=== PATIENT | male | born 1960 ===

== ENCOUNTER 2020-10-21 12:42 | Emergency (ER) | payer OTHER ==
--- OUTSIDE RECORDS SUMMARY | 2020-10-21 12:44 | XMS REPORT | Clinical Summary ---
:1960 Author Organization [facility] Address [address] [place] [address] Care Team Providers Name Role Phone Ba Jean DO Primary Care Provider Allergies Active Allergy Reactions Severity Noted Date Comments Penicillins Unknown Reaction 09/05/2019 Medications Medication Sig Dispensed Refills Start End Date Status Date B-complex with vitamin 0 Active C tablet 9 pfxxi-xx-7-dha-epa-adriano 0 Active spho-ast (MEGARED 9 OMEGA-3 KRILL OIL) 784-75-60-50 mg capsule riFAXimin (XIFAXAN) 0 Active 550 mg tablet 9 tamsulosin (FLOMAX) 2 Active 0.4 mg capsule 9 lidocaine-prilocaine Apply over 30 g 5 Active (EMLA) 2.5-2.5 % fistula 0 creamIndications: 30-45 min Encounter regarding before vascular access for dialysis dialysis for end-stage renal disease (HCC) acetaminophen-codeine Take 1 12 tablet 0 Active (TYLENOL WITH CODEINE tablet by 0 #3) 300-30 mg per mouth every tabletIndications: 6 (six) acute pain hours as needed for moderate pain for up to 3 days .acute pain. hydroxychloroquine Take by 0 A ctive (PLAQUENIL) 200 mg mouth daily. tablet gabapentin (NEURONTIN) Take 100 mg 0 Active 100 mg capsule by mouth 3 (three) times a day. atorvastatin (LIPITOR) 2 0 Discontinued 40 MG tablet 9 20 (Discon tinued by another clinician) FA-vit 0 01/23/20 Discontinu ed Gncsu-V-jljc-vitamin 9 20 (Discontinued by D3 (DIALYVITE anothe r 800-ULTRA D) 0.8-2,000 clinician) mg-unit tablet traMADol (ULTRAM) 50 0 01/23/20 Discontinued mg tablet 9 20 (Stop Taki ng at Discharge) levothyroxine 0 01/23/20 Discon tinued (SYNTHROID) 112 mcg 9 20 (Discontinued by tablet another clinician) traMADoL (Ultram) 50 Take 1 12 tablet 0 01/26/20 mg tabletIndications: tablet (50 0 20 acute pain mg total) by mouth every 6 (six) hours as needed for moderate pain for up to 3 days .acute pain. Active Problems Problem Noted Date Dialysis AV fistula malfunction 01/22/2020 Overview: Added automatically from request for vincenzo gudino [id number] End stage renal disease 09/11/2019 Overview: Added automatically from request for vincenzo gudino [id number] Encounter regarding vascular access for dialysis for e nd-stage renal 09/11/2019 disease Overview: Added automatically from request for vincenzo gudino [id number] Encounters Date Type Specialty Care Team Description 04/12/2020 Documentation Cardiovascular Delilah, [place] off ice call ROSENDO Carnes 02/22/2020 Office Visit Cardiovascular Milvia Coto Encounter re MARCY Peterson vascular acce ss for dialysis for en d-stage renal disease ( HCC) (Primary Dx) 02/22/2020 Travel 02/19/2020 Telephone Cardiovascular More Hernandez RN 02/19/2020 Travel 02/08/2020 Telemedicine Cardiovascular Jesse James Encounter r val Kim MD vascular acces s for dialysis for en d-stage renal disease ( HCC) (Primary Dx) 01/31/2020 Telephone Cardiovascular More Hernandez, ASHLI 01/26/2020 Telephone Cardiovascular More Hernandez RN 01/26/2020 Travel 01/23/2020 Surgery General Surgery Jesse James TUNNELED D IABRIGHT Kim MD CATHETER INSER TION (CHEST RIGHT ) 01/23/2020 Anesthesia Event General Surgery Gaby Forman MD Cheema, Ivelisse, FNP 01/23/2020 Hospital Encounter General Surgery Jesse James End stage renal disease (HCC); MD Judy Malfunction of arteriovenous dialysis fistula, initial encounter ([facility]) 01/23/2020 Telephone Cardiovascular Iain Anna 01/23/2020 Travel 01/22/2020 Prep for Surgery Cardiovascular David, End stage renal disease (HCC) (Primary Dx); ASHLI Aguero Malfunction of arteriovenous dialysis fistula, initial encounter ([facility]) 01/22/2020 Telephone Cardiovascular Trice Mazariegos MA 11/02/2019 Office Visit Cardiovascular Jesse James Encounter r egarding MD Judy vascular access for Milvia Coto dialysis for e nd-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[place], 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) (Primary Dx) after 10/21/2019 Surgical History Surgery Date Site/Laterality Comments APPENDECTOMY TONSILLECTOMY TOTAL HIP ARTHROPLASTY Left CARDIAC CATHETERIZATION CATARACT EXTRACTION Bilateral CREATION, AV FISTULA 10/02/2019 Left Procedure: LEFT ARM ARTERIOVENOUS FI STULA CREATION; Surge on: Jesse James i, MD; Location: [facility] OR; Service: Vascula r; Laterality: Left ; INSERTION, CATHETER, CENTRAL 01/23/2020 Chest/N/A Pro cedure: TUNNELED DIALYSIS VENOUS, TUNNELED, FOR CATHETER I NSERTION (CHEST HEMODIALYSIS RIGHT ); Surgeo n: Jesse James i, MD; Location: [facility] OR; Service: Vascula r; Laterality: N/A; Medical devices from this surgery are in t he Implants section. 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 Last Filed Vital Signs Vital Sign Reading Time Taken Comments Blood Pressure 112/58 02/22/2020 1:25 PM CDT Pulse 68 02/22/2020 1:25 PM CDT Temperature 36.5 C (97.7 F) 02/22/2020 1:25 PM CDT Respiratory Rate 17 01/23/2020 11:46 AM CDT Oxygen Saturation 100% 02/22/2020 1:25 PM CDT Inhaled Oxygen Concentration - - Weight 88.1 kg (194 lb 3.2 oz) 02/22/2020 1:25 PM CDT Height 175.3 cm (5' 9") 02/22/2020 1:25 PM CDT Body Mass Index 28.68 02/22/2020 1:25 PM CDT Plan of Treatment Health Maintenance Due Date Last Done Comments COVID-19 VACCINE (#1) 1974 COLONOSCOPY SCREENING 02/28/2008 SHINGLES VACCINES (#1) 02/28/2008 INFLUENZA VACCINE 05/25/2020 Implants Implanted Type Area Progressive Care Unit Registered Nurse Device Shelf Model / Identifier Expiration Serial / Date Lot Catheter Dialysis Glidepath [id number] Symmetric Tip - [id number] - [id number] Central N/A: N/A CR BARD 01/22/2021 [id number] / Implanted: Qty: 1 on 01/23/2020 by Jesse James MD at [facility] Venous 1111 / Catheters Procedures Procedure Name Priority Date/Time Associated Comments Diagnosis SC REMOVAL TUNNELED CV Routine 02/22/2020 1:30 Encounter R esults for this CATH W/O SUBQ PORT OR PM CDT regarding vascular procedure are in PUMP access for the results dialysis for section. end-stage renal disease (HCC) OR FL < 1 HOUR Routine 01/23/2020 11:00 Results f or this AM CDT procedure are i n the results section. POC PANEL 4 Routine 01/23/2020 9:20 Results for this AM CDT procedure are i n the results section. XR CHEST 1 VW PORTABLE STAT 01/23/2020 9:13 R esults for this AM CDT procedure are i n the results section. ESTIMATED GFR STAT 01/23/2020 9:12 Results fo r this AM CDT procedure are i n the results section. TYPE AND SCREEN STAT 01/23/2020 9:12 Results for this AM CDT procedure are i n the results section. PARTIAL THROMBOPLASTIN STAT 01/23/2020 9:12 R esults for this TIME (PTT) AM CDT procedure are i n the results section. PROTHROMBIN TIME WITH STAT 01/23/2020 9:12 Re sults for this INR AM CDT procedure are i n the results section. BASIC METABOLIC PANEL STAT 01/23/2020 9:12 Re sults for this AM CDT procedure are i n the results section. HC COMPLETE BLD COUNT STAT 01/23/2020 9:12 Re sults for this W/AUTO DIFF AM CDT procedure are i n the results section. ECG 12-LEAD STAT 01/23/2020 9:07 Results for this AM CDT procedure are i n the results section. after 10/21/2019 Results TDC Removal (02/22/2020 1:30 PM CDT) Narrative Performed At iMlvia Coto FNP 2019 2:10 PM TDC Removal Date/Time: 02/22/2020 2:10 PM Performed by: Milvia Coto F FOOD SERVICE AGENT Authorized by: Milvia Coto FNP TDC site anesthetized with local anesthetic. The cuff was dissected free and the catheter removed in its entirety. Pressure was held at the site to ensure hemostasis. Pressure dressing jonatan lied. Verbal and written instructions and ER warnings given. Consent: Consent obtained: Verbal Consent given by: Patient Risks discussed: Bleeding, infectio n and pain [place] protocol: Procedure explained and questions ans wered to patient or proxy's satisfaction: yes Site/side marked: yes Immediately prior to procedure a time out was called: yes Patient identity confirmed: Verball y with patient Post-procedure details: Patient tolerance of procedure: Miguel erated well, no immediate complications OR FL < 1 Hour (01/23/2020 11:00 AM CDT) Specimen Narrative Performed At EXAMINATION: OR FL < 1 HOUR HM [facility] CLINICAL HISTORY: None provided. IMPRESSION: 1. Fluoroscopy was provided in the operating. I was no t present during the procedure. 2. Please refer to the operative report for findings. 3. Total Dose: 1 fluoroscopic images. 6.8 minutes of fluoroscopy time. Procedure Note Interface, Radiology Results Incoming - 01/23/2020 12:20 PM CDT EXAMINATION: OR FL < 1 HOUR CLINICAL HISTORY: None provided. IMPRESSION: 1. Fluoroscopy was provided in the opera ting. I was not present during the procedure. 2. Please refer to the operative report for findings. 3. Total Dose: 1 fluoroscopic images. 6 .8 minutes of fluoroscopy time. Performing Organization Address City/State/ZIP Code Phon e Number [facility] [address] [facility] [place] [address] POC panel 4 (01/23/2020 9:20 AM CDT) POC sodium 141 135 - 148 [facility] mmol/L [facility] POC potassium 4.3 3.5 - 5.0 [facility] mmol/L [facility] POC hematocrit 32 (L) 41 - 51 % [facility] POC glucose 77 65 - 99 mg/dL [facility] Comment: SOLON Buncher Hand Name: [facility] Device ID: [id number] POC hemoglobin 10.9 (L) 14.0 - 18.0 [facility] g/dL [facility] Specimen Blood Performing Organization Address City/State/ZIP Code Phon e Number [facility] DEPARTMENT OF PATHOLOGY [address] [facility] [address] AND GENOMIC MEDICINE [facility] [address] [facility] [place] [address] HOSPITAL XR Chest 1 Vw Portable (01/23/2020 9:13 AM CDT) Specimen Narrative Performed At EXAMINATION: XR CHEST 1 VW PORTABLE [facility] CLINICAL HISTORY: pre-op COMPARISON: Chest x-ray 10/02/2019 IMPRESSION: Lines and tubes: There has been interval removal of th e right-sided tunneled dialysis catheter. Heart and mediastinum: Cardiomediastinal silhouette is stable. Lungs and pleura: There is mild pulmonary venous conge stion. There is no focal consolidation, pleural effusion, o r pneumothorax. Bones: No acute osseous abnormality. [facility]-[id number] Dictated and approved by residential service technician/fellow: Ra niharika Tam M.D. I, Scar Jones MD, personally reviewed the images and resident's/fellow's findings and agree with the final report. Procedure Note Interface, Radiology Results Incoming - 01/23/2020 10:18 AM CDT EXAMINATION: XR CHEST 1 VW PORTABLE CLINICAL HISTORY: pre-op COMPARISON: Chest x-ray 10/02/2019 IMPRESSION: Lines and tubes: There has been interval removal of the right-sided tunneled dialysis catheter. Heart and mediastinum: Cardiomediastinal silhouette is stable. Lungs and pleura: There is mild pulmonar y venous congestion. There is no focal consolidation, pleural effusion, or pneumothorax. Bones: No acute osseous abnormality. [facility]-[id number] Dictated and approved by radiology resid ent/fellow: Demarcus Tam M.D. I, Scar Jones MD, personally reviewed the images and resident's/fellow's findings and agree with the final report. Performing Organization Address City/[facility]/ZIP Code Phon e Number [facility] [address] [place] [address] Estimated GFR (01/23/2020 9:12 AM CDT) Estimated GFR 27 (A) mL/min/1.73 [facility] Comment: m2 SOLON Catergory Units Interpretation HOS PITAL G1 >=90 Normal or high G2 60-89 Mildly decreased G3a 45-59 Mildly to moderately decreas ed G3b 30-44 Moderately to severely decre ased G4 15-29 Severely decreased G5 <15 Kidney failure The eGFR was calculated using the Chronic Kidney Disea se Epidemiology Collaboration (CKD-EPI) equation. Interpretation is based on recommendations of the National Kidney Foundation-Kidney Disease Outcomes Adria lity Initiative (NKF-KDOQI) published in 2014. Specimen Performing Organization Address [facility] Phon e Number [facility] DEPARTMENT OF PATHOLOGY [address] [place] [address] X [address] [address] HOSPITAL Partial thromboplastin time, activated (01/23/2020 9:12 AM CDT) Pathologist [facility] PTT 38.9 (H) 23.0 - 36.0 [facility] Comment: [facility] PTT therapeutic range for unfractionated heparin is HOSPITAL 61.0-112.0 seconds which corresponds to Anti-Xa 0.3-0.7 U/ml. Specimen Blood Performing Organization Address [facility] Phon e Number [facility] DEPARTMENT OF PATHOLOGY [address] [place] [address], [place] [address] [place] [address] HOSPITAL Prothrombin time with INR (01/23/2020 9:12 AM CDT) Prothrombin time 15.0 (H) 11.5 - 14.5 [facility] INR 1.2 [facility] Comment: TOYA AGUILAR [facility] International Normalized Ratio (INR) is a therapeu [facility] HOSPITAL monitoring tool for patients who are stable on oral anticoagulant therapy. An INR of 2.0-3.0 is suggested for deep vein thrombosis/pulmonary embolism. Specimen Blood Performing Organization Address [facility]/State/ZIP Code Phon e Number [facility] DEPARTMENT OF PATHOLOGY [address] [place] [address] CBC with platelet and differential (01/23/2020 9:12 AM CDT) WBC 6.7 4.5 - 11.0 k/uL [facility] RBC 3.07 (L) 4.40 - 6.00 [facility] m/uL [facility] HGB 10.2 (L) 14.0 - 18.0 [facility] g/dL [facility] HCT 30.3 (L) 41.0 - 51.0 % [facility] MCV 98.7 82.0 - 100.0 fL [facility] MCH 33.2 27.0 - 34.0 pg [facility] MCHC 33.7 31.0 - 37.0 [facility] g/dL [facility] RDW - SD 53.2 37.0 - 55.0 fL [facility] MPV 10.0 6.9 - 11.0 fL [facility] Platelet count 88 (L) 150 - 400 K/uL [facility] Nucleated RBC 0.00 /100 WBC [facility] Neutrophils 48.4 39.0 - 69.0 % [facility] Lymphocytes 22.5 (L) 25.0 - 45.0 % [facility] Monocytes 8.1 0.0 - 10.0 % [facility] Eosinophils 19.0 (H) 0.0 - 5.0 % [facility] Basophils 1.9 (H) 0.0 - 1.0 % [facility] Immature granulocytes 0.1 0.0 - 1.0 % [facility] Specimen Blood Performing Organization Address City/State/ZIP Code Phon e Number [facility] DEPARTMENT OF PATHOLOGY [address] [place] [address] [address] [place] [address] HOSPITAL Type and screen (01/23/2020 9:12 AM CDT) Pathologist Sig nature ABO grouping O [facility] Rh type POS [facility] Antibody screen (gel) NEG [facility] Specimen Blood Performing Organization Address [facility] Phon e Number [facility] DEPARTMENT OF PATHOLOGY [id number] [place] [address] X [address] AND GENOMIC MEDICINE [facility] [id number] [place] [address] X [address] [facility] Basic metabolic panel (01/23/2020 9:12 AM CDT) Pathologist Sig [facility] Sodium 140 135 - 148 mEq/L [facility] Potassium 4.4 3.5 - 5.0 mEq/L [facility] Chloride 109 98 - 112 mEq/L [facility] CO2 18 (L) 24 - 31 mEq/L [facility] Anion gap 13@ANIO 7 - 15 mEq/L [facility] BUN 29 (H) 8 - 23 mg/dL [facility] Creatinine 2.46 (H) 0.70 - 1.20 mg/dL [facility] Glucose 81 65 - 99 mg/dL [facility] Calcium 9.1 8.8 - 10.2 mg/dL [facility] Specimen Blood Performing Organization Address [facility] Phon e Number [facility] DEPARTMENT OF PATHOLOGY [id number] [place] [address] AND GENOMIC MEDICINE [facility] [id number] [place] [address] [facility] ECG 12 lead (01/23/2020 9:07 AM CDT) Pathologist Sig [facility] Ventricular rate 71 [facility] Atrial rate 71 [facility] SC interval 200 [facility] QRSD interval 88 [facility] QT interval 406 [facility] QTC interval 441 [facility] P axis 1 78 [facility] QRS axis 1 79 [facility] T wave axis 72 [facility] EKG impression Normal sinus [facility] MUSE rhythm-Normal ECG-In automated comparison with ECG of 02-OCT-2019 07:37,-No significant change was found- Specimen Narrative Performed At This result has an attachment that is no t available. Performing Organization Address City/[facility] Phon e Number [facility] MUSE [address] [place] [address] after 10/21/2019 Advance Directives For more information, please contact: [phone] Type Date Recorded Patient Blasting Entryman Explanati on Advance Directives, Living Will 10/02/2019 5:55 AM and Medical Power of Machinist Class B Advance Directives, Living Will 01/23/2020 8:38 AM and Medical Power of Machinist Class B
--- OUTSIDE RECORDS SUMMARY | 2020-10-21 12:53 | XMS REPORT | Continuity of Care Document ---
:1960 Author Organization [employer] Care Team Providers Name Role Phone [facility] [place] [employer] Unavailable Un available Problems Problem Status Onset Classification Date Comments Sourc e Date Reported ANASARCA Active [address] F/U Active [address] KALEIGH, ANASARCA Active [address] KALEIGH Active [address],[facility] N18.3 - CHRONIC KIDNEY Active OPID DISEASE, STAGE 019 [facility] nn ASCITES Active [address] DIARRHEA, UNSPECIFIED Active [address] Hepatorenal syndrome [place] [address] [facility] CLINIC APPT Active [address] ANEMIA Active [address] DC ESTABLISHED VISIT Active [address] HIDA W/EF Active [address] Right upper quadrant [facility] pain [address] [place] [address] BELLY SWELLING [place] [address] [place] [address] LABH Active [address] Localized edema O PID 018 8 [place] D50.[address] CONSULT Active [address] Abnormal results of liver function studies 018 8 [facility] R79.[address] GUIDED Active LIVER BIOPSY 018 [place] R79.89, K80.20 Active 018 [facility] Adenomatous polyp of Resolved Problem [facility] colon (disorder) [address] [facility] Center, [facility]o [facility] Spine, OPID [place] History of adenomatous Active 06/25/2 Problem [facility] polyp of colon 017 8 Medic al (situation) Center,[facility] OPID [place],[facility] GI BLEEDING SYMPTOMS Active [place] [address] [place] Paresthesia (finding) Active Problem Data [facility] 014 9 migrated Medical from [facility], [facility] Ortho and on 03/23/15. Spine, ANATOLIY Dickens,[facility], [place] Abrasion AND/OR Resolved Problem Data [facility] [place] friction burn of foot 013 9 migrated Medical without infection from [facility], (disorder) [facility] an d on 03/23/15. Spine, ANATOLIY Dickens,[facility], [place] Alcoholic cirrhosis Active Problem Data [facility] (disorder) 013 9 migrated Medical from [facility] Ortho and on 03/23/15. Spine, ANATOLIY Dickens,[facility] Elevated levels of Active Problem Data [facility] transaminase & lactic 013 9 migrated Medical acid dehydrogenase from [facility], (finding) [facility] Ortho and on 03/23/15. Spine, ANAD Chrissie,[facility], [place] Alcoholic fatty liver Active Problem Data [place] (disorder) 013 7 migrated Land from [facility] on 03/23/15. Anemia (disorder) Resolved Problem [facility] 7 [facility] Illness, unspecified [facility] 9 [facility] Center Alcohol abuse Resolved Problem Data [place] (disorder) 9 migrated Medical from [facility], [facility] and on 03/23/15. Spine, ANATOLIY Dickens,[facility] Anemia due to blood Resolved Problem [facility] loss (disorder) 9 [facility], Ortho and Spine, ANATOLIY Dickens,[facility] Chronic kidney disease Active Problem Data [facility] stage 3 (disorder) 9 migrated edical from [facility], [facility] and on 03/23/15. Spine, ANATOLIY Dickens,[facility] Edema, generalized Active Problem [facility] [place] (finding) 9 [facility], Ortho and Spine, OPID Chrissie Gastric ulcer with Resolved Problem [facility] hemorrhage (disorder) [address] [place] [address] Center, [facility]o [facility] Spine, OPID Chrissie,[facility], [place] Hypercholesterolemia Active Problem [facility] (disorder) [address] [place] [address], Ortho and Spine, OPID Chrissie,[facility], [place] Hypertensive disorder, Active Problem [facility] systemic arterial 9 Sc dical (disorder) Center, [facility] Spine, OPID [place],[facility], [place] Hypothyroidism Active [place] ([place]order[place] [address] [place] [address], Ortho and Spine, OPID [place],[facility], [place] Injury of kidney Resolved Problem [facility] (disorder) [address] [place] [address], Ortho and Spine, OPIMindy Dickens Obesity (disorder) Active Problem [address], Ortho and Spine, OPID Chrissie,[facility], [place] Rheumatoid arthritis Active Problem Data [facility] (disorder) migrated Medical from [facility], [facility] and on 03/23/15. Spine, ANATOLIY Dickens,[facility] Acute kidney failure, [facility] unspecified [address] [place] [address] Angiodysplasia of [facility] stomach and duodenum Medical with bleeding Center Acute posthemorrhagic [facility] anemia [address] [place] [address] Center Secondary esophageal [facility] varices without [address] [place] [address] bleeding Center Portal hypertension [address], ANATOLIY Dickens Coagulation defect, [facility] unspecified [address] [place] [address] Alcohol dependence [facility] with withdrawal, 9 Med ical unspecified Center Personal history of [facility] nicotine dependence [address] [place] [address] Hyperlipidemia, [place] unspecified [address] [place] [address] Hypothyroidism, [place] unspecified [address] [place] [address] Center [facility]pat[facility] ([facility] [address] [place] [address] Center Chronic kidney [place] disease, stage 3 9 Med ical (moderate) Center Other diseases of [facility] stomach and duodenum 9 Medical Center Rheumatoid arthritis, [facility] unspecified [address] [place] [address] Center Hypertensive chronic [facility] kidney disease with 9 Medical stage 1 through stage Center 4 chronic kidney disease, or unspecified chronic kidney disease Fluid overload, [place] unspecified [address] [place] [address] Center Morbid (severe) [facility] ex[place] obesity due to excess 9 [facility] calories Center Body mass index (BMI) [facility] 36.0-36.9, adult [facility] ical Center 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 Cent er, without angina OPID pectoris [place] Thrombocytopenia, [facility] unspecified [address] [place] [address] Center Alcoholic cirrhosis of [facility] liver without ascites [address] [place] [address], OPID Chrissie Tremor, unspecified [address] Center Alcoholic hepatic [facility] failure without coma [address] [place] [address] Constipation, [place] as unspecified Medical Center Personal history of [facility] peptic ulcer disease [address] [place] [address] Splenomegaly, not OPID elsewhere classified [address] [place] [address] Personal history of [facility] other diseases of the [address] [place] [address] Alcohol dependence, in [facility] remission Medical Center Pure [facility] hypercholesterolemia, [address] [place] [address] unspecified Center Obesity, unspecified [address] Center Personal history of [facility] colonic polyps 9 [facility] al Center Calculus of [facility] gallbladder without [address] [place] [address] cholecystitis without Center, obstruction ANAD Chrissie,[facility] Congestive heart Active Problem [facility] failure (disorder) 9 [facility] Moderate protein Active Problem [facility] energy malnutrition 9 Medical (disorder) Center Chronic kidney disease Active Problem Data [place] stage 2 (disorder) 7 migrated L and from [facility] on 03/23/15. Dyslipidemia Active Problem Data [place] (disorder) 7 migrated Land from [facility] on 03/23/15. Essential hypertension Active Problem Data [place] (disorder) 7 migrated Land from [facility] on 03/23/15. Other specified abnormal findings of 8 [facility] blood chemistry Fatty (change of) liver, not elsewhere 8 [facility] classified Essential (primary) hypertension [address] Nonspecific elevation OPID of levels of 8 [place] transaminase and lactic acid dehydrogenase [LDH] Anemia, unspecified [address], OPIMindy Dickens Unspecified cirrhosis [facility] of liver [address] [place] [address], ANATOLIY Dickens,[facility] ACUTE KIDNEY FAILURE, Active [facility] ILLNESS, UNSPECIFIED Active [facility] ENCNTR FOR GENERAL Active [facility] ADULT MEDICAL EXAM W/ [facility] ANEMIA, UNSPECIFIED Active [facility] PERSONS ENCOUNTERING Active [facility] SERVICES IN [facility] Medications Medication Details Route Status Patient Ordering Order Source Instructions Provider Date Acetaminophen 325 650 mg = 2 Active 07/10[facility] [place] MG Oral Tablet tab, PO, Q4H, 2019 Med ical [Tylenol] X 30 day, # Center 360 tab, 0 Refill(s) tramadol 50 mg = 1 tab, Inactive 07/10[facility] [place] hydrochloride 50 PO, Daily, # 2019 Me dical MG Oral Tablet 14 tab, 0 Center Refill(s) atorvastatin 40 mg 40 mg = 1 tab, Active 07/10[facility] oral tablet PO, Bedtime, 0 2019 Medic al Refill(s) [place] Mirtazapine 15 MG 15 mg = 1 tab, Active 07/10[facility] Oral Tablet PO, Bedtime, 0 2019 Medic al Refill(s) [place] riFAXimin 550 mg 550 mg = 1 Active 07/10[facility] [place] oral tablet tab, PO, Q12H, 2019 Medic al # 60 tab, 3 Center Refill(s) amLODIPine 10 mg 10 mg = 1 tab, Active 07/10[facility] [place] oral tablet PO, Daily, # 2019 Medical 30 tab, 3 Center Refill(s) Lactulose 667 20 gm = 30 mL, Active 07/10[facility] [place] MG/ML Oral PO, TID, X 30 2019 Medical Solution day, # 2700 Center mL, 3 Refill(s) tamsulosin 0.4 mg 0.4 mg = 1 Active 07/10[facility] oral capsule cap, PO, QPM, 2019 Medic al # 30 cap, 3 Center Refill(s) tramadol Notes: Not to Inactive [place] hydrochloride 50 exceed 2019 Medical MG Oral Tablet 400mg/day. Center (Same As: [facility]) Amlodipine Notes: (Same No Longer [place] as: Norvasc) Active 2019 [facility] Tramadol Notes: Not to [place] exceed Active 2019 Medical 400mg/day. Center (Same As: [facility]) Fentanyl 25 microgram, Inactive [place] Route: IV, 2019 Medical ONCE, Dosing Center Weight 78.9, kg, Start date: 07/07/19 10:28:00 CDT, Stop date: 07/07/19 10:28:00 CDT Epinephrine 0.01 8 mL, Route: Inactive H [place] MG/ML / Lidocaine INTRADERM, 2019 Med ical Hydrochloride 10 Dosing Weight C enter MG/ML Injectable 78.9, kg, Solution ONCE, Start date: 07/07/19 10:27:00 CDT, Stop date: 07/07/19 10:27:00 CDT Fentanyl 75 microgram, Inactive [place] Route: IV, 2019 Medical ONCE, Dosing Center Weight 78.9, kg, Start date: 07/07/19 10:27:00 CDT, Stop date: 07/07/19 10:27:00 CDT Tramadol Notes: Not to [place]er [place] exceed Active 2018 Medical 400mg/day. Center (Same As: [facility]) tramadol Notes: Not to Inactive [place] hydrochloride 50 exceed 2019 Medical MG Oral Tablet 400mg/day. Center (Same As: [facility]) Sodium Chloride 250 mL, Rate: No Longer [place] 0.9% (titrate) 250 To prime line Active 2018 Medical mL and flush Center remaining blood products., Dosing Weight 78.9, kg, Route: IV, Total Volume: 250, Priority: Routine, Start Date: 07/06/19 9:24:00 CDT, Duration: 1 day, Stop date: 07/07/19 9:23:00 CDT, Replace Every: 24 hr, 0 Etanercept 25 mg, Route: No Longer [place] SUB-Q, Q-M and Active 2019 Medical Th, Dosing Center Weight 78.9, kg, Start date: 07/06/19 9:00:00 CDT, Duration: 30 day, Stop date: 08/03/19 9:00:00 CDT Hydralazine 10 mg, Route: Inactive [place] IVP, Q20Min, 2018 Medical Dosing Weight Center 78.9, kg, PRN Elevated BP, Start date: 07/04/19 7:20:00 CDT, Duration: 2 doses or times, Stop date: Limited # of times esmolol 10 mg, Route: Inactive [place] IVP, Q5Min, 2018 Medical Dosing Weight Center 78.9, kg, PRN Other -See Comment, Start date: 07/04/19 7:20:00 CDT, Duration: 5 doses or times, Stop date: Limited # of times Labetalol 10 mg, Route: [place] IVP, Q5Min, 2018 Medical Dosing Weight Center 78.9, kg, PRN Elevated BP, Start date: 07/04/19 7:20:00 CDT, Duration: 5 doses or times, Stop date: Limited # of times Metoprolol 1 mg, Route: [place] IVP, Q5Min, 2018 Medical Dosing Weight Center 78.9, kg, PRN Other -See Comment, Start date: 07/04/19 7:20:00 CDT, Duration: 5 doses or times, Stop date: Limited # of times Morphine 2 mg, Route: Inactive [place] IVP, Q5Min, 2018 Medical Dosing Weight Center 78.9, kg, PRN Pain Score 4-6, Start date: 07/04/19 7:20:00 CDT, Duration: 5 doses or times, Stop date: Limited # of times Flumazenil 0.2 mg, Route: Inactive [place] IVP, PRN, 2019 Medical Dosing Weight Center 78.9, kg, PRN Benzodiazepine Reversal, Initial dose, Start date: 07/04/19 7:20:00 CDT, Duration: 30 day, Stop date: 08/03/19 7:19:00 CDT Naloxone 0.4 mg, Route: [place] IVP, Q2MIN, 2019 Medical Dosing Weight Center 78.9, kg, PRN Narcotic Reversal, Start date: 07/04/19 7:20:00 CDT, Duration: 8 doses or times, Stop date: Limited # of times Ondansetron 4 mg, Route: Inactive [place] IVP, ONCE, 2019 Medical Dosing Weight Center 78.9, kg, PRN Nausea & Vomiting, Start date: 07/04/19 7:20:00 CDT tramadol Notes: Not to [place] Longer [place] hydrochloride 50 exceed Active 2019 Medical MG Oral Tablet 400mg/day. Center (Same As: [facility]) albumin human 25% 25 gm, Route: Inactive [facility] intravenous IVPB, ONCE, 2019 Medical solution Dosing Weight Center 78.9, kg, Start date: 07/01/19 9:35:00 CDT, Stop date: 07/01/19 9:35:00 CDT, Indication: Intradialytic Hypotension - See comments tramadol Notes: Not to Inactive [facility] hydrochloride 50 exceed 2019 Medical MG Oral Tablet 400mg/day. Center (Same As: [facility]) Lasix Notes: (Same Inactive [facility] as: Lasix) 2019 Medical MEDICATION Center WASTE Product Size: 40 mg Product Wasted: ___ mg Lactulose 667 Notes: (Same No Longer [facility] MG/ML Oral as:Chronulac) Active 2019 Medical Solution Center Lactulose 667 20 gm, Route: Inactive [facility] MG/ML Oral DHT, Drug 2019 Medical Solution form: SYRP, Center Q8H, Dosing Weight 78.9, kg, Start date: 06/30/19 16:00:00 CDT, Duration: 30 day, Stop date: 07/30/19 8:00:00 CDT, 0 Lasix Notes: (Same Inactive [facility] as: Lasix) 2019 Medical MEDICATION Center WASTE Product Size: 40 mg Product Wasted: ___ mg Lasix 100 mg, Route: Inactive [facility] IVP, Drug 2019 Medical form: INJ, Center ONCE, Dosing Weight 78.9, kg, Start date: 06/30/19 13:20:00 CDT, Stop date: 06/30/19 13:20:00 CDT Levothroid Notes: Take 1 No Longer [place] hour before or Active 2019 Medical 2 hours after Center meal; Enteral feeds may interefere with the absorption of this medication.([facility] as:Levothroid) rifaximin Notes: Same No Longer [place] as: Xifaxan Active 2019 Medical Center tramadol Notes: Not to [place] Longer [place] hydrochloride 50 exceed Active 2019 Medical MG Oral Tablet 400mg/day. Center (Same As: Ultram) Flomax Notes: (Same No Longer [facility] As: Flomax) Active 2019 Medical "Do Not Crush" Center Zinc Sulfate Notes: (Zinc No Longer [place] sulfate Active 2019 Medical capsule) - 220 Center mg Zinc sulfate = 50 mg elemental zinc Same as Zinc Sulfate Thyroxine 120 microgram, Inactive [place] as Route: PO, 2019 Medical Daily, Dosing Center Weight 78.9, kg, Priority: NOW, Start date: 06/29/19 10:09:00 CDT, Duration: 30 day, Stop date: 07/29/19 9:00:00 CDT Flomax 0.4 mg, Route: Inactive [facility] PO, Daily, 2019 Medical Dosing Weight Center 78.9, kg, Priority: NOW, Start date: 06/29/19 10:08:00 CDT, Duration: 30 day, Stop date: 07/29/19 9:00:00 CDT Etanercept Notes: (Same No Longer [place] as: Enbrel) Active 2019 Medical Non-Formulary Center nxstage pureflow 5,000 mL, Inactive [place] rfp-400 5000ml Route: 2019 Medical SOLN 5000 mL DIALYSIS, Center Irrigation Site: Abdomen, lower quadrant, rt, 4,000 ml/hr, 1.3 hr, Total Volume: 5,000 mL, Priority: Routine, "For Irrigation Only", Start date: 06/28/19 20:00:00 CDT, Duration: 8 hr, Stop date: 06/29/19 3:59:00 CDT physiological Notes: NxStage No Longer 06/29/ H [place] irrigating RFP-400 = Active 2019 Medical solution K2/Ca3 Total Center ingredients in bag Na 140meq/L; K 2meq/L; HCO 35meq/L; Ca 3meq/L; Magnesium 1meq/L; CL 111meq/L; Glucose 100mg/dL; "Break seal Between compartments and mix before hanging" rifaximin Notes: (Same No Longer [place] as: Xifaxan) Active 2019 [facility] physiological Notes: NxStage Inactive [facility] irrigating RFP-400 = 2019 Medical solution K2/Ca3 Total Center ingredients in bag Na 140meq/L; K 2meq/L; HCO 35meq/L; Ca 3meq/L; Magnesium 1meq/L; CL 111meq/L; Glucose 100mg/dL; "Break seal Between compartments and mix before hanging" Potassium Chloride Notes: (Same Inactive [facility] as: KCL) 2019 Medical Infuse no Center faster than 10 mEq/hr if given peripherally. Magnesium Sulfate Notes: WASTE: Inactive [facility] F/P - Sink; E 2019 [facility] Trash Bin Magnesium Oxide Notes: (Same Inactive [facility] as: Mag-Ox 2019 Medical 400) Magnesium Center oxide [id number] elemental magnesium Dose=____mg magnesium oxide (___mg elemental magnesium) potassium Notes: (Same Inactive [facility] phosphate as: K 2019 Medical Phosphate.) Center Do not infuse phosphorous concurrently in the same line as TPN or IVF that contains calcium. For double lumen central lines, phosphorous may be infused in a separate lumen from TPN. 1 mMol phoshate has 1.47 mEq potassium Infuse over 4 hours potassium Notes: (Same Inactive [facility] phosphate-sodium as: Phos-NaK) 2019 M edical phosphate 250 Each 1.5 gm Center mg-280 mg-160 mg pkt has 250mg oral powder for phosphorous. reconstitution Mix w/2.5oz water and stir. sodium phosphate Notes: Infuse Inactive [facility] over 4 hour. 2019 Medical Do not infuse Center phosphorous concurrently in the same line as TPN or IVF that contains calcium. For double lumen central lines, phosphorous may be infused in a separate lumen from TPN. Calcium Chloride Notes: WASTE: Inactive [facility] [place] F/P - Sink; E 2019 Medical [facility] Center Trash Bin Vancomycin 2001 mg: Inactive [place] infuse over 2019 Medical 2.5 hours For Center adult patients only: Round to nearest 250 mg per Medical Staff approval MEDICATION WASTE Product Size: 1000 mg Product Wasted: ___ mg Lactulose Notes: (Same Inactive [place] as:Chronulac) 2019 Medical Center Octreotide Notes: (Same No Longer [place] As: Active 2019 Medical SandoSTATIN). Center Refrigerate. MEDICATION WASTE Product Size: 50 microgram Product Wasted: _0__ microgram Vancomycin 2001 mg: No Longer [place] infuse over Active 2019 Medical 2.5 hours For Center adult patients only: Round to nearest 250 mg per Medical Staff approval MEDICATION WASTE Product Size: 1000 mg Product Wasted: ___ mg Doxazosin Notes: (Same No Longer [place] as: Cardura) Active 2019 Medical Center Folic Acid Notes: (Same No Longer [place] as: Folvite) Active 2019 Medical Center cefepime Notes: (Same No Longer [facility] As: Maxipime) Active 2019 Medical Center MEDICATION WASTE Product Size: 1000 mg Product Wasted: __0_ mg Hydralazine 10 mg, Route: Inactive [place] IV, Q6H, 2019 Medical Dosing Weight Center 78.9, kg, Start date: 06/27/19 6:00:00 CDT, Duration: 30 day, Stop date: 07/27/19 0:00:00 CDT Versed Notes: (Same Inactive [facility] as: Versed) 2019 Medical MEDICATION Center WASTE Product Size: 2 mg Product Wasted: ___ mg Hydralazine Notes: (Same No Longer [place] as: Active 2019 Medical Apresoline) Center Push over 5 minutes Lactulose 667 Notes: (Same No Longer [place] MG/ML Oral as:Chronulac) Active 2019 Medical [facility] Center cefepime Notes: (Same No Longer [place] As: Maxipime) Active 2019 Medical Center MEDICATION WASTE Product Size: 1000 mg Product Wasted: ___ mg Vancomycin 2001 mg: Inactive [facility] infuse over 2019 Medical 2.5 hours For Center adult patients only: Round to nearest 250 mg per Medical Staff approval MEDICATION WASTE Product Size: 1000 mg Product Wasted: ___ mg Lactulose 667 Notes: (Same Inactive [place] MG/ML Oral as:Chronulac) 2019 [facility] Solution [place] cefTRIAXone Notes: (Same Inactive [place] As: Rocephin). 2019 Medical Use with 100 Center mL NS and infuse over 30 min MEDICATION WASTE Product Size: 1000 mg Product Wasted: ___ mg Lactulose 667 Notes: (Same Inactive [place] MG/ML Oral as:Chronulac) 2019 [facility] albumin human 5% 500 mL, Route: Inactive [facility] intravenous IV, Dosing 2019 Medical solution Weight 78.9, Center kg, ONCE, Start date: 06/26/19 9:22:00 CDT, Stop date: 06/26/19 9:22:00 CDT, Indication: Hepatorenal syndrome rifaximin Notes: Same No Longer [facility] as: Xifaxan Active 2019 [facility] Lactulose 667 Notes: (Same Inactive [place] MG/ML Oral as:Chronulac) 2019 [facility] Enbrel Prefilled 25 mg, Route: No Longer [facility] Syringe SUB-Q, Drug Active 2019 Medical form: PDR/INJ, Center Q-M and Th, Dosing Weight 85.8, kg, Start date: 06/26/19 9:00:00 CDT, Stop date: 07/17/19 9:00:00 CDT, 0 Thyroxine Notes: (Same No Longer [place] as: Synthroid) Active 2019 [facility] Reconstitute Center with 5ml of NS. Final concentration = 20 micrograms/ml. Use immediately after reconstitution and discard remaining solution. lactulose\\water - Notes: (Same No Longer [place] enema as:Chronulac) Active 2019 [facility] Lactulose 667 Notes: (Same Inactive [place] MG/ML Oral as:Chronulac) 2019 Medical Solution Center lactulose\\water - Notes: (Same Inactive [facility] enema as:Chronulac) 2019 Medical Center Benzocaine 140 Notes: Inactive [place] MG/ML / butamben Cetacaine 2019 Medic al 20 MG/ML / (benzocaine-te Center Tetracaine 20 tracaine-butam MG/ML Mucosal riley 14-2-2%) [place] [Cetacaine] WASTE: Aerosol - Return to Pharmacy (Same As: Cetacaine) Haldol 2.5 mg, Route: Inactive [facility] IV, ONCE, 2018 Medical Dosing Weight Center 78.9, kg, Start date: 06/25/19 15:37:00 CDT, Stop date: 06/25/19 15:37:00 CDT Haldol 2 mg, Route: Inactive [facility] IV, ONCE, 2018 Medical Dosing Weight Center 78.9, kg, Start date: 06/25/19 15:05:00 CDT, Stop date: 06/25/19 15:05:00 CDT Lactulose 1,000 ml, Inactive [facility] Route: [place], 2019 Medical Drug Form: [place] ENRIQUE, Dosing Weight 78.9, kg, Q6H, NOW, Start date: 06/25/19 14:49:00 CDT, Duration: 30 day, Stop date: 07/25/19 12:00:00 CDT, 300 mL lactulose + 700 mL water Versed Notes: (Same Inactive [facility] as: Versed) 2019 Medical MEDICATION Center WASTE Product Size: 2 mg Product Wasted: ___ mg Versed Notes: (Same Inactive [facility] as: Versed) 2019 Medical MEDICATION Center WASTE Product Size: 2 mg Product Wasted: ___ mg physiological Notes: NxStage No Longer H [place] irrigating [id number] = Active 2019 Medical solution K4/Ca3 Total Center ingredients in bag Na 140meq/L; K 4meq/L; HCO 35meq/L; Ca 3meq/L; Magnesium 1meq/L; CL 113meq/L; Glucose 100mg/dL; "Break seal Between compartments and mix before hanging" nxstage pureflow 5,000 mL, Inactive [place] [id number] 5000ml Route: 2019 Medical SOLN 5,000 mL DIALYSIS, Center Irrigation Site: Other: See Comments, 2,500 ml/hr, 2 hr, Total Volume: 5,000 mL, "For Irrigation Only", Start date: 06/25/19 13:12:00 CDT, Duration: 30 day, Stop date: 07/25/19 13:11:00 CDT Potassium Chloride Notes: (Same No Longer [place] as: KCL) Active 2018 Medical Infuse no Center faster than 10 mEq/hr if given peripherally. Magnesium Sulfate Notes: WASTE: No Longer [facility] F/P - Sink; E Active 2019 [facility] Trash Bin Magnesium Oxide Notes: (Same No Longer [facility] as: Mag-Ox Active 2019 [facility] 400) Magnesium Center oxide [id number] elemental magnesium Dose=____mg magnesium oxide (___mg elemental magnesium) potassium Notes: (Same No Longer [facility] phosphate as: K Active 2019 [facility] Phosphate.) Center Do not infuse phosphorous concurrently in the same line as TPN or IVF that contains calcium. For double lumen central lines, phosphorous may be infused in a separate lumen from TPN. 1 mMol phoshate has 1.47 mEq potassium Infuse over 4 hours potassium Notes: (Same No Longer [facility] phosphate-sodium as: Phos-NaK) Active 2018 edical phosphate 250 Each 1.5 gm Center mg-280 mg-160 mg pkt has 250mg oral powder for phosphorous. reconstitution Mix w/2.5oz water and stir. sodium phosphate Notes: Infuse No Longer [facility] over 4 hour. Active 2019 Medical Do not infuse Center phosphorous concurrently in the same line as TPN or IVF that contains calcium. For double lumen central lines, phosphorous may be infused in a separate lumen from TPN. Calcium Chloride Notes: WASTE: No Longer [facility] F/P - Sink; E Active 2019 [facility] Trash Bin Lactulose 667 Notes: (Same No Longer [facility] MG/ML Oral as:Chronulac) Active 2019 [facility] Solution Center cefTRIAXone Notes: (Same [place] Longer [place] As: Rocephin). Active 2019 Medical Use with 100 Center mL NS and infuse over 30 min MEDICATION WASTE Product Size: 2000 mg Product Wasted: ___ mg Ceftriaxone 1 gm, Route: Inactive [place] as IVPB, Drug 2019 Medical form: PDR/INJ, Center [id number], Dosing Weight 78.9, kg, Start date: 06/24/19 13:05:00 CDT, Duration: 5 day, Stop date: 06/28/19 13:05:00 CDT, ABX Indication: Other (specify in Comments) Lactulose 667 Notes: (Same Inactive [place] MG/ML Oral as:Chronulac) 2019 Medical Solution [place] Midodrine Notes: Same [place] Long[place] Proamatine Active 2019 [facility] Lactulose 667 Notes: (Same No Longer [place] MG/ML Oral as:Chronulac) Active 2019 [facility] Solution [place] albumin human Notes: Lot #: No Longer [place] Active 2018 [facility] Mfg: Center (Same as: Plasbumin-25) "blood product derivative" WASTE: F/P - Red; E -Red MEDICATION WASTE Product Size: 25 gm Product Wasted: ___ gm Enbrel Prefilled 25 mg, Route: Inactive [place] Syringe SUB-Q, Drug 2018 Medical form: PDR/INJ, Center ONCE, Dosing Weight 85.8, kg, Priority: NOW, Start date: 06/23/19 11:46:00 CDT, Stop date: 06/23/19 11:46:00 CDT, 0 Enbrel Prefilled Notes: (Same No Longer [place] Syringe as: Enbrel) Active 2019 Medical Non-Formulary Center Midodrine Notes: (Same [place] as:Proamatine) Active 2019 [facility] octreotide 1,250 247.5 mL, No Longer [place] microgram + Sodium Rate: 10 Active 2018 Medi rick Chloride 0.9% IV ml/hr, Infuse C enter 247.5 mL over: 25 hr, Route: IV, Dosing Weight 85.8 kg, Total Volume: 250, Start date: 06/23/19 8:45:00 CDT, Duration: 30 day, Stop date: 07/23/19 8:44:00 CDT, 2.07, m2, 0 heparin Notes: porcine No Longer [place] heparin Active 2019 [facility] Folic Acid Notes: (Same No Longer [place] as as: Folvite) Active 2019 [facility] Hydroxychloroquine Notes: (Same No Longer [facility] Sulfate 200 MG as: Plaquenil) Active 2019 Sc dical Oral Tablet Hydroxychloroq Cente r uine sulfate 200 mg = 155 mg hydroxychloroq uine base. If treating malaria, verify dose as salt vs. base per CDC guideline L-Carnitine Notes: (Same [place] Longer [place] As: Active 2019 [facility] L-carnitine) [place] potassium chloride Notes: (Same Inactive [facility] 20 mEq oral as: K-Dur 20) 2019 Medica l tablet, extended "Do Not Crush" Center release Give with food and full glass of water For patients unable to swallow tablet, dissolve in one half glass of water. Allow about 2 minutes for the tablets to disintegrate. Stir before giving to prepare slurry and administer. Please exclude Patient’ s with feeding tube less than 14 [place] (Dobhoff, J-tube etc) and pediatric and patients. Thyroxine Notes: Take 1 No Longer [facility] as hour before or Active [address] [place] [address] 2 hours after Center meal; Enteral feeds may interefere with the absorption of this medication.([facility] as:Levothroid) atorvastatin Notes: (Same No Longer [place] as: Lipitor) Active 2019 [facility] Mirtazapine Notes: (Same [place] Longer [place] as:Remeron) Active 2019 [facility] Enbrel Prefilled Notes: (Same No Longer [facility] Syringe as: Enbrel) Active 2019 [facility] Non-Formulary [place] albumin human 25% Notes: Lot #: No Longer [facility] intravenous Active 2019 Medica l solution Mfg: Center (Same as: Plasbumin-25) "blood product derivative" WASTE: F/P - Red; E -Red MEDICATION WASTE Product Size: 25 gm Product Wasted: ___ gm Furosemide 20 MG 20 mg = 1 tab, No Longer [place] Oral Tablet PO, BID Active 2019 [facility] spironolactone 50 50 mg = 1 tab, No Longer 06/19 [place] mg oral tablet PO, Daily Active 2019 [facility] tramadol 50 mg = 1 tab, No Longer [place] as hydrochloride 50 PO, Q6H, PRN Active 2018 Sc dical MG Oral Tablet Pain Center bumetanide 10 mg + Notes: (Same No Longer [place] Sodium Chloride As: Bumex) Active 2018 Medic al 0.9% (titrate) 60 Center mL rifaximin Notes: Same No Longer [facility] as: Xifaxan Active 2018 [facility] Furosemide 40 MG 40 mg = 1 tab, No Longer [place] Oral Tablet PO, Daily, # Active 2019 Medical 30 tab, 0 Center Refill(s) Dextrose 50% 12.5 gm, 25 [place]er [place] Syringe mL, Route: Active 2018 Medical IVP, Drug Center Form: INJ, Dosing Weight 85.8, kg, PRN, PRN Blood Glucose Results, Start date: 06/19/19 16:22:00 CDT, Duration: 30 day, Stop date: 07/19/19 16:21:00 CDT, 0 Glucagon 1 mg, Route: No Longer [place] IM, Drug form: Active 2018 [facility] PDR/INJ, PRN, Center Dosing Weight 85.8, kg, PRN Blood Glucose Results, Start date: 06/19/19 16:22:00 CDT, Duration: 30 day, Stop date: 07/19/19 16:21:00 CDT, 0 tramadol Notes: Not to [place] Longer [place] hydrochloride 50 exceed Active 2018 Medical MG Oral Tablet 400mg/day. Center (Same As: Ultra) Mirtazapine 15 MG 15 mg = 1 tab, On Hold [place] Oral Tablet PO, Bedtime, # 2019 Medic al 30 tab, 0 Center Refill(s) L-Carnitine 250 mg, Route: No Longer [facility] PO, Daily, Active 2019 Medical Dosing Weight Center 83.5, kg, Start date: 04/22/19 9:00:00 CDT, Duration: 30 day, Stop date: 05/21/19 9:00:00 CDT L-Carnitine 250 mg 250 mg, PO, Active H [place] oral capsule Daily, # 90 2019 Medical ea, 3 Center Refill(s), Pharmacy: [place] [address] Albumin 25% Notes: Lot #: Inactive [place] intravenous 2019 Medica l solution (HC) Mfg: [place] (Same as: Plasbumin-25) "blood product derivative" WASTE: F/P - Red; E -Red MEDICATION WASTE Product Size: 25 gm Product Wasted: ___ gm MAGNESIUM Notes: (Same Inactive [facility] GLUCONATE as: [place]) 2019 [facility] Magnesium [place] gluconate 500mg=27mg elemental magnesium Dose= mg magnesium gluconate(___m g elemental magnesium) Enbrel Notes: (Same No Longer [facility] as: Enbrel) Active 2019 [facility] Non-Formulary Center Potassium Chloride Notes: (Same No Longer [facility] as: K-Dur 20) Active 2019 Medical "Do Not Crush" Center Give with food and full glass of water For patients unable to swallow tablet, dissolve in one half glass of water. Allow about 2 minutes for the tablets to disintegrate. Stir before giving to prepare slurry and administer. Please exclude Patient’ s with feeding tube less than 14 [place] (Dobhoff, J-tube etc) and pediatric and patients. heparin Notes: porcine [place] Longer [place] heparin Active 2019 [facility] Pooja Sanchez Notes: (Same No Longer [facility] As: [place] Active 2019 [facility] Daniel) "Do Center Not Crush" Potassium Chloride Notes: (Same Inactive [facility] as: K-Dur 20) 2019 [facility] "Do Not Crush" Center Give with food and full glass of water For patients unable to swallow tablet, dissolve in one half glass of water. Allow about 2 minutes for the tablets to disintegrate. Stir before giving to prepare slurry and administer. Please exclude Patient’ s with feeding tube less than 14 [place] (Dobhoff, J-tube etc) and pediatric and patients. Albumin 25% Notes: Lot #: No Longer [place] intravenous Active 2019 Medica l solution (HC) Mfg: [place] (Same as: Plasbumin-25) "blood product derivative" WASTE: F/P - Red; E -Red MEDICATION WASTE Product Size: 25 gm Product Wasted: ___ gm Bumex Notes: (Same No Longer [facility] As: Bumex) Active 2019 [facility] Thyroxine Notes: Take 1 No Longer [place] as hour before or Active 2019 [place] [address] hours after Center meal; Enteral feeds may interefere with the absorption of this medication.([facility] as:Levothroid) Hydroxychloroquine Notes: (Same No Longer [facility] Sulfate 200 MG as: Plaquenil) Active 2019 Sc dical Oral Tablet Hydroxychloroq Cente r uine sulfate 200 mg = 155 mg hydroxychloroq uine base. If treating malaria, verify dose as salt vs. base per CDC guideline Folic Acid Notes: (Same No Longer [place] as as: Folvite) Active 2019 [facility] potassium chloride Notes: (Same Inactive [facility] 20 mEq oral as: K-Dur 20) 2019 Medica l tablet, extended "Do Not Crush" Center release Give with food and full glass of water For patients unable to swallow tablet, dissolve in one half glass of water. Allow about 2 minutes for the tablets to disintegrate. Stir before giving to prepare slurry and administer. Please exclude Patient’ s with feeding tube less than 14 [place] (Dobhoff, J-tube etc) and pediatric and patients. atorvastatin Notes: (Same No Longer [facility] [place] as: Lipitor) Active 2019 [facility] Albumin 25% Notes: Lot #: No Longer [place] intravenous Active 2019 Medica l solution (HC) Mfg: [place] (Same as: Plasbumin-) "blood product derivative" WASTE: F/P - Red; E -Red MEDICATION WASTE Product Size: 25 gm Product Wasted: ___ gm bumetanide 10 mg + Notes: (Same No Longer [place] Sodium Chloride As: Bumex) Active 2018 Medic al 0.9% (titrate) 60 Center mL tramadol Notes: Not to [place] hydrochloride 50 exceed Active 2018 Medical MG Oral Tablet 400mg/day. Center (Same As: Ultram) tramadol 50 mg = 1 tab, Active [place] hydrochloride 50 PO, Q6H, PRN 2019 Me dical MG Oral Tablet Pain Score Center 7-10, 0 Refill(s) rifaximin Notes: Same No Longer [place] as: Xifaxan Active 2019 [facility] Dextrose 50% 12.5 gm, 25 [place] Syringe mL, Route: Active 2018 Medical IVP, Drug Center Form: INJ, Dosing Weight 91.364, kg, PRN, PRN Blood Glucose Results, Start date: 04/18/19 15:48:00 CDT, Duration: 30 day, Stop date: 05/18/19 15:47:00 CDT, 0 Glucagon 1 mg, Route: No Longer [place] IM, Drug form: Active 2018 Medical PDR/INJ, PRN, Center Dosing Weight 91.364, kg, PRN Blood Glucose Results, Start date: 04/18/19 15:48:00 CDT, Duration: 30 day, Stop date: 05/18/19 15:47:00 CDT, 0 0.51 ML Etanercept 50 mg, SUB-Q, On Hold [place] 50 MG/ML Prefilled 2x/Wk, # 4 ea, 2019 Medical Syringe [Enbrel] 0 Refill(s) [place] enalapril 1.25 IV, Q6H, 0 On Hold [place] as mg/mL intravenous Refill(s) 2019 Medi rick solution Center Furosemide 40 MG 40 mg = 1 tab, Active [facility] Oral Tablet PO, Daily, # 2019 Medical 30 tab, 0 Center Refill(s), Pharmacy: [place] [address] cephalexin 500 mg 500 mg = 1 Active [facility] oral capsule cap, PO, Q6H, 2019 Medic al X 4 day, # 16 Center cap, 0 Refill(s), Pharmacy: [place] [address] spironolactone 100 100 mg = 1 Active [facility] mg oral tablet tab, PO, 2019 Medical Daily, # 30 Center tab, 0 Refill(s), Pharmacy: [place] [address] Lasix Notes: (Same Inactive [facility] as: Lasix) 2019 Medical MEDICATION Center WASTE Product Size: 40 mg Product Wasted: ___ mg Keflex Notes: Take on [place] Longer [place] empty stomach. Active 2019 Medical (Same As: [place] Keflex) Potassium Chloride 10 mEq, 50 mL, Inactive 01/15 [facility] Route: IVPB, 2019 Medical Drug form: Center INJ, Q1H, Dosing Weight 95.909, kg, Total Dose = 20 meq, Start date: 01/15/19 9:00:00 CDT, Duration: 2 doses or times, Stop date: 01/15/19 10:00:00 CDT, Peripheral Line Furosemide 20 MG Notes: (Same No Longer [facility] Oral Tablet as: Lasix) Active 2019 Medical [Lasix] May cause GI Center upset. Give with food or milk. Potassium Chloride 20 mEq, Route: Inactive 01/15 [facility] PO, ONCE, 2019 Medical Dosing Weight Center 95.909, kg, Start date: 01/15/19 8:41:00 CDT, Stop date: 01/15/19 8:41:00 CDT Lasix Notes: (Same Inactive [facility] as: Lasix) 2019 Medical MEDICATION Center WASTE Product Size: 40 mg Product Wasted: ___ mg Magnesium Oxide Notes: (Same Inactive [facility] as: Mag-Ox 2019 Medical 400) Magnesium Center oxide [id number] elemental magnesium Dose=____mg magnesium oxide (___mg elemental magnesium) Potassium Chloride Notes: (Same Inactive [facility] as: K-Dur 20) 2019 Medical "Do Not Crush" Center Give with food and full glass of water For patients unable to swallow tablet, dissolve in one half glass of water. Allow about 2 minutes for the tablets to disintegrate. Stir before giving to prepare slurry and administer. Please exclude Patient’ s with feeding tube less than 14 [place] (Dobhoff, J-tube etc) and pediatric and patients. Lasix Notes: (Same Inactive [place] as: Lasix) 2019 Medical MEDICATION Center WASTE Product Size: 40 mg Product Wasted: ___ mg Hydroxychloroquine Notes: (Same No Longer [place] Sulfate 200 MG as: Plaquenil) Active 2018 Sc dical Oral Tablet Hydroxychloroq Cente r uine sulfate 200 mg = 155 mg hydroxychloroq uine base. If treating malaria, verify dose as salt vs. base per CDC guideline ferrous sulfate Notes: Give No Longer [place] with food. Active 2019 Medical "Do Not Crush" Center Furosemide 20 MG Notes: (Same Inactive H [place] Oral Tablet as: Lasix) 2019 Medical [Lasix] May cause GI Center upset. Give with food or milk. Lasix 40 mg, Route: Inactive [place] IVP, Drug 2019 Medical form: INJ, Center ONCE, Dosing Weight 95.909, kg, Start date: 01/14/19 7:52:00 CDT, Stop date: 01/14/19 7:52:00 CDT Thyroxine Notes: Take 1 No Longer [place] as hour before or Active 2019 Medical 2 hours after Center meal; Enteral feeds may interefere with the absorption of this medication.([facility] as:Levothroid) tramadol Notes: Not to Inactive [facility] hydrochloride 50 exceed 2019 Medical MG Oral Tablet 400mg/day. Center (Same As: Ultram) potassium chloride Notes: (Same Inactive [facility] 20 mEq oral as: K-Dur 20) 2019 Medica l tablet, extended "Do Not Crush" Center release Give with food and full glass of water For patients unable to swallow tablet, dissolve in one half glass of water. Allow about 2 minutes for the tablets to disintegrate. Stir before giving to prepare slurry and administer. Please exclude Patient’ s with feeding tube less than 14 [place] (Dobhoff, J-tube etc) and pediatric and patients. atorvastatin Notes: (Same No Longer [place] as: Lipitor) Active 2019 [facility] Center Ceftriaxone Notes: (Same [place] Longer [place] As: Rocephin). Active 2019 Medical Use with 100 Center mL NS and infuse over 30 min MEDICATION WASTE Product Size: 1000 mg Product Wasted: ___ mg rifaximin Notes: Same No Longer [facility] as: Xifaxan Active 2019 [facility] Spironolactone Notes: (Same No Longer [facility] As: Aldactone) Active 2019 [facility] heparin sodium, Notes: porcine No Longer [facility] porcine 2500 heparin Active 2019 [facility] UNT/ML Injectable Center Solution Potassium Chloride Notes: (Same Inactive [facility] as: KCL) 2019 Medical Infuse over 2 Center hours. Lasix Notes: (Same Inactive [facility] as: Lasix) 2019 Medical MEDICATION Center WASTE Product Size: 40 mg Product Wasted: ___ mg Folic Acid 1 MG 1 mg = 1 tab, Active [facility] Oral Tablet PO, Daily 2019 [facility] 0.4 ML adalimumab 40 mg, SUB-Q, Active [facility] 100 MG/ML ONCE, (every 2 2018 [facility] Prefilled Syringe weeks) Center [[place]] tramadol Notes: Not [facility] exceed Active 2019 Medical MG Oral Tablet 400mg/day. Center (Same As: Ultram) Potassium Chloride Notes: (Same Inactive [facility] as: K-Dur 20) 2019 Medical "Do Not Crush" Center Give with food and full glass of water For patients unable to swallow tablet, dissolve in one half glass of water. Allow about 2 minutes for the tablets to disintegrate. Stir before giving to prepare slurry and administer. Please exclude Patient’ s with feeding tube less than 14 [place] (Dobhoff, J-tube etc) and pediatric and patients. Glucagon 1 mg, Route: No Longer [facility] IM, Drug form: Active 2019 Medical PDR/INJ, PRN, Center Dosing Weight 95.909, kg, PRN Blood Glucose Results, Start date: 01/13/19 14:07:00 CDT, Duration: 30 day, Stop date: 02/12/19 14:06:00 CDT Dextrose 50% 25 gm, 50 mL, No Longer [place] Syringe Route: IVP, Active 2019 Medical Drug Form: Center INJ, Dosing Weight 95.909, kg, PRN, PRN Blood Glucose Results, Start date: 01/13/19 14:07:00 CDT, Duration: 30 day, Stop date: 02/12/19 14:06:00 CDT Ondansetron Notes: (Same [place] Longer [place] as: Zofran) Active 2019 Medical MEDICATION Center WASTE Product Size: 4 mg Product Wasted: ___ mg Acetaminophen Notes: Do not No Longer [place] exceed 4 Active 2019 Medical gm/day. (Same Center as: Tylenol) influenza virus Notes: (Same No Longer [facility] vaccine, as: Fluzone Active 2019 Medical inactivated Quadrivalent, Center Fluarix Quadrivalent) For 3 years of age and older (0.5 mL IM) Shake well before use Potassium Chloride 40 mEq, Route: Inactive 01/13 Ortho PO, ONCE, 2019 and Spine Dosing Weight 95.909, kg, Start date: 01/13/19 13:17:00 CDT, Stop date: 01/13/19 13:17:00 CDT cholestyramine 4 = 1 Pack, PO, Active [facility] g/5 g oral powder Daily, # 30 2019 Sc dical ea, 5 Center Refill(s), Pharmacy: [facility] 149 Humira 40 mg, SUB-Q, Active [facility] ONCE, 0 2019 Medical Refill(s) Center Amylases 557654 2 cap, PO, No Longer [place] UNT / TID, with each Active 2019 Medical Endopeptidases meal, # 180 Cente r [id number] UNT / cap, 1 Lipase 42782 UNT Refill(s), Enteric Coated Pharmacy: Capsule [Creon] [facility] 149 spironolactone 50 150 mg = 3 Inactive [place] mg oral tablet tab, PO, Daily 2019 Sc dical [place] tramadol 50 mg, PO, No Longer [place] hydrochloride 50 Daily, PRN Active 2019 Medi rick MG Oral Tablet Pain Score Center 1-5, # 20 tab, 0 Refill(s) atorvastatin 40 mg 40 mg = 1 tab, Active [place] oral tablet PO, Bedtime, # 2019 Medic al 90 tab, 3 Center Refill(s), Pharmacy: [place] [address] riFAXimin 550 mg 550 mg = 1 Active [place] oral tablet tab, PO, BID, 2019 Medica l # 60 tab, 3 Center Refill(s), Pharmacy: [place] [address] pantoprazole 40 mg 40 mg = 1 tab, No Longer 10/25 [place] oral enteric PO, Q12H, # 28 Active 2019 Medi rick coated tablet tab, 0 Center Refill(s), Pharmacy: [place] [address] Furosemide 20 MG 60 mg = 3 tab, No Longer [place] Oral Tablet PO, Daily, # Active 2019 Medical [Lasix] 90 tab, 3 Center Refill(s), Pharmacy: [place] [address] Sucralfate 100 1 gm = 10 mL, No Longer H [place] MG/ML Oral PO, QID, # 280 Active 2019 Medica l Suspension mL, 0 Center [Carafate] Refill(s), Pharmacy: [place] [address] spironolactone 50 150 mg = 3 No Longer H [place] mg oral tablet tab, PO, Active 2019 Medical Daily, # 150 Center tab, 3 Refill(s), Pharmacy: [place] [address] ferrous sulfate 325 mg = 1 No Longer [place] 325 mg oral tab, PO, Every Active 2019 Medic al enteric coated Other Day, # Cent er tablet 45 tab, 3 Refill(s), Pharmacy: [place] [address] Miralax Notes: No Longer [place] Dissolve in 8 Active 2019 Medical oz of water or Center juice. (Same as: Miralax) atorvastatin Notes: (Same No Longer [place] as: Lipitor) Active 2019 Medical Center Furosemide 20 MG Notes: (Same No Longer [place] Oral Tablet as: Lasix) Active 2019 Medical [Lasix] May cause GI Center upset. Give with food or milk. Spironolactone Notes: (Same No Longer [place] As: Aldactone) Active 2019 Medical Center Adenosine 90.8729 mg, Inactive [place] Route: IVP, 2019 Medical ONCE, Dosing Center Weight 108.182, kg, Priority: Routine, Start date: 11/03/18 9:14:00 PVC MONITOR, Stop date: 11/03/18 9:14:00 PVC MONITOR Bacitracin 0.5 Notes: (Same No Longer [place] UNT/MG / Polymyxin As: Active 2019 Medic al B 10 UNT/MG Polysporin) Center Topical Ointment [Polysporin] Mupirocin 0.02 1 appl, Route: Inactive [facility] MG/MG Topical TOP, Q8H, Drug 2019 Med ical Ointment form: OINT, Center Start date: 11/01/18 16:00:00 PVC MONITOR, Duration: 30 day, Stop date: 12/01/18 8:00:00 PVC MONITOR Hydroxyzine Notes: (Same [place] Longer [place] as: Atarax) Active 2019 Medical Avoid alcohol. Center Midodrine Notes: (Same [place] Longer [place] as:Proamatine) Active 2019 [facility] octreotide 1,250 247.5 mL, No Longer [place] microgram + Sodium Rate: 10 Active 2019 [facility] rick Chloride 0.9% IV ml/hr, Infuse C enter 247.5 mL over: 25 hr, Route: IV, Dosing Weight 108.182 kg, Total Volume: 250, Start date: 11/01/18 7:44:00 PVC MONITOR, Duration: 30 day, Stop date: 12/01/18 7:43:00 PVC MONITOR, 2.31, m2 ferrous sulfate Notes: Give No Longer [place] with food. Active 2019 Medical "Do Not Crush" Center Albumin 25% Notes: Lot #: No Longer [place] intravenous Active 2019 Medica l solution (HC) Mfg: [place] (Same as: Plasbumin-25) "blood product derivative" WASTE: F/P - Red; E -Red MEDICATION WASTE Product Size: 25 gm Product Wasted: ___ gm ferrous sulfate Notes: Give Inactive [place] with food. 2019 Medical "Do Not Crush" Center Cipro Notes: May No Longer [place] interfere Active 2019 Medical w/enteral Center feedings - Take 1 hr before or 2 hrs after antacids, dairy pdt & minerals. On empty stomach. Spironolactone Notes: (Same No Longer [place] As: Aldactone) Active 2019 Medical Center Furosemide 40 MG Notes: (Same No Longer [place] Oral Tablet as: Lasix) Active 2019 Medical [Lasix] May cause GI Center upset. Give with food or milk. Magnesium Sulfate Notes: WASTE: Inactive [place] F/P - Sink; E 2019 [facility] Trash Bin Magnesium Sulfate 2 gm, Route: Inactive [place] IVPB, Drug 2019 Medical form: INJ, Center PRN, Dosing Weight 108.182, kg, PRN Abnormal Lab Result, Start date: 10/30/18 7:29:00 PVC MONITOR, Duration: 30 day, Stop date: 11/29/18 7:28:00 PVC MONITOR, Total dose = 4 gm, Magnesium level 1.5 - 1.7 mEq/L pantoprazole Notes: Tablet No Longer [place] should not be Active 2019 Medical chewed or Center crushed. (Same as: Protonix) Sucralfate 100 1 gm, 1 tab, No Longer [place] MG/ML Oral Route: PO, Active 2019 Medical Suspension Drug form: [place] [Carafate] TAB, QID, Dosing Weight 108.182, kg, Start date: 10/29/18 17:00:00 PVC MONITOR, Duration: 30 day, Stop date: 11/28/18 13:00:00 PVC MONITOR Versed Notes: Inactive [place] MEDICATION 2019 Medical WASTE Center Product Size: 2 mg Product Wasted: ___ mg Ketamine 50 mg, 5 mL, Inactive [place] Route: IV, 2019 Medical Drug form: [place] INJ, ONCE, Dosing Weight 108.182, kg, Start date: 10/29/18 14:18:00 PVC MONITOR, Stop date: 10/29/18 14:18:00 PVC MONITOR Benadryl 50 mg, 1 mL, Inactive [facility] Route: IVP, 2019 Medical Drug form: Center INJ, ONCE, Dosing Weight 108.182, kg, Start date: 10/29/18 14:18:00 PVC MONITOR, Stop date: 10/29/18 14:18:00 PVC MONITOR Fentanyl 150 microgram, Inactive [place] 3 mL, Route: 2019 Medical IV, Drug form: Center INJ, ONCE, Dosing Weight 108.182, kg, Start date: 10/29/18 14:18:00 PVC MONITOR, Stop date: 10/29/18 14:18:00 PVC MONITOR Versed Notes: (Same Inactive [facility] as: Versed) 2019 Medical MEDICATION Center WASTE Product Size: 2 mg Product Wasted: ___ mg Cipro 200 mg, 100 No Longer [facility] mL, Route: Active 2019 Medical IVPB, Drug Center form: INJ, [id number], Dosing Weight 108.182, kg, Start date: 10/29/18 11:00:00 PVC MONITOR, Stop date: 11/02/18 23:59:00 PVC MONITOR, ABX Indication: Surgical Prophylaxis Cipro 200 mg, 100 Inactive [facility] mL, Route: 2019 Medical IVPB, Drug Center form: INJ, [id number], Dosing Weight 108.182, kg, Start date: 10/29/18 9:00:00 PVC MONITOR, Duration: 5 day, Stop date: 11/02/18 23:00:00 PVC MONITOR, ABX Indication: Surgical Prophylaxis octreotide 1,250 247.5 mL, Inactive [place] microgram + Sodium Rate: 10 2018 Medi rick Chloride 0.9% IV ml/hr, Infuse C enter 247.5 mL over: 25 hr, Route: IV, Dosing Weight 108.182 kg, Total Volume: 250, Start date: 10/29/18 7:42:00 PVC MONITOR, Duration: 30 day, Stop date: 11/28/18 7:41:00 PVC MONITOR, 2.31, m2 Octreotide Notes: (Same No Longer [place] as As: Active 2019 Medical SandoSTATIN). Center Refrigerate. MEDICATION WASTE Product Size: 50 microgram Product Wasted: ___ microgram pantoprazole 80 mg 100 mL, Rate: Inactive [place] + Sodium Chloride 10 ml/hr, 2019 Medi rick 0.9% IV 100 mL Infuse over: Cent er 10 hr, Route: IVPB, Dosing Weight 108.182 kg, Total Volume: 100, Infuse at 8 mg / hr for 72 hours for GI bleeding, Start date: 10/29/18 6:36:00 PVC MONITOR, Duration: 72 hr, Stop date: 11/01/18 6:35:00 PVC MONITOR, 2.31, m2 Enbrel Notes: (Same No Longer [place] as: Enbrel) Active 2019 Medical Non-Formulary Center Protonix Notes: Tablet Inactive [place] should not be 2019 Medical chewed or Center crushed. (Same as: Protonix) albumin human 25% Notes: Lot #: Inactive [place] intravenous 2019 Medica l solution Mfg: [place] (Same as: Plasbumin-25) "blood product derivative" WASTE: F/P - Red; E -Red MEDICATION WASTE Product Size: 25 gm Product Wasted: ___ gm albumin human 25% 75 gm, Route: Inactive [place] intravenous IV, ONCE, 2019 Medical solution Dosing Weight Center 109.545, kg, Priority: NOW, Start date: 10/28/18 10:52:00 PVC MONITOR, Stop date: 10/28/18 10:52:00 PVC MONITOR XIFAXAN Notes: Same No Longer [place] as: Xifaxan Active 2019 Medical [place] metoprolol Notes: (Same No Longer [place] as extended release as: Toprol XL) Active 2019 [facility] May split Center tab, but do not crush. lansoprazole 30 mg, Route: Inactive [place] PO, Daily, 2019 Medical Dosing Weight Center 109.545, kg, Start date: 10/28/18 9:00:00 PVC MONITOR, Duration: 30 day, Stop date: 11/26/18 9:00:00 PVC MONITOR Hydroxychloroquine Notes: (Same No Longer [place] Sulfate 200 MG as: Plaquenil) Active 2018 Sc dical Oral Tablet Hydroxychloroq Cente r uine sulfate 200 mg = 155 mg hydroxychloroq uine base. If treating malaria, verify dose as salt vs. base per CDC guideline Thyroxine Notes: Take 1 No Longer [place] as hour before or Active 2018 Medical 2 hours after Center meal; Enteral feeds may interefere with the absorption of this medication.([facility] as:Levothroid) tramadol Notes: Not to [place] Longer [place] hydrochloride 50 exceed Active 2018 Medical MG Oral Tablet 400mg/day. Center (Same As: Ultram) Tramadol 50 mg, Route: Inactive [place] PO, Drug form: 2019 Medical TAB, Daily, Center Dosing Weight 109.545, kg, PRN Pain Score 1-5, Start date: 10/28/18 1:17:00 PVC MONITOR, Duration: 30 day, Stop date: 11/27/18 1:16:00 PVC MONITOR Dextrose 50% 12.5 gm, 25 [place] Longer [place] Syringe mL, Route: Active 2018 Medical IVP, Drug Center Form: INJ, Dosing Weight 109.545, kg, PRN, PRN Blood Glucose Results, Start date: 10/27/18 23:59:00 PVC MONITOR, Duration: 30 day, Stop date: 11/26/18 23:58:00 PVC MONITOR Glucagon 1 mg, Route: No Longer [place] IM, Drug form: Active 2018 [facility] PDR/INJ, PRN, Center Dosing Weight 109.545, kg, PRN Blood Glucose Results, Start date: 10/27/18 23:59:00 PVC MONITOR, Duration: 30 day, Stop date: 11/26/18 23:58:00 PVC MONITOR Sodium Chloride 250 mL, Rate: No Longer [place] 0.9% (titrate) 250 To prime line Active 2018 Medical mL and flush Center remaining blood products., Dosing Weight 109.091, kg, Route: IV, Total Volume: 250, Start Date: 10/27/18 22:52:00 PVC MONITOR, Duration: 30 day, Stop date: 11/26/18 22:51:00 PVC MONITOR, Replace Every: 24 hr Protonix Notes: For IV Inactive [place] push 2019 Medical reconstitute Center with 10 ml 0.9% sodium chloride and push over 2 minutes. (Same as: Protonix) Rocephin + sterile Notes: (Same Inactive [facility] water 10 mL As: Rocephin). 2019 Medic al Use with 100 Center mL NS and infuse over 30 min MEDICATION WASTE Product Size: 1000 mg Product Wasted: ___ mg rifaximin 550 MG 550 mg = 1 No Longer [facility] Oral Tablet tab, PO, BID, Active 2018 Medica l [XIFAXAN] 0 Refill(s) Center Furosemide 40 MG 40 mg = 1 tab, No Longer [facility] Oral Tablet PO, Daily, 0 Active 2017 Medical Refill(s) Center Hydroxychloroquine 200 mg = 1 Active [facility] Sulfate 200 MG tab, PO, 2018 Medical Oral Tablet Daily, 0 Center Refill(s) Ondansetron Notes: (Same No Longer [facility] [place] as: Zofran) Active 2018 Medical MEDICATION Center WASTE Product Size: 4 mg Product Wasted: _0__ mg Morphine Notes: (Same No Longer [facility] as:MORPhine Active 2018 Medical Sulfate) Center LR IV 1,000 mL 1,000 mL, Inactive Rate: 40 2018 [place] ml/hr, Infuse over: 25 hr, Route: IV, Dosing Weight 90.909 kg, Total Volume: 1,000, Start date: 02/04/18 10:14:00 CDT, Duration: 30 day, Stop date: 03/06/18 10:13:00 CDT, 2.13, m2 Furosemide 40 mg, PO, No Longer [facility] Daily, 0 Active 2018 Medical Refill(s) Center Spironolactone 25 mg = 2 tab, No Longer [facility] PO, Daily, # Active 2018 Medical 60 tab, 0 Center Refill(s) Enbrel 25, SUB-Q, 0 Active [facility] Refill(s) 2018 Medical Center Hydroxychloroquine 200 mg, PO, No Longer [facility] Daily, 0 Active 2018 Medical Refill(s) Center lansoprazole 30 mg, PO, Active 04/03/ [facility] [place] Daily, # 15 2018 Medical cap, 0 Center Refill(s) levothyroxine 112 112 microgram Active [place] mcg (0.112 mg) = 1 cap, PO, 2018 Medi rick oral capsule Daily, # 30 Center cap, 3 Refill(s) Fentanyl 100 microgram, Inactive Route: IV, 2018 [facility] ONCE, Dosing Weight 104.545, kg, Start date: 12/03/17 9:07:00 PVC MONITOR, Stop date: 12/03/17 9:07:00 PVC MONITOR metoprolol 100 mg = 1 Active tartrate 100 mg tab, PO, [address] oral tablet Daily, # 60 tab, 0 Refill(s) pantoprazole Notes: Tablet Inactive [place] should not be 2017 [place] chewed or crushed. 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 product administration , Dosing Weight 104.773, kg, Route: IV, Total Volume: 250, Start Date: 04/17/17 21:17:00 CDT, Duration: 30 day, Stop date: 05/17/17 21:16:00 CDT, Replace Every: 24 hr [place] Notes: Inactive [place] (polyethylene 2016 [place] glycol electrolyte solution 4 Liter bottle) (Same as: Golytely, Colyte) Lactulose 667 Notes: (Same Inactive [place] MG/ML Oral as:Chronulac) 2017 [place] Solution Morphine Notes: (Same Inactive [place] as:MORPhine 2017 [place] Sulfate) Sodium Chloride Notes: do not No Longer [place] 0.154 MEQ/ML load in pyxis Active 2016 [place] Injectable Solution Protonix Notes: For IV Inactive [place] push 2016 [place] reconstitute with 10 ml 0.9% sodium chloride and push over 2 minutes. 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 (Same as: Tylenol) Sodium Chloride 1,000 mL, No Longer [place] 0.154 MEQ/ML Rate: 125 Active 2016 [place] Injectable ml/hr, Infuse Solution over: 8 hr, Route: IV, Dosing Weight 94.8 kg, Total Volume: 1,000, Start date: 12/14/16 17:51:00 PVC MONITOR, Duration: 30 day, Stop date: 01/13/17 17:50:00 CDT Ondansetron Notes: (Same No Longer [place] as: Zofran) Active 2016 [place] MEDICATION WASTE Product Size: 4 mg Product Wasted: ___ mg Morphine Notes: (Same No Longer [place] as:MORPhine Active 2016 [place] Sulfate) Omeprazole 20 MG 20 mg = 1 cap, Active [place] Enteric Coated PO, BID, # 30 2016 [place] Capsule [Prilosec] cap, 0 Refill(s) ferrous sulfate 325 mg = 1 Active [place] 325 mg oral tab, PO, BID, 2016 [place] enteric coated # 60 tab, 1 tablet Refill(s) bumetanide 1 mg 1 mg = 1 tab, Active [place] oral tablet PO, Daily, # 2017 [place] 30 tab, 0 Refill(s) Sodium Chloride Notes: do not No Longer [place] 0.154 MEQ/ML load in pyxis Active 2016 [place] Injectable Solution pantoprazole Notes: For IV Inactive [place] push 2016 [place] reconstitute with 10 ml 0.9% sodium chloride and push over 2 minutes. (Same as: Protonix) Sodium Chloride 1,000 mL, 1000 Inactive [place] 0.154 MEQ/ML ml/hr, Infuse 2016 [place] Injectable Over: 1 hr, Solution Route: IV, 1,000, Drug form: INJ, ONCE, Priority: STAT, Dosing Weight 94.8 kg, Start date: 12/14/16 14:24:00 PVC MONITOR, Duration: 1 doses or times, Stop date: 12/14/16 14:24:00 PVC MONITOR gabapentin 600 mg = 1 Inactive [place] enacarbil 600 MG tab, PO, BID, 2016 L and Extended Release 0 Refill(s) Tablet [Horizant] irbesartan PO, Daily, 0 Inactive [place] Refill(s) 2016 [facility] irbesartan 300 MG 300 mg = 1 Active [place] Oral Tablet tab, PO, 2017 [place] [Avapro] Daily, 0 Refill(s) levothyroxine 100 100 microgram, Active [place] mcg (0.1 mg) PO, Daily, 0 2016 [place] intravenous Refill(s) injection Tramadol 50 mg, PO, Active [place] Daily, PRN 2017 [facility] Pain Score 1-5, 0 Refill(s) spironolactone 100 100 mg = 1 Inactive 12/14/ H [place] mg oral tablet tab, PO, 2017 [place] Daily, 0 Refill(s) Saline Flush 0.9% Notes: (Same No Longer [place] as: BD Active 2016 [place] Posiflush) Allergies, Adverse Reactions, Alerts Substance Category Reaction Severity Reaction Status Date Comments S ource type Reported penicillins Assertion Drug Active [place] allergy [place] penicillins<s Assertion Drug Active Data [place] up>1</sup> allergy migrated Medi rick from [facility] on 05/23/15. Originally documented as PENICILLIN. Immunizations Immunization Date Given Site Status Last Comments Source Updated tetanus-diphtheri 03/18/2011 completed GE Result [facility] [place] a Comment: td. Medical toxoids<sup>1</yepez Migrated fro [facility], p> OBS ; Data Ortho a nd migrated from Spine, GE [facility] OPID on 11/26/2015. Alexandra and,[facility], [facility] [place] Results Order Name Results Value Reference Date Interpretation Comments Lazara rce Range CHEM PANEL Magnesium 1.8 1.8 - 2.4 07/10 [facility] CHEM PANEL Phosphorus 3.8 2.5 - 4.5 07/10 [facility] CHEM PANEL Glucose Lvl 106 70 - 99 07/10 [facility] CHEM PANEL BUN 32 7 - 22 07/10 [facility] CHEM PANEL Creatinine 4.12 0.50 - 07/10 [facility] 1.40 [facility] CHEM PANEL Sodium Lvl 135 135 - 145 07/10 [facility] CHEM PANEL Potassium 4.2 3.5 - 5.1 07/10 [facility] CHEM PANEL Chloride Lvl 104 95 - 109 07/10 [facility] CHEM PANEL CO2 22 24 - 32 07/10 [facility] CHEM PANEL Calcium Lvl 8.4 8.5 - 10.5 07/10 [place] [facility] CHEM PANEL eGFR 15 07/10 Result Comment: The Medical eGFR is Center calculated using the CKD-EPI formula. In most young, healthy individuals the eGFR will be >90 mL/min/1.73m2 . The eGFR declines with age. An eGFR of 60-89 may be normal in some populations, particularly the elderly, for whom the CKD-EPI formula has not been extensively validated. Use of the eGFR is not recommended in the following populations:< br/>
Briseida viduals with unstable creatinine concentration s, including patients and those with serious co-morbid conditions.<b r/>
Patie nts with extremes in muscle mass or diet.

The data above are obtained from the National Kidney Disease Education Program (NKDEP) which additionally recommends that when the eGFR is used in patients with extremes of body mass index for purposes of drug dosing, the eGFR should be multiplied by the estimated BMI. CHEM PANEL AGAP 13.2 10.0 - 07/10 [facility] 20.0 [facility] CHEM PANEL Globulin 2.3 2.7 - 4.2 07/[address] CHEM PANEL A/G Ratio 1.4 0.7 - 1.6 07/[address] CHEM PANEL Total 5.5 6.4 - 8.4 07/[address] CHEM PANEL Albumin Lvl 3.2 3.5 - 5.0 07/[address] CHEM PANEL ALT 37 0 - 65 07/[address] CHEM PANEL AST 55 0 - 37 07/[address] CHEM PANEL Alk Phos 115 39 - 136 07/[address] CHEM PANEL Bili Total 2.1 0.2 - 1.3 07/[address] CHEM PANEL Bili Direct 0.5 0.0 - 0.3 07/[address] CHEM PANEL Bili 1.6 0.0 - 1.0 07/[address] CHEM PANEL Globulin 2.3 2.7 - 4.2 07/[address] CHEM PANEL A/G Ratio 1.6 0.7 - 1.6 07/[address] CHEM PANEL Total 6.0 6.4 - 8.4 07/[address] CHEM PANEL Albumin Lvl 3.7 3.5 - 5.0 07/[address] CHEM PANEL ALT 41 0 - 65 07/[address] CHEM PANEL AST 62 0 - 37 07/[address] CHEM PANEL Alk Phos 130 39 - 136 07/[address] CHEM PANEL Bili Total 2.4 0.2 - 1.3 07/[address] CHEM PANEL Bili Direct 0.5 0.0 - 0.3 07/[address] CHEM PANEL Bili 1.9 0.0 - 1.0 07/[address] ELECTROLYT AGAP 13.9 10.0 - 07/10 [facility] 20.0 [facility] ELECTROLYT Glucose Lvl 107 70 - 99 07/10 [facility] ELECTROLYT BUN 30 7 - 22 07/10 [facility] ELECTROLYT Creatinine 3.84 0.50 - 07/10 [facility] ES Lvl 1.40 [facility] ELECTROLYT Sodium Lvl 137 135 - 145 07/10 [facility] ELECTROLYT Potassium 3.9 3.5 - 5.1 07/10 [facility] Lvl /2018 [facility] ELECTROLYT Chloride Lvl 108 95 - 109 07/10 [facility] ELECTROLYT CO2 19 24 - 32 07/10 [facility] ELECTROLYT Calcium Lvl 7.7 8.5 - 10.5 07/10 [place] as [facility] ELECTROLYT eGFR 16 07/10 Result [facility] Comment: The Medical eGFR is Center calculated using the CKD-EPI formula. In most young, healthy individuals the eGFR will be >90 mL/min/1.73m2 . The eGFR declines with age. An eGFR of 60-89 may be normal in some populations, particularly the elderly, for whom the CKD-EPI formula has not been extensively validated. Use of the eGFR is not recommended in the following populations:< br/>
Briseida viduals with unstable creatinine concentration s, including patients and those with serious co-morbid conditions.<b r/>
Patie nts with extremes in muscle mass or diet.

The data above are obtained from the National Kidney Disease Education Program (NKDEP) which additionally recommends that when the eGFR is used in patients with extremes of body mass index for purposes of drug dosing, the eGFR should be multiplied by the estimated BMI. HEMATOLOGY WBC 7.6 3.7 - 10.4 07/10 [facility] HEMATOLOGY RBC 2.44 4.70 - 07/10 [place] 6.10 [facility] HEMATOLOGY Hgb 8.0 14.0 - 07/10 [facility] 18.0 [facility] HEMATOLOGY Hct 23.2 42.0 - 07/10 [place] 54.0 [facility] HEMATOLOGY MCV 94.8 80.0 - 07/10 [facility] 94.0 [facility] HEMATOLOGY MCH 33.0 27.0 - 07/10 [facility] 31.0 /2018 [facility] HEMATOLOGY MCHC 34.8 32.0 - 07/10 [facility] 36.0 /2019 [facility] HEMATOLOGY RDW 16.2 11.5 - 07/10 [facility] 14.5 [facility] HEMATOLOGY Platelet 76 133 - 450 07/10 [facility]2018 [facility] HEMATOLOGY MPV 9.6 7.4 - 10.4 07/[address] HEMATOLOGY PT 20.3 12.0 - 07/10 [facility] 14.7 [facility] HEMATOLOGY INR 1.78 0.85 - 07/10 [facility] 1.17 [facility] HEMATOLOGY PTT 52.4 22.9 - 07/10 [facility] 35.8 /2019 [facility] HEMATOLOGY Segs 53.9 45.0 - 07/10 [facility] 75.0 [facility] HEMATOLOGY Lymphocytes 9.9 20.0 - 07/10 [facility] 40.0 [facility] HEMATOLOGY Monocytes 12.7 2.0 - 12.0 07/[address] HEMATOLOGY Eosinophils 21.4 0.0 - 4.0 07/10 [facility] HEMATOLOGY Basophils 2.1 0.0 - 1.0 07/[address] HEMATOLOGY Neutrophils 4.1 1.5 - 8.1 07/10 [facility] /2018 [facility] HEMATOLOGY Lymphocytes 0.7 1.0 - 5.5 07/10 [facility] /2018 [facility] HEMATOLOGY Monocytes # 1.0 0.0 - 0.8 07/10 [facility] HEMATOLOGY Eosinophils 1.6 0.0 - 0.5 07/10 [facility] /2018 [facility] HEMATOLOGY Basophils # 0.2 0.0 - 0.2 07/[address] CHEM PANEL Total 6.2 6.4 - 8.4 07/09 [facility] CHEM PANEL Albumin Lvl 3.8 3.5 - 5.0 07/[address] CHEM PANEL ALT 43 0 - 65 07/[address] CHEM PANEL AST 63 0 - 37 07/[address] CHEM PANEL Alk Phos 133 39 - 136 07/[address] CHEM PANEL Bili Total 2.6 0.2 - 1.3 07/[address] CHEM PANEL Bili Direct 0.5 0.0 - 0.3 07/09 [facility] CHEM PANEL Bili 2.1 0.0 - 1.0 07/09 [facility] Indirect [facility] CHEM PANEL Globulin 2.4 2.7 - 4.2 07/09 [facility] CHEM PANEL A/G Ratio 1.6 0.7 - 1.6 07/09 [facility] ELECTROLYT AGAP 13.4 10.0 - 07/09 [facility] ES 20.0 [facility] ELECTROLYT Glucose Lvl 122 70 - 99 07/09 [facility] ES [facility] ELECTROLYT BUN 29 7 - 22 07/09 [facility] ELECTROLYT Creatinine 3.69 0.50 - 07/09 [facility] Lvl 1.40 [facility] ELECTROLYT Sodium Lvl 131 135 - 145 07/09 [facility] ES [facility] ELECTROLYT Potassium 4.4 3.5 - 5.1 07/09 [facility] Lvl /2018 [facility] ELECTROLYT Chloride Lvl 101 95 - 109 07/09 [facility] ELECTROLYT CO2 21 24 - 32 07/09 [facility] ES [facility] ELECTROLYT Calcium Lvl 9.0 8.5 - 10.5 07/09 [facility] as [facility] ELECTROLYT eGFR 17 07/09 Result [facility] Comment: The Medical eGFR is Center calculated using the CKD-EPI formula. In most young, healthy individuals the eGFR will be >90 mL/min/1.73m2 . The eGFR declines with age. An eGFR of 60-89 may be normal in some populations, particularly the elderly, for whom the CKD-EPI formula has not been extensively validated. Use of the eGFR is not recommended in the following populations:< br/>
Briseida viduals with unstable creatinine concentration s, including patients and those with serious co-morbid conditions.<b r/>
Patie nts with extremes in muscle mass or diet.

The data above are obtained from the National Kidney Disease Education Program (NKDEP) which additionally recommends that when the eGFR is used in patients with extremes of body mass index for purposes of drug dosing, the eGFR should be multiplied by the estimated BMI. HEMATOLOGY Segs 54.7 45.0 - 07/09 [place] 75.0 /2019 [facility] HEMATOLOGY Lymphocytes 11.0 20.0 - 07/09 [place] 40.0 /2019 [facility] HEMATOLOGY Monocytes 12.2 2.0 - 12.0 07/09 [place] [facility] HEMATOLOGY Eosinophils 19.5 0.0 - 4.0 07[place] [facility] HEMATOLOGY Basophils 2.6 0.0 - 1.0 07/09 [facility] HEMATOLOGY Neutrophils 4.2 1.5 - 8.1 07/[place] # /2019 [facility] HEMATOLOGY Lymphocytes 0.8 1.0 - 5.5 07/09 [place] # /2019 [facility] HEMATOLOGY Monocytes # 0.9 0.0 - 0.8 07/[place]2018 [facility] HEMATOLOGY Eosinophils 1.5 0.0 - 0.5 07/09 [place] # /2018 [facility] HEMATOLOGY Basophils # 0.2 0.0 - 0.2 07/[place] /2018 [facility] HEMATOLOGY PT 19.5 12.0 - 07/09 [place] 14.7 [facility] HEMATOLOGY INR 1.69 0.85 - 07/09 [place] 1.17 [facility] HEMATOLOGY WBC 7.6 3.7 - 10.4 07/09 [facility] HEMATOLOGY RBC 2.56 4.70 - 07/09 [place] 6.10 2019 [facility] HEMATOLOGY Hgb 8.4 14.0 - 07/09 [place] 18.0 [facility] HEMATOLOGY Hct 24.4 42.0 - 07/09 [place] 54.0 2019 [facility] HEMATOLOGY MCV 95.0 80.0 - 07/09 [place] 94.0 /2019 [facility] HEMATOLOGY MCH 32.9 27.0 - 07/09 [place] 31.0 /2019 [facility] HEMATOLOGY MCHC 34.6 32.0 - 07/09 [place] 36.0 2019 [facility] HEMATOLOGY RDW 16.5 11.5 - 07/09 [place] 14.5 2019 [facility] HEMATOLOGY Platelet 83 133 - 450 07/09 [facility] HEMATOLOGY MPV 8.7 7.4 - 10.4 07/09 [facility] CARDIAC Total CK 696 12 - 191 07/08 [place] ENZYMES [facility] CARDIAC Troponin-T 0.067 0.000 - 07/08 [facility] ENZYMES 0.100 /2018 [facility] CARDIAC Troponin-I 0.05 0.00 - 07/08 [facility] ENZYMES 0.40 [facility] CARDIAC CK MB 9.7 0.5 - 3.6 07/08 [facility] ENZYMES /2019 [facility] CARDIAC CK MB Index 1.4 0.0 - 2.5 07/08 [facility] ENZYMES /2018 [facility] CHEM PANEL Magnesium 1.9 1.8 - 2.4 07/08 [facility] Lvl /2018 [facility] CHEM PANEL Phosphorus 3.5 2.5 - 4.5 07/08 [place] /2018 [facility] MYOGLOBIN Myoglobin 1203 25 - 72 07/08 [facility] /2019 [facility] HEMATOLOGY Segs 61.1 45.0 - 07/08 [place] 75.0 [facility] HEMATOLOGY Lymphocytes 11.9 20.0 - 07/08 [place] 40.0 /2019 [facility] HEMATOLOGY Monocytes 13.4 2.0 - 12.0 07/08 [facility] /2019 [facility] HEMATOLOGY Eosinophils 11.3 0.0 - 4.0 07/08 [facility] /2019 [facility] HEMATOLOGY Basophils 2.3 0.0 - 1.0 07/08 [place] /2019 [facility] HEMATOLOGY Neutrophils 3.9 1.5 - 8.1 07/08 [place] # /2019 [facility] HEMATOLOGY Lymphocytes 0.7 1.0 - 5.5 07/08 [place] # /2019 [facility] HEMATOLOGY Monocytes # 0.8 0.0 - 0.8 07/08 [facility] HEMATOLOGY Eosinophils 0.7 0.0 - 0.5 07/08 [place] # /2019 [facility] HEMATOLOGY Basophils # 0.1 0.0 - 0.2 07/08 [facility]2019 [facility] HEMATOLOGY WBC 6.3 3.7 - 10.4 07/08 [facility] /2019 [facility] HEMATOLOGY RBC 2.38 4.70 - 07/08 [place] 6.10 /2019 [facility] HEMATOLOGY Hgb 7.8 14.0 - 07/08 [place] 18.0 /2019 [facility] HEMATOLOGY Hct 22.8 42.0 - 07/08 [place] 54.0 /2019 [facility] HEMATOLOGY MCV 95.8 80.0 - 07/08 [place] 94.0 /2019 [facility] HEMATOLOGY MCH 32.7 27.0 - 07/08 [facility] 31.0 /2018 [facility] HEMATOLOGY MCHC 34.2 32.0 - 07/08 [facility] 36.0 [facility] HEMATOLOGY RDW 16.5 11.5 - 07/08 [facility] 14.5 [facility] HEMATOLOGY Platelet 69 133 - 450 07/08 [facility] HEMATOLOGY MPV 9.1 7.4 - 10.4 07/08 [facility] HEMATOLOGY PT 19.4 12.0 - 07/08 [facility] 14.7 [facility] HEMATOLOGY INR 1.68 0.85 - 07/08 [facility] 1.17 [facility] HEMATOLOGY PTT 53.1 22.9 - 07/08 [facility] 35.8 [facility] HEMATOLOGY Bands 0.0 0.0 - 11.0 07/07 [facility] HEMATOLOGY Atypical 0.0 <=0.0 % 07/07 [facility] Lymphs [facility] HEMATOLOGY RBC Morph See Note 6 Normal 07/07 Result [facility] (07/07/19 2:11 PM) Comment: [facility] Ovalocytosis HEMATOLOGY Plt Morph Normal Normal 07/07 [facility] (07/07/19 2:11 PM) [facility] CHEM PANEL Uric Acid 4.3 3.8 - 8.0 07/07 [facility] CHEM PANEL Magnesium 2.1 1.8 - 2.4 07/07 [facility] Lvl /2018 [facility] CHEM PANEL Phosphorus 3.9 2.5 - 4.5 07/07 [facility] HEMATOLOGY PTT 54.8 22.9 - 07/07 [facility] 35.8 [facility] IMMUNOLOGY LANE Negative Negative 07/07 [facility] (07/07/19 5:02 AM) [facility] BLOOD BANK ABO/Rh O POS 07/06 [facility] RESULTS /2018 [facility] BLOOD BANK Antibody Negative 07/06 [facility] RESULTS Scrn (07/06/19 9:20 AM) [facility] IMMUNOLOGY RF Qnt <10 0 - 20 07/06 [facility] IMMUNOLOGY Cyc Cit Pep 0.8 <=2.9 07/06 [facility] Ab unit/mL /2018 [facility] PARATHYROI Ca Ion WB 1.10 1.05 - 07/06 [facility] D PROFILE 1.25 [facility] PARATHYROI Ca Norm WB 1.10 1.05 - 07/06 [facility] D PROFILE 11.18 [facility] HEMATOLOGY RBC Morph Normal Normal 07/05 [facility] (07/05/19 3:53 AM) [facility] HEMATOLOGY Plt Morph Normal Normal 07/05 [facility] (07/05/19 3:53 AM) [facility] PARATHYROI Ca Ion WB 1.08 1.05 - 07/05 [facility] D PROFILE 11.18 [facility] PARATHYROI Ca Norm WB 1.08 1.05 - 07/05 [facility] D PROFILE 11.18 [facility] HEMATOLOGY PB Smear Peripheral 07/04 [facility] Path blood /2018 [facility] smear Center examinatio n; - Normocytic anemia with anisocytos is, polychroma yohannes; rare target cells. No significan t schistocyt e seen. - Leukocytes are adequate with mild eosinophil ia. - Platelets show unremarkab le morphology . No platelet clump seen. no morphologi c evidence of microangio pathic anemia. Clinical correlatio n is suggested. CPT 95400 PARATHYROI Ca Ion WB 1.07 1.05 - 07/04 [facility] D PROFILE 11.18 [facility] PARATHYROI Ca Norm WB 1.07 1.05 - 07/04 [facility] D PROFILE 11.18 [facility] HEMATOLOGY Plt Morph Normal Normal 07/03 [facility] (07/03/19 4:04 AM) /2018 [facility] HEMATOLOGY Anisocyte 1+ None Seen 07/03 [facility] *ABN* [facility] (07/03/19 4:04 AM) [place] HEMATOLOGY Bands 0.0 0.0 - 11.0 07/02 [facility] HEMATOLOGY Atypical 0.0 <=0.0 % 07/02 [facility] Lymphs /2018 [facility] HEMATOLOGY RBC Morph Normal Normal 07/02 [facility] (07/02/19 4:42 AM) /2018 [facility] HEMATOLOGY Tot Cell Ct 100 07/02 [facility] IMMUNOLOGY Hep C Ab Negative Negative 07/01 [facility] *NA* /2018 [facility] (07/01/19 6:09 AM) [place] IMMUNOLOGY Hep Be Ab Negative Negative 07/01 Result Comment: Medical Performed At: Center [facility] [place]
[address], [place] [id number]<br/ >Jean Ingram MD Ph:[phone] IMMUNOLOGY Hep Bs Ab <3.1 <=7.4 07/01 [facility] mIU/mL [facility] IMMUNOLOGY Hep B Core Negative Negative 07/01 [facility] IgM *NA* [facility] (07/01/19 6:09 AM) [place] IMMUNOLOGY Hep B Core Negative Negative 07/01 [facility] Ab *NA* [facility] (07/01/19 6:09 AM) [place] IMMUNOLOGY Hep Bs Ag Negative Negative 07/01 [place] *NA* [facility] (07/01/19 6:09 AM) [place] HEMATOLOGY Bands 0.0 0.0 - 11.0 07/01 [facility] HEMATOLOGY Atypical 0.0 <=0.0 % 07/01 [facility] Lymphs [facility] CHEM PANEL Lactic Acid 1.6 0.5 - 2.2 06/28 [facility] CHEM PANEL Procalcitoni 0.23 0.00 - 06/27 [facility] n Lvl 0. [facility] CHEM PANEL Lactic Acid 2.7 0.5 - 2.2 06/27 [facility] URINE AND UA Color Rin Yellow 06/27 [facility] STOOL *ABN* [facility] (06/26/19 10:34 PM) [place] URINE AND UA Turbidity Slight Clear 06/27 [facility] STOOL *[facility]* [facility] (06/26/19 10:34 PM) [place] URINE AND UA Spec Grav 1.014 <=1.030 06/27 [facility] [address] [place] [address] URINE AND UA pH 5.0 5.0 - 8.0 06/27 [facility] STOOL [facility] URINE AND UA Protein 100 mg/dL Negative 06/27 [facility] STOOL mg/dL [facility] URINE AND UA Glucose Negative Negative 06/27 [facility] STOOL mg/dL mg/dL [facility] URINE AND UA Ketones Trace Negative 06/27 [facility] STOOL mg/dL mg/dL [facility] URINE AND UA Bili Negative Negative 06/27 [facility] STOOL *NA* [facility] (06/26/19 10:34 PM) [place] URINE AND UA Blood Small Negative 06/27 [facility] STOOL *ABN* [facility] (06/26/19 10:34 PM) [place] URINE AND UA <1.0 0.1 - 1.0 06/27 [facility] Urobilinogen /2018 [facility] URINE AND UA Nitrite Negative Negative 06/27 [facility] (06/26/19 10:34 PM) [facility] URINE AND UA Leuk Est Small Negative 06/27 [facility] STOOL *ABN* /2018 [facility] (06/26/19 10:34 PM) [place] URINE AND UA Sq Epi Occasional Few /LPF 06/27 [facility] STOOL /LPF /[address] [place] [address] URINE AND UA WBC 4 0 - 5 06/27 [facility] /[address] [place] [address] URINE AND UA RBC 5 0 - 2 06/27 [facility] STOOL /[address] [place] [address] URINE AND UA Bacteria Occasional None Seen 06/27 [place] STOOL /HPF /HPF /2019 [facility] URINE AND UA Mucus Few /LPF None Seen 06/27 [facility] STOOL /LPF [address] [place] [address] URINE AND UA Hyal Cast 16 0 - 2 06/27 [facility] /[address] [place] [address] URINE AND UA Gran Cast 3-5 /LPF None Seen 06/27 [place] STOOL /LPF [address] [place] [address] URINE AND UA [place] Yeast Occasional None Seen 06/27 [place] STOOL /HPF /HPF /[address] [place] [address] URINE AND Micro? Performed 06/27 [facility] *NA* /2018 [facility] (06/26/19 10:34 PM) Center Culture: No Growth 06/27 [facility] Urine /[address] [place] [address] CHEM PANEL Lactic Acid 1.7 0.5 - 2.2 06/27 [place] [address] [place] [address] CHEM PANEL Ammonia 42.0 <=45.0 06/26 [facility] uMol/L /[address] [place] [address] CHEM PANEL Ammonia 108.0 <=45.0 06/25 [facility] uMol/L [address] [place] [address] URINE AND UA Color Light Yellow Yellow 06/24 [facility] STOOL *NA* /2018 [facility] (06/24/19 2:20 PM) [place] URINE AND UA Turbidity Clear Clear 06/24 [facility] (06/24/19 2:20 PM) /2018 [facility] URINE AND UA Spec Grav 1.006 <=1.030 06/24 [facility] /[address] [place] [address] URINE AND UA pH 5.0 5.0 - 8.0 06/[address] URINE AND UA Protein Negative Negative 06/24 [facility] mg/dL mg/dL [facility] URINE AND UA Glucose Negative Negative 06/24 [facility] [place] STOOL mg/dL mg/dL [facility] URINE AND UA Ketones Negative Negative 06/24 [facility] STOOL mg/dL mg/dL [facility] URINE AND UA Bili Negative Negative 06/24 [facility] *NA* /2018 [facility] (06/24/19 2:20 PM) [place] URINE AND UA Blood Negative Negative 06/24 [facility] (06/24/19 2:20 PM) /[facility] URINE AND UA <1.0 0.1 - 1.0 06/24 [facility] Urobilinogen /2018 [facility] URINE AND UA Nitrite Negative Negative 06/24 [facility] (06/24/19 2:20 PM) /2018 [facility] URINE AND UA Leuk Est Negative Negative 06/24 [facility] (06/24/19 2:20 PM) /2018 [facility] URINE AND UA Sq Epi Occasional Few /LPF 06/24 [facility] STOOL /LPF /2018 [facility] URINE AND UA WBC 1 0 - 5 06/24 [facility] STOOL [facility] URINE AND UA RBC 1 0 - 2 06/24 [facility] STOOL [facility] URINE AND UA Mucus Few /LPF None Seen 06/24 [facility] STOOL /LPF /2018 [facility] URINE AND UA Hyal Cast 1 0 - 2 06/24 [facility] Culture: <10,000 06/24 [facility] Urine CFU/mL [facility] Skin Renata [place] URINE AND UA Color Yellow Yellow 06/23 [facility] *NA* /2018 [facility] (06/23/19 4:26 PM) [place] URINE AND UA Turbidity Clear Clear 06/23 [facility] (06/23/19 4:26 PM) /2018 [facility] URINE AND UA Spec Grav 1.008 <=1.030 06/23 [facility] STOOL [facility] URINE AND UA pH 5.0 5.0 - 8.0 06/23 [facility] STOOL [facility] URINE AND UA Protein 30 mg/dL Negative 06/23 [facility] STOOL mg/dL [facility] URINE AND UA Glucose Negative Negative 06/23 [facility] mg/dL mg/dL [facility] URINE AND UA Ketones Negative Negative 06/23 [facility] mg/dL mg/dL [facility] URINE AND UA Bili Negative Negative 06/23 [facility] STOOL *NA* /2018 [facility] (06/23/19 4:26 PM) [place] URINE AND UA Blood Negative Negative 06/23 [facility] (06/23/19 4:26 PM) [facility] URINE AND UA <1.0 0.1 - 1.0 06/23 [facility] Urobilinogen /2018 [facility] URINE AND UA Nitrite Negative Negative 06/23 [facility] (06/23/19 4:26 PM) [facility] URINE AND UA Leuk Est Negative Negative 06/23 [facility] (06/23/19 4:26 PM) [facility] URINE AND UA Sq Epi Occasional Few /LPF 06/23 [facility] STOOL /LPF /2018 [facility] URINE AND UA WBC 2 0 - 5 06/23 [facility] [address] [place] [address] URINE AND UA RBC <1 0 - 2 06/[address] URINE AND UA Mucus Few /LPF None Seen 06/23 [facility] STOOL /LPF /2018 [facility] URINE CHEM U Urea 290 06/[address] URINE CHEM U Creatinine 51.30 06/[address] URINE CHEM U Sodium 14 06/[address] URINE CHEM U Potassium 14.2 06/[address] URINE CHEM U Chloride <10 06/[address] HEMATOLOGY Macrocyte 1+ None Seen 06/21 [facility] *ABN* /2018 [facility] (06/21/19 5:33 AM) [place] HEMATOLOGY Tot Cell Ct 100 06/[address] TUMOR AFP 6.0 0.0 - 11.0 06/20 [facility] MARKERS [facility] URINE CHEM U Ethyl Negative [id number] 06/20 Result [facility] Glucuronide Comment: This Medica l Screen test was Center developed and its performance characteristi cs
determ ined by [facility]. It has not been cleared or
approv ed by the Food and Drug Administratio n.
Perfor med At: [facility] [place]
[address] [place], [place] [id number]<br/ >Chris Feng MD Ph:[phone] URINE CHEM U Chloride 24 06/[address] URINE CHEM U Sodium 26 06/[address] URINE CHEM U Potassium 14.7 06/19 [facility] URINE CHEM U Creatinine 31.70 06/19 [facility]2018 [facility] CHEM PANEL Globulin 2.4 2.7 - 4.2 04/21 [facility]2018 [facility] CHEM PANEL A/G Ratio 1.7 0.7 - 1.6 04/21 [facility]2018 [facility] CHEM PANEL Total 6.4 6.4 - 8.4 04/21 [facility] Protein [facility] CHEM PANEL Albumin Lvl 4.0 3.5 - 5.0 04/21 [facility] CHEM PANEL AST 50 0 - 37 04/21 [facility]2018 [facility] CHEM PANEL ALT 44 0 - 65 04/21 [facility]2018 [facility] CHEM PANEL Bili Direct 0.6 0.0 - 0.3 04/21 [facility]2018 [facility] CHEM PANEL Bili Total 2.0 0.2 - 1.3 04/21 [facility]2018 [facility] CHEM PANEL Alk Phos 151 39 - 136 04/21 [facility]2018 [facility] CHEM PANEL Bili 1.4 0.0 - 1.0 04/21 [facility] CHEM PANEL eGFR 40 04/21 Result Comment: The Medical eGFR is Center calculated using the CKD-EPI formula. In most young, healthy individuals the eGFR will be >90 mL/min/1.73m2 . The eGFR declines with age. An eGFR of 60-89 may be normal in some populations, particularly the elderly, for whom the CKD-EPI formula has not been extensively validated. Use of the eGFR is not recommended in the following populations:< br/>
Briseida viduals with unstable creatinine concentration s, including patients and those with serious co-morbid conditions.<b r/>
Patie nts with extremes in muscle mass or diet.

The data above are obtained from the National Kidney Disease Education Program (NKDEP) which additionally recommends that when the eGFR is used in patients with extremes of body mass index for purposes of drug dosing, the eGFR should be multiplied by the estimated BMI. CHEM PANEL Glucose Lvl 75 70 - 99 04/21 [facility] CHEM PANEL Creatinine 1.78 0.50 - 04/21 [facility] Lvl 1.40 [facility] CHEM PANEL BUN 27 7 - 22 04/21 [facility] CHEM PANEL Sodium Lvl 140 135 - 145 04/21 [facility]2018 [facility] CHEM PANEL Chloride Lvl 106 95 - 109 04/21 [facility] CHEM PANEL Potassium 3.2 3.5 - 5.1 04/21 [facility] CHEM PANEL CO2 25 24 - 32 04/[address] CHEM PANEL Calcium Lvl 8.9 8.5 - 10.5 04/21 [facility] CHEM PANEL AGAP 12.2 10.0 - 04/21 [facility] 20.0 [facility] CHEM PANEL Phosphorus 2.6 2.5 - 4.5 04/21 [facility]2018 [facility] CHEM PANEL Magnesium 1.7 1.8 - 2.4 04/21 [facility] HEMATOLOGY Basophils 3.0 0.0 - 1.0 04/21 [facility]2018 [facility] HEMATOLOGY Basophils # 0.2 0.0 - 0.2 04/21 [facility] HEMATOLOGY Eosinophils 0.7 0.0 - 0.5 04/21 [facility] HEMATOLOGY Monocytes # 0.9 0.0 - 0.8 04/21 [facility] HEMATOLOGY Neutrophils 2.7 1.5 - 8.1 04/21 [facility] HEMATOLOGY Lymphocytes 1.1 1.0 - 5.5 04/21 [facility] HEMATOLOGY Eosinophils 12.6 0.0 - 4.0 04/21 [facility] HEMATOLOGY Monocytes 15.9 2.0 - 12.0 04/21 [facility] HEMATOLOGY Lymphocytes 19.6 20.0 - 04/21 [facility] 40.0 [facility] HEMATOLOGY Segs 48.9 45.0 - 04/21 [facility] 75.0 [facility] HEMATOLOGY PTT 89.7 22.9 - 04/21 [facility] 35.8 2019 [facility] HEMATOLOGY INR 1.69 0.85 - 04/21 [place] 1.17 [facility] HEMATOLOGY PT 19.5 12.0 - 04/21 [place] 14.7 [facility] HEMATOLOGY Platelet 122 133 - 450 04/21 [facility]2018 [facility] HEMATOLOGY MPV 8.1 7.4 - 10.4 04/21 MH [facility] HEMATOLOGY MCHC 35.1 32.0 - 04/21 [facility] 36.0 [facility] HEMATOLOGY RDW 17.7 11.5 - 04/21 [facility] 14.5 [facility] HEMATOLOGY WBC 5.6 3.7 - 10.4 04/21 [facility]2018 [facility] HEMATOLOGY Hgb 8.0 14.0 - 04/21 [facility] 18.0 [facility] HEMATOLOGY MCH 32.1 27.0 - 04/21 [facility] 31.0 [facility] HEMATOLOGY Hct 22.7 42.0 - 04/21 [facility] 54.0 [facility] HEMATOLOGY MCV 91.4 80.0 - 04/21 [facility] 94.0 [facility] HEMATOLOGY RBC 2.49 4.70 - 04/21 [facility] 6.10 [facility] PARATHYROI Ca Norm WB 1.12 1. - 04/21 [facility] D PROFILE . [facility] PARATHYROI Ca Ion WB 1.11 1. - 04/21 [facility] D PROFILE . [facility] CHEM PANEL ALT 50 0 - 65 04/[address] CHEM PANEL AST 59 0 - 37 04/[address] CHEM PANEL Bili Total 2.3 0.2 - 1.3 04/[address] CHEM PANEL Alk Phos 150 39 - 136 04/[address] CHEM PANEL Bili Direct 0.6 0.0 - 0.3 04/20 [facility] CHEM PANEL Bili 1.7 0.0 - 1.0 04/20 [facility] Indirect [facility] CHEM PANEL Total 6.7 6.4 - 8.4 04/20 [facility] Protein [facility] CHEM PANEL Albumin Lvl 3.7 3.5 - 5.0 04/20 [facility]2018 [facility] CHEM PANEL A/G Ratio 1.2 0.7 - 1.6 04/[address] CHEM PANEL Globulin 3.0 2.7 - 4.2 04/[address] CHEM PANEL Phosphorus 2.2 2.5 - 4.5 04/[address] CHEM PANEL Magnesium 1.5 1.8 - 2.4 04/20 [facility] ELECTROLYT AGAP 13.3 10.0 - 04/20 [facility] ES 20.0 [facility] ELECTROLYT eGFR 39 04/20 Result [facility] Comment: The Medical eGFR is Center calculated using the CKD-EPI formula. In most young, healthy individuals the eGFR will be >90 mL/min/1.73m2 . The eGFR declines with age. An eGFR of 60-89 may be normal in some populations, particularly the elderly, for whom the CKD-EPI formula has not been extensively validated. Use of the eGFR is not recommended in the following populations:< br/>
Briseida viduals with unstable creatinine concentration s, including patients and those with serious co-morbid conditions.<b r/>
Patie nts with extremes in muscle mass or diet.

The data above are obtained from the National Kidney Disease Education Program (NKDEP) which additionally recommends that when the eGFR is used in patients with extremes of body mass index for purposes of drug dosing, the eGFR should be multiplied by the estimated BMI. ELECTROLYT Calcium Lvl 8.9 8.5 - 10.5 04/20 [facility] as [facility] ELECTROLYT Glucose Lvl 73 70 - 99 04/20 [facility] ELECTROLYT BUN 20 7 - 22 04/20 [facility] ELECTROLYT Sodium Lvl 142 135 - 145 04/20 [facility]2018 [facility] ELECTROLYT Creatinine 1.84 0.50 - 04/20 [facility] Lvl 1.40 [facility] ELECTROLYT Chloride Lvl 110 95 - 109 04[place]20 [place] [facility] ELECTROLYT Potassium 3.3 3.5 - 5.1 04/20 [facility] ELECTROLYT CO2 22 24 - 32 04/20 [facility] HEMATOLOGY MPV 8.1 7.4 - 10.4 04/20 [facility] HEMATOLOGY MCH 31.9 27.0 - 04/20 [facility] 31.0 [facility] HEMATOLOGY RDW 17.5 11.5 - 04/20 [facility] 14.5 [facility] HEMATOLOGY Platelet 129 133 - 450 04/20 [facility]2018 [facility] HEMATOLOGY RBC 2.80 4.70 - 04/20 [facility] 6.10 [facility] HEMATOLOGY MCV 92.2 80.0 - 04/20 [place] 94.0 /2018 [facility] HEMATOLOGY MCHC 34.6 32.0 - 04/20 [place] 36.0 [facility] HEMATOLOGY WBC 6.6 3.7 - 10.4 04/20 [facility] HEMATOLOGY Hct 25.8 42.0 - 04/20 [place] 54.0 /2018 [facility] HEMATOLOGY Hgb 8.9 14.0 - 04/20 [place] 18.0 [facility] HEMATOLOGY PT 18.6 12.0 - 04/20 [place] 14.7 /2018 [facility] HEMATOLOGY INR 1.59 0.85 - 04/20 [place] 1.17 /2018 [facility] HEMATOLOGY PTT 53.2 22.9 - 04/20 [place] 35.8 [facility] HEMATOLOGY Eosinophils 14.0 0.0 - 4.0 04/20 [facility] HEMATOLOGY Plt Morph Normal Normal 04/20 [facility] (04/20/19 5:45 AM) /2018 [facility] HEMATOLOGY Anisocyte 1+ None Seen 04/20 [facility] *ABN* /2018 [facility] (04/20/19 5:45 AM) [place] HEMATOLOGY Basophils 2.0 0.0 - 1.0 04/20 [facility] HEMATOLOGY Atypical 0.0 <=0.0 % 04/20 [facility] Lymphs [facility] HEMATOLOGY Monocytes 10.0 2.0 - 12.0 04/20 [facility] HEMATOLOGY Segs 54.0 45.0 - 04/20 [place] 75.0 [facility] HEMATOLOGY Bands 0.0 0.0 - 11.0 04/20 [facility] HEMATOLOGY Lymphocytes 20.0 20.0 - 04/20 [place] 40.0 [facility] HEMATOLOGY Eosinophils 0.9 0.0 - 0.5 04/20 [place] # [facility] HEMATOLOGY Basophils # 0.1 0.0 - 0.2 04/20 [place] [facility] HEMATOLOGY Lymphocytes 1.3 1.0 - 5.5 04/20 [place] /2018 [facility] HEMATOLOGY Monocytes # 0.7 0.0 - 0.8 04/20 [place] [facility] HEMATOLOGY Neutrophils 3.6 1.5 - 8.1 04/20 [place] # [facility] PARATHYROI Ca Ion WB 1.05 1.05 - 04/20 [facility] D PROFILE 1. [facility] PARATHYROI Ca Norm WB 1.08 1.05 - 04/20 [facility] D PROFILE . [facility] CHEM PANEL Calcium Lvl 8.6 8.5 - 10.5 04/19 [facility] CHEM PANEL Creatinine 1.79 0.50 - 04/19 [place] Lvl 1.40 [facility] CHEM PANEL Sodium Lvl 144 135 - 145 04/19 [facility] CHEM PANEL eGFR 40 04/19 Result Comment: The Medical eGFR is Center calculated using the CKD-EPI formula. In most young, healthy individuals the eGFR will be >90 mL/min/1.73m2 . The eGFR declines with age. An eGFR of 60-89 may be normal in some populations, particularly the elderly, for whom the CKD-EPI formula has not been extensively validated. Use of the eGFR is not recommended in the following populations:< br/>
Briseida viduals with unstable creatinine concentration s, including patients and those with serious co-morbid conditions.<b r/>
Patie nts with extremes in muscle mass or diet.

The data above are obtained from the National Kidney Disease Education Program (NKDEP) which additionally recommends that when the eGFR is used in patients with extremes of body mass index for purposes of drug dosing, the eGFR should be multiplied by the estimated BMI. CHEM PANEL CO2 23 24 - 32 04/19 [facility] CHEM PANEL AGAP 11.6 10.0 - 04/19 20.0 [facility] CHEM PANEL Chloride Lvl 113 95 - 109 04/19 a s [facility] CHEM PANEL Potassium 3.6 3.5 - 5.1 04/19 [facility] CHEM PANEL BUN 18 7 - 22 04/19 2018 [facility] CHEM PANEL Glucose Lvl 96 70 - 99 04/19 [facility] CHEM PANEL Phosphorus 2.5 2.5 - 4.5 04/19 [facility] CHEM PANEL Magnesium 1.6 1.8 - 2.4 04/19 [facility] CHEM PANEL A/G Ratio 1.0 0.7 - 1.6 04/19 [facility] CHEM PANEL Globulin 3.1 2.7 - 4.2 04/19 [facility]2018 [facility] CHEM PANEL Total 6.2 6.4 - 8.4 04/19 [facility] Protein [facility] CHEM PANEL Bili 1.5 0.0 - 1.0 04/19 [facility] Indirect [facility] CHEM PANEL Bili Direct 0.6 0.0 - 0.3 04/19 [facility] CHEM PANEL Alk Phos 157 39 - 136 04/19 [facility]2018 [facility] CHEM PANEL Bili Total 2.1 0.2 - 1.3 04/19 [facility]2018 [facility] CHEM PANEL AST 66 0 - 37 04/19 [facility]2018 [facility] CHEM PANEL ALT 53 0 - 65 04/19 [facility]2018 [facility] CHEM PANEL Albumin Lvl 3.1 3.5 - 5.0 04/19 [facility] HEMATOLOGY INR 1.54 0.85 - 04/19 [place] 1.17 [facility] HEMATOLOGY PTT 45.9 22.9 - 04/19 [place] 35.8 [facility] HEMATOLOGY PT 18.2 12.0 - 04/19 [facility] 14.7 [facility] HEMATOLOGY MPV 7.9 7.4 - 10.4 04/19 [facility]2018 [facility] HEMATOLOGY Platelet 131 133 - 450 04/19 [facility] HEMATOLOGY MCHC 34.4 32.0 - 04/19 [place] 36.0 [facility] HEMATOLOGY RDW 17.3 11.5 - 04/19 [facility] 14.5 [facility] HEMATOLOGY MCH 31.5 27.0 - 04/19 [place] 31.0 [facility] HEMATOLOGY Hgb 8.8 14.0 - 04/19 [place] 18.0 [facility] HEMATOLOGY MCV 91.7 80.0 - 04/19 [facility] 94.0 [facility] HEMATOLOGY Hct 25.5 42.0 - 04/19 [place] 54.0 2019 [facility] HEMATOLOGY WBC 6.7 3.7 - 10.4 04/19 [facility]2018 [facility] HEMATOLOGY RBC 2.78 4.70 - 04/19 [place] 6.10 [facility] HEMATOLOGY Basophils # 0.2 0.0 - 0.2 04/19 [facility] HEMATOLOGY Eosinophils 0.9 0.0 - 0.5 04/19 [facility] # /2019 [facility] HEMATOLOGY Lymphocytes 13.7 20.0 - 04/19 [facility] 40.0 [facility] HEMATOLOGY Lymphocytes 0.9 1.0 - 5.5 04/19 [facility] s # /2019 [facility] HEMATOLOGY Monocytes 14.7 2.0 - 12.0 04/19 [facility]2018 [facility] HEMATOLOGY Monocytes # 1.0 0.0 - 0.8 04/19 [facility] s /2019 [facility] HEMATOLOGY Neutrophils 3.7 1.5 - 8.1 04/19 [facility] s # /2018 [facility] HEMATOLOGY Eosinophils 14.0 0.0 - 4.0 04/19 [facility] /2018 [facility] HEMATOLOGY Basophils 3.0 0.0 - 1.0 04/19 [facility]2018 [facility] HEMATOLOGY Segs 54.6 45.0 - 04/19 [facility] 75.0 [facility] PARATHYROI Ca Ion WB 1.10 . - 04/19 [facility] D PROFILE 1. [facility] PARATHYROI Ca Norm WB 1.10 1. - 04/19 [facility] D PROFILE 1. [facility] URINE CHEM U Ethyl Negative [id number] 04/19 Result [facility] Comment: This Medica l Screen test was Center developed and its performance characteristi cs
determ ined by [facility]. It has not been cleared or
approv ed by the Food and Drug Administratio n.
Perfor med At: [facility] [place]
[address] [place], [place] [id number]<br/ >Chris Feng MD Ph:[phone] URINE AND UA Sq Epi None Seen 04/18 [facility] STOOL /[address] [place] [id number] URINE AND UA Hyal Cast 1 0 - 2 04/18 [facility] /[address] [place] [address] URINE AND UA Bacteria Occasional None Seen 04/18 [place] ST[place] /HPF /HPF /2018 [facility] URINE AND UA Mucus Few /LPF None Seen 04/18 [facility] STOOL /LPF /[address] [place] [address] URINE AND UA Nitrite Negative Negative 04/18 [facility] (04/18/19 5:48 PM) /2018 [facility] URINE AND UA WBC 1 0 - 5 04/18 [facility] /[address] [place] [address] URINE AND UA Leuk Est Negative Negative 04/18 [facility] (04/18/19 5:48 PM) [facility] URINE AND UA RBC 1 0 - 2 04/18 [facility] URINE AND UA Glucose Negative Negative 04/18 [facility] mg/dL mg/dL [facility] URINE AND UA Ketones Negative Negative 04/18 [facility] mg/dL mg/dL [facility] URINE AND UA Bili Negative Negative 04/18 [facility] *NA* /2018 [facility] (04/18/19 5:48 PM) [place] URINE AND UA Blood Negative Negative 04/18 [facility] (04/18/19 5:48 PM) [facility] URINE AND UA Protein Negative Negative 04/18 [facility] mg/dL mg/dL [facility] URINE AND UA Color Dark Yellow Yellow 04/18 [facility] *NA* /2018 [facility] (04/18/19 5:48 PM) [place] URINE AND UA Turbidity Slight Clear 04/18 [facility] *ABN* /2018 [facility] (04/18/19 5:48 PM) [place] URINE AND UA Spec Grav 1.010 <=1.030 04/18 [facility] URINE AND UA pH 5.0 5.0 - 8.0 04/18 [facility] URINE AND UA <1.0 0.1 - 1.0 04/18 [facility] Urobilinogen [facility] URINE CHEM U Protein 18.0 04/18 [facility] URINE CHEM U Prot/Creat 0.24 04/18 [facility] URINE CHEM U Creatinine 75.40 04/18 [facility] URINE CHEM U Creatinine 75.40 04/18 [facility] URINE CHEM U Urea 476 04/18 [facility] URINE CHEM U Ethyl Negative [id number] 01/16 Result [facility] Comment: This Medica l Screen test was Center developed and its performance characteristi cs
determ ined by [facility]. It has not been cleared or
approv ed by the Food and Drug Administratio n.
Perfor med At: [facility] [place]
[address] [place], [place] [phone]<br/ >Chris Feng MD Ph:[phone] CHEM PANEL Magnesium 1.7 1.8 - 2.4 01/16 [facility] Lvl [facility] CHEM PANEL Alk Phos 178 39 - 136 01/[address] CHEM PANEL Bili Total 1.5 0.2 - 1.3 01/[address] CHEM PANEL AST 57 0 - 37 01/[address] CHEM PANEL Bili 0.9 0.0 - 1.0 01/16 [facility] Indirect 2018 [facility] CHEM PANEL Bili Direct 0.6 0.0 - 0.3 01/16 [facility] s [address] [place] [address] CHEM PANEL Albumin Lvl 2.5 3.5 - 5.0 01/16 [facility]2018 [facility] CHEM PANEL ALT 46 0 - 65 01/[address] CHEM PANEL Total 5.8 6.4 - 8.4 01/16 [facility] Protein [facility] CHEM PANEL Globulin 3.3 2.7 - 4.2 01/[address] CHEM PANEL A/G Ratio 0.8 0.7 - 1.6 01/[address] CHEM PANEL Phosphorus 3.4 2.5 - 4.5 01/16 [facility]2018 [facility] ELECTROLYT AGAP 11.6 10.0 - 01/16 [facility] ES 20.0 [facility] ELECTROLYT eGFR 46 01/16 [facility] Comment: The Medical eGFR is Center calculated using the CKD-EPI formula. In most young, healthy individuals the eGFR will be >90 mL/min/1.73m2 . The eGFR declines with age. An eGFR of 60-89 may be normal in some populations, particularly the elderly, for whom the CKD-EPI formula has not been extensively validated. Use of the eGFR is not recommended in the following populations:< br/>
Briseida viduals with unstable creatinine concentration s, including patients and those with serious co-morbid conditions.<b r/>
Patie nts with extremes in muscle mass or diet.

The data above are obtained from the National Kidney Disease Education Program (NKDEP) which additionally recommends that when the eGFR is used in patients with extremes of body mass index for purposes of drug dosing, the eGFR should be multiplied by the estimated BMI. ELECTROLYT Sodium Lvl 141 135 - 145 01/16 [facility] ELECTROLYT Potassium 3.6 3.5 - 5.1 01/16 [facility] ES Lvl /2018 [facility] ELECTROLYT Chloride Lvl 108 95 - 109 01/16 [facility] ELECTROLYT Calcium Lvl 8.8 8.5 - 10.5 01/16 [facility] as ES [facility] ELECTROLYT CO2 25 24 - 32 01/16 [facility] /2018 [facility] ELECTROLYT Creatinine 1.60 0.50 - 01/16 [facility] ES Lvl 1.40 [facility] ELECTROLYT BUN 22 7 - 22 01/16 [facility] /2018 [facility] ELECTROLYT Glucose Lvl 63 70 - 99 01/16 [facility] /2018 [facility] HEMATOLOGY PTT 99.1 22.9 - 01/16 [facility] 35.8 [facility] HEMATOLOGY INR 1.54 0.85 - 01/16 [facility] 1.17 [facility] HEMATOLOGY PT 18.2 12.0 - 01/16 [place] 14.7 [facility] HEMATOLOGY Basophils # 0.2 0.0 - 0.2 01/16 [facility] HEMATOLOGY Segs 47.5 45.0 - 01/16 [facility] 75.0 [facility] HEMATOLOGY Eosinophils 14.0 0.0 - 4.0 01/16 [facility] HEMATOLOGY Monocytes 15.9 2.0 - 12.0 01/16 [facility]2018 [facility] HEMATOLOGY Lymphocytes 19.9 20.0 - 01/16 [place] 40.0 2019 [facility] HEMATOLOGY Monocytes # 1.1 0.0 - 0.8 01/16 [facility] HEMATOLOGY Lymphocytes 1.3 1.0 - 5.5 01/16 [facility] # [facility] HEMATOLOGY Neutrophils 3.2 1.5 - 8.1 01/16 [facility] # [facility] HEMATOLOGY Basophils 2.7 0.0 - 1.0 01/[address] HEMATOLOGY Eosinophils 0.9 0.0 - 0.5 01/16 [facility] HEMATOLOGY MPV 8.4 7.4 - 10.4 01/16 [facility]2018 [facility] HEMATOLOGY RBC 2.56 4.70 - 01/16 [facility] 6.10 [facility] HEMATOLOGY WBC 6.7 3.7 - 10.4 01/16 [facility]2018 [facility] HEMATOLOGY Platelet 142 133 - 450 01/16 [facility]2018 [facility] HEMATOLOGY RDW 19.4 11.5 - 01/16 [facility] 14.5 [facility] HEMATOLOGY MCHC 34.8 32.0 - 01/16 [facility] 36.0 [facility] HEMATOLOGY Hct 23.1 42.0 - 01/16 [facility] 54.0 [facility] HEMATOLOGY Hgb 8.0 14.0 - 01/16 [facility] 18.0 [facility] HEMATOLOGY MCH 31.4 27.0 - 01/16 [facility] 31.0 [facility] HEMATOLOGY MCV 90.2 80.0 - 01/16 [facility] 94.0 [facility] ELECTROLYT Potassium 3.7 3.5 - 5.1 01/15 [facility] Lvl [facility] CHEM PANEL Phosphorus 3.4 2.5 - 4.5 01/15 [facility]2018 [facility] CHEM PANEL Magnesium 1.6 1.8 - 2.4 01/15 [facility] CHEM PANEL ALT 51 0 - 65 01/15 [facility]2018 [facility] CHEM PANEL Albumin Lvl 2.6 3.5 - 5.0 01/15 [facility] CHEM PANEL AST 64 0 - 37 01/[address] CHEM PANEL Alk Phos 179 39 - 136 01/[address] CHEM PANEL Bili Direct 0.6 0.0 - 0.3 01/15 [facility] CHEM PANEL Bili 1.1 0.0 - 1.0 01/15 [facility] Indirect [facility] CHEM PANEL Bili Total 1.7 0.2 - 1.3 01/[address] CHEM PANEL Total 5.9 6.4 - 8.4 01/15 [facility] Protein [facility] CHEM PANEL A/G Ratio 0.8 0.7 - 1.6 01/[address] CHEM PANEL Globulin 3.3 2.7 - 4.2 01/[address] ELECTROLYT AGAP 11.2 10.0 - 01/15 [facility] ES 20.0 [facility] ELECTROLYT eGFR 49 01/15 Result [facility] Comment: The Medical eGFR is Center calculated using the CKD-EPI formula. In most young, healthy individuals the eGFR will be >90 mL/min/1.73m2 . The eGFR declines with age. An eGFR of 60-89 may be normal in some populations, particularly the elderly, for whom the CKD-EPI formula has not been extensively validated. Use of the eGFR is not recommended in the following populations:< br/>
Briseida viduals with unstable creatinine concentration s, including patients and those with serious co-morbid conditions.<b r/>
Patie nts with extremes in muscle mass or diet.

The data above are obtained from the National Kidney Disease Education Program (NKDEP) which additionally recommends that when the eGFR is used in patients with extremes of body mass index for purposes of drug dosing, the eGFR should be multiplied by the estimated BMI. ELECTROLYT CO2 22 24 - 32 01/15 [facility] ELECTROLYT Glucose Lvl 64 70 - 99 01/15 [facility] ELECTROLYT Calcium Lvl 8.9 8.5 - 10.5 01/15 [place] [facility] ELECTROLYT BUN 17 7 - 22 01/15 [facility] ELECTROLYT Chloride Lvl 111 95 - 109 01/15 [place] [facility] ELECTROLYT Creatinine 1.52 0.50 - 01/15 [facility] Lvl 1.40 [facility] ELECTROLYT Potassium 3.2 3.5 - 5.1 01/15 [facility] ES l [facility] ELECTROLYT Sodium Lvl 141 135 - 145 01/15 [facility] HEMATOLOGY MCV 91.5 80.0 - 01/15 [facility] 94.0 [facility] HEMATOLOGY MCH 31.2 27.0 - 01/15 [facility] 31.0 [facility] HEMATOLOGY Hct 25.2 42.0 - 01/15 [facility] 54.0 [facility] HEMATOLOGY MCHC 34.1 32.0 - 01/15 [facility] 36.0 [facility] HEMATOLOGY RDW 19.5 11.5 - 01/15 [facility] 14.5 [facility] HEMATOLOGY Platelet 147 133 - 450 01/15 [facility]2018 [facility] HEMATOLOGY MPV 8.1 7.4 - 10.4 01/15 [facility] HEMATOLOGY Hgb 8.6 14.0 - 01/15 [facility] 18.0 [facility] HEMATOLOGY RBC 2.75 4.70 - 01/15 [facility] 6.10 [facility] HEMATOLOGY WBC 6.9 3.7 - 10.4 01/15 [facility] HEMATOLOGY PT 18.0 12.0 - 01/15 [facility] 14.7 [facility] HEMATOLOGY PTT 73.1 22.9 - 01/15 [place] 35.8 [facility] HEMATOLOGY INR 1.52 0.85 - 01/15 [place] 1.17 [facility] HEMATOLOGY Eosinophils 1.2 0.0 - 0.5 01/15 [facility] # [facility] HEMATOLOGY Basophils # 0.2 0.0 - 0.2 01/15 [facility] HEMATOLOGY Monocytes # 1.0 0.0 - 0.8 01/15 [facility] HEMATOLOGY Eosinophils 17.8 0.0 - 4.0 01/15 [facility] HEMATOLOGY Monocytes 15.1 2.0 - 12.0 01/15 [facility] HEMATOLOGY Lymphocytes 18.3 20.0 - 01/15 [facility] 40.0 [facility] HEMATOLOGY Lymphocytes 1.3 1.0 - 5.5 01/15 [facility] HEMATOLOGY Neutrophils 3.2 1.5 - 8.1 01/15 [facility] HEMATOLOGY Basophils 2.3 0.0 - 1.0 01/15 [facility] HEMATOLOGY RBC Morph Normal 01/15 [facility] (01/15/19 5:05 AM) [facility] HEMATOLOGY Segs 46.5 45.0 - 01/15 [place] 75.0 2019 [facility] HEMATOLOGY Plt Morph Normal 01/15 [facility] (01/15/19 5:05 AM) [facility] PARATHYROI Ca Ion WB 1.16 1.05 - 01/15 [facility] D PROFILE 11.18 [facility] PARATHYROI Ca Norm WB 1.15 1.05 - 01/15 [place] D PROFILE 11.18 [facility] CHEM PANEL Bili 1.0 0.0 - 1.0 01/14 [facility] Indirect [facility] CHEM PANEL Alk Phos 176 39 - 136 01/14 [facility] CHEM PANEL AST 64 0 - 37 01/14 [facility]2018 [facility] CHEM PANEL Bili Total 1.7 0.2 - 1.3 01/14 [facility]2018 [facility] CHEM PANEL Bili Direct 0.7 0.0 - 0.3 01/14 [facility] s [facility] CHEM PANEL Albumin Lvl 2.5 3.5 - 5.0 01/14 [facility] s [facility] CHEM PANEL ALT 50 0 - 65 01/14 [facility] CHEM PANEL Total 5.6 6.4 - 8.4 01/14 [facility] Protein [facility] CHEM PANEL A/G Ratio 0.8 0.7 - 1.6 01/14 [facility]2018 [facility] CHEM PANEL Globulin 3.1 2.7 - 4.2 01/14 [facility]2018 [facility] CHEM PANEL Phosphorus 3.2 2.5 - 4.5 01/14 [facility]2018 [facility] CHEM PANEL Magnesium 1.6 1.8 - 2.4 01/14 [facility] ELECTROLYT AGAP 11.6 10.0 - 01/14 [facility] ES 20.0 [facility] ELECTROLYT eGFR 49 01/14 [facility] Comment: The Medical eGFR is Center calculated using the CKD-EPI formula. In most young, healthy individuals the eGFR will be >90 mL/min/1.73m2 . The eGFR declines with age. An eGFR of 60-89 may be normal in some populations, particularly the elderly, for whom the CKD-EPI formula has not been extensively validated. Use of the eGFR is not recommended in the following populations:< br/>
Briseida viduals with unstable creatinine concentration s, including patients and those with serious co-morbid conditions.<b r/>
Patie nts with extremes in muscle mass or diet.

The data above are obtained from the National Kidney Disease Education Program (NKDEP) which additionally recommends that when the eGFR is used in patients with extremes of body mass index for purposes of drug dosing, the eGFR should be multiplied by the estimated BMI. ELECTROLYT Glucose Lvl 64 70 - 99 01/14 [facility] ELECTROLYT Creatinine 1.51 0.50 - 01/14 [facility] 1.40 /2018 [facility] ELECTROLYT BUN 19 7 - 22 01/14 [facility] /2018 [facility] ELECTROLYT Sodium Lvl 142 135 - 145 01/14 [facility] /2018 [facility] ELECTROLYT CO2 21 24 - 32 01/14 [facility]2018 [facility] ELECTROLYT Calcium Lvl 9.2 8.5 - 10.5 01/14 [facility] as ES /2018 [facility] ELECTROLYT Chloride Lvl 113 95 - 109 01/14 [facility] HEMATOLOGY Eosinophils 0.9 0.0 - 0.5 01/14 [place] # [facility] HEMATOLOGY Basophils # 0.1 0.0 - 0.2 01/14 [facility] s /2018 [facility] HEMATOLOGY Monocytes # 0.7 0.0 - 0.8 01/14 [facility] /2018 [facility] HEMATOLOGY Lymphocytes 1.0 1.0 - 5.5 01/14 [facility] HEMATOLOGY Neutrophils 2.4 1.5 - 8.1 01/14 [facility] HEMATOLOGY Basophils 1.6 0.0 - 1.0 01/14 [facility] HEMATOLOGY Eosinophils 18.1 0.0 - 4.0 01/14 [facility] HEMATOLOGY Lymphocytes 20.2 20.0 - 01/14 40.0 [facility] HEMATOLOGY Monocytes 12.9 2.0 - 12.0 01/14 [facility] HEMATOLOGY Segs 47.2 45.0 - 01/14 75.0 [facility] HEMATOLOGY PTT 63.9 22.9 - 01/14 [place] 35.8 2019 [facility] HEMATOLOGY PT 18.5 12.0 - 01/14 [facility] 14.7 [facility] HEMATOLOGY INR 1.58 0.85 - 01/14 [place] 1.17 [facility] HEMATOLOGY MCHC 34.5 32.0 - 01/14 [place] 36.0 2019 [facility] HEMATOLOGY Platelet 106 133 - 450 01/14 [facility]2018 [facility] HEMATOLOGY RDW 19.1 11.5 - 01/14 [facility] 14.5 /2019 [facility] HEMATOLOGY MPV 7.9 7.4 - 10.4 01/14 [facility] HEMATOLOGY WBC 5.1 3.7 - 10.4 01/14 [facility] HEMATOLOGY RBC 3.28 4.70 - 01/14 [place] 6.10 [facility] HEMATOLOGY Hgb 10.3 14.0 - 01/14 [place] 18.0 [facility] HEMATOLOGY MCH 31.5 27.0 - 01/14 [place] 31.0 [facility] HEMATOLOGY Hct 30.0 42.0 - 01/14 [place] 54.0 [facility] HEMATOLOGY MCV 91.3 80.0 - 01/14 [place] 94.0 [facility] CHEM PANEL Globulin 3.8 2.7 - 4.2 12/27 [facility]2018 [facility] CHEM PANEL A/G Ratio 0.8 0.7 - 1.6 12/27 [facility]2018 [facility] CHEM PANEL Bili 1.2 0.0 - 1.0 12/27 [facility] Indirect [facility] CHEM PANEL Total 6.9 6.4 - 8.4 12/27 [facility] Protein [facility] CHEM PANEL ALT 70 0 - 65 03 [facility]2018 [facility] CHEM PANEL Albumin Lvl 3.1 3.5 - 5.0 12/27 [facility] s [facility] CHEM PANEL Alk Phos 170 39 - 136 03 [facility]2018 [facility] CHEM PANEL AST 91 0 - [address] CHEM PANEL Bili Direct 0.8 0.0 - 0.3 12/27 [facility] s [facility] CHEM PANEL Bili Total 2.0 0.2 - 1.3 03 [facility] ELECTROLYT AGAP 15.2 10.0 - 03 [facility] ES 20.0 [facility] ELECTROLYT eGFR 49 12/27 Result [facility] /2018 Comment: The Medical eGFR is Center calculated using the CKD-EPI formula. In most young, healthy individuals the eGFR will be >90 mL/min/1.73m2 . The eGFR declines with age. An eGFR of 60-89 may be normal in some populations, particularly the elderly, for whom the CKD-EPI formula has not been extensively validated. Use of the eGFR is not recommended in the following populations:< br/>
Briseida viduals with unstable creatinine concentration s, including patients and those with serious co-morbid conditions.<b r/>
Patie nts with extremes in muscle mass or diet.

The data above are obtained from the National Kidney Disease Education Program (NKDEP) which additionally recommends that when the eGFR is used in patients with extremes of body mass index for purposes of drug dosing, the eGFR should be multiplied by the estimated BMI. ELECTROLYT Calcium Lvl 9.2 8.5 - 10.5 03 [facility] as [facility] ELECTROLYT Sodium Lvl 142 135 - 145 03 [facility] ELECTROLYT Potassium 3.2 3.5 - 5.1 12/27 [facility] Lvl [facility] ELECTROLYT BUN 18 7 - 22 12/27 [facility] ELECTROLYT Glucose Lvl 102 70 - 99 12/27 [facility] ELECTROLYT CO2 18 24 - 32 12/27 [facility] ELECTROLYT Chloride Lvl 112 95 - 109 12/27 [place] [facility] ELECTROLYT Creatinine 1.52 0.50 - 12/27 [facility] Lvl 1.40 [facility] HEMATOLOGY INR 1.45 0.85 - 12/27 [place] 1.17 [facility] HEMATOLOGY PT 17.3 12.0 - 03 [facility] 14.7 [facility] HEMATOLOGY RDW 19.9 11.5 - 03 [facility] 14.5 [facility] HEMATOLOGY MCHC 34.5 32.0 - 0305 [place] 36.0 [facility] HEMATOLOGY MPV 8.3 7.4 - 10.4 12/27 [facility] HEMATOLOGY MCH 31.9 27.0 - 03 [place] 31.0 [facility] HEMATOLOGY RBC 3.08 4.70 - 0305 [place] 6.10 [facility] HEMATOLOGY Platelet 144 133 - 450 03 [facility] HEMATOLOGY MCV 92.5 80.0 - 0305 [place] 94.0 2019 [facility] HEMATOLOGY Hct 28.5 42.0 - 0305 [place] 54.0 2019 [facility] HEMATOLOGY Hgb 9.8 14.0 - 0305 [place] 18.0 2019 [facility] HEMATOLOGY WBC 8.2 3.7 - 10.4 03 [facility] HEMATOLOGY Eosinophils 1.2 0.0 - 0.5 12/27 [place] # [facility] HEMATOLOGY Basophils # 0.1 0.0 - 0.2 12/27 [facility] s [facility] HEMATOLOGY Monocytes # 1.2 0.0 - 0.8 12/27 [facility] s [facility] HEMATOLOGY Basophils 1.8 0.0 - 1.0 12/27 [facility]2018 [facility] HEMATOLOGY Eosinophils 14.1 0.0 - 4.0 12/27 [facility] s [facility] HEMATOLOGY Neutrophils 4.6 1.5 - 8.1 12/27 [facility] # /2018 [facility] HEMATOLOGY Lymphocytes 1.1 1.0 - 5.5 12/27 [facility] # /2018 [facility] HEMATOLOGY Lymphocytes 13.7 20.0 - 03 [facility] 40.0 [facility] HEMATOLOGY Monocytes 14.2 2.0 - 12.0 12/27 [facility] HEMATOLOGY Segs 56.2 45.0 - 12/27 [facility] 75.0 [facility] TUMOR AFP 8.6 0.0 - 11.0 12/27 [facility] CHEM PANEL eGFR 38 11/07 Result Comment: The Medical eGFR is Center calculated using the CKD-EPI formula. In most young, healthy individuals the eGFR will be >90 mL/min/1.73m2 . The eGFR declines with age. An eGFR of 60-89 may be normal in some populations, particularly the elderly, for whom the CKD-EPI formula has not been extensively validated. Use of the eGFR is not recommended in the following populations:< br/>
Briseida viduals with unstable creatinine concentration s, including patients and those with serious co-morbid conditions.<b r/>
Patie nts with extremes in muscle mass or diet.

The data above are obtained from the National Kidney Disease Education Program (NKDEP) which additionally recommends that when the eGFR is used in patients with extremes of body mass index for purposes of drug dosing, the eGFR should be multiplied by the estimated BMI. CHEM PANEL Creatinine 1.89 0.50 - 11/07 [facility] 1.40 [facility] CHEM PANEL Chloride Lvl 107 95 - 109 11/07 [facility] CHEM PANEL Potassium 3.9 3.5 - 5.1 11/07 [facility] CHEM PANEL Sodium Lvl 142 135 - 145 11/07 [facility] /2019 [facility] CHEM PANEL Calcium Lvl 10.4 8.5 - 10.5 11/07 [place] [facility] CHEM PANEL CO2 24 24 - 32 11/07 [facility]2019 [facility] CHEM PANEL BUN 31 7 - 22 11/07 [facility]2018 [facility] CHEM PANEL Glucose Lvl 76 70 - 99 11/07 [facility]2018 [facility] CHEM PANEL AGAP 14.9 10.0 - 11/07 [place] 20.0 [facility] CHEM PANEL Bili Direct 0.8 0.0 - 0.3 11/07 [place] [facility] CHEM PANEL Bili Total 3.2 0.2 - 1.3 11/07 [facility]2018 [facility] CHEM PANEL Bili 2.4 0.0 - 1.0 11/07 [facility] Indirect [facility] CHEM PANEL Magnesium 1.5 1.8 - 2.4 11/07 [facility] CHEM PANEL Phosphorus 2.7 2.5 - 4.5 11/07 [facility]2019 [facility] HEMATOLOGY Eosinophils 0.5 0.0 - 0.5 11/07 [place] # /2019 [facility] HEMATOLOGY Basophils # 0.2 0.0 - 0.2 11/07 [facility] /2019 [facility] HEMATOLOGY Lymphocytes 0.7 1.0 - 5.5 11/07 [place] # /2019 [facility] HEMATOLOGY Plt Morph Normal 11/07 [facility] (11/07/18 4:08 AM) [facility] HEMATOLOGY Segs 52.4 45.0 - 11/07 [place] 75.0 [facility] HEMATOLOGY Basophils 4.1 0.0 - 1.0 11/07 [facility]2019 [facility] HEMATOLOGY Eosinophils 10.1 0.0 - 4.0 11/07 [place] /2019 [facility] HEMATOLOGY Monocytes # 1.1 0.0 - 0.8 11/07 [place] /2019 [facility] HEMATOLOGY Neutrophils 2.9 1.5 - 8.1 11/07 [place] # /2019 [facility] HEMATOLOGY Lymphocytes 13.4 20.0 - 11/07 [place] 40.0 2019 [facility] HEMATOLOGY Monocytes 20.0 2.0 - 12.0 11/07 [facility]2019 [facility] HEMATOLOGY MCV 93.8 80.0 - 11/07 [facility] 94.0 [facility] HEMATOLOGY MCHC 33.4 32.0 - 11/07 [place] 36.0 [facility] HEMATOLOGY MCH 31.3 27.0 - 11/07 [facility] 31.0 [facility] HEMATOLOGY Platelet 115 133 - 450 11/[address] HEMATOLOGY RDW 17.4 11.5 - 11/07 [facility] 14.5 [facility] HEMATOLOGY MPV 8.0 7.4 - 10.4 11/07 [facility]2018 [facility] HEMATOLOGY WBC 5.5 3.7 - 10.4 11/[address] HEMATOLOGY RBC 2.74 4.70 - 11/07 [facility] 6.10 [facility] HEMATOLOGY Hct 25.7 42.0 - 11/07 [facility] 54.0 [facility] HEMATOLOGY Hgb 8.6 14.0 - 11/07 [facility] 18.0 [facility] CHEM PANEL Phosphorus 2.6 2.5 - 4.5 11/[address] CHEM PANEL Magnesium 1.5 1.8 - 2.4 11/06 [facility] CHEM PANEL Globulin 1.9 2.7 - 4.2 11/[address] CHEM PANEL A/G Ratio 2.7 0.7 - 1.6 11/[address] CHEM PANEL Bili Direct 0.9 0.0 - 0.3 11/06 [facility] CHEM PANEL AST 30 0 - 37 11/[address] CHEM PANEL ALT 18 0 - 65 11/[address] CHEM PANEL Albumin Lvl 5.1 3.5 - 5.0 11/[address] CHEM PANEL Total 7.0 6.4 - 8.4 11/06 [facility] Protein [facility] CHEM PANEL Alk Phos 55 39 - 136 11/[address] CHEM PANEL Bili Total 3.4 0.2 - 1.3 11/[address] CHEM PANEL Bili 2.5 0.0 - 1.0 11/06 [facility] Indirect [facility] ELECTROLYT AGAP 13.7 10.0 - 11/06 [facility] ES 20.0 [facility] ELECTROLYT Sodium Lvl 143 135 - 145 11/06 [facility] ELECTROLYT Potassium 3.7 3.5 - 5.1 11/06 [facility] ES Lvl [facility] ELECTROLYT Chloride Lvl 107 95 - 109 11/06 [place] [facility] ELECTROLYT eGFR 39 11/06 Result [facility] Comment: The Medical eGFR is Center calculated using the CKD-EPI formula. In most young, healthy individuals the eGFR will be >90 mL/min/1.73m2 . The eGFR declines with age. An eGFR of 60-89 may be normal in some populations, particularly the elderly, for whom the CKD-EPI formula has not been extensively validated. Use of the eGFR is not recommended in the following populations:< br/>
Briseida viduals with unstable creatinine concentration s, including patients and those with serious co-morbid conditions.<b r/>
Patie nts with extremes in muscle mass or diet.

The data above are obtained from the National Kidney Disease Education Program (NKDEP) which additionally recommends that when the eGFR is used in patients with extremes of body mass index for purposes of drug dosing, the eGFR should be multiplied by the estimated BMI. ELECTROLYT Creatinine 1.84 0.50 - 11/06 [facility] Lvl 1.40 [facility] ELECTROLYT CO2 26 24 - 32 11/06 [facility] ELECTROLYT Glucose Lvl 79 70 - 99 11/06 [facility] ELECTROLYT BUN 29 7 - 22 11/06 [facility]2018 [facility] ELECTROLYT Calcium Lvl 9.9 8.5 - 10.5 11/06 [place] [facility] HEMATOLOGY PTT 47.3 22.9 - 11/06 [facility] 35.8 2019 [facility] HEMATOLOGY INR 1.95 0.85 - 11/06 [facility] 1.17 [facility] HEMATOLOGY PT 21.8 12.0 - 11/06 [facility] 14.7 [facility] HEMATOLOGY MCHC 33.5 32.0 - 11/06 [facility] 36.0 [facility] HEMATOLOGY RDW 17.8 11.5 - 11/06 [facility] 14.5 [facility] HEMATOLOGY MPV 8.0 7.4 - 10.4 11/06 [facility]2018 [facility] HEMATOLOGY Platelet 118 133 - 450 11/06 [place] [facility] HEMATOLOGY MCH 31.1 27.0 - 11/06 [place] 31.0 [facility] HEMATOLOGY Hct 23.2 42.0 - 11/06 [place] 54.0 [facility] HEMATOLOGY MCV 92.9 80.0 - 11/06 [place] 94.0 [facility] HEMATOLOGY RBC 2.50 4.70 - 11/06 [place] 6.10 [facility] HEMATOLOGY Hgb 7.8 14.0 - 11/06 [place] 18.0 [facility] HEMATOLOGY WBC 4.8 3.7 - 10.4 11/06 [facility] HEMATOLOGY Neutrophils 2.7 1.5 - 8.1 11[place]06 [place] # [facility] HEMATOLOGY Eosinophils 0.9 0.0 - 0.5 11/06 [place] # [facility] HEMATOLOGY Segs 56.0 45.0 - 11/06 [place] 75.0 [facility] HEMATOLOGY Basophils # 0.1 0.0 - 0.2 11/06 [place] [facility] HEMATOLOGY Monocytes # 0.5 0.0 - 0.8 11/06 [place] [facility] HEMATOLOGY Lymphocytes 0.6 1.0 - 5.5 11/06 [facility] # [facility] HEMATOLOGY Basophils 3.0 0.0 - 1.0 11/06 [facility] HEMATOLOGY Eosinophils 18.0 0.0 - 4.0 11[place]06 [place] 2019 [facility] HEMATOLOGY Bands 1.0 0.0 - 11.0 11/06 [facility] HEMATOLOGY Monocytes 10.0 2.0 - 12.0 11/06 [facility] HEMATOLOGY Lymphocytes 12.0 20.0 - 11/06 [place] 40.0 [facility] HEMATOLOGY Atypical 0.0 <=0.0 % 11/06 [facility] Lymphs [facility] HEMATOLOGY Plt Morph Normal 11/06 [facility] (11/06/18 5:34 AM) [facility] CARDIAC BNP 711 <=100 11/05 [facility] ENZYMES pg/mL /2018 [facility] SPECIAL Hgb A1C <3.5 % <=5.6 % 11/05 [facility] CHEMISTRY /2018 [facility] ELECTROLYT AGAP 11.7 10.0 - 11/05 [facility] ES 20.0 [facility] ELECTROLYT B/C Ratio 14 6 - 25 11/05 [facility]2018 [facility] ELECTROLYT A/G Ratio 2.7 0.7 - 1.6 11/05 [facility]2018 [facility] ELECTROLYT Globulin 1.9 2.7 - 4.2 11/05 [facility]2018 [facility] ELECTROLYT Calcium Lvl 9.7 8.5 - 10.5 11/05 [facility] as [facility] ELECTROLYT CO2 28 24 - 32 11/05 [facility]2018 [facility] ELECTROLYT Alk Phos 57 39 - 136 11/05 [facility]2018 [facility] ELECTROLYT Potassium 3.7 3.5 - 5.1 11/05 [facility] Lvl [facility] ELECTROLYT Sodium Lvl 143 135 - 145 11/05 [facility]2018 [facility] ELECTROLYT Chloride Lvl 107 95 - 109 11/05 [facility] s [facility] ELECTROLYT AST 30 0 - 37 11/05 [facility]2018 [facility] ELECTROLYT Albumin Lvl 5.1 3.5 - 5.0 11/05 [facility] ELECTROLYT BUN 26 7 - 22 11/[address] ELECTROLYT Glucose Lvl 65 70 - 99 11/05 [facility]2018 [facility] ELECTROLYT Bili Total 4.3 0.2 - 1.3 11/[address] ELECTROLYT ALT 19 0 - 65 11/[address] ELECTROLYT eGFR 38 11/05 [facility] Comment: The Medical eGFR is Center calculated using the CKD-EPI formula. In most young, healthy individuals the eGFR will be >90 mL/min/1.73m2 . The eGFR declines with age. An eGFR of 60-89 may be normal in some populations, particularly the elderly, for whom the CKD-EPI formula has not been extensively validated. Use of the eGFR is not recommended in the following populations:< br/>
Briseida viduals with unstable creatinine concentration s, including patients and those with serious co-morbid conditions.<b r/>
Patie nts with extremes in muscle mass or diet.

The data above are obtained from the National Kidney Disease Education Program (NKDEP) which additionally recommends that when the eGFR is used in patients with extremes of body mass index for purposes of drug dosing, the eGFR should be multiplied by the estimated BMI. ELECTROLYT Creatinine 1.86 0.50 - 11/05 [facility] ES Lvl 1.40 [facility] ELECTROLYT Total 7.0 6.4 - 8.4 11/05 [facility] ES Protein /2018 [facility] HEMATOLOGY RDW 17.9 11.5 - 11/05 [place] 14.5 [facility] HEMATOLOGY MCH 31.3 27.0 - 11/05 [place] 31.0 [facility] HEMATOLOGY Platelet 114 133 - 450 11/05 [facility] HEMATOLOGY MCHC 33.6 32.0 - 11/05 [place] 36.0 [facility] HEMATOLOGY MPV 8.1 7.4 - 10.4 11/05 [facility] HEMATOLOGY Hgb 7.6 14.0 - 11/05 [place] 18.0 [facility] HEMATOLOGY WBC 4.6 3.7 - 10.4 11/05 /2018 [facility] HEMATOLOGY Hct 22.7 42.0 - 11/05 [place] 54.0 [facility] HEMATOLOGY RBC 2.44 4.70 - 11/05 [place] 6.10 [facility] HEMATOLOGY MCV 93.1 80.0 - 11/05 [place] 94.0 [facility] HEMATOLOGY Monocytes # 0.9 0.0 - 0.8 11[place]05 [place]2019 [facility] HEMATOLOGY Eosinophils 0.2 0.0 - 0.5 11/05 [place] # /2018 [facility] HEMATOLOGY Neutrophils 2.6 1.5 - 8.1 11/05 [place] # /2019 [facility] HEMATOLOGY Eosinophils 4.6 0.0 - 4.0 11/05 [place]2019 [facility] HEMATOLOGY Lymphocytes 0.8 1.0 - 5.5 11/05 [place] # /2019 [facility] HEMATOLOGY Basophils 2.9 0.0 - 1.0 11/05 [place] /2019 [facility] HEMATOLOGY Monocytes 19.2 2.0 - 12.0 11/05 [facility]2019 [facility] HEMATOLOGY Segs 56.4 45.0 - 11/05 [place] 75.0 2019 [facility] HEMATOLOGY Lymphocytes 16.9 20.0 - 11/05 [place] 40.0 2019 [facility] HEMATOLOGY Basophils # 0.1 0.0 - 0.2 11/05 [facility] s [facility] BLOOD BANK Antibody Negative 11/04 [facility] RESULTS Scrn (11/04/18 1:24 PM) [facility] BLOOD BANK ABO/Rh O POS 11/04 [facility] RESULTS [facility] LIPIDS Trig 82 <=149 11/04 [facility] mg/dL [facility] LIPIDS Chol 145 <=199 11/04 [facility] mg/dL [facility] LIPIDS LDL 89 <=99 mg/dL 11/04 [facility] (Calculated) [facility] LIPIDS VLDL 16 11/04 [facility] LIPIDS HDL 40 >=61 mg/dL 11/04 [facility] LIPIDS CHD Risk 3.62 4.00 - 11/04 [place] 7. [facility] BLOOD BANK RBC product Product available 11/04 [facility] RESULTS (11/04/18 10:29 AM) [facility] CHEM PANEL Total 7.0 6.4 - 8.4 11/04 [facility] Protein [facility] CHEM PANEL Albumin Lvl 4.9 3.5 - 5.0 11/04 [facility] CHEM PANEL ALT 18 0 - 65 11/04 [facility] [address] [place] [address] CHEM PANEL Alk Phos 67 39 - 136 11/[address] CHEM PANEL AST 33 0 - 37 11/04 [facility]2018 [facility] CHEM PANEL Globulin 2.1 2.7 - 4.2 11/[address] CHEM PANEL A/G Ratio 2.3 0.7 - 1.6 11/04 [facility] CHEM PANEL B/C Ratio 15 6 - 25 11/04 [facility] CHEM PANEL Magnesium 1.5 1.8 - 2.4 11/04 [facility] CHEM PANEL Phosphorus 2.9 2.5 - 4.5 11/04 [facility] HEMATOLOGY Bands 0.0 0.0 - 11.0 11/04 [facility]2018 [facility] HEMATOLOGY Plt Morph Normal 11/04 [facility] (11/04/18 4:57 AM) [facility] HEMATOLOGY Atypical 0.0 <=0.0 % 11/04 [facility] Lymphs [facility] DRUG U Zenaida Scr Negative Negative 11/04 [facility] SCREEN *NA* /2018 [facility] (11/03/18 8:00 PM) Center DRUG U Benzodiaz Negative Negative 11/04 [place] SCREEN Scr * Medical (11/03/18 8:00 PM) Center DRUG U Propoxyph Negative Negative 11/04 [place] SCREEN Scr * Medical (11/03/18 8:00 PM) Center DRUG U Methadone Negative Negative 11/04 [place] SCREEN Scr * Medical (11/03/18 8:00 PM) Center DRUG U Negative Negative 11/04 [facility] SCREEN Phencyclidin * Medical e Scr (11/03/18 8:00 PM) Center DRUG UDS Note See Note 11/04 [place] SCREEN * Medical (11/03/18 8:00 PM) Center DRUG U Opiate Scr Negative Negative 11/04 [place] SCREEN * Medical (11/03/18 8:00 PM) Center DRUG U Cocaine Negative Negative 11/04 [facility] SCREEN Scr * Medical (11/03/18 8:00 PM) Center DRUG U Amph Scr Negative Negative 11/04 [place] SCREEN * Medical (11/03/18 8:00 PM) Center DRUG U Cannab Scr Negative Negative 11/04 [place] SCREEN *NA Medical (11/03/18 8:00 PM) [place] IMMUNOLOGY CMV IgG Non Reactive Non 11/03 [facility] *NA* [facility] (11/03/18 5:29 PM) [place] IMMUNOLOGY EBV VCA IgG >8.0 <=0.8 AI 11/03 [facility] IMMUNOLOGY CMV IgM 0.5 11/03 [facility] IMMUNOLOGY EBV VCA IgM <0.2 <=0.8 AI 11/03 [facility] TUMOR AFP 4.4 0.0 - 11.0 11/03 [facility] MARKERS [facility] CHEM PANEL B/C Ratio 14 6 - 25 11/03 [facility] HEMATOLOGY Atypical 0.0 <=0.0 % 11/03 [facility] Lymph [facility] HEMATOLOGY Bands 0.0 0.0 - 11.0 11/[address] URINE CHEM U Urea 535 11/02 [facility] URINE CHEM U Creatinine 28.10 11/02 [facility]2018 [facility] URINE CHEM U Potassium 13.3 11/02 [facility] URINE CHEM U Sodium 125 11/02 [facility] URINE CHEM U Chloride 130 11/02 [facility] HEMATOLOGY INR 1.46 0.85 - 10/31 [facility] 1. [facility] HEMATOLOGY PT 17.4 12.0 - 10/31 [facility] 14. [facility] HEMATOLOGY PT 17.9 12.0 - 10/30 [facility] 14. [facility] HEMATOLOGY INR 1.51 0.85 - 10/30 [facility] 1. [facility] HEMATOLOGY PTT 36.7 22.9 - 10/30 [facility] 35.8 [facility] BLOOD BANK RBC product Product available 10/29 [facility] RESULTS (10/29/18 6:33 AM) [facility] PARATHYROI Ca Ion WB 1.11 1.05 - 10/29 [facility] D PROFILE 11.18 [facility] PARATHYROI Ca Norm WB 1.13 1.05 - 10/29 [facility] D PROFILE 11.18 [facility] DRUG U Methadone Negative Negative 10/28 [place] SCREEN Scr * Medical (10/28/18 1:44 PM) Center DRUG U Propoxyph Negative Negative 10/28 [place] SCREEN Scr *NA Medical (10/28/18 1:44 PM) Center DRUG U Negative Negative 10/28 [facility] SCREEN Phencyclidin * Medical e Scr (10/28/18 1:44 PM) Center DRUG UDS Note See Note 10/28 [place] SCREEN (10/28/18 1:44 PM) /2018 [facility] DRUG U Amph Scr Negative Negative 10/28 [place] SCREEN *NA Medical (10/28/18 1:44 PM) Center DRUG U Zenaida Scr Negative Negative 10/28 [place] SCREEN *NA Medical (10/28/18 1:44 PM) Center DRUG U Opiate Scr Negative Negative 10/28 [place] SCREEN *NA Medical (10/28/18 1:44 PM) Center DRUG U Cannab Scr Negative Negative 10/28 [place] SCREEN *NA Medical (10/28/18 1:44 PM) Center DRUG U Cocaine Negative Negative 10/28 [place] SCREEN Scr *NA Medical (10/28/18 1:44 PM) Center DRUG U Benzodiaz Negative Negative 10/28 [facility] [place] SCREEN Scr *NA* /2018 Medical (10/28/18 1:44 PM) Center URINE CHEM U Ethyl See Final Plnlig=339 10/28 Result [place] Glucuronide Results Comment: This Medica l Screen test was Center developed and its performance characteristi cs
determ ined by [facility]. It has not been cleared or
approv ed by the Food and Drug Administratio n.
Perfor med At: [facility] [place]
[address] [place], [place] [id number]<br/ >Chris Feng MD Ph:[phone] URINE CHEM U Urea 430 10/28 [facility] /2018 [facility] URINE CHEM U Sodium 55 10/28 [facility] /2018 [facility] URINE CHEM U Potassium 24.0 10/28 [facility] /2018 [facility] URINE CHEM U Chloride 45 10/28 [facility] /2018 [facility] URINE CHEM U EtG/EtS Positive Apflxs=647 10/28 [place] LC/MS/MS /2018 [facility] URINE CHEM U Ethyl Positive 10/28 [facility] Glucuronide /2018 [facility] URINE CHEM U Etg/Ets Comment 10/28 Result [place] Note /2018 Comment: Medical
Incident Center al exposure to alcohol may result in detectable
levels of EtG and/or EtS. EtG/EtS results should be
interp reted in the context of all available clinical and
behav ioral information. Technical consultation is
availa ble: email [email or web address], or call toll free
.<br/ >
Referenc e: SAMSHA Advisory, Spring 2011 Volume 11, Issue 2
Perform ed At: [facility]
[address] [facility] [place], [place] [id number]<br/ >Ida Ramos PhD Ph:[phone] URINE CHEM U Ethyl >85029 Cutoff=75 10/28 [place] Sulfate ng/mL /2018 [facility] LC/MS/MS [place] URINE CHEM U Ethyl Positive 10/28 [facility] Sulfate [facility] URINE CHEM U Ethyl >50132 Voxwec=918 10/28 [place] Glucuronide ng/mL /2018 [facility] LC/MS/MS Center ANEMIA % S[place] Fe 13 12 - 57 10/28 [facility] STUDY [address] [place] [address] ANEMIA UIBC 326 110 - 370 10/28 [facility] STUDY [facility] ANEMIA TIBC 374 228 - 428 10/28 [facility] ANEMIA Iron 48 45 - 160 10/28 [facility] [address] [place] [address] CHEM PANEL LDH 439 98 - 192 10/[address] URINE AND UA <=1.0 0.1 - 1.0 10/28 [facility] Urobilinogen mg/dL [facility] URINE AND UA Mucus Few /LPF None Seen 10/28 [facility] /F [facility] URINE AND UA Hyal Cast 6 0 - 2 10/28 [facility] URINE AND UA WBC 2 0 - 5 10/28 [facility] [address] [place] [address] URINE AND UA Leuk Est Negative Negative 10/28 [facility] (10/28/18 5:06 AM) [facility] URINE AND UA Sq Epi Occasional Few /LPF 10/28 [facility] /F [address] [place] [address] URINE AND UA Protein Negative Negative 10/28 [facility] mg/dL mg/dL [facility] URINE AND UA Nitrite Negative Negative 10/28 [facility] (10/28/18 5:06 AM) [facility] URINE AND UA Turbidity Clear Clear 10/28 [facility] (10/28/18 5:06 AM) [facility] URINE AND UA Ketones Negative Negative 10/28 [facility] mg/dL mg/dL [facility] URINE AND UA Glucose Negative Negative 10/28 [facility] mg/dL mg/dL [facility] URINE AND UA Blood Negative Negative 10/28 [facility] (10/28/18 5:06 AM) [facility] URINE AND UA Bili Negative Negative 10/28 [facility] *NA* [facility] (10/28/18 5:06 AM) [place] URINE AND UA Spec Grav 1.008 <=1.030 10/28 [facility] [address] [place] [address] URINE AND UA Color Yellow Yellow 10/28 [facility] *NA* [facility] (10/28/18 5:06 AM) [place] URINE AND UA pH 5.5 5.0 - 8.0 10/28 [facility] [address] [place] [address] URINE CHEM U Prot/Creat 0.17 10/28 [facility] URINE CHEM U Creatinine 96.10 10/28 [facility] URINE CHEM U Protein 15.9 10/28 [facility] URINE CHEM U Osmolality 307 300 - 800 10/28 [facility] URINE CHEM U Creatinine 96.10 10/28 2018 [facility] URINE CHEM U Potassium 20.3 10/28 [facility] URINE CHEM U Chloride 34 10/28 [facility] URINE CHEM U Sodium 38 10/28 [facility] BLOOD BANK RBC product Product available 10/28 [facility] RESULTS (10/27/18 10:52 PM) /2018 [facility] BLOOD BANK ABO/Rh O POS 10/28 [facility] RESULTS [facility] BLOOD BANK Antibody Negative 10/28 [facility] RESULTS Scrn (10/27/18 10:29 PM) [facility] CHEM PANEL Bili Direct 0.8 0.0 - 0.3 10/28 [facility] CHEM PANEL Bili 0.9 0.0 - 1.0 10/28 [facility] Indirect [facility] HEMATOLOGY Large Plt slight 10/27 [facility] HEMATOLOGY Rouleaux Present None Seen 10/27 [facility] *ABN* /2018 [facility] (10/27/18 5:52 PM) Center HEMATOLOGY Anisocyte 1+ None [facility]en [facility] (10/27/18 5:52 PM) Center HEMATOLOGY Retic Auto 2.4 0.5 - 1.5 10/27 [facility]2018 [facility] CHEM PANEL Globulin 3.6 2.7 - 4.2 07/12 [facility] CHEM PANEL A/G Ratio 0.9 0.7 - 1.6 07/12 [facility] CHEM PANEL Albumin Lvl 3.3 3.5 - 5.0 07/12 [facility] s [facility] CHEM PANEL ALT 40 0 - 65 07/12 [facility]2017 [facility] CHEM PANEL Total 6.9 6.4 - 8.4 07/12 [facility] Protein [facility] CHEM PANEL Alk Phos 142 39 - 136 07/[address] CHEM PANEL Bili Total 2.1 0.2 - 1.3 07/12 [facility]2017 [facility] CHEM PANEL AST 61 0 - 37 07/12 [facility]2018 [facility] CHEM PANEL Bili 1.4 0.0 - 1.0 07/12 [facility] CHEM PANEL Bili Direct 0.7 0.0 - 0.3 07/12 [facility] s [facility] ELECTROLYT AGAP 9.9 10.0 - 07/12 [facility] ES 20.0 /2017 [facility] ELECTROLYT eGFR 61 07/12 Result [facility] Comment: The Medical eGFR is Center calculated using the CKD-EPI formula. In most young, healthy individuals the eGFR will be >90 mL/min/1.73m2 . The eGFR declines with age. An eGFR of 60-89 may be normal in some populations, particularly the elderly, for whom the CKD-EPI formula has not been extensively validated. Use of the eGFR is not recommended in the following populations:< br/>
Briseida viduals with unstable creatinine concentration s, including patients and those with serious co-morbid conditions.<b r/>
Patie nts with extremes in muscle mass or diet.

The data above are obtained from the National Kidney Disease Education Program (NKDEP) which additionally recommends that when the eGFR is used in patients with extremes of body mass index for purposes of drug dosing, the eGFR should be multiplied by the estimated BMI. ELECTROLYT Potassium 4.9 3.5 - 5.1 07/12 [facility] Lvl /2017 [facility] ELECTROLYT Sodium Lvl 142 135 - 145 07/12 [facility] ELECTROLYT Creatinine 1.27 0.50 - 07/12 [facility] Lvl 1.40 [facility] ELECTROLYT CO2 28 24 - 32 07/12 [facility] ELECTROLYT Chloride Lvl 109 95 - 109 07/12 [facility] s [facility] ELECTROLYT Calcium Lvl 9.6 8.5 - 10.5 07/12 [facility] ELECTROLYT BUN 25 7 - 22 07/12 [facility] ELECTROLYT Glucose Lvl 78 70 - 99 07/12 [facility]2017 [facility] HEMATOLOGY Monocytes # 1.5 0.0 - 0.8 07/12 [facility] HEMATOLOGY Basophils # 0.2 0.0 - 0.2 07/12 [facility] HEMATOLOGY Lymphocytes 1.8 1.0 - 5.5 07/12 [place] # /2017 [facility] HEMATOLOGY Neutrophils 5.2 1.5 - 8.1 07/12 [facility] s # /2017 [facility] HEMATOLOGY Basophils 2.9 0.0 - 1.0 07/12 [place] [facility] HEMATOLOGY Segs 59.9 45.0 - 07/12 [place] 75.0 [facility] HEMATOLOGY Monocytes 16.9 2.0 - 12.0 07/12 [facility] HEMATOLOGY Lymphocytes 20.3 20.0 - 07/12 [place] 40.0 [facility] HEMATOLOGY INR 1.22 0.85 - 07/12 [place] 1.17 [facility] HEMATOLOGY PT 15.5 12.0 - 07/12 [facility] 14.7 [facility] HEMATOLOGY MPV 7.4 7.4 - 10.4 07/12 [facility] HEMATOLOGY Platelet 178 133 - 450 07/12 [facility] HEMATOLOGY MCV 86.8 80.0 - 07/12 [place] 94.0 [facility] HEMATOLOGY RBC 2.87 4.70 - 07/12 [place] 6.10 [facility] HEMATOLOGY Hgb 8.1 14.0 - 07/12 [place] 18.0 [facility] HEMATOLOGY Hct 24.9 42.0 - 07/12 [place] 54.0 [facility] HEMATOLOGY MCH 28.2 27.0 - 07/12 [place] 31.0 [facility] HEMATOLOGY MCHC 32.5 32.0 - 07/12 [place] 36.0 [facility] HEMATOLOGY RDW 19.5 11.5 - 07/12 [place] 14.5 [facility] HEMATOLOGY WBC 8.7 3.7 - 10.4 07/12 [facility] TUMOR AFP 4.6 0.0 - 11.0 07/12 [facility] MARKERS /2017 [facility] CHEM PANEL Bili Total 1.7 0.2 - 1.3 04/11 [facility] CHEM PANEL Alk Phos 249 39 - 136 04/[address] CHEM PANEL ALT 50 0 - 65 04/[address] CHEM PANEL Albumin Lvl 3.3 3.5 - 5.0 04/11 [facility] s [facility] CHEM PANEL AST 92 0 - 37 04/11 [facility] CHEM PANEL Total 6.9 6.4 - 8.4 04/11 [facility] Protein [facility] CHEM PANEL CO2 25 24 - 32 04/11 [facility]2017 [facility] CHEM PANEL Calcium Lvl 8.7 8.5 - 10.5 04/11 [place] [facility] CHEM PANEL eGFR 49 04/11 Result Comment: The Medical eGFR is Center calculated using the CKD-EPI formula. In most young, healthy individuals the eGFR will be >90 mL/min/1.73m2 . The eGFR declines with age. An eGFR of 60-89 may be normal in some populations, particularly the elderly, for whom the CKD-EPI formula has not been extensively validated. Use of the eGFR is not recommended in the following populations:< br/>
Briseida viduals with unstable creatinine concentration s, including patients and those with serious co-morbid conditions.<b r/>
Patie nts with extremes in muscle mass or diet.

The data above are obtained from the National Kidney Disease Education Program (NKDEP) which additionally recommends that when the eGFR is used in patients with extremes of body mass index for purposes of drug dosing, the eGFR should be multiplied by the estimated BMI. CHEM PANEL Glucose Lvl 100 70 - 99 04/11 [facility] CHEM PANEL BUN 23 7 - 22 04/[address] CHEM PANEL Sodium Lvl 134 135 - 145 04/[address] CHEM PANEL Chloride Lvl 101 95 - 109 04/11 [facility] s [facility] CHEM PANEL Creatinine 1.52 0.50 - 04/11 [facility] 1.40 [facility] CHEM PANEL Potassium 4.1 3.5 - 5.1 04/11 [facility] CHEM PANEL A/G Ratio 0.9 0.7 - 1.6 04/[address] CHEM PANEL Globulin 3.6 2.7 - 4.2 04/[address] CHEM PANEL AGAP 12.1 10.0 - 04/11 [facility] 20.0 [facility] CHEM PANEL B/C Ratio 15 6 - 25 04/[address] CHEM PANEL Lipase Lvl 419 73 - 393 04/11 [facility] [place] /[address] [place] [address] [place] HEMATOLOGY PTT 43.2 22.9 - 04/11 [place] 35.8 /2017 [facility] HEMATOLOGY INR 1.14 0.85 - 04/11 [place] 1.17 Medical [place] HEMATOLOGY PT 14.6 12.0 - 04/11 [place] 14.7 [facility] HEMATOLOGY Hct 24.8 42.0 - 04/11 [place] 54.0 /2017 [facility] HEMATOLOGY Hgb 8.4 14.0 - 04/11 [place] 18.0 [facility] HEMATOLOGY RBC 2.69 4.70 - 04/11 [place] 6.10 /2017 [facility] HEMATOLOGY WBC 9.1 3.7 - 10.4 04/11 [facility] HEMATOLOGY MCV 92.1 80.0 - 04/11 [place] 94.0 [facility] HEMATOLOGY RDW 16.9 11.5 - 04/11 [place] 14.5 [facility] HEMATOLOGY MCHC 34.1 32.0 - 04/11 [place] 36.0 [facility] HEMATOLOGY MCH 31.4 27.0 - 04/11 [place] 31.0 [facility] HEMATOLOGY Platelet 175 133 - 450 04/11 [facility] HEMATOLOGY MPV 8.0 7.4 - 10.4 04/11 [facility] HEMATOLOGY Lymphocytes 2.7 1.0 - 5.5 04/11 [place] /2017 [facility] HEMATOLOGY Basophils # 0.2 0.0 - 0.2 04/11 [place]2017 [facility] HEMATOLOGY Monocytes # 1.2 0.0 - 0.8 04/11 [place]2017 [facility] [place] HEMATOLOGY Segs-Bands # 5.0 1.5 - 8.1 04/11 [place] /2017 [facility] HEMATOLOGY Basophils 1.9 0.0 - 1.0 04/11 [place] [facility] HEMATOLOGY Monocytes 13.2 2.0 - 12.0 04/11 [facility] HEMATOLOGY Lymphocytes 30.0 20.0 - 04/11 [place] 40.0 [facility] HEMATOLOGY Segs 54.9 45.0 - 04/11 [place] 75.0 /2018 [facility] HEMATOLOGY INR 1.26 0.85 - 12/03 1.17 [place] HEMATOLOGY PTT 41.6 22.9 - 12/03 35.8 /2017 [place] HEMATOLOGY PT 15.9 12.0 - 02 14.7 /2017 [facility] HEMATOLOGY Platelet 144 133 - 450 12/03 [facility] ANEMIA Ferritin Lvl 37 22 - 275 04/19 [place] [facility] ANEMIA TIBC 327 228 - 428 04/19 [facility] ANEMIA Iron 50 45 - 160 04/19 [facility] ANEMIA % Satur Fe 15 12 - 57 04/19 [facility] ANEMIA UIBC 277 110 - 370 04/19 [facility] CARDIAC BNP 172 <=100 04/19 [place] pg/mL [place] CHEM PANEL eGFR 63 04/19 Comment: The [facility] eGFR is calculated using the CKD-EPI formula. In most young, healthy individuals the eGFR will be >90 mL/min/1.73m2 . The eGFR declines with age. An eGFR of 60-89 may be normal in some populations, particularly the elderly, for whom the CKD-EPI formula has not been extensively validated. Use of the eGFR is not recommended in the following populations:< br/>
Briseida viduals with unstable creatinine concentration s, including patients and those with serious co-morbid conditions.<b r/>
Patie nts with extremes in muscle mass or diet.

The data above are obtained from the National Kidney Disease Education Program (NKDEP) which additionally recommends that when the eGFR is used in patients with extremes of body mass index for purposes of drug dosing, the eGFR should be multiplied by the estimated BMI. CHEM PANEL Globulin 3.7 2.7 - 4.2 04/19 [place] CHEM PANEL A/G Ratio 0.8 0.7 - 1.6 04/19 [place] CHEM PANEL Bili Total 2.2 0.2 - 1.3 04/19 [place] CHEM PANEL AGAP 11.0 10.0 - 04/19 [place] 20.0 [place] CHEM PANEL B/C Ratio 11 6 - 25 04/19 [place] CHEM PANEL Glucose Lvl 89 70 - 99 04/19 [place] CHEM PANEL BUN 14 7 - 22 04/19 [place] CHEM PANEL Creatinine 1.25 0.50 - 04/19 [place] Lvl 1.40 /2016 [place] CHEM PANEL Total 6.5 6.4 - 8.4 04/19 [place] CHEM PANEL Albumin Lvl 2.8 3.5 - 5.0 04/19 [place] CHEM PANEL ALT 40 0 - 65 04/19 [place] CHEM PANEL AST 90 0 - 37 04/19 [place] CHEM PANEL Alk Phos 191 39 - 136 04/19 [place] CHEM PANEL Calcium Lvl 8.2 8.5 - 10.5 04/19 [place] CHEM PANEL Sodium Lvl 141 135 - 145 04/19 [place] CHEM PANEL Potassium 4.0 3.5 - 5.1 04/19 [place] Lvl /2016 [place] CHEM PANEL Chloride Lvl 109 95 - 109 04/19 [place] CHEM PANEL CO2 25 24 - 32 04/19 [place] HEMATOLOGY INR 1.20 0.85 - 04/19 [place] 1.17 [place] HEMATOLOGY PT 15.5 12.0 - 04/19 [place] 14.7 [place] HEMATOLOGY PTT 40.4 22.9 - 04/19 [place] 35.8 /2016 [place] HEMATOLOGY MCHC 34.2 32.0 - 04/19 [place] 36.0 [place] HEMATOLOGY MCV 94.2 80.0 - 04/19 [place] 94.0 /2016 [place] HEMATOLOGY MCH 32.2 27.0 - 04/19 [place] 31.0 [place] HEMATOLOGY RDW 18.2 11.5 - 04/19 [place] 14.5 /2016 [place] HEMATOLOGY RBC 3.11 4.70 - 04/19 [place] 6.10 /2016 [place] HEMATOLOGY Hct 29.2 42.0 - 04/19 [place] 54.0 /2016 [place] HEMATOLOGY Hgb 10.0 14.0 - 04/19 [place] 18.0 [place] HEMATOLOGY MPV 7.5 7.4 - 10.4 04/19 [place] HEMATOLOGY Platelet 126 133 - 450 04/19 [place] HEMATOLOGY WBC 9.2 3.7 - 10.4 04/19 [place] HEMATOLOGY Segs-Bands # 6.9 1.5 - 8.1 04/19 [place] HEMATOLOGY Basophils 0.7 0.0 - 1.0 04/19 [place] HEMATOLOGY Eosinophils 5.6 0.0 - 4.0 04/19 [place] /2016 [facility] HEMATOLOGY Lymphocytes 0.9 1.0 - 5.5 04/19 [place] # /2017 [facility] HEMATOLOGY Monocytes # 0.8 0.0 - 0.8 04/19 [place] /2017 [facility] HEMATOLOGY Basophils # 0.1 0.0 - 0.2 04/19 [place] /2017 [facility] HEMATOLOGY Eosinophils 0.5 0.0 - 0.5 04/19 [place] # /2016 [facility] HEMATOLOGY Lymphocytes 9.8 20.0 - 04/19 [place] 40.0 /2016 [facility] HEMATOLOGY Segs 75.4 45.0 - 04/19 [place] 75.0 /2016 [facility] HEMATOLOGY Monocytes 8.5 2.0 - 12.0 04/19 [place] /2016 [facility] IMMUNOLOGY LIVER KIDNEY 1.6 0.0 - 20.0 04/19 Result [place] [facility] MICROSOME /2016 Comment: [facility] ABS. Negative 0.0 - 20.0
Equivocal 20.1 - 24.9
Positive >24.9

LKM type 1 antibodies are detected in patients with
auto immune hepatitis type 2 and in up to 8% of
patien ts with chronic HCV infection.
Performed At: [facility]
[address], [place] [id number]<br/ >Sandra Davis MD Ph:[phone] IMMUNOLOGY Hep B Core Negative Negative 04/19 [place] IgM *NA* /2016 [facility] (04/19/17 5:59 AM) IMMUNOLOGY Hep Bs Ag Negative Negative 04/19 [place] *NA* /2016 [facility] (04/19/17 5:59 AM) IMMUNOLOGY Hep A IgM Negative Negative 04/19 [place] *NA* /2016 [facility] (04/19/17 5:59 AM) IMMUNOLOGY Hep C Ab Negative 04/19 [place] *NA* /2016 [facility] (04/19/17 5:59 AM) IMMUNOLOGY CERULOPLASMI 27 20 - 60 04/19 [place] N /2016 [facility] IMMUNOLOGY LANE Negative 1 Negative 04/19 Result [place] (04/19/17 5:59 AM) Comment: [facility] Because the LANE was Negative, the Reflex assays for Anti-dsDNA, SM/CHIEF LOCK TENDER OPERATOR, and Ro/La (SSA/SSB) were not performed. IMMUNOLOGY A-1-AT Pheno MM 04/19 Result [place] Comment: [facility] Phenotype Population A-1-AT Concentration
Incidence % Reference Interval
MM 86.5% 96 - 189
MS 8.0% 83 - 161
MZ 3.9% 60 - 111
FM 0.4% 93 - 191
SZ 0.3% 42 - 75
SS 0.1% 62 - 119
ZZ 0.05% 16 - 38
FS 0.05% 70 - 128
FZ Unknown 44 - 88
FF Unknown Unknown
P erformed At: [facility]
[address], [place] [id number]<br/ >Sandra Davis MD Ph:[phone]
Performe d At: [facility]
77 [address] [facility] [address] [place] [phone]<br/ >Lana GUILLEN MD Ph:[phone] IMMUNOLOGY A-1-AT 190 90 - 200 04/19 [place] ([place]) /2016 [facility] IMMUNOLOGY AMA Ab Scr Negative Negative 04/19 [place] (04/19/17 5:59 AM) [facility] IMMUNOLOGY SMA Screen Negative Negative 04/19 [place] (04/19/17 5:59 AM) [facility] IMMUNOLOGY IgE Lvl 55.5 10.0 - 04/19 [place] 100.0 [place] TUMOR AFP 7.2 0.0 - 11.0 04/19 [place] /2016 [place] HEMATOLOGY Hct 28.6 42.0 - 04/18 [place] 54.0 2017 [place] HEMATOLOGY Hgb 9.6 14.0 - 04/18 [place] 18.0 [place] CHEM PANEL eGFR 59 04/18 Result [place] /2016 Comment: The [place] eGFR is calculated using the CKD-EPI formula. In most young, healthy individuals the eGFR will be >90 mL/min/1.73m2 . The eGFR declines with age. An eGFR of 60-89 may be normal in some populations, particularly the elderly, for whom the CKD-EPI formula has not been extensively validated. Use of the eGFR is not recommended in the following populations:< br/>
Briseida viduals with unstable creatinine concentration s, including patients and those with serious co-morbid conditions.<b r/>
Patie nts with extremes in muscle mass or diet.

The data above are obtained from the National Kidney Disease Education Program (NKDEP) which additionally recommends that when the eGFR is used in patients with extremes of body mass index for purposes of drug dosing, the eGFR should be multiplied by the estimated BMI. CHEM PANEL Chloride Lvl 110 95 - 109 /25 [facility] [place] CHEM PANEL CO2 24 24 - 32 04/18 [facility] [place] CHEM PANEL AGAP 12.3 10.0 - 04/18 [facility] [place] 20.0 [place] CHEM PANEL Calcium Lvl 8.3 8.5 - 10.5 04/18 [facility] [place] CHEM PANEL Glucose Lvl 98 70 - 99 04/18 [facility] [place] CHEM PANEL BUN 17 7 - 22 04/18 [facility] [place] CHEM PANEL Potassium 4.3 3.5 - 5.1 04/18 [facility] [place] Lvl /2016 [place] CHEM PANEL Creatinine 1.32 0.50 - 04/18 [facility] [place] Lvl 1.40 /2016 [place] CHEM PANEL Sodium Lvl 142 135 - 145 04/18 [facility] [place] 2017 [place] HEMATOLOGY Hct 29.5 42.0 - 04/18 [facility] [place] 54.0 /2016 [place] HEMATOLOGY Hgb 9.6 14.0 - 04/18 [facility] [place] 18.0 /2016 [place] HEMATOLOGY MCV 94.2 80.0 - 04/18 [facility] [place] 94.0 /2016 [place] HEMATOLOGY RBC 3.13 4.70 - 04/18 [facility] [place] 6.10 /2017 [place] HEMATOLOGY WBC 8.0 3.7 - 10.4 04/18 [facility] [place] /2017 [place] HEMATOLOGY RDW 18.0 11.5 - 04/18 [facility] [place] 14.5 /2017 [place] HEMATOLOGY Platelet 126 133 - 450 04/18 [facility] [place] /2017 [place] HEMATOLOGY MPV 7.8 7.4 - 10.4 04/18 [facility] [place] /2017 [place] HEMATOLOGY MCH 30.7 27.0 - 04/18 [facility] [place] 31.0 /2016 [place] HEMATOLOGY MCHC 32.6 32.0 - 04/18 [facility] [place] 36.0 /2016 [place] HEMATOLOGY Lymphocytes 8.7 20.0 - 04/18 [facility] [place] 40.0 /2017 [place] HEMATOLOGY Segs 74.7 45.0 - 04/18 [place] 75.0 [place] HEMATOLOGY Basophils 0.5 0.0 - 1.0 04/18 [place] [facility] HEMATOLOGY Segs-Bands # 6.0 1.5 - 8.1 04/18 [place] /2016 [place] HEMATOLOGY Lymphocytes 0.7 1.0 - 5.5 04/18 [place] # /2016 [place] HEMATOLOGY Eosinophils 4.7 0.0 - 4.0 04/18 [place] /2016 [facility] HEMATOLOGY Monocytes # 0.9 0.0 - 0.8 04/18 [place] HEMATOLOGY Eosinophils 0.4 0.0 - 0.5 04/18 [place] # /2016 [place] HEMATOLOGY Basophils # 0.0 0.0 - 0.2 04/18 [place] /2016 [facility] HEMATOLOGY Monocytes 11.4 2.0 - 12.0 04/18 [place] [facility] BLOOD BANK RBC product Product available 1 04/18 Resul t [place] RESULTS (04/17/17 9:17 PM) Comment: [facility] 04/18/2017 08:17 [id number]
2 units PRBC transfused on 04/18/17 BLOOD BANK Antibody Negative 04/18 [place] RESULTS Scrn (04/17/17 7:22 PM) [facility] BLOOD BANK ABO/Rh O POS 04/18 [place] RESULTS [facility] BLOOD BANK RBC product Product available 04/17 [place] RESULTS (04/17/17 6:34 PM) [facility] CARDIAC Troponin-I <0.02 0.00 - 04/17 [place] 0.40 [facility] CARDIAC CK MB 1.4 0.5 - 3.6 04/17 [place] [facility] [facility] CARDIAC Total CK 132 12 - 191 04/17 [place] [facility] CARDIAC CK MB Index 1.1 0.0 - 2.5 04/17 [place] [facility] CHEM PANEL Lipase Lvl 505 73 - 393 04/17 [place] [facility] CHEM PANEL eGFR 49 04/17 Result Comment: The [facility] eGFR is calculated using the CKD-EPI formula. In most young, healthy individuals the eGFR will be >90 mL/min/1.73m2 . The eGFR declines with age. An eGFR of 60-89 may be normal in some populations, particularly the elderly, for whom the CKD-EPI formula has not been extensively validated. Use of the eGFR is not recommended in the following populations:< br/>
Briseida viduals with unstable creatinine concentration s, including patients and those with serious co-morbid conditions.<b r/>
Patie nts with extremes in muscle mass or diet.

The data above are obtained from the National Kidney Disease Education Program (NKDEP) which additionally recommends that when the eGFR is used in patients with extremes of body mass index for purposes of drug dosing, the eGFR should be multiplied by the estimated BMI. CHEM PANEL A/G Ratio 0.8 0.7 - 1.6 06/24 [facility] [place] /2017 [place] CHEM PANEL B/C Ratio 13 6 - 25 06/24 [facility] [place] /2016 [place] CHEM PANEL Globulin 3.9 2.7 - 4.2 06/24 [facility] [place] CHEM PANEL Bili Total 1.1 0.2 - 1.3 06/24 [facility] [place] CHEM PANEL AGAP 18.7 10.0 - 06/24 [facility] [place] 20.0 /2017 [place] CHEM PANEL Alk Phos 220 39 - 136 06/24 [facility] [place] 2017 [place] CHEM PANEL Calcium Lvl 8.9 8.5 - 10.5 06/24 [facility] [place] CHEM PANEL Sodium Lvl 141 135 - 145 06/24 [facility] [place] CHEM PANEL CO2 21 24 - 32 06/24 [facility] [place] CHEM PANEL Potassium 4.7 3.5 - 5.1 06/24 [facility] [place] Lvl /2017 [place] CHEM PANEL Chloride Lvl 106 95 - 109 06/24 [facility] [place] CHEM PANEL Glucose Lvl 184 70 - 99 06/24 [facility] [place] 2017 [place] CHEM PANEL Creatinine 1.52 0.50 - 06/24 [facility] [place] Lvl 1.40 /2017 [place] CHEM PANEL ALT 47 0 - 65 06/24 [facility] [place] /2017 [place] CHEM PANEL AST 110 0 - 37 06/24 [facility] [place] /2017 [place] CHEM PANEL Total 7.0 6.4 - 8.4 06/24 [facility] [place] Protein 2017 [place] CHEM PANEL Albumin Lvl 3.1 3.5 - 5.0 06/24 [facility] [place] CHEM PANEL BUN 20 7 - 22 06/24 [facility] [place] HEMATOLOGY PTT 39.4 22.9 - 06/24 [facility] [place] 35.8 /2016 [place] HEMATOLOGY RDW 19.2 11.5 - 04/17 [place] 14.5 /2016 [place] HEMATOLOGY Platelet 141 133 - 450 04/17 [facility] [place] /2016 [place] HEMATOLOGY WBC 10.8 3.7 - 10.4 04/17 [place] /2016 [place] HEMATOLOGY RBC 2.72 4.70 - 04/17 [place] 6.10 /2016 [place] HEMATOLOGY MCV 96.3 80.0 - 04/17 [place] 94.0 [place] HEMATOLOGY MCH 31.1 27.0 - 04/17 [place] 31.0 [place] HEMATOLOGY MCHC 32.3 32.0 - 04/17 [place] 36.0 [place] HEMATOLOGY MPV 7.6 7.4 - 10.4 04/17 [place] /2016 [place] HEMATOLOGY PT 14.7 12.0 - 04/17 [place] 14.7 /2016 [place] HEMATOLOGY INR 1.13 0.85 - 04/17 [place] 1.17 [place] HEMATOLOGY RBC Morph Normal 04/17 [place] (04/17/17 4:44 PM) [place] HEMATOLOGY Segs 66.0 45.0 - 04/17 [place] 75.0 [place] HEMATOLOGY Plt Morph Normal 04/17 [place] (04/17/17 4:44 PM) [place] HEMATOLOGY Monocytes 2.0 2.0 - 12.0 04/17 [place] HEMATOLOGY Eosinophils 6.0 0.0 - 4.0 04/17 [place] HEMATOLOGY Segs-Bands # 7.3 1.5 - 8.1 04/17 [place] HEMATOLOGY Lymphocytes 24.0 20.0 - 04/17 [place] 40.0 [place] HEMATOLOGY Bands 2.0 0.0 - 11.0 04/17 [place] 2017 [place] HEMATOLOGY Anisocyte 1+ None Seen 04/17 [place] *ABN* /2016 [place] (04/17/17 4:44 PM) HEMATOLOGY Monocytes # 0.2 0.0 - 0.8 04/17 [place] HEMATOLOGY Lymphocytes 2.6 1.0 - 5.5 04/17 [place] # /2016 [place] HEMATOLOGY Tot Cell Ct 100 04/17 [facility] [place] HEMATOLOGY Eosinophils 0.6 0.0 - 0.5 04/17 [place] # /2016 [place] HEMATOLOGY Macrocyte 1+ None Seen 04/17 [place] *ABN* /2016 [place] (04/17/17 4:44 PM) HEMATOLOGY Large Plt Slight 04/17 [place] HEMATOLOGY Hypochrom 2+ None Seen 04/17 [place] (04/17/17 4:44 PM) [place] URINE AND Occult Bld Positive Negative 04/17 [place] STOOL Stl *ABN* /2016 [place] (04/17/17 4:44 PM) HEMATOLOGY Hct 29.0 42.0 - 12/15 [facility] [place] 54.0 2017 [place] HEMATOLOGY Hgb 9.7 14.0 - 12/15 [facility] [place] 18.0 2017 [facility] HEMATOLOGY Hgb 9.6 14.0 - 12/15 [facility] [place] 18.0 2017 [facility] HEMATOLOGY Hct 28.4 42.0 - 12/15 [facility] [place] 54.0 2017 [place] CHEM PANEL Glucose Lvl 94 70 - 99 12/15 [place] [facility] CHEM PANEL BUN 28 7 - 22 12/15 [place] CHEM PANEL eGFR 60 12/15 Comment: The [facility] eGFR is calculated using the CKD-EPI formula. In most young, healthy individuals the eGFR will be >90 mL/min/1.73m2 . The eGFR declines with age. An eGFR of 60-89 may be normal in some populations, particularly the elderly, for whom the CKD-EPI formula has not been extensively validated. Use of the eGFR is not recommended in the following populations:< br/>
Briseida viduals with unstable creatinine concentration s, including patients and those with serious co-morbid conditions.<b r/>
Patie nts with extremes in muscle mass or diet.

The data above are obtained from the National Kidney Disease Education Program (NKDEP) which additionally recommends that when the eGFR is used in patients with extremes of body mass index for purposes of drug dosing, the eGFR should be multiplied by the estimated BMI. CHEM PANEL AST 61 0 - 37 12/15 [place] CHEM PANEL Bili Total 1.2 0.2 - 1.3 12/15 [place] CHEM PANEL Alk Phos 135 39 - 136 12/15 [place] CHEM PANEL Total 6.7 6.4 - 8.4 12/15 [place] CHEM PANEL Albumin Lvl 3.2 3.5 - 5.0 12/15 [place] CHEM PANEL ALT 36 0 - 65 12/15 [place] CHEM PANEL Creatinine 1.31 0.50 - 02 [place] Lvl 1.40 /2016 [place] CHEM PANEL Sodium Lvl 144 135 - 145 12/15 [place] CHEM PANEL Potassium 4.4 3.5 - 5.1 12/15 [place] Lvl /2016 [place] CHEM PANEL Chloride Lvl 109 95 - 109 12/15 [place] CHEM PANEL CO2 26 24 - 32 12/15 [place] CHEM PANEL Calcium Lvl 8.5 8.5 - 10.5 12/15 [place] CHEM PANEL A/G Ratio 0.9 0.7 - 1.6 12/15 [place] CHEM PANEL AGAP 13.4 10.0 - 12/15 [place] 20.0 [place] CHEM PANEL B/C Ratio 21 6 - 25 12/15 [place] CHEM PANEL Globulin 3.5 2.7 - 4.2 12/15 [place] HEMATOLOGY MPV 7.2 7.4 - 10.4 12/15 [place] HEMATOLOGY RBC 2.86 4.70 - 12/15 [place] 6.10 /2016 [place] HEMATOLOGY WBC 7.7 3.7 - 10.4 12/15 [place] HEMATOLOGY Hct 28.0 42.0 - 12/15 [place] 54.0 /2016 [place] HEMATOLOGY Hgb 9.1 14.0 - 12/15 [place] 18.0 /2016 [place] HEMATOLOGY MCH 32.0 27.0 - 12/15 [place] 31.0 [place] HEMATOLOGY MCV 98.1 80.0 - 12/15 [place] 94.0 2017 [place] HEMATOLOGY RDW 20.2 11.5 - 12/15 [place] 14.5 /2017 [place] HEMATOLOGY MCHC 32.6 32.0 - 12/15 [place] 36.0 2017 [place] HEMATOLOGY Platelet 145 133 - 450 12/15 [place] HEMATOLOGY Eosinophils 6.4 0.0 - 4.0 12/15 [place] HEMATOLOGY Segs-Bands # 5.1 1.5 - 8.1 12/15 [place] HEMATOLOGY Basophils 1.2 0.0 - 1.0 12/15 [place] HEMATOLOGY Lymphocytes 1.1 1.0 - 5.5 12/15 [place] # /2017 [place] HEMATOLOGY Monocytes # 0.9 0.0 - 0.8 12/15 [place] /2016 [place] HEMATOLOGY Basophils # 0.1 0.0 - 0.2 12/15 [place] /2016 [place] HEMATOLOGY Eosinophils 0.5 0.0 - 0.5 12/15 [place] # /2017 [place] HEMATOLOGY Lymphocytes 14.5 20.0 - 12/15 [place] 40.0 /2017 [place] HEMATOLOGY Monocytes 11.3 2.0 - 12.0 12/15 [place] /2016 [place] HEMATOLOGY Segs 66.6 45.0 - 12/15 [place] 75.0 /2016 [place] URINE AND UA Turbidity Clear Clear 12/15 [place] STOOL (12/14/16 8:18 PM) [place] URINE AND UA Color Light Yellow Yellow 12/15 [place] *NA* /2016 [place] (12/14/16 8:18 PM) URINE AND UA Protein Negative Negative 12/15 [place] STO[place] mg/dL mg/dL [place] URINE AND UA Sq Epi None Seen 12/15 [place] URINE AND UA Spec Grav 1.006 <=1.030 12/15 [place] URINE AND UA <=1.0 0.1 - 1.0 12/15 [place] Urobilinogen mg/dL [place] URINE AND UA Nitrite Negative Negative 12/15 [place] (12/14/16 8:18 PM) [place] URINE AND UA Leuk Est Negative Negative 12/15 [place] (12/14/16 8:18 PM) [place] URINE AND UA WBC 1 0 - 5 12/15 [place] URINE AND UA Glucose Negative Negative 12/15 [place] mg/dL mg/dL [place] URINE AND UA Ketones Negative Negative 12/15 [place] mg/dL mg/dL [place] URINE AND UA Bili Negative Negative 12/15 [place] *NA* /2016 [place] (12/14/16 8:18 PM) URINE AND UA Blood Negative Negative 12/15 [place] (12/14/16 8:18 PM) [place] URINE AND UA pH 7.0 5.0 - 8.0 12/15 [place] URINE AND UA RBC 1 0 - 2 12/15 [facility] [place] STOOL [place] BLOOD BANK ABO/Rh O POS 12/15 [place] RESULTS [place] BLOOD BANK Antibody Negative 12/15 [place] RESULTS Scrn (12/14/16 6:47 PM) [place] BLOOD BANK ABO/Rh O POS 12/14 [facility] [place] RESULTS [place] BLOOD BANK Antibody Negative 12/14 [place] RESULTS Scrn (12/14/16 1:13 PM) [place] CHEM PANEL Lipase Lvl 711 73 - 393 12/14 [place] CHEM PANEL B/C Ratio 23 6 - 25 12/14 [place] CHEM PANEL Globulin 3.6 2.7 - 4.2 12/14 [place] CHEM PANEL AGAP 15.6 10.0 - 12/14 [place] 20.0 [place] CHEM PANEL A/G Ratio 1.0 0.7 - 1.6 12/14 [place] CHEM PANEL eGFR 53 12/14 Comment: The [facility] eGFR is calculated using the CKD-EPI formula. In most young, healthy individuals the eGFR will be >90 mL/min/1.73m2 . The eGFR declines with age. An eGFR of 60-89 may be normal in some populations, particularly the elderly, for whom the CKD-EPI formula has not been extensively validated. Use of the eGFR is not recommended in the following populations:< br/>
Briseida viduals with unstable creatinine concentration s, including patients and those with serious co-morbid conditions.<b r/>
Patie nts with extremes in muscle mass or diet.

The data above are obtained from the National Kidney Disease Education Program (NKDEP) which additionally recommends that when the eGFR is used in patients with extremes of body mass index for purposes of drug dosing, the eGFR should be multiplied by the estimated BMI. CHEM PANEL Bili Total 0.8 0.2 - 1.3 12/14 [place] CHEM PANEL ALT 42 0 - 65 12/14 [place] CHEM PANEL AST 73 0 - 37 12/14 [place] CHEM PANEL Alk Phos 184 39 - 136 12/14 [place] CHEM PANEL Chloride Lvl 103 95 - 109 12/14 [place] CHEM PANEL Calcium Lvl 8.9 8.5 - 10.5 02/20 [facility] [place] /2017 [place] CHEM PANEL Potassium 4.6 3.5 - 5.1 02/20 [facility] [place] Lvl /2017 [place] CHEM PANEL Sodium Lvl 139 135 - 145 02/20 [facility] [place] /2017 [place] CHEM PANEL CO2 25 24 - 32 02/20 [facility] [place] /2017 [place] CHEM PANEL Total 7.1 6.4 - 8.4 02/20 [facility] [place] /2016 [place] CHEM PANEL Albumin Lvl 3.5 3.5 - 5.0 02/20 [facility] [place] /2017 [place] CHEM PANEL Glucose Lvl 107 70 - 99 02/20 [facility] [place] /2017 [place] CHEM PANEL BUN 33 7 - 22 02/20 [facility] [place] /2017 [place] CHEM PANEL Creatinine 1.45 0.50 - 02/20 [facility] [place] Lvl 1.40 /2016 [place] HEMATOLOGY Segs 70.7 45.0 - 02/20 [facility] [place] 75.0 /2016 [place] HEMATOLOGY Lymphocytes 9.8 20.0 - 02/ MH [place] 40.0 /2016 [place] HEMATOLOGY Eosinophils 6.0 0.0 - 4.0 02/20 [facility] [place] /2017 [place] HEMATOLOGY Monocytes 11.7 2.0 - 12.0 02/20 [facility] [place] /2017 [place] HEMATOLOGY Basophils 1.8 0.0 - 1.0 02/20 [facility] [place] /2017 [place] HEMATOLOGY Segs-Bands # 6.5 1.5 - 8.1 02/20 [facility] [place] /2016 [place] HEMATOLOGY Eosinophils 0.5 0.0 - 0.5 02/20 [facility] [place] # /2016 [place] HEMATOLOGY Monocytes # 1.1 0.0 - 0.8 02/20 [facility] [place] /2017 [place] HEMATOLOGY Basophils # 0.2 0.0 - 0.2 02/20 [facility] [place] /2017 [place] HEMATOLOGY Lymphocytes 0.9 1.0 - 5.5 02/20 [facility] [place] # /2016 [place] HEMATOLOGY PTT 38.5 22.9 - 02/20 [facility] [place] 35.8 /2017 [place] HEMATOLOGY PT 14.4 12.0 - 02/20 [facility] [place] 14.7 /2017 [place] HEMATOLOGY INR 1.10 0.85 - 02/20 [facility] [place] 1.17 /2016 [place] HEMATOLOGY MCV 97.7 80.0 - 02/ MH [place] 94.0 /2017 [place] HEMATOLOGY MCH 32.8 27.0 - 02/20 [facility] [place] 31.0 /2017 [place] HEMATOLOGY RDW 20.4 11.5 - 02/20 [facility] [place] 14.5 /2016 [facility] HEMATOLOGY MCHC 33.5 32.0 - 12/14 [place] 36.0 /2016 [facility] HEMATOLOGY MPV 7.5 7.4 - 10.4 12/14 [facility] HEMATOLOGY Platelet 159 133 - 450 12/14 [facility] HEMATOLOGY RBC 3.06 4.70 - 12/14 [place] 6.10 /2016 [facility] HEMATOLOGY WBC 9.1 3.7 - 10.4 12/14 [facility] URINE AND Occult Bld Positive Negative 12/14 [facility] STOOL Stl *ABN* /2016 [facility] (12/14/16 1:13 PM) Pathology Reports No Data Provided for This Section Diagnostic Reports Report Value Date Source CVC insert tunnel w/-w/o PROCEDURE: Tunneled dialysis cathet er placement 07/07/2019 [facility] Medical port/pump age 5+ yrs VR Procedural Personnel [place] Attending physician(s): Dr Mcneal Fellow physician(s): None Resident physician(s): None Advanced practice provider(s): None Pre-procedure diagnosis: Renal failure Post-procedure diagnosis: Renal Failure Indication (QCDR): Performance of hemodialysis Additional clinical history: None Complications: No immediate complications. IMPRESSION: Insertion of right-sided marivel neled dialysis catheter, with tip in the expected location of the cavoatrial junction. Plan: The catheter may be used immediately. PROCEDURE SUMMARY: - Venous access with ultrasound guidance - Tunneled dialysis catheter insertion with fluo roscopic guidance - Additional procedure(s): None PROCEDURE DETAILS: Pre-procedure History and imaging of central venous access rev iewed (QCDR): Yes Consent: Informed consent fo r the procedure including risks, benefits and alternatives was obtained and time-out was performed prior to the procedure. Preparation (MIPS): The site was prepared and draped using all elements of maximal sterile barrier technique including sterile gloves, sterile gown, cap, mask, large sterile sheet, sterile ultrasound pr obe cover, hand hygiene and cutaneous antisepsis with 2% chlorhexidine. Medical reason for site preparation exception (M IPS): Not applicable Anesthesia/sedation Level of anesthesia/sedation: Moderate sedation (conscious sedation) Anesthesia/sedation administ ered by: Independent trained observer under attending supervision with continuous monitoring of the patient's level of consciousness and physiologic status Total intra-service sedation time (minutes): 20 Access Local anesthesia was adminis tered. The vessel was sonographically evaluated and determined to be patent. Real time ultrasound was used to visualize needle entry into the vessel and a permanent image was stored. Vein accessed (QCDR): Internal jugular vein Internal jugular vein patenc y (QCDR): Patent or otherwise accessible on at least one side Access technique: Micropuncture set with 21 gaug e needle Venography Indication for venography: Not performed Catheter tip position for venography: Not applic able Findings: Not applicable Catheter placement An incision was made near th e venous access site and the catheter was tunneled subcutaneously to the venous access site. The catheter was advanced via a peel- away sheath into the vein under fluoroscopic guidance. Catheter tip loca tion was fluoroscopically verified and a permanent image was stored. Catheter placed: OnAir Player Catheter cuff-to-tip length (cm): 23 Catheter tip position: 2.5 vertebral body units (VBUs) below the jaciel. Unique Device Identifier (ROLANDA): Not available Catheter flush: Heparin (1000 units/mL) Closure A sterile dressing was applied. Access site closure technique: Tissue adhesive Catheter securement technique: Non-absorbable yepez ture Contrast Contrast agent: None Contrast volume (mL): 0 Radiation Dose Fluoroscopy time (seconds): 2 Reference air kerma (mGy): 0.35 Additional Details Additional description of procedure: None Equipment details: None Specimens removed: None Estimated blood loss (mL): Less than 10 Standardized report: [id number] Attestation Signer name: Edgardo Mcneal MD I attest that I was present for the entire procedure. I reviewed the stored images and agree with the report as written. Brain wo contrast CT EXAM: CT BRAIN WITHOUT CONTRAST 06/28/2019 [facility] DATE: 06/28/2019 6:16 CDT Center INDICATION: - hx renal fail ure and cirrhosis, worsening altered mental status. COMPARISON: CT brain dated 01/07/2012 TECHNIQUE: Routine axial CT images of the brain were obtained from vertex to skull base DLP: 1033 mGy-cm FINDINGS: Bilateral symmetric hypodens ities within periventricular white matter bilateral posterior parieto-occipital lobes, unchanged from previous examination and likely represents changes secondary to small vessel ischemia. Non-contrast images of the h ead demonstrate no edema, hemorrhage, mass lesion or other acute intracranial abnormality. The brain has normal attenua tion and clay-white matter distinction. The ventricles are normal. The basal cisterns and sulci are normal in size. There is no chronic abnormality. The paranasal sinuses, orbits and mastoids are u nremarkable. IMPRESSION: 1. No acute intracranial abnormality. 2. Changes of small vessel ischemia. Chest 1view DX EXAM: XR CHEST 1 VIEW 06/27/2019 [facility] DATE: 06/27/2019 7:46 AM CDT Cente r INDICATION: - assess for infiltrates COMPARISON: 06/25/2019 TECHNIQUE: AP chest IMPRESSION: New feeding tube coursing to the stomach. Stable right central venous catheter. Stable cardiomediastinal silhouette. Decreased lung volumes with prominence of bilateral interstitial markings and subsegmental atelectasi s. Trace pleural effusions may be present. No definite pneumothorax in this non-upright radiograph. Unchanged skeletal structures. CONCLUSION: New feeding tub e coursing to the stomach. Otherwise, no significant change compared to 06/25/2019. Abdomen 1 v for Placement EXAM: XR ABDOMEN 1 VIEW 06/27/2019 [facility] DX DATE: 06/27/2019 1:22 CDT Center INDICATION: - Dobhoff placement COMPARISON: 06/26/2019 TECHNIQUE: Limited AP view of the abdomen for tube placement assessment. Number of images: 2 FINDINGS: Transesophageal feeding tube tip overlying the mid body region of stomach in the final second image. Transesophageal suction tube: None. Other tubes and lines: None. No other changes. IMPRESSION: Tube positions as above. Abdomen AP DX EXAM: XR ABDOMEN 1 VIEW 06/26/2019 [facility] DATE: 06/26/2019 8:57 AM CDT Cente r INDICATION: - DHT placement COMPARISON: None. TECHNIQUE: Limited AP view of the abdomen for tube placement assessment. Number of images: 1 FINDINGS: Transesophageal feeding tube tip in the proxima l stomach. Transesophageal suction tube: None. Other tubes and lines: None. No other changes. IMPRESSION: Tube positions as above. Chest 1view DX EXAM: XR CHEST 1 VIEW 06/25/2019 [facility] edical DATE: 06/25/2019 4:15 PM T Cente r INDICATION: - hypotensive post line placement COMPARISON: June 25, 2019 at 1359 hours TECHNIQUE: AP chest IMPRESSION: 1. Right IJV central venous line placement with tip projects over the mid SVC. No complications. 2. Cardiomediastinal silhou ette is upper limit of normal size. Aortic atherosclerotic disease. 3. Prominent lung reticulat ions again seen with peribronchial cuffing suggestive of pulmonary interstitial edema. Superimposed infection cannot be excluded. 4. Trace bilateral pleural effusions. 5. Osseous structures are stable. Chest 1view DX EXAM: XR CHEST 1 VIEW 06/25/2019 [facility] edical DATE: 06/25/2019 1:30 PM CDT Cente r INDICATION: - RIJ central line placement COMPARISON: April 18, 2019 TECHNIQUE: AP chest IMPRESSION: 1. Right IJV central venous line placement with tip projects over the mid SVC. No complications. 2. Cardiomediastinal silhou ette is upper limit of normal size. Aortic atherosclerotic disease. 3. Prominent lung reticulat ions again seen with peribronchial cuffing suggestive of pulmonary and interstitial edema. Superimposed infection cannot be excluded. 4. Trace bilateral pleural effusions. 5. Osseous structures are stable. Liver Doppler US EXAM: US ABDOMEN WITH DOPPLER 06/19/2019 [facility] DATE: 06/19/2019 17:20 CDT Center INDICATION: - Known cirrhos is, multiple admissions for volume overload, HCC surveillance, currently evaluating for possible transplant ADDITIONAL INFORMATION: None. COMPARISON: Liver ultrasound dated April 11, 2018 . TECHNIQUE: Multiplanar nick marco, color Doppler and spectral Doppler ultrasound of the abdomen. FINDINGS: Liver: Craniocaudal length: 17.0 cm. Echogenicity: Increased echogenicity was coarsen ed liver parenchyma Surface: Nodular Mass (size and location): None. Hepatic and portal vasculature: Hepatic artery: Patent with antegrade pulsatile flow with PSV measuring 125 cm/s. Resistive index: 0.8. Portal veins: Patent with no rmal hepatopetal monophasic flow with velocity of 32.7 cm/s Main portal vein. MPV caliber: 0.5 cm. Hepatic veins: Patent with n ormal hepatofugal multiphasic flow with velocities measuring 42.2 cm/s in the main hepatic vein. Splenic artery: Patent with antegrade pulsatile flow with PSV 252 cm/s. Splenic vein: Patent with normal flow with veloc ity measuring 62.2 cm. Collateral: None. Abdominal aorta: Unable to be visualized. Inferior vena cava: Visible portions are normal. Bile ducts: Common bile duct diameter: Not well visualized. Intrahepatic ducts: Normal. Gallbladder: Gallstones: 0.5 cm nonmobile gallstone in the ga llbladder fundus. Gallbladder sludge: None. Gallbladder wall: 0.25 cm. Polyps/masses: None. Pericholecystic fluid: None. Sonographic Canela sign: Absent. Pancreas: Partially obscured. No focal lesions. Spleen: Size: 15.6 x 4.5 x 5.2 cm. Mass or focal lesion (size and location): None. Free fluid: None. Other: None. IMPRESSION: 1. Cholelithiasis without sonographic evidence of acute cholecystitis. 2. Cirrhotic morphology with a splenomegaly ind icating portal hypertension. 3. All hepatic vessels are patent and appear no rmal. Chest 1view DX EXAM: XR CHEST 1 VIEW 04/18/2019 [facility] edical DATE: 04/18/2019 3:51 PM CDT [facility] er INDICATION: - admission COMPARISON: 10/27/2018 TECHNIQUE: AP chest. FINDINGS: Lines, tubes and hardware: None. Lungs and pleura: The lungs are clear. No pleura l effusion or pneumothorax. Heart and mediastinum: The h eart size is borderline enlarged. The mediastinal contours are normal. Pulmonary vascularity is normal. Bones: No acute abnormality. IMPRESSION: No acute abnormality. Mild cardiomegaly is uncha nged. Ext Lower Venous Doppler EXAM: US BILATERAL LOWER EXTREMITY VENOUS DOPPLER 01/13/2019 [facility] Bilat US DATE: 01/13/2019 15:38 CDT Center INDICATION: Lower extremity edema. Concern for DVT. ADDITIONAL INFORMATION: None. COMPARISON: None. TECHNIQUE: Multiplanar nick marco, color Doppler and spectral Doppler ultrasound of the bilateral lower extremity veins. FINDINGS: Right Thigh Veins: Common Femoral: Patent. Femoral (SFV): Patent. Popliteal: Patent. Proximal Greater Saphenous: Patent. Proximal Deep Femoral Veins: Patent. Left Thigh Veins: Common Femoral: Patent. Femoral (SFV): Patent. Popliteal: Patent. Proximal Greater Saphenous: Patent. Proximal Deep Femoral Veins: Patent. Others: Bilateral lower extremity edema. IMPRESSION: 1. No deep venous thrombosis (DVT) above either calf. 2. Lower extremity edema bilaterally. Retroperitoneal limited w EXAM: US RENAL WITH DOPPLER 10/28/2018 [facility] Doppler US DATE: 10/28/2018 10:52 PVC MONITOR Center INDICATION: Elevated creatinine, chronic kidney disease COMPARISON: None. TECHNIQUE: Multiplanar nick marco, color Doppler and spectral Doppler ultrasound of the kidneys and urinary bladder. Exam limited by body habitus. FINDINGS: Right kidney: Size: 10.9 x 5.9 x 6.0 cm. Cortical thickness: Normal. Hydronephrosis: None. Echogenicity: Normal. Calculi: None. Cysts/Masses: None. Left kidney: Size: 10.9 x 5.8 x 11.5 cm. Cortical thickness: Normal. Hydronephrosis: None. Echogenicity: Normal. Calculi: None. Cysts/Masses: None. Bladder: Normal. Right Main Renal Artery: Patent. No elevated magdalena ocities. Right RA:Aorta Ratio: 1.5, normal. Right Intrarenal/Arcuate Arteries: Patent. No pa rvus et tardus. Right Superior RI: 0.68 Right Middle RI: 0.72 Right Inferior RI: 0.73 Left Main Renal Artery: Patent. No elevated velo cities. Left RA:Aorta Ratio: 0.89, normal. Left Intrarenal/Arcuate Arteries: Patent. No par vus et tardus. Left Superior RI: 0.69 Left Middle RI: 0.67 Left Inferior RI: 0.65 Main Renal Veins: Patent. Free fluid: None. Other: None. IMPRESSION: 1. Normal sonographic appearance of the kidneys . 2. Normal Doppler exam of the renal arteries. Chest 2 views DX EXAM: XR CHEST 2 VIEWS 10/27/2018 [facility] DATE: 10/27/2018 22:25 PVC MONITOR Center INDICATION: - dyspnea, renal failure COMPARISON: None TECHNIQUE: PA and lateral chest radiographs FINDINGS: Lines and tubes: None. Lungs and pleura: No pulmonary or pleural based abnormality is identified. Heart and mediastinum: The h eart size is enlarged, most apparent on the lateral image. The mediastinal contours are normal. Bones: No acute bony abnormality is identified. IMPRESSION: Cardiomegaly Liver US Procedure: Right Upper Quadrant Ultrasound. 12/2018 ANAMindy Dickens Clinical Indication: Hepatic cirrhosis. Comparison: Right upper quad rant ultrasound 04/11/[address] scan of the abdomen 02/01/2018. TECHNIQUE: Grayscale and limited color sonographic evaluation of the right upper quadrant of the abdomen and gallbladder region was performed with standard technique. FINDINGS: The study is somew hat limited secondary to patient body habitus and overlying bowel gas. LIVER: There is somewhat heterogene ous coarse echotexture of the liver with a slightly nodular border. The liver measures 18 cm in craniocaudal dimension. The main portal vein is patent however demonstrates pe rsistent hepatofugal flow. T he visualized hepatic veins and hepatic artery appear patent. BILE DUCTS: The intrahepatic and extrahe patic bile ducts are not dilated with the common bile duct measuring 4 mm. GALLBLADDER: A 7 mm echogenic focus is no bere along the posterior wall the gallbladder suggesting cholelithiasis. No gallbladder wall thickening or pericholecystic fluid is observed. PANCREAS: The pancreas was not seen secondary to overlying bowel gas. RIGHT KIDNEY: Not imaged. AORTA AND INFERIOR VENA CAVA: Visualized portions appear unremarkable. ADDITIONAL COMMENTS: The spl een is slightly enlarged measuring 13.9 cm in length. IMPRESSION: 1. Findings consistent with patient history of cirrhosis with persistent hepatofugal flow in the portal vein. 2. Cholelithiasis. 3. Minimal splenomegaly. [id number] Gallbladder scan LADONNA johnson Patient Name: MARK LEON 03/26 [facility] : 1960; Age: 58 years Male MR: [id number] Study: Gallbladder scan LADONNA johnson [facility] 04/22/2018 10:30 AM CDT CLINICAL INDICATION: - cholecystitis, unspecifi ed. COMPARISON: HIDA scan on 11/26/2017 TECHNIQUE: Hepatobiliary scan is perfor med using 6.3 mCi of Tc-99m Choletec. 1.9 mcg of CCK administered intravenously. Right antecubital fossa IV injection site. FINDINGS: Prompt radiotracer uptake wi thin the liver and progression of the radiotracer through a non dilated biliary tree and into small bowel. Gallbladder filling is first noted at 15 minutes past radiotracer injection. After Cholecystokinin infusi on, the gallbladder ejection fraction is noted to be 90%. (GB ejection fraction: normal greater than 50%, indeterminate 35-50%, abnormal <35%). Patient reported no symptoms during CCK infusion . IMPRESSION: Unremarkable hepatobiliary scan. Gallbladder ejection fraction within normal limi ts. SL: [id number] Liver w Liver vessels EXAM: US ABDOMEN LIMITED WITH DOPPLER 03/25 [facility] Doppler US DATE: 04/10/2018 at 0051 hours Ce nter INDICATION: - cirrhosis, RUQ pain, eval GB ADDITIONAL INFORMATION: None. COMPARISON: CT multiphase liver 02/01/2018 and TECHNIQUE: Multiplanar nick marco, color Doppler and spectral Doppler ultrasound of the abdomen. FINDINGS: Hepatic and portal vasculature: Hepatic artery: Patent with antegrade pulsatile flow. Resistive index: 0.64. Portal veins: Patent with re versed, hepatofugal monophasic flow. MPV caliber: 0.7 cm. Hepatic veins: Patent with normal hepatofugal mu ltiphasic flow. Splenic artery: Patent with antegrade pulsatile flow. Splenic vein: Patent with normal flow. Collateral: None. Liver: Craniocaudal length: 17.84 cm. Echogenicity: G. Surface: Nodular. Mass (size and location): None. Main portal vein: Caliber: 0.7 cm. Flow: Hepatofugal. Bile ducts: Common bile duct diameter: 0.36 cm. Intrahepatic ducts: Normal. Gallbladder: Gallstones: Present Gallbladder sludge: None. Gallbladder wall: 0.14 cm. Pericholecystic fluid: None. Sonographic Canela sign: Absent. Pancreas: Head and uncinate process: Normal Body: Not well visualized. Tail: Not seen. Spleen: Normal. Right kidney: Not imaged Free fluid: Small amount of ascites seen within Morison's pouch Other: None. IMPRESSION: 1. Cholelithiasis without sonographic evidence of acute cholecystitis. 2. Cirrhotic morphology wit h hepatofugal flow consistent with portal hypertension secondary to known history of cirrhosis. 3. Small amount of ascites. Abd Liver Protocol w/wo EXAM: CT abdomen liver protocol 02/02/20 18 ANATOLIY Dickens IV contrast CT HISTORY: Bilateral lower ext remity edema; elevated liver function test, cirrhosis, portal hypertension COMPARISON: CT 04/17/2017 TECHNIQUE: Axial images of t he abdomen without contrast then during arterial, portal venous, and delayed phases of IV contrast. Sagittal and coronal MIP images. DLP 1708 FINDINGS: LIVER: Moderate cirrhosis. S table 5 mm hypodensity in the central liver. No enhancing mass is seen. The portal vein is minimally prominent. OTHER SOLID ORGANS: Minimall y enlarged spleen. Mild cortical scarring of the kidneys. Small gallstone. No biliary dilation. The adrenals and pancreas are unremarkable. PERITONEUM AND RETROPERITONE UM: Stable mesenteric varices with shunt between the superior mesenteric vein and right renal vein. Minimal mesenteric edema. No ascites. No bulky adenopathy. Atherosclerosis aorta. GI TRACT: Visualized bowel pattern appears unrem arkable. LOWER CHEST: Multivessel coronary artery calcifi cations. IMPRESSION: 1. Liver cirrhosis with port al hypertension, mild splenomegaly, and varices with stable shunt between the SMV and right renal vein. Stable tiny hypodensity in the liver is likely a cyst. No enhancing liver mass is seen. 2. Cholelithiasis. 3. Coronary artery calcifications. SL 13 Biopsy liver VR Ultrasound-guided liver biopsy, 12/03/2017 7:42 AM PVC MONITOR 12/03/2017 [facility] CLINICAL INFORMATION: Elevat ed transaminases; - other specified abnormal findings of blood chemistry CONSENT: The procedure, risk s, benefits and alternatives were discussed with the patient and written informed consent was obtained. PROCEDURE: Patient was kept in a supine position in the bed. The right upper quadrant was scanned for localization of the liver. Right upper quadrant abdomen was prepped and draped utilizing all elements of maximal barrier sterile technique. Lidocaine 1% was injected in to a focus of skin and into the deeper soft tissues to the liver capsule. 19-gauge guide needle was advanced under sonographic guidance through the anesthetized tissues to ac hieve the tip within the danyelle er. Four 20-gauge core biopsies were obtained and sent for histopathology. Sonographic image of biopsy needle entry into the liver was placed in the patient's EMR. Guide needle was removed. Sonographic image status pos t needle removal demonstrating no subcapsular hematoma was placed in the patient's EMR. COMPLICATIONS: None ANESTHESIA: Lidocaine 1%, subcutaneous; intraven ous 100 mcg fentanyl. SHOE LACER: Dr. Escalante IMPRESSION: Successful ultrasound-guided liver biopsy. SL: [id number] Gallbladder scan [facility] w Clinical Indication: - Elev ated Lfts, calculus of gallbladder without cholecystitis without obstruction; 11/26/2017 [facility] [place] Comparison: CT of the abdomen and pelvis 017 TECHNIQUE: Hepatobiliary scan is perfor med using 6.1 mCi of Tc-99m Choletec. 2.1 mcg of CCK were given. Both were administered via left antecubital fossa. FINDINGS: There is prompt hepatic upta ke and excretion with progression of the radiotracer through a non dilated biliary tree and into small bowel. Gallbladder filling is first noted at 30 minutes past radiotracer injection. After Cholecystokinin infusi on the gallbladder ejection fraction is noted to be 82%. (GB ejection fraction - norm al greater than 50%, indeterminate 35-50%, abnormal <35%) Technologist Comment: No pain reported during CC K administration IMPRESSION: 1. Normal hepatobiliary scan and gallbladder eje ction fraction. SL: [id number] ED Abdomen/Pelvis IV CT OF ABDOMEN AND PELVIS WITH IV CONTRA ST, 04/17/2017 04/17/[address] [place] [address] only CT HISTORY: Gastrointestinal b leeding. No prior exams available for comparison. TECHNIQUE: Sequential 5 mm axial postcontrast images were obtained from the hemidiaphragms through the symphysis pubis. Delayed axial images and sagittal and coronal reconstructions were performed. DLP: 1823 mGy-cm. AEC, mA/kV adjustment by pat ient size, and/or iterative reconstruction technique were used, per departmental dose-optimization program. FINDINGS: Images through the lung base s demonstrate mild mosaic perfusion in mild reticulation without evidence of noncalcified lung nodules or pleural effusions. The liver is enlarged with a nodular outline comp atible with hepatic cirrhosi s. No evidence of focal liver mass or bile duct dilatation. Arterial phase imaging imaging was not performed so that small hepatocellular carcinomas cannot be detected. Contr acted thick-walled gallbladd er containing small gallstone. Normal pancreas. Spleen, adrenal glands, and kidneys. Abdominal aortic calcifications without aneurysm The splenic vein and portal vein are patent extensive metastases mesenteric varices communicating with the superior mesenteric vein with markedly dilated varices and in the right abdomen. There is also communication of the dilated mesenteric veins with the right renal vein with markedly dilated right renal vein. No definite esophageal varices detected. Although CTA was not perform ed, hyperdense mucosal enhancement in the cecum noted which appears to mildly increase on delayed images suggesting active extravasation. There is also enhancement of solitar y sigmoid diverticulum (seri es 2, image 67 and series 402B, image 89)) with increasing density within the sigmoid diverticulum on delayed images images suggesting active contrast extravasation. No evidence of large or smal l bowel obstruction or free air. No evidence of ascites. Fat-containing right inguinal hernia. The lumbar spine is intact. Left total hip arthroplasty. Moderate right hip degenerative changes. IMPRESSION: Two potential active gastroi ntestinal bleeding sites noted, one in the cecum and the other within solitary sigmoid diverticulum. Hepatic cirrhosis with large mesenteric varices in the right abdomen with superior mesenteric vein/right renal vein shunt. Report called to Dr. Mckenzie. Consultation Notes No Data Provided for This Section Discharge Summaries No Data Provided for This Section History and Physicals No Data Provided for This Section Vital Signs Vital Sign Value Date Comments Source Temperature Oral (F) 98.3 F 07/10/2019 [facility] Heart Rate 89 [facility]10[facility] Rate 18 07/10/2019 [facility] Systolic (mm Hg) 111 07/10/2019 [facility] Diastolic (mm Hg) 45 07/10/2019 [facility] Temperature Oral (F) 97.5 F 07/10/2019 [facility] Respitory Rate 18 07/10/2019 [facility] Center Systolic (mm Hg) 110 07/10/2019 [facility] Center Diastolic (mm Hg) 58 07/10/2019 [facility] ed[facility] Center Temperature Oral (F) 97.8 F 07/10/2019 [facility] Respitory Rate 18 07/10/2019 [facility] Center Systolic (mm Hg) 136 07/10/2019 [facility] Center Diastolic (mm Hg) 61 07/10/2019 [facility] Center Heart Rate 75 07/10/2019 [facility] Heart Rate 75 07[facility] Height 355.6 cm 07/10/[facility] Height 355.6 cm 07/09/2019 [facility] Height 355.6 cm 07[facility]08/2019 [facility] Weight 78.9 06/23/2019 [facility] BMI Calculated 24.96 06/23/2019 [facility] Weight 85.8 06/19/2019 [facility] BMI Calculated 27.14 06/19/2019 [facility] Systolic (mm Hg) 112 06/19/2019 [facility] Center Diastolic (mm Hg) 57 06/19/2019 [facility] ed[facility] Center Heart Rate 88 06/19/2019 [facility] Height 177.8 cm 06/19/2019 [facility] Weight 86.534 06/19/2019 [facility] BMI Calculated 27.37 06/19/2019 [facility] rick Center Respitory Rate 18 04/21/2019 [facility] Center Heart Rate 76 04/21/2019 [facility] Temperature Oral (F) 98.2 F 04/21/2019 [facility] Systolic (mm Hg) 113 04/21/2019 [facility] dical Center Diastolic (mm Hg) 56 04/21/2019 [facility] edical Center Temperature Oral (F) 98.1 F 04/21/2019 [facility] Heart Rate 73 04/21/2019 [facility] Respitory Rate 18 04/21/2019 [facility] Center Systolic (mm Hg) 137 04/21/2019 [facility] dical Center Diastolic (mm Hg) 55 04/21/2019 [facility] edical Center Systolic (mm Hg) 124 04/21/2019 [facility] dical Center Diastolic (mm Hg) 51 04/21/2019 [facility] edical Center Respitory Rate 18 04/21/2019 [facility] Heart Rate 72 04/21/2019 [facility] Temperature Oral (F) 97.9 F 04/21/2019 [facility] Weight 83.5 04/20/2019 [place] [facility] BMI Calculated 30.47 04/18/2019 [facility] Height 172.72 cm 04/18/2019 [place] [facility] Weight 90.909 04/18/2019 [facility] BMI Calculated 31.55 04/18/2019 [facility] Height 170.18 cm 04/18/2019 [place] [facility] Weight 91.364 04/18/2019 [facility] Heart Rate 69 04/18/2019 [facility] Systolic (mm Hg) 119 04/18/2019 [facility]ical Center Diastolic (mm Hg) 61 04/18/2019 [facility] edical Center Systolic (mm Hg) 125 01/16/2019 [facility] dical Center Diastolic (mm Hg) 67 01/16/2019 [facility] edical Center Respitory Rate 18 01/16/2019 [facility] Heart Rate 76 01/16/2019 [facility] Temperature Oral (F) 98.0 F 01/16/2019 [facility] Respitory Rate 18 01/16/2019 [facility] Systolic (mm Hg) 105 01/16/2019 [facility] dical Center Diastolic (mm Hg) 56 01/[facility]2019 [facility] (F) 98.1 F 01/16/2019 [facility] Heart Rate 80 01/16/2019 [facility] Weight 90.007 01/16/2019 [facility] Respitory Rate 18 01/16/2019 [facility] Systolic (mm Hg) 125 01/16/2019 [facility] dical Center Diastolic (mm Hg) 62 01/16/2019 [facility] Heart Rate 94 01/16/2019 [facility] Temperature Oral (F) 98.3 F 01/16/2019 [facility] BMI Calculated 31.22 01/13/2019 [facility] Weight 95.909 01/13/2019 [facility] Height 175.26 cm 01/13/2019 [facility] BMI Calculated 29.78 12/27/2018 [facility] Weight 91.477 12/27/2018 [facility] Height 175.26 cm 12/27/2018 [facility] Systolic (mm Hg) 126 12/27/2018 [facility] dical Center Diastolic (mm Hg) 64 12/27/2018 [facility] edical Center Heart Rate 79 12/27/2018 [facility] BMI Calculated 32.84 11/16/2018 [facility] Weight 97.955 11/16/2018 [facility] Heart Rate 60 11/16/2018 [facility] Temperature Oral (F) 97.4 F 11/16/2018 [facility] Height 172.72 cm 11/16/2018 [place] [facility] Systolic (mm Hg) 98 11/16/2018 [facility]ical Center Diastolic (mm Hg) 60 11/16/2018 [facility] edical Center Heart Rate 76 11/07/2018 [facility] Systolic (mm Hg) 115 11/07/2018 [facility] dical Center Diastolic (mm Hg) 63 11/07/2018 [facility] edical Center Respitory Rate 18 11/07/2018 [facility] Temperature Oral (F) 98.3 F 11/07/2018 [facility] Systolic (mm Hg) 133 11/07/2018 [facility] dical Center Diastolic (mm Hg) 65 11/07/2018 [facility] Oral (F) 97.8 F 11/07/2018 [facility] Heart Rate 84 11/07/2018 [facility] Respitory Rate 18 11/07/2018 [facility] Respitory Rate 18 11/07/2018 [facility] Systolic (mm Hg) 124 11/07/2018 [facility] dical Center Diastolic (mm Hg) 63 11/07/2018 [facility] Heart Rate 78 11/07/2018 [facility] Temperature Oral (F) 98.3 F 11/07/2018 [facility] Weight 102.926 11/05/2018 [facility] Weight 108.182 10/28/2018 [facility] BMI Calculated 36.26 10/28/2018 [facility] Height 172.72 cm 10/28/2018 [facility] Height 172.72 cm 10/28/2018 [facility] Weight 109.545 10/28/2018 [facility] BMI Calculated 36.72 10/28/2018 [facility] BMI Calculated 30.37 07/12/2018 [facility] Weight 96 07/12/2018 [facility] Height 177.8 cm 07/12/2018 [place] [facility] Respitory Rate 16 07/12/2018 [facility] Systolic (mm Hg) 136 07/12/2018 [facility] dical Center Diastolic (mm Hg) 60 07/12/2018 [facility] edical Center Heart Rate 71 07/12/2018 [facility] Temperature Oral (F) 98.6 F 04/11/2018 [facility] Systolic (mm Hg) 125 04/11/2018 [facility] dical Center Diastolic (mm Hg) 67 04/11/2018 [facility] edical Center Respitory Rate 16 04/11/2018 [facility] Systolic (mm Hg) 129 04/11/2018 [facility] dical Center Diastolic (mm Hg) 60 04/11/2018 [facility] edical Center Respitory Rate 18 04/11/2018 [facility] Temperature Oral (F) 98.2 F 04/11/2018 [facility] Respitory Rate 16 04/11/2018 [facility] Systolic (mm Hg) 118 04/11/2018 [facility] dical Center Diastolic (mm Hg) 56 04/11/2018 [facility] edical Center Weight 81.818 04/11/2018 [facility] Height 177.8 cm 04/11/2018 [facility] BMI Calculated 25.88 04/11/2018 [facility] Temperature Oral (F) 98.1 F 04/11/2018 [facility] Heart Rate 67 04/11/2018 [facility] Systolic (mm Hg) 126 02/04/2018 [facility] Diastolic (mm Hg) 61 02/04/2018 [facility] [address] Respitory Rate 17 02/04/2018 [facility] Respitory Rate 18 02/04/2018 [facility] Systolic (mm Hg) 117 02/04/2018 [facility] Diastolic (mm Hg) 53 02/04/[address] [facility] [address] Respitory Rate 16 02/04/2018 [facility] Systolic (mm Hg) 95 02/04/2018 [facility] Diastolic (mm Hg) 50 02/04/[address] [facility] [address] BMI Calculated 28.76 02/04/2018 [facility] Weight 90.909 02/04/2018 [facility] Height 177.8 cm 02/04/2018 [facility] Height 172.72 cm 01/25/2018 [facility] BMI Calculated 30.93 01/25/2018 [facility] Weight 92.273 01/25/2018 [facility] Systolic (mm Hg) 103 01/25/2018 [facility]ical Center Diastolic (mm Hg) 62 01/25/2018 [facility] edical Center Heart Rate 62 01/25/2018 [facility] Respitory Rate 16 01/25/2018 [facility] Systolic (mm Hg) 124 12/03/2017 [facility] t Diastolic (mm Hg) 58 12/03/[address] [facility] [address] Respitory Rate 14 12/03/2017 [facility] Respitory Rate 11 12/03/2017 [facility] Systolic (mm Hg) 123 12/03/2017 [facility] t Diastolic (mm Hg) 62 12/03/[address] [facility] [address] Respitory Rate 16 12/03/2017 [facility] Systolic (mm Hg) 124 12/03/2017 [facility] t Diastolic (mm Hg) 60 12/03/[address] [facility] [address] Temperature Oral (F) 98.3 F 12/03/2017 [facility] Height 177.8 cm 12/03/2017 [facility] Weight 104.545 12/03/2017 [facility] BMI Calculated 33.07 12/03/2017 [facility] Systolic (mm Hg) 147 04/19/2017 [place] Diastolic (mm Hg) 78 04/19/2017 [place] Respitory Rate 18 04/19/2017 [place] Heart Rate 86 04/19/2017 [place] Temperature Oral (F) 99.0 F 04/19/2017 [place] Respitory Rate 16 04/19/2017 [place] Systolic (mm Hg) 146 04/19/2017 [place] Diastolic (mm Hg) 68 04/19/2017 [place] Temperature Oral (F) 98.9 F 04/19/2017 [place] Heart Rate 96 04/19/2017 [place] Temperature Oral (F) 98.6 F 04/19/2017 [place] Systolic (mm Hg) 146 04/19/2017 [facility] [place] Diastolic (mm Hg) 73 04/19/2017 [place] Respitory Rate 16 04/19/2017 [place] Heart Rate 82 04/19/2017 [place] Height 170.18 cm 04/18/2017 [place] Weight 104 04/18/2017 [place] BMI Calculated 35.91 04/18/2017 [place] Weight 104.773 04/17/2017 [place] Respitory Rate 18 12/15/2016 [place] Systolic (mm Hg) 131 12/15/2016 [place] Diastolic (mm Hg) 64 12/15/2016 [place] Heart Rate 72 12/15/2016 [place] Temperature Oral (F) 98 F 12/15/2016 [facility] [place] Respitory Rate 18 12/15/2016 [facility] [place] Systolic (mm Hg) 128 12/15/2016 [facility] [place] Diastolic (mm Hg) 68 12/15/2016 [facility] [place] Heart Rate 75 12/15/2016 [facility] [place] Temperature Oral (F) 98.1 F 12/15/2016 [facility] [place] Respitory Rate 18 12/15/2016 [facility] [place] Temperature Oral (F) 98.5 F 12/15/2016 [facility] [place] Systolic (mm Hg) 145 12/15/2016 [facility] [place] Diastolic (mm Hg) 56 12/15/2016 [facility] [place] Heart Rate 82 12/15/2016 [place] Weight 95.199 12/14/2016 [place] BMI Calculated 30.99 12/14/2016 [place] Height 175.26 cm 12/14/2016 [place] Weight 94.8 12/14/2016 [place] Encounters Location Location Encounter Encounter Reason Attending ADM [place] Stat Source Details Type Number For Provider Date Date Visit [facility] [id number] No 12/14 12/15 [place] 0 [place] Outpatient [id number] [facility] 12/25 Act fabien [facility] [place] [facility] Outpatient [id number] [facility] 02/12 Act fabien [facility] [place] [facility] Outpatient [id number] [facility] 04/09 Act fabien [facility] Inpatient [id number] [place] 04/17 04/19 [place] 3 [place] Outpatient [id number] [facility] 04/30 Act fabien [facility] Outpatient [id number] Yifan Dubose 11/26 11/27 [place] [facility] Bedded [id number] Yifan Dubose 12/03 12/03 [place] Outpatient [facility] Outpatient [id number] Kavin 01/25 01/26 [place] Dey 6 [facility] Outpt Diag [id number] Kenneth 02/01 02/02 M [facility] Outpatient Services 0 [place] [facility] Bedded [id number] Yifan Dubose 02/04 02/04 [facility] [place] Outpatient [facility] Outpatient [id number] Kavin 02/11 02/12 [facility] [place] 0 [place] [facility] Emergency [id number] [place] 04/11 04/11 [facility] [place] 0 [place] [facility] Outpatient [id number] Yifan Dubose 04/22 04/23 [facility] [place] [facility] Dig[facility]ive Outpatient [id number] Kavin 07/12 07/13 [place] Disease 2 [place] [facility] Outpt Diag [id number] Kavin 10/27 10/28 M [facility] Outpatient Services 1 [place] [facility] Inpatient [id number] Kavin 10/27 11/07 [place] 0 [place] [facility] Memorial OP [id number] Kavin 11/16 12/16 [place] [facility] Transplant 0 [place] Med ical Transplant Clinic - Cent er Ctr [facility] Outpatient [id number] Kavin 12/27 12/28 [place] 3 [place] [facility] PreAdmit [id number] Kavin 01/13 01/13 M H Ortho [place] 1 [place] [facility] Inpatient [id number] Kavin 01/13 01/16 [place] 2 [place] [facility] Digestive Outpatient [id number] Kavin 04/18 04/19 [place] Disease 5 [place] [facility] Inpatient [id number] Angie 04/18 04/21 [place] 6 Ocho[place] /2018 [facility] Digestive Outpatient [id number] Kavin 06/19 06/20 [place] Disease 0 [place] [facility] Inpatient [id number] Kavin 06/19 07/10 [place] 8 [place] [facility] Procedures Procedure Code Date Perfomer Comments Source Colonoscopy [id number] 11/18/[address], Ortho and Spine, OPID [place],[facility] Esophagogastroduodenoscopy [id number] 11/18/[address], [facility] Spine, OPID [place],[facility] Appendectomy [id number] [facility], [facility], OPID [place],[facility] Cataract surgery [id number] [facility], [facility], OPIMindy [place],[facility] Hip replacement [id number] [facility], [facility], OPID [place],[facility] Tonsillectomy [id number] [facility], [facility], OPID [place],[facility] Tonsillotomy [id number] [facility] [place] Assessment and Plan Assessment and Plan Date Source Extracted from:Title: Rheumatology Consult Note 07/10/2019 [facility] Author: Yg Whatley MD PHD Date: 07/05/19 Mr. Leon is a 59-year-old male with a past medical history ofrheumatoid arthritis(diagnosed1.5 years ago,on etanercept and hydroxychloroquine), EtOH cirrhosisC/Bportal hypertension, anisocoria, hepa tic encephalopathy,hepatorenal syndrome, as well as HTN, HLD, CKDstage III, hypothyroidismwho presented toclinic for worsening lower extremity edemaand was then [facility] a direct admit. Rheum atology was consultedto assess ifRA medi cationsetanerceptand hydroxychloroquinecould be the etiology of patient'snewly discovered LV diastolic dysfunction. In regards to patient'[place] medications et anercept andhydroxychloroquine,neither of these medications are known to causediastolic dysfunction. However patient'ssymptoms of arthritiswith worsenin g during the course of the dayand improv ement with the restare more typical of osteoarthritis,which may be possible given patient's age. We provide the following recommendations: Recommendations: - Etanercept and hydroxychloroquine are not known to cause diastolic dysfunction, which is a more acute and new finding in this patient when reviewing TTE reads. Please consider other etiologies for LV diastolic dysfunction. - Ongoingknee,ankle, andfinger painis mo re likely osteoarthritis based on historyand exam - Okay to hold off of etanercept and hyd roxychloroquineat this time if desired,but not necessary - Please orderRF, anti-CCP Patient discussed on rounds with Dr. Driver. EdwardC. Phylicia MD, PhD Internal Medicine, PGY-1 Attending Note: I saw and examined the patient with Dr. Rahman and agree with his note. I do not think that etanercept or hydroxychloroquine are causingthe diastolic dysfunction. However, anti-TNF agents should n ot be used during episodes of CHF exacer bation. Moreover, his initial and current presentations are somewhat atypical for rheumatoid arthritis. We will obtain records from his lan administrator's office. Also will repeat his antibody testing. Clarence Driver MD, MS Rheumatology Attending Extracted from:Title: Hepatology History and Physical Author: Angie Ochoa MD Date: 06/19/19 Mark Leon is a 59 yo M with alcoh olic cirrhosis ([place]enne[place] cirrhosis) c/b portal hypertension, anasarca, hepatic encephalopathy, and hepatorenal syndrome, RA (on etanercept and hydroxychloroquine), HTN, HLD, CKD stage 3, and PUD who was sent from clinic for volume overload, likely secondary to hepatorenal syndrome. # Volume overload # Hepatorenal syndrome # Lower extremity edema - Multiple admissions in the past with similar presentation - Likely due to inadequate diuresis with current home regime n - Will check UA and urine lytes - Start Bumex drip at 0.5 mg/hr - Start scheduled albumin 25gm Q6H - Monitor electrolytes daily with diuresis - Strict I&Os, daily standing weights # Cirrhosis - MELD 16, Child Class A (6 points) - decompensa bere # Transplant evaluation - Etiology:Alcohol abuse - Other work-up: negative LANE, negative ASMA,negative AMA, normalceruloplasmin, iron profile normal, lipid profile normal, normal A1AT,negative viral hepatitis panel) - Portal hypertension evaluation: - Ascites status: No significant ascites noted on exam, but history ofsignificant lower extremity edema - SBP history:None - Diuretic use: Furosemide 40mg and spironolactone 100mg at home -Currently holding home regimenwhile on Bumex drip - Will likelyswitch to Bumex on dischar ge given multiple admission for volume overload - Varices status:No historyof varices, but history of GAVE - Last EGD: 10/2018 with GAVE s/p cauterization - PSE status:Unknownif history of hepatic encephalopathy - Continue home rifaximin - No lactulose as patientwith chronic diarrhea - Daily standing weights, strict I&Os while in-house - Coagulopathy: INR 1.38, Plts 132 - Diet: 2 gram sodium per day restriction, 2L fluid restrict ion - HCC screening:Liver US (10/2018) with n o masses and patent vessels, AFP 8.6 in 12/2018 - Will repeat liver US now - Will check repeat AFP - Liver transplant evaluation: Will cons ider evaluation by Transplant Surgery team during this admission - Will repeat TTE with bubble study given dilated LA seen o n last TTE - Substance abuse counseling: No EtOH since 10/2018 - Will repeat urine ethyl glucuronide now # CKD stage 3 # Hepatorenal syndrome - Fluctuating Cr, baseline ~1.5 - Cr 1.79 on admission, will continue to monitor closely - Diuresing with Bumex drip # Rheumatoid arthritis - Continue home etanercept and hydroxychloroquine # HLD - Continue home atorvastatin # Mood disorder - Continue home mirtazepine Code status: Full code DVT ppx: Heparin SQ Diet: Low sodium diet Dispo: Start diuresis with Bumex drip an d scheduled albumin, monitor renal function closely Patient seen and discussed with attending Dr. Ochoa. [facility] Internal Medicine-Pediatrics PGY-3 MSO #[id number] I have seen and examined the patient wit h the house staff. The case including lab findings and imaging were reviewed and discussed. I agree with the findings, assessment and plan documented. Angie Ochoa MD Transplant Hepatology Attending Extracted from:Title: Hepatology Progress Note 04/21/2019 [facility] Author: Helen Mckeon MD Date: 04/20/19 58yo M hx of RA (on etanercept a nd hydroxychloroquine), Hypothyroidism, HLD, CKD stage 3,PUD,EtOH Cirrhosis c/b portal hypertension (splenomegaly and portal gastropathy) ,anasarca and HRSpresent s with c/o b/l lower extremity edema and pain for the past 2 weeks after holding his diuretics. ## Anasarca - Probably 2/2 cirrhosis and holding diuretics - Creatinine improved after holding diu retics from 2.10 on 03/28/2019 to 1.7 on 04/10/2019. Cr - 1.44 on 04/19/2019 - He was on Lasix 40 PO daily and spironolactone 100 mg gregg ly at home - on diuretics - Bumex drip at 0.5mg/hr - Net negative 2 L over the past 12 hours - bumex drip discontinued on 04/19/2019 - started on Bumex 2 mg IV BID - on 04/19/2019 - Will hold off today 2/2 KALEIGH. -On25 gm 25 % albumin Q6H - will continue now -TTE - dilated left atrium - will consider restarting diuretics from tomorrow. ##KALEIGH - Probably prerenal 2/2 overdiuresis - will hold of bumex today and consider restarting at a low er dose tomorrow. ##Decompensated alcoholic cirrhosis - MELD - 16 ( Labs from 04/10/2019) - patient has portal hypertension with splenomegaly on imaging and also h/o portal gastropathy - Last EGD - 11/02 - Showed portal gastropathy and also GAVE -S/p APC. - Us abdomen 10/27/2018 - showed cirrhosi s with hepatofugal flow and minimal splenomegaly - CT abdomen liver protocol showed no liver mass. AFP - 8.6 ( 12/2018) - He has h/o hepatic encephalopathy - no h/o paracentesis or SBP. - No evidence of HE or SBP currently - He is not on lactulose but has 3- 4 b owel movements everyday. He is on rifaximin - will continue the same. - He was listed for liver transplant bu t was removed from the list in 10/2018 when urine ethyl glucuronide was found to be > [id number] ##CKD stage 3 - Baseline cr - 1.5- Cr is 1.44. No KALEIGH. - urinalysis- WNL ##Rheumatoid arthritis - On etanercept and Hydroxychloroquine at home - continue ##Melena - h/o at least 3 episodes of melena last month - mild strea ks of blood -Mildhemoglobin drop today - probably 2/2 hemorrhoids - ROGER- negative for blood or melena. - No EGD for now - will closely monitor hemoglobin ##Hypothyroidism - continue levothyroxine home dose ##Anemia - probably 2/2 cirrhosis - anemia of chronic disease CODE : Full Diet : Low sodium diet Prophylaxis Heparin s/c Disposition Pending diuresis Addendum by Angie Ochoa MD on 04/20/2019 20:16 CDT I have seen and examined the patient wit h the house staff. The case including lab findings and imaging were reviewed and discussed. I agree with the findings, assessment and plan documented. Angie Ochoa MD Transplant Hepatology Attending Extracted from:Title: Hepatology History and Physical Author: Angie Ochoa MD Date: 04/18/19 58yo M hx of RA (on etanercept and hydro xychloroquine), Hypothyroidism, HLD, CKD stage 3,PUD,EtOH Cirrhosis c/b portal hypertension (splenomegaly and portal gastropathy) ,anasarca and HRSpresents with c /o b/l lower extremity edema and pain fo r the past 2 weeks after holding his diuretics. ## Anasarca - Probably 2/2 cirrhosis and holding diuretics - Creatinine improved after holding from 2.10 on 03/28/2019 to 1.7 on 04/10/2019 after the diuretics was held. Cr - 1.44 today - He was on Lasix 40 PO daily and spironolactone 100 mg lauri y at home - will start on diuretics - Bumex drip at 0.5mg/hr - will give 25 gm 25 % albumin Q6H - 4doses - will do a TTE ##Decompensated alcoholic cirrhosis - MELD - 16 ( Labs from 04/10/2019) - patient has portal hypertension with s plenomegaly on imaging and also h/o portal gastropathy - Last EGD - 11/02 - Showed portal gastropathy and also GAVE - S/p APC. - Us abdomen 10/27/2018 - showed cirrhosis with hepatofugal flow and minimal splenomegaly - CT abdomen liver protocol showed no liver mass. AFP - 8.6 ( 12/2018) - He has h/o hepatic encephalopathy - no h/o paracentesis or SBP. - No evidence of HE or SBP currently - He is not on lactulose but has 3- 4 alona wel movements everyday. He is on rifaximin - will continue the same. - He was listed for liver transplant but was removed from the list in 10/2018 when urine ethyl glucuronide was found to be > 28620- ##CKD stage 3 - Baseline cr - 1.5- Cr is 1.44 today - follow up urinalysis, urine electrolytes, FeNa ##Rheumatoid arthritis - On etanercept and Hydroxychloroquine at home - continue ##Blood in bowel movements - No hemoglobin drop - probably 2/2 hemorrhoids - ROGRE- negative for blood or melena. - will keep him NPO after midnight for possible EGD tomorrow ##Hypothyroidism - continue levothyroxine home dose ##Anemia - probably 2/2 cirrhosis - anemia of chronic disease CODE : Full Diet : Low sodium diet, NPO after midnight Heparin s/c Pending diuresis I have seen and examined the patient wit h the house staff. The case including lab findings and imaging were reviewed and discussed. I agree with the findings, assessment and plan documented.Mr. Leon is a 58-year-old man with dec ompensated alcoholic cirrhosis complicated by portal hypertension with ascites/volume overloadand hypersplenism with thrombocytopenia. His past medical history is also significant forchronic kidney dise aseand hypothyroidism. He presents as a direct admission from hepatology clinic for worsening lower extremity edema. Noted to have acute kidney injury earlier thi s month with diuretics held. He notes ab staining from alcohol and restricting his sodium. Exam with stable vital signs and +2 pitting edema of the bilateral lower extremities. Labs with improving renal functionand stable liver function tests. At this time will start diuresis with aBumex drip andscheduled albumin. Will obtain a transthoracic echocardiogram. He notedintermittent mild hematochezia. H&amp ;amp;H is stable. We will keep n.p.o. af ter midnight in case an EGD is warranted. Angie Ochoa MD Transplant Hepatology Attending Extracted from:Title: Hepatology Progress Note 01/16/2019 [facility] Author: Madison Phan MD Date: 01/15/19 58yo M hx of RA (on etanercept a nd hydroxychloroquine), HTN, HLD, PUD, PARKER/EtOH Cirrhosis c/b anasarca and HRS who presents to Hospital from clinic for BLE edema started 2 days ago likely 2/2 c irrhosis in the setting of decreased home diuretics. #BLEs edema #?Cellulitis of left foot - Likely 2/2 cirrhosis. Pt's diuretics were decreased recently due to worsening KALEIGH. - Will give another 2 doses of IV lasix 40mg today as renal function remained stable - Continue lasix 20mg QD PO, spironolactone 50mg PO QD - Switch Ceftriaxone 1gm QD to Kefelx 500mg PO Q6H for poss ible cellulitis #Hypokalemia - Replete PRN - Continue to monitor #RA - Continue home dose of hydroxychloroqine - Pt on humira Q2W sc. last dose 01/12. #HTN - Continue lasix 20mg PO QDand spironolactone 50mg PO QD #HLD - Continue storvastatin 40mg PO QD #PUD - Pt asymptomatic - Will consider starting PPI if symptomatic #PARKER/ETOH cirrhosis - MELD 17, Child Class B - Complication: anasarca, HRS - Previously evaluated for transplant. Eval was held due to + ETOH #CKD stage 3 - Cr at baseline - Will continue to monitor - Strict in and out Prophylaxis heparin Disposition pending clinical improvement Madison Phan MD Preliminary - Internal Medicine MSO # [id number] Addendum by Kavin Snyder MD on 01/15/2019 12:12 CD T Hepatology Attending Note: I have seen and examined the patient per sonally. I have reviewed Progress Note. I agree withher assessment and plan as outlined. Dx: Generalized edema (R60.1) Alcoholic cirrhosis of liver without ascites (K70.30) Chronic kidney disease, stage 3 (moderate) (N18.3) Cellulitis of left lower limb (L03.116) Hypokalemia (E87.6) KAVIN SNYDER MD SPECIAL PROGRAMS DIRECTOR DIVISION OF GASTROENTEROLOGY HEPATOLOGY AND NUTRITION [facility] [place] Extracted from:Title: Hepatology History and Physical Author: Kavin Snyder MD Date: 01/13/19 58yo M hx of RA (on etanercept and hydro xychloroquine), HTN, HLD, PUD, PARKER/EtOH Cirrhosis c/b anasarca and HRS who presents to Hospital from clinic for BLE edema started 2 days ago likely 2/2 cirrhosis in the setting of decreased home diuretics. #BLEs edema #?Cellulitis of left foot - Likely 2/2 cirrhosis. Pt's diuretics w ere decreased recently due to worsening KALEIGH. - Will give lasix 40mg IV x1 - Start lasix 20mg QD PO tomorrow, start spironolactone 50mg PO QD today - Will start Ceftriaxone 1gm QD for possible cellulitis #Hypokalemia - Replete PRN - Continue to monitor #RA - Continue home dose of hydroxychloroqine - Pt on humira Q2W sc. last dose 01/12. #HTN - Continue lasix 20mg PO QDand spironolactone 50mg PO QD #HLD - Continue storvastatin 40mg PO QD #PUD - Pt asymptomatic - Will consider starting PPI if symptomatic #PARKER/ETOH cirrhosis - MELD 17, Child Class B - Complication: anasarca, HRS - Previously evaluated for transplant. Eval was held due to + ETOH #CKD stage 3 - Cr at baseline - Will continue to monitor - Strict in and out heparin pending clinical improvement Madison Phan MD Preliminary - Internal Medicine MSO # [id number] Hepatology Attending Note: I have seen and examined the patient per sonally on the day of Admission. I have reviewed and edited H&P Note. I agree withher assessment and plan as outlined. 58 y/o gentleman with laennec's cirrhosi s admitted with worsening anasarca and suspected left foot cellulitis. TIME SPENT SEEN THE PATIENT 60 MINUTES. TIME SPENT REVIEWING RECORDS AND COUNSELLING 45 MINUTES. DX: Generalized edema (R60.1) Alcoholic cirrhosis of liver without ascites (K70.30) Chronic kidney disease, stage 3 (moderate) (N18.3) Cellulitis of left lower limb (L03.116) KAVIN SNYDER MD SPECIAL PROGRAMS DIRECTOR DIVISION OF GASTROENTEROLOGY HEPATOLOGY AND NUTRITION [facility] [place] Extracted from:Title: Psych iatry 11/07/2018 [facility] Author: Pattie Desai MD Date: 11/07/18 Reviewed patient's lab Ethyl Glucuronide greater than 25'000 Despite his statements that he has been sober since 03/11 he was drinking up to day of admission His tremors were most likely mild to moderate ETOH withdrawa l His might be possibly drinking as well I left for both offering assistance with alcohol cessatio n Patient needs to demonstrate 6 months of sobriety before he can be considered as a candidate for liver transplant Extracted from:Title: Hepatology H&P Author: Muriel Mcdaniel NP Date: 10/27/18 History and Physical Patient Name: Mark Leon : 1960 Date of Admission: 10/27/2018 Attending: Fredy RENDON History of Present Illness: This is a 58yo male with PMH of RA, hypo thyroid, HLD, HTN, PUD, RA, fatty liver disease and ETOH cirrhosis who presented to ED with BLE edema and SOB. Patient states he had 40lbs weight gain in the past month and is still compliant with home diuretics. Patient also complains of dark liquid stools a few times a week. Patient was noted to be anemic in the ED with hgb 6.9 from baseline 8.5. Patient denie s N/V/D, no fevers or ill contacts. Jenniffer ent denies any other source of bleeding. Past Medical History: - RA - hypothyroidism - HLD - HTN - PUD with gi bleed 10/2016 - RA - ETOH/ PARKER cirrhosis Past Surgical History: - hip replacement - appendectomy - tonsillectomy Family History: - Mother - lung cancer - father: HTN CVA Social History: - Tobacco: denies - EtOH: former ETOH abuse last drink february 2018 - Illicit drugs: denies Allergies: PCN Home Medications: - see home medication reconcilation form Review of Systems: Constit: 40lbs weight gain in 1 month Denies Fever Sick contacts HEENT: Denies BURNETTE Vision Head trauma Pulm: Denies Wheezing Dyspnea Cough CV: SOB with activity Denies CP Palpitations Orthopn ea GI: dark liquid stools Denies Abd nydia n Nausea Vomiting Diarrhea Constipation : Denies Incontinence Dysuria Hematuria MS: Denies Myalgias Arthralgias Back pain Neuro: Denies Ataxia Numbness/Tingling Syncope Skin: Denies Lesions Rashes Bruises Endo: Denies Heat / Cold intol Polydipsia Polyuria Hemo/Lymph: BLE swelling and abd swellin g Denies Easy bruising/bleeding Jaundice Physical Exam: Gen: Obese AAOx3 Calm Neuro: Follows commands Withdraws to p ain roof panel hanger grossly intact No focal deficits appreciated HEENT: PERRL EOMI No scleral icterus Conjunct clear MMM O/P clear No LAD Neck supple No secretions CV/Pulses: RRR No M/R/G No JVDs 2+ peripheral pulses Pulm: CTAB No W/R/R GI: BS (+) Soft NTND : WDL MS: FROM/actively Strength intact Tone intact Skin/Ext: No Cyanosis +4 Pitting edema No rashes/lesions Labs: 24hr Labs 10/27 2229 ABO/Rh O POS Antibody Scrn Negative XM EXM Interp Compatible 10/27 2214 Total Protein 6.5 Albumin Lvl 3.1 L Bili Total 1.7 H Bili Direct 0.8 H Bili Indirect 0.9 Alk Phos 181 H AST 90 H ALT 36 Globulin 3.4 A/G Ratio 0.9 10/27 1752 Glucose Lvl 95 BUN 19 Creatinine Lvl 1.70 H Sodium Lvl 137 Potassium Lvl 4.1 Chloride Lvl 101 CO2 24 AGAP 16.1 Calcium Lvl 9.3 eGFR 43 WBC 7.2 RBC 2.14 L Hgb 6.9 C Hct 20.3 L MCV 94.9 H MCH 32.2 H MCHC 33.9 RDW 14.6 H Platelet 131 L MPV 7.3 L Segs 66.3 Monocytes 16.5 H Lymphocytes 13.8 L Eosinophils 0.2 Basophils 3.2 H Neutrophils # 4.8 Lymphocytes # 1.0 Monocytes # 1.2 H Basophils # 0.2 Anisocyte 1+ Rouleaux Present Large Plt slight Imaging/Studies: Liver US 10/27/18: IMPRESSION: 1. Findings consistent with patient hist ory of cirrhosis with persistent hepatofugal flow in the portal vein. 2. Cholelithiasis. 3. Minimal splenomegaly. Assessment and Plan: This is a 58yo male with PARKER/ ETOH cirr hosis who presents with melena and volume overload and concerns for hepatorenal syndrome Problem List: - PARKER/ ETOH cirrhosis - GI bleed - Volume overload - hepatorenal syndrome - acute blood loss anemia - KALEIGH on CKD Plan: transfuse 1u PRBC and recheck hgb and trend trend LFTs, Creat and BUN send urine studies clear liquids restart home medications Code status: Full Disposition: [id number] Plan discussed with Hepatology Fellow ИВАН Sawyer MSO # [id number] Addendum by Adán Marks MD on 10/28/2018 21:45 Teaching Addendum Mr Leon was seen and examined; the c ase (including laboratory results and imaging) reviewed and discussed with Dr. Henriquez (resident) and Dr Brandt(fellow) in rounds today. I agree with TANK OFFICER Jonas's findings, note and physical examination. We have formulated the assessment and plan together and I agree with current recommendations Plan of Care No Data Provided for This Section Social History Social History Date Source Social History TypeResponse 04/18/2019 [facility] [place] Substance Abuse Use: None. Alcohol Past1 Smoking Status Former smoker; Exposure to Tobacco Smoke Unable to obtain; Cigarette Smoking Last 365 Days No; Reg Smoking Cessation Counseling No entered on: 04/18/19 1"not anymore" per pt. Social History TypeResponse 04/18/2019 [facility] Alcohol Past1 Substance Abuse Use: None. Smoking Status Former smoker; Exposure to Tobacco Smoke Unable to obtain; Cigarette Smoking Last 365 Days No; Reg Smoking Cessation Counseling No entered on: 06/19/19 1"not anymore" per pt. Social History TypeResponse 04/11/2018 [facility] Substance Abuse Use: None. Alcohol Past1 Smoking Status Former smoker; Type: Cigarettes; Concern s about tobacco use in household: No; Exposure to Tobacco Smoke None; Cigarette Smoking Last 365 Days No; Reg Smoking Cessation Counseling No2 entered on: 01/13/19 1"not anymore" per pt.2quit smoking 15 year ago Social History TypeResponse 04/11/2018 [facility] Substance Abuse Use: None. Alcohol Past Smoking Status Former smoker; Type: Cigarettes; Concern s about tobacco use in household: No; Exposure to Tobacco Smoke None; Cigarette Smoking Last 365 Days No; Reg Smoking Cessation Counseling No entered on: 04/10/18 Social History TypeResponse 12/14/2016 [facility] Substance Abuse Use: None. Alcohol Current Smoking Status Never smoker; Exposure to Tobacco Smoke Unable to obtain; Cigarette Smoking Last 365 Days No; Reg Smoking Cessation Counseling No Family History No Data Provided for This Section Advance Directives No Data Provided for This Section Functional Status No Data Provided for This Section
--- OUTSIDE RECORDS SUMMARY | 2020-10-21 13:02 | XMS REPORT | Continuity of Care Document ---
:1960 Author Organization [facility] t Address [address] [place] [address] Care Team Providers Name Role Phone Jasmin Jean DO Primary Care Physician Delilah ROBBINS Attending Clinician Unavailable Sunshine Lovett Attending Clinician David CORNELIUS Attending Clinician Unavailable Judy James MD Attending Clinician Sunshine Forman MD Attending Clinician Monty VIDAL Attending Clinician Wilfrido Attending Clinician Unavailable Camilo Daniel Attending Clinician Alexa Ochoa Attending Clinician Elvie Dubose Attending Clinician Saud Evangelista Attending Clinician Omari Attending Clinician Jody Attending Clinician Meghann Attending Clinician RUDI Admitting Clinician Unavailable Don Admitting Clinician Alexa Ochoa Admitting Clinician Camilo Daniel Admitting Clinician Jody Admitting Clinician Meghann Admitting Clinician Payers Payer Name Policy Type Policy Effective Date Expiration Date Sour Number [id number] CHOICE [id number] 2018 [place] PPO/FEDERAL 00:00:00 [employer] EMPL [id number] 2018-Presen tPPO Problems Condition Condition Condition Status Onset Resolution Last Treating Co mments Source Name Details Category Date Date Treatment Clinician Date Dialysis Dialysis Disease Active Overview: Bryan berger AV fistula AV fistula 01-21 Added Me thodi malfunctio malfunctio 00:00: automatic st n n 00 ally from request for surgery [id number] Encounter Encounter Disease Active 2018-10 Overview: [place] regarding regarding 11-11 Added Meth bob vascular vascular 00:00: automatic st access for access for 00 ally from dialysis dialysis request for for for end-stage end-stage surgery renal renal [id number] disease disease ANASARCA Diagnosis Active 2019-07-13 M emoria 06-19 22:12:00 l ANASARCA 06:00: Jonathan n 00 Active 06/19/2019 [facility] F/U Diagnosis Active 2019-06-19 Mem oria 04-25 09:52:00 l F/U 00:00: [place] 00 Active 04/25/2019 [facility] KALEIGH, Diagnosis Active 2019-04-19 Mem oria ANASARCA 04-18 17:23:00 l [place], 00:00: [place] ANASARCA 00 Active 04/18/2019 [facility] KALEIGH Diagnosis Active 2019-01-16 Mem oria 3 11:51:00 l KALEIGH 08:00: [place] 00 Active [facility]/13/2019 [facility] N18.3 - Diagnosis Active 2019-02-13 Sd moria CHRONIC - 17:10:00 l KIDNEY N18.3 - 00:01: [place] DISEASE, CHRONIC 00 STAGE KIDNEY DISEASE, STAGE Active 01/13/2019 OPID [place] ASCITES Diagnosis Active 2019-01-13 Me moria 3-21 12:38:00 l ASCITES 00:00: [place] 00 Active 01/12/2019 [facility] DIARRHEA, Diagnosis Active 2019-04-18 Memoria UNSPECIFIE 12-30 12:17:00 l D 00:00: [place] DIARRHEA, 00 UNSPECIFIE D Active 12/30/2018 [facility] CLINIC Diagnosis Active 2018-11-16 Mem oria APPT 1-16 14:12:00 l CLINIC 00:00: [place] APPT 00 Active 11/09/2018 [facility] ANEMIA Diagnosis Active 2018-10-31 Mem oria 1-03 16:59:00 l ANEMIA 00:00: [place] 00 Active 10/27/2018 [facility] DC Diagnosis Active 2018-07-12 Mem oria ESTABLISHE 04-22 12:43:00 l D VISIT DC 00:00: [place] ESTABLISHE 00 D VISIT Active 04/22/2018 [facility] HIDA W/EF Diagnosis Active 2019-01-27 Memoria 04-18 13:20:00 l HIDA 00:00: [place] W/EF 00 Active 04/18/2018 [facility] BELLY Diagnosis Active 2018-12-07 Mem oria SWELLING 04-10 10:43:00 l BELLY 00:00: [place] SWELLING 00 Active 04/10/2018 [facility] LABH Diagnosis Active 2018-02-11 Mem oria 4-20 12:46:00 l LABH 00:00: [place] 00 Active 02/11/2018 [facility] D50.8 Diagnosis Active 2018-02-04 Mem oria 4-11 09:40:00 l D50.8 00:00: [place] 00 Active 02/02/2018 [facility] CONSULT Diagnosis Active 2018-01-25 Me moria 2-27 08:21:00 l CONSULT 00:00: [place] 00 Active 12/21/2017 [facility] R79.89 Diagnosis Active 2017-12-[address] 2-05 08:21:00 l GUIDED R79.89 00:00: [place] LIVER CT 00 BIOPSY GUIDED LIVER BIOPSY Active 11/29/2017 [facility] R79.89, Diagnosis Active 2017-11-26 Me moria K80.20 11-19 08:46:00 l R79.89, 00:00: [place] K80.20 00 Active 11/19/2017 [facility] History of Problem Active 2018-05-10 M emoria adenomatou 04-18 13:25:53 l s polyp of History 00:00: Her johnson colon of 00 (situation adenomatou ) s polyp of colon (situation ) Active 04/18/2017 Problem 05/10/2018 [facility], ANATOLIY Dickens,Ever Kilpatrick [facility] GI Diagnosis Active 2016-12-15 Mem oria BLEEDING 12-14 11:10:00 l SYMPTOMS GI 00:00: [place] BLEEDING 00 SYMPTOMS Active 12/14/2016 [place] Paresthesi Problem Active 2019-07-12 M emoria a 02-20 22:11:28 l (finding) 00:00: [place] Paresthesi 00 a (finding) Active 02/20/2014 Problem 07/12/2019 Data migrated from [employer] on 03/23/15. [facility], [facility], ANATOLIY Dickens,[facility], [place] Alcoholic Problem Active 2019-07-12 Me moria cirrhosis 4- 22:11:28 l (disorder) 00:00: Jonathan n Alcoholic 00 cirrhosis (disorder) Active 01/24/2013 Problem 07/12/2019 Data migrated from [employer] on 03/23/15. [facility], [facility], ANATOLIY Dickens,[facility] Elevated Problem Active 2019-07-12 Mem oria levels of 4-02 22:11:28 l transamina Elevated 00:00: He rmann se & levels of 00 lactic transamina acid se & dehydrogen lactic ase acid (finding) dehydrogen ase (finding) Active 01/24/2013 Problem 07/12/2019 Data migrated from [employer] on 03/23/15. [facility], [facility], ANATOLIY Dickens,[facility], [place] Alcoholic Problem Active 2017-04-22 Me moria fatty 4-02 02:00:50 l liver 00:00: [place] (disorder) Alcoholic 00 fatty liver (disorder) Active 01/24/2013 Problem 04/22/2017 Data migrated from [employer] on 03/23/15. [place] Illness, Problem 2019-01-18 Mem oria unspecifie 22:59:11 l d Illness, Jonathan n unspecifie d 01/18/2019 [facility] Acute Problem 2019-05-27 Memor ia kidney 12:08:21 l failure, Acute [place] unspecifie kidney d failure, unspecifie d 05/27/2019 [facility] Angiodyspl Problem 2019-05-27 M emoria isha of 12:08:21 l stomach [place] and Angiodyspl duodenum isha of with stomach bleeding and duodenum with bleeding 05/27/2019 [facility] Acute Problem 2019-05-27 Memor ia posthemorr 12:08:21 l hagic Acute [place] anemia posthemorr hagic anemia 05/27/2019 [facility] Secondary Problem 2019-05-27 Me moria esophageal 12:08:21 l varices [place] without Secondary bleeding esophageal varices without bleeding 05/27/2019 [facility] Portal Problem 2019-05-27 Memor ia hypertensi 12:08:21 l on Portal [place] hypertensi on 05/27/2019 [facility], OPID [place] Coagulatio Problem 2019-05-27 M emoria n defect, 12:08:21 l unspecifie Jonathan n d Coagulatio n defect, unspecifie d 05/27/2019 [facility] Alcohol Problem 2019-05-27 Juan Miguel david dependence 12:08:21 l with Alcohol [place] withdrawal dependence , with unspecifie withdrawal d , unspecifie d 05/27/2019 [facility] Personal Problem 2019-05-27 Mem oria history of 12:08:21 l nicotine Personal Herm kelsi dependence history of nicotine dependence 05/27/2019 [facility] Hyperlipid Problem 2019-05-27 M emoria emia, 12:08:21 l unspecifie Jonathan n d Hyperlipid emia, unspecifie d 05/27/2019 [facility] Hypothyroi Problem 2019-05-27 M emoria dism, 12:08:21 l unspecifie Jonathan n d Hypothyroi dism, unspecifie d 05/27/2019 [facility] Nonalcohol Problem 2019-05-27 M emoria ic 12:08:21 l steatohepa Jonathan n titis Nonalcohol (PARKER) ic steatohepa titis (PARKER) 05/27/2019 [facility] Chronic Problem 2019-05-27 Juan Miguel david kidney 12:08:21 l disease, Chronic Rebeca nn stage 3 kidney (moderate) disease, stage 3 (moderate) 05/27/2019 [facility] Other Problem 2019-05-27 Memor ia diseases 12:08:21 l of stomach Other Rebeca nn and diseases duodenum of stomach and duodenum 05/27/2019 [facility] Rheumatoid Problem 2019-05-27 M emoria arthritis, 12:08:21 l unspecifie Jonathan n d Rheumatoid arthritis, unspecifie d 05/27/2019 [facility] Hypertensi Problem 2019-05-27 M emoria ve chronic 12:08:21 l kidney [place] disease Hypertensi with stage ve chronic 1 through kidney stage 4 disease chronic with stage kidney 1 through disease, stage 4 or chronic unspecifie kidney d chronic disease, kidney or disease unspecifie d chronic kidney disease 05/27/2019 [facility] Fluid Problem 2019-05-27 Memor ia overload, 12:08:21 l unspecifie Fluid Rebeca nn d overload, unspecifie d 05/27/2019 [facility] Morbid Problem 2019-05-27 Memor ia (severe) 12:08:21 l obesity Morbid [place] due to (severe) excess obesity calories due to excess calories 05/27/2019 [facility] Body mass Problem 2019-05-27 Sd moria index 12:08:21 l (BMI) Body [place] 36.0-36.9, mass index adult (BMI) 36.0-36.9, adult 05/27/2019 [facility] Atheroscle Problem 2019-05-27 M emoria rotic 12:08:21 l heart [place] disease of [place] ro[place] coronary heart artery disease of without [place] angina coronary pectoris artery without angina pectoris 05/27/2019 [facility] OPID [place] Thrombocyt Problem 2019-05-27 M emoria openia, 12:08:21 l unspecifie Jonathan n d Thrombocyt openia, unspecifie d 05/27/2019 [facility] Alcoholic Problem 2019-05-27 Sd moria cirrhosis 12:08:21 l of liver [place] without Alcoholic ascites cirrhosis of liver without ascites 05/27/2019 [facility] OPIMindy Dickens Tremor, Problem 2019-05-27 Juan Miguel david unspecifie 12:08:21 l d Tremor, [place] unspecifie d 05/27/2019 [facility] Alcoholic Problem 2019-05-27 Me moria hepatic 12:08:21 l failure [place] without Alcoholic coma hepatic failure without coma 9 [facility] Constipati Problem 2019-05-27 M emoria on, 12:08:21 l unspecifie Jonathan n d Constipati on, unspecifie d 05/27/2019 [facility] Personal Problem 2019-05-27 Mem oria history of 12:08:21 l peptic Personal Jonathan n ulcer history of disease peptic ulcer disease 05/27/2019 [facility] Splenomega Problem 2019-05-17 M emoria ly, not 11:19:52 l elsewhere [place] classified Splenomega ly, not elsewhere classified 05/17/2019 [place] [place] Personal Problem 2019-01-29 Mem oria history of 11:17:21 l other Personal Jonathan n diseases history of of the other digestive diseases system of the digestive system 01/29/2019 [facility] Alcohol Problem 2019-01-29 Juan Miguel david dependence 11:17:21 l , in Alcohol [place] remission dependence , in remission 01/29/2019 [facility] Pure Problem 2019-01-29 Memor ia hyperchole 11:17:21 l sterolemia Pure Jonathan n , hyperchole unspecifie sterolemia d , unspecifie d 01/29/2019 [facility] Obesity, Problem 2019-01-29 Mem oria unspecifie 11:17:21 l d Obesity, Jonathan n unspecifie d 01/29/2019 [facility] Personal Problem 2019-01-29 Mem oria history of 11:17:21 l colonic Personal Rebeca nn polyps history of colonic polyps 01/29/2019 [facility] Calculus Problem 2019-01-29 Mem oria of 11:17:21 l gallbladde Calculus He rmann r without of cholecysti gallbladde tis r without without cholecysti obstructio tis n without obstructio n 01/29/2019 [facility], ANATOLIY Dickens,[facility] Other Problem 2018-03-04 Memor ia specified 12:44:22 l abnormal Other [place] findings specified of blood abnormal chemistry findings of blood chemistry 03/04/2018 [facility] Fatty Problem 2018-03-11 Memor ia (change 12:43:08 l of) liver, Fatty Rebeca nn not (change elsewhere of) liver, classified not elsewhere classified 03/11/2018 [facility] Essential Problem 2018-03-11 Me moria (primary) 12:43:08 l hypertensi Jonathan n on Essential (primary) hypertensi on 03/11/2018 [facility] Nonspecifi Problem 2018-05-10 M emoria c 13:25:53 l elevation [place] of levels Nonspecifi of c transamina elevation se and of levels lactic of acid transamina dehydrogen se and ase [LDH] lactic acid dehydrogen ase [LDH] 05/10/2018 [place] [place] Anemia, Problem 2018-05-10 Juan Miguel david unspecifie 13:25:53 l d Anemia, [place] unspecifie d 05/10/2018 [facility], ANATOLIY [place] Unspecifie Problem 2018-05-10 M emoria d 13:25:53 l cirrhosis [place] of liver Unspecifie d cirrhosis of liver 05/10/2018 [facility] Problem Resolve 2017-04-22 Juan Miguel david (disorder) d 02:00:50 l Anemia [place] (disorder) Resolved Problem 04/22/2017 [place] Alcohol Problem Resolve 2019-07-12 Mem oria abuse d 22:11:28 l (disorder) Alcohol Her johnson abuse (disorder) Resolved Problem 07/12/2019 Data migrated from [facility] on 03/23/15. [facility], [facility], Ever [facility] Anemia due Problem Resolve 2019-07-12 Memoria to blood d 22:11:28 l loss Anemia [place] (disorder) due to blood loss (disorder) Resolved Problem 07/12/2019 [facility] Gastric Problem Resolve 2019-07-12 Mem oria ulcer with d 22:11:28 l hemorrhage Gastric Her johnson (disorder) ulcer with hemorrhage (disorder) Resolved Problem 07/12/2019 [facility] [place] Injury of Problem Resolve 2019-07-12 M emoria kidney d 22:11:28 l (disorder) Injury Herm kelsi of kidney (disorder) Resolved Problem 07/12/2019 [facility], [facility], [place]ATOLIY [place] Chronic Problem Active 2019-07-12 Juan Miguel david kidney 22:11:28 l disease Chronic Jonathan n stage 3 kidney (disorder) disease stage 3 (disorder) Active Problem 07/12/2019 Data migrated from [employer] on 03/23/15. [facility], [facility], ANATOLIY [place],[facility] Edema, Problem Active 2019-07-12 Memor ia generalize 22:11:28 l d Edema, [place] (finding) generalize d (finding) Active Problem 07/12/2019 [facility], [facility], ANATOLIY [place] Hyperchole Problem Active 2019-07-12 M emoria sterolemia 22:11:28 l (disorder) Jonathan n Hyperchole sterolemia (disorder) Active Problem 07/12/2019 [facility], [facility], ANATOLIY [place],[facility], [place] Hypertensi Problem Active 2019-07-12 M emoria ve 22:11:28 l disorder, [place] systemic Hypertensi arterial ve (disorder) disorder, systemic arterial (disorder) Active Problem 07/12/2019 [facility], [facility], ANATOLIY Dickens,[facility], [place] Hypothyroi Problem Active 2019-07-12 M emoria dism 22:11:28 l (disorder) Jonathan n Hypothyroi dism (disorder) Active Problem 07/12/2019 [facility], [facility], ANATOLIY [place],[facility], [place] Obesity Problem Active 2019-07-12 Juan Miguel david (disorder) 22:11:28 l Obesity [place] (disorder) Active Problem 07/12/2019 [facility], [facility], ANATOLIY [place],[facility], [place] Rheumatoid Problem Active 2019-07-12 M emoria arthritis 22:11:28 l (disorder) Jonathan n Rheumatoid arthritis (disorder) Active Problem 07/12/2019 Data migrated from [employer] on 03/23/15. [facility], [facility], ANATOLIY Dickens,[facility] Congestive Problem Active 2019-07-12 M emoria heart 22:11:28 l failure [place] (disorder) Congestive heart failure (disorder) Active Problem 07/12/2019 [facility] Moderate Problem Active 2019-07-12 Mem oria protein 22:11:28 l energy Moderate Jonathan n malnutriti protein on energy (disorder) malnutriti on (disorder) Active Problem 07/12/2019 [facility] Chronic Problem Active 2017-04-22 Juan Miguel david kidney 02:00:50 l disease Chronic Jonathan n stage 2 kidney (disorder) disease stage 2 (disorder) Active Problem 04/22/2017 Data migrated from [employer] on 03/23/15. [place] Dyslipidem Problem Active 2017-04-22 M emoria ia 02:00:50 l (disorder) Jonathan n Dyslipidem ia (disorder) Active Problem 04/22/2017 Data migrated from [employer] on 03/23/15. [place] Essential Problem Active 2017-04-22 Me moria hypertensi 02:00:50 l on [place] (disorder) Essential hypertensi on (disorder) Active Problem 04/22/2017 Data migrated from [employer] on 03/23/15. [place] ACUTE Diagnosis Active 2019-04-19 Mem oria KIDNEY 17:23:00 l FAILURE, ACUTE [place] UNSPECIFIE KIDNEY D FAILURE, UNSPECIFIE D Active [facility] ILLNESS, Diagnosis Active 2019-01-16 M emoria UNSPECIFIE 11:51:00 l D ILLNESS, Jonathan n UNSPECIFIE D Active [facility] ENCNTR FOR Diagnosis Active 2019-04-18 Memoria GENERAL 15:27:00 l ADULT ENCNTR [place] MEDICAL FOR EXAM W/ GENERAL ADULT MEDICAL EXAM W/ Active [facility] ANEMIA, Diagnosis Active 2018-10-31 Me moria UNSPECIFIE 16:59:00 l D ANEMIA, [place] UNSPECIFIE D Active [facility] PERSONS Diagnosis Active 2018-02-11 Me moria ENCOUNTERI 12:46:00 l [facility] Herm kelsi SERVICES ENCOUNTERI IN [facility] IN Active [facility] Hepatorena Problem 2019-0 2019-05-27 2019-05-27 Memoria l syndrome 2-01 12:08:21 12:08:21 l 04:46: [place] Hepatorena 34 l syndrome 11/25/2018 05/27/2019 [facility] Localized Problem 2017-2018-05-10 2018-05-10 Memoria edema 18 13:25:53 13:25:53 l 04:35: [place] Localized 24 edema 02/09/2018 05/10/2018 ANATOLIY Dickens Right Problem 2017-2018-04-14 2018-04-14 M emoria upper 04-11 01:54:54 01:54:54 l quadrant Right 05:00: [place] pain upper 00 quadrant pain 04/11/2018 04/14/2018 [facility] Abnormal Problem 2018-03-04 2018-03-04 Memoria results of - 12:44:22 12:44:22 l liver Abnormal 04:58: Jonathan n function results of 22 studies liver function studies 12/02/2017 03/04/2018 [facility] History of Past Illness Condition Condition Condition Status Onset Resolution Last Treating Co mments Source Name Details Category Date Date Treatment Clinician Date Adenomatou Problem Resolve 2019-07-12 2019-07-12 Memoria s polyp of d 04-18 22:11:28 22:11:28 l colon 00:00: [place] (disorder) Adenomatou 00 s polyp of colon (disorder) Resolved 04/18/2017 Problem 07/12/2019 [facility], [facility], ANATOLIY Dickens Abrasion Problem Resolve 2019-07-12 2019-07-12 Memoria AND/OR d 05-01 22:11:28 22:11:28 l friction Abrasion 00:00: Herm kelsi burn of AND/OR 00 foot friction without burn of infection foot (disorder) without infection (disorder) Resolved 05/01/2013 Problem 07/12/2019 Data migrated from [employer] on 03/23/15. [facility], [facility], ANATOLIY Dickens,[facility], [place] Allergies, Adverse Reactions, Alerts Allergy Allergy Status Severity Reaction(s) Onset Inactive Treating Comm ents Source Name Type Date Date Clinician Penicill Propensi Active Unknown 2018-10 [place] ins ty to Reaction 1-12 Methodi adverse 00:00: st reaction 00 s to drug penicill penicill Active Memori a ins ins l [place] penicill penicill Active Memori a ins<sup> ins<sup> l 1</sup> 1</sup> [place] Social History Social Habit Start Date Stop Date Quantity Comments Source History of tobacco Current smoker Bryan berger Yazidism use Sex Assigned At M Justin Curtis ethodist Cigarettes smoked 2020-01-24 2020-01-24 Justin Stevens current (pack per 00:00:00 00:00:00 day) - Reported Cigarette 2020-01-24 2020-01-24 Justin Kaur ist pack-years 00:00:00 00:00:00 Tobacco use and 2020-01-24 2020-01-24 Never used Justin Curtis ethodist exposure 00:00:00 00:00:00 Alcohol intake 2020-01-24 2020-01-24 Ex-drinker Justin Ruvalcaba thodist 00:00:00 00:00:00 (finding) Social History 2016-12-14 2016-12-14 Marie damon 23:28:37 23:28:37 Smoking Status Start Date Stop Date Source Former smoker 2020-01-24 00:00:00 2020-01-24 00:00:00 Justin Stevens Medications Ordered Filled Start Stop Current Ordering Indication Dosage Frequency Signature Comments Components Source Medication Medication Date Date Medication? Clinician (SIG) Name Name hydroxychlo Yes QD Take by Mohamud sampsonrosa isela roquine 4-30 mouth Methodi (PLAQUENIL) 13:26: daily. st 200 mg 49 tablet gabapentin Yes 100mg Q.[id number] Take 100 [place] (NEURONTIN) 4-30 [id number] mg by ethodi 100 mg 13:26: 3D mouth 3 st capsule 49 (three) times a day. acetaminoph Yes acute pain 1{tbl} Q6H Take 1 [place] en-codeine 3-31 tablet by Meth bob (TYLENOL 00:00: mouth st WITH 00 every 6 CODEINE #3) (six) 300-30 mg hours as per tablet needed for moderate pain for up to 3 days .acute pain. traMADoL 2020- No acute pain 50mg Q6H Take 1 [place] (Ultram) 50 3-31 04-03 tablet (50 M ethodi mg tablet 00:00: 23:59 mg total) st 00 :00 by mouth every 6 (six) hours as needed for moderate pain for up to 3 days .acute pain. lidocaine-p 2020-0 Yes Encounter Apply over [place] rilocaine 1-09 regarding fistula Me thodi (EMLA) 00:00: vascular 30-[address] 2.5-2.5 % 00 access for before cream dialysis dialysis for end-stage renal disease (HCC) levothyroxi 2018-10- No [place] ne 01-22 [facility] (SYNTHROID) 00:00: 00:00 st 112 mcg 00 :00 tablet FA-vit 2018-10- No [place] Bcomp-C-zin 01-22 Method[facility] c-vitamin 00:00: 00:00 st D3 00 :00 (DIALYVITE 800-ULTRA D) 0.8-2,000 mg-unit tablet tamsulosin 2018-10 Yes [place] (FLOMAX) 013 Methodi 0.4 mg 00:00: st capsule 00 Acetaminoph Yes 650 mg = 2 Memoria en 325 MG 9-16 tab, PO, l Oral Tablet 21:42: Q4H, X 30 H ermann [Tylenol] day, # 360 tab, 0 Refill(s) tramadol No 50 mg = 1 Juan Miguel david hydrochlori 9-16 tab, PO, l de 50 MG 20:52: Daily, # Rebeca nn Oral Tablet 00 14 tab, 0 Refill(s) atorvastati Yes 40 mg = 1 M emoria n 40 mg 9-16 tab, PO, l oral tablet 17:55: Bedtime, 0 [place] 00 Refill(s) Mirtazapine Yes 15 mg = 1 M emoria 15 MG Oral 9-16 tab, PO, l Tablet 17:55: Bedtime, 0 Rebeca nn 00 Refill(s) riFAXimin Yes 550 mg = 1 Me moria 550 mg oral 9-16 tab, PO, l tablet 17:55: Q12H, # 60 Rebeca nn 00 tab, 3 Refill(s) amLODIPine Yes 10 mg = 1 Me moria 10 mg oral 9-16 tab, PO, l tablet 17:55: Daily, # [place] 00 30 tab, 3 Refill(s) Lactulose Yes 20 gm = 30 Me moria 667 MG/ML 9-16 mL, PO, l Oral 17:55: TID, X 30 [place] Solution 00 day, # 2700 mL, 3 Refill(s) tamsulosin Yes 0.4 mg = 1 M emoria 0.4 mg oral 07-10 cap, PO, l capsule 17:55: QPM, # 30 Rebeca nn 00 cap, 3 Refill(s) riFAXimin Yes [place] (XIFAXAN) 07-10 Methodi 550 mg 00:00: st tablet 00 tramadol No Notes: Not Mem oria hydrochlori 15 to exceed l de 50 MG 17:53: 400mg/day. Her johnson Oral Tablet 00 (Same As: Ultram) Amlodipine No Notes: Memor ia 15 (Same as: l 14:00: Norvasc) [place] Tramadol No Notes: Not Mem oria -14 to exceed l 04:02: 400mg/day. [place] 00 (Same As: Ultram) Fentanyl No 25 Memoria 9-13 microgram, l 15:28: Route: IV, [place] 00 ONCE, Dosing Weight 78.9, kg, Start date: 07/07/19 10:28:00 CDT, Stop date: 07/07/19 10:28:00 CDT Epinephrine 2018- No 8 mL, Memor ia 0.01 MG/ML 07-07 Route: l / Lidocaine 15:27: INTRADERM, [place] Hydrochlori 00 Dosing de 10 MG/ML Weight Injectable 78.9, kg, Solution ONCE, Start date: 07/07/19 10:27:00 CDT, Stop date: 07/07/19 10:27:00 CDT Fentanyl No 75 Memoria 9-13 microgram, l 15:27: Route: IV, [place] 00 ONCE, Dosing Weight 78.9, kg, Start date: 07/07/19 10:27:00 CDT, Stop date: 07/07/19 10:27:00 CDT Tramadol No Notes: Not Mem oria 9-13 to exceed l 11:00: 400mg/day. [place] 00 (Same As: Ultram) tramadol No Notes: Not Mem oria hydrochlori 12 to exceed l de 50 MG 23:18: 400mg/day. Her johnson Oral Tablet 00 (Same As: Ultram) Sodium 2019-0 No 250 mL, Memoria Chloride 12 Rate: To l 0.9% 14:24: prime line [place] (titrate) 00 and flush 250 mL remaining blood products., Dosing Weight 78.9, kg, Route: IV, Total Volume: 250, Priority: Routine, Start Date: 07/06/19 9:24:00 CDT, Duration: 1 day, Stop date: 07/07/19 9:23:00 CDT, Replace Every: 24 hr, 0 Etanercept 2019-0 No 25 mg, Memor ia 07-06 Route: l 14:00: SUB-Q, Q-M [place] 00 and , Dosing Weight 78.9, kg, Start date: 07/06/19 9:00:00 CDT, Duration: 30 day, Stop date: 08/03/19 9:00:00 CDT Hydralazine 2018-0 No 10 mg, Juan Miguel david 07-04 Route: l 12:20: IVP, [place] 00 Q20Min, Dosing Weight 78.9, kg, PRN Elevated BP, Start date: 07/04/19 7:20:00 CDT, Duration: 2 doses or times, Stop date: Limited # of times esmolol 2019-0 No 10 mg, Memoria 07-04 Route: l 12:20: IVP, [place] 00 Q5Min, Dosing Weight 78.9, kg, PRN Other -See Comment, Start date: 07/04/19 7:20:00 CDT, Duration: 5 doses or times, Stop date: Limited # of times Labetalol 2019-0 No 10 mg, Memori a 07-04 Route: l 12:20: IVP, [place] 00 Q5Min, Dosing Weight 78.9, kg, PRN Elevated BP, Start date: 07/04/19 7:20:00 CDT, Duration: 5 doses or times, Stop date: Limited # of times Metoprolol 2019-0 No 1 mg, Memori a 07-04 Route: l 12:20: IVP, [place] 00 Q5Min, Dosing Weight 78.9, kg, PRN Other -See Comment, Start date: 07/04/19 7:20:00 CDT, Duration: 5 doses or times, Stop date: Limited # of times Morphine 2019-0 No 2 mg, Memoria 07-04 Route: l 12:20: IVP, [place] 00 Q5Min, Dosing Weight 78.9, kg, PRN Pain Score 4-6, Start date: 07/04/19 7:20:00 CDT, Duration: 5 doses or times, Stop date: Limited # of times Flumazenil No 0.2 mg, Juan Miguel david 07-04 Route: l 12:20: IVP, PRN, [place] 00 Dosing Weight 78.9, kg, PRN Benzodiaze pine Reversal, Initial dose, Start date: 07/04/19 7:20:00 CDT, Duration: 30 day, Stop date: 08/03/19 7:19:00 CDT Naloxone No 0.4 mg, Memori a 07-04 Route: l 12:20: IVP, [place] 00 Q2MIN, Dosing Weight 78.9, kg, PRN Narcotic Reversal, Start date: 07/04/19 7:20:00 CDT, Duration: 8 doses or times, Stop date: Limited # of times Ondansetron No 4 mg, Memor ia 07-04 Route: l 12:20: IVP, ONCE, [place] Dosing Weight 78.9, kg, PRN Nausea & Vomiting, Start date: 07/04/19 7:20:00 CDT tramadol No Notes: Not Mem oria hydrochlori 07-01 to exceed l de 50 MG 16:17: 400mg/day. Her johnson Oral Tablet 00 (Same As: Ultram) albumin No 25 gm, Memoria human 25% 07-01 Route: l intravenous 14:35: IVPB, Rebeca nn solution 00 ONCE, Dosing Weight 78.9, kg, Start date: 07/01/19 9:35:00 CDT, Stop date: 07/01/19 9:35:00 CDT, Indication : Intradialy tic Hypotensio n - See comments tramadol No Notes: Not Mem oria hydrochlori 07-01 to exceed l de 50 MG 12:49: 400mg/day. Her johnson Oral Tablet 00 (Same As: Ultram) atorvastati 2019- No [place] (LIPITOR) 07-01 Methodi 40 MG 00:00: 00:00 st tablet 00 :00 Lasix No Notes: Memoria 06-30 (Same as: l 23:00: Lasix) [place] MEDICATION WASTE Product Size: 40 mg Product Wasted: ___ mg Lactulose No Notes: Memori a 667 MG/ML 06-30 (Same l Oral 22:00: as:Chronul [place] Solution 00 ac) Lactulose No 20 gm, Memori a 667 MG/ML 06-30 Route: l Oral 21:00: DHT, Drug [place] Solution form: SYRP, Q8H, Dosing Weight 78.9, kg, Start date: 06/30/19 16:00:00 CDT, Duration: 30 day, Stop date: 07/30/19 8:00:00 CDT, 0 Lasix No Notes: Memoria 06-30 (Same as: l 19:00: Lasix) [place] MEDICATION WASTE Product Size: 40 mg Product Wasted: ___ mg Lasix No 100 mg, Memoria 06-30 Route: l 18:20: IVP, Drug [place] form: INJ, ONCE, Dosing Weight 78.9, kg, Start date: 06/30/19 13:20:00 CDT, Stop date: 06/30/19 13:20:00 CDT Levothroid No Notes: Memor ia 06-30 Take 1 l 11:30: hour [place] 00 before or 2 hours after meal; Enteral feeds may interefere with the absorption of this medication .(Same as:Levothr oid) rifaximin No Notes: Memori a 06-30 Same as: l 02:00: Xifaxan [place] tramadol No Notes: Not Mem oria hydrochlori 06-30 to exceed l de 50 MG 01:32: 400mg/day. Her johnson Oral Tablet 00 (Same As: Ultram) Flomax No Notes: Memoria 06-29 (Same As: l 22:00: Flomax) [place] "Do Not Crush" Zinc No Notes: Memoria Sulfate 06-29 (Zinc l 17:45: sulfate [place] 00 capsule) - 220 mg Zinc sulfate = 50 mg elemental zinc Same as Zinc Sulfate Thyroxine No 120 Memoria 06-29 microgram, l 15:09: Route: PO, [place] 00 Daily, Dosing Weight 78.9, kg, Priority: NOW, Start date: 06/29/19 10:09:00 CDT, Duration: 30 day, Stop date: 07/29/19 9:00:00 CDT Flomax No 0.4 mg, Memoria 06-29 Route: PO, l 15:08: Daily, [place] 00 Dosing Weight 78.9, kg, Priority: NOW, Start date: 06/29/19 10:08:00 CDT, Duration: 30 day, Stop date: 07/29/19 9:00:00 CDT Etanercept No Notes: Memor ia 06-29 (Same as: l 14:00: Enbrel) Non-Formul nikko nxstage No 5,000 mL, Memor ia pureflow 06-29 Route: l rfp-400 01:00: DIALYSIS, Rebeca nn 5000ml SOLN 00 Irrigation 5000 mL Site: Abdomen, lower quadrant, rt, 4,000 ml/hr, 1.3 hr, Total Volume: 5,000 mL, Priority: Routine, "For Irrigation Only", Start date: 06/28/19 20:00:00 CDT, Duration: 8 hr, Stop date: 06/29/19 3:59:00 CDT physiologic No Notes: Juan Miguel david al 06-29 NxStage l irrigating 01:00: RFP-400 = He rmann solution 00 K2/Ca3 Total ingredient s in bag Na 140meq/L; K 2meq/L; HCO 35meq/L; Ca 3meq/L; Magnesium 1meq/L; CL 111meq/L; Glucose 100mg/dL; "Break seal Between compartmen ts and mix before hanging" rifaximin No Notes: Memori a 06-28 (Same as: l 21:00: Xifaxan) [place] 00 physiologic No Notes: Juan Miguel david al 06-28 NxStage l irrigating 19:53: RFP-400 = He rmann solution 00 K2/Ca3 Total ingredient s in bag Na 140meq/L; K 2meq/L; HCO 35meq/L; Ca 3meq/L; Magnesium 1meq/L; CL 111meq/L; Glucose 100mg/dL; "Break seal Between compartmen ts and mix before hanging" Potassium No Notes: Memori a Chloride 06-28 (Same as: l 19:32: KCL) [place] 00 Infuse no faster than 10 mEq/hr if given peripheral ly. Magnesium No Notes: Memori a Sulfate 06-28 WASTE: F/P l 19:32: - Sink; E [place] 00 - Municipal Trash Bin Magnesium No Notes: Memori a Oxide 06-28 (Same as: l 19:32: Mag-Ox [place] 00 400) Magnesium oxide 391ly=066s g elemental magnesium Dose=____m g magnesium oxide (___mg elemental magnesium) potassium No Notes: Memori a phosphate 06-28 (Same as: l 19:32: K [place] 00 Phosphate. ) Do not infuse phosphorou s concurrent ly in the same line as TPN or IVF that contains calcium. For double lumen central lines, phosphorou s may be infused in a separate lumen from TPN. 1 mMol phoshate has 1.47 mEq potassium Infuse over 4 hours potassium No Notes: Memori a phosphate-s 06-28 (Same as: l odium 19:32: Phos-NaK) [place] phosphate 00 Each 1.5 250 mg-280 gm pkt has mg-160 mg 250mg oral powder phosphorou for s. Mix reconstitut w/2.5oz ion water and stir. sodium No Notes: Memoria phosphate 06-28 Infuse l 19:32: over 4 [place] 00 hour. Do not infuse phosphorou s concurrent ly in the same line as TPN or IVF that contains calcium. For double lumen central lines, phosphorou s may be infused in a separate lumen from TPN. Calcium No Notes: Memoria Chloride 06-28 WASTE: F/P l 19:32: - Sink; E [place] - Municipal Trash Bin Vancomycin No 2001 mg: Me moria 06-28 infuse l 03:00: over 2.5 [place] 00 hours For adult patients only: Round to nearest 250 mg per Medical Staff approval MEDICATION WASTE Product Size: 1000 mg Product Wasted: ___ mg Lactulose No Notes: Memori a 06-28 (Same l 02:50: as:Chronul [place] ac) Octreotide No Notes: Memor ia 06-27 (Same As: l 21:00: SandoSTATI N). Refrigerat e. MEDICATION WASTE Product Size: 50 microgram Product Wasted: _0__ microgram Vancomycin No 2001 mg: Me moria 06-27 infuse l 17:30: over 2.5 hours For adult patients only: Round to nearest 250 mg per Medical Staff approval MEDICATION WASTE Product Size: 1000 mg Product Wasted: ___ mg Doxazosin No Notes: Memori a 06-27 (Same as: l 14:42: Cardura) Folic Acid No Notes: Memor ia 06-27 (Same as: l 14:00: Folvite) cefepime No Notes: Memoria 06-27 (Same As: l 12:00: Maxipime) MEDICATION WASTE Product Size: 1000 mg Product Wasted: __0_ mg Hydralazine No 10 mg, Juan Miguel david 06-27 Route: IV, l 11:00: Q6H, Dosing Weight 78.9, kg, Start date: 06/27/19 6:00:00 CDT, Duration: 30 day, Stop date: 07/27/19 0:00:00 CDT Versed No Notes: Memoria 06-27 (Same as: l 06:10: Versed) MEDICATION WASTE Product Size: 2 mg Product Wasted: ___ mg Hydralazine No Notes: Juan Miguel david 06-27 (Same as: l 05:58: Apresoline ) Push over 5 minutes Lactulose No Notes: Memori a 667 MG/ML 06-27 (Same l Oral 05:00: as:Chronul [place] Solution ac) cefepime No Notes: Memoria 06-27 (Same As: l 03:00: Maxipime) [place] 00 MEDICATION WASTE Product Size: 1000 mg Product Wasted: ___ mg Vancomycin No 2001 mg: Me moria 06-27 infuse l 02:02: over 2.5 [place] 00 hours For adult patients only: Round to nearest 250 mg per Medical Staff approval MEDICATION WASTE Product Size: 1000 mg Product Wasted: ___ mg Lactulose No Notes: Memori a 667 MG/ML 06-27 (Same l Oral 01:00: as:Chronul [place] Solution ac) cefTRIAXone No Notes: Juan Miguel david 06-26 (Same As: l 18:00: Rocephin). Use with 100 mL NS and infuse over 30 min MEDICATION WASTE Product Size: 1000 mg Product Wasted: ___ mg Lactulose No Notes: Memori a 667 MG/ML 06-26 (Same l Oral 15:00: as:Chronul [place] Solution ac) albumin No 500 mL, Memoria human 5% 06-26 Route: IV, l intravenous 14:22: Dosing Herm kelsi solution Weight 78.9, kg, ONCE, Start date: 06/26/19 9:22:00 CDT, Stop date: 06/26/19 9:22:00 CDT, Indication : Hepatorena l syndrome rifaximin No Notes: Memori a 06-26 Same as: l 14:17: Xifaxan Lactulose No Notes: Memori a 667 MG/ML 06-26 (Same l Oral 14:10: as:Chronul [place] Solution ac) Enbrel No 25 mg, Memoria Prefilled 06-26 Route: l Syringe 14:00: SUB-Q, Drug form: PDR/INJ, Q-M and Th, Dosing Weight 85.8, kg, Start date: 06/26/19 9:00:00 CDT, Stop date: 07/17/19 9:00:00 CDT, 0 Thyroxine No Notes: Memori a 06-26 (Same as: l 14:00: Synthroid) Reconstitu te with 5ml of NS. Final concentrat ion = 20 micrograms /ml. Use immediatel y after reconstitu tion and discard remaining solution. lactulose\\w No Notes: Juan Miguel david ater - 06-26 (Same l enema 01:00: as:Chronul Jonathan n ac) Lactulose No Notes: Memori a 667 MG/ML 06-25 (Same l Oral 21:00: as:Chronul [place] Solution ac) lactulose\\w No Notes: Juan Miguel david ater - 06-25 (Same l enema 21:00: as:Chronul Jonathan n ac) Benzocaine Yes Notes: Memor ia 140 MG/ML / 06-25 Cetacaine l butamben 20 20:47: (benzocain [place] MG/ML / e-tetracai Tetracaine ne-butambe 20 MG/ML n 14-2-2%) Mucosal WASTE: [place] Aerosol - [Cetacaine] Return to Pharmacy (Same As: Cetacaine) Haldol No 2.5 mg, Memoria 06-25 Route: IV, l 20:37: ONCE, Dosing Weight 78.9, kg, Start date: 06/25/19 15:37:00 CDT, Stop date: 06/25/19 15:37:00 CDT Haldol No 2 mg, Memoria 06-25 Route: IV, l 20:05: ONCE, Dosing Weight 78.9, kg, Start date: 06/25/19 15:05:00 CDT, Stop date: 06/25/19 15:05:00 CDT Lactulose No 1,000 ml, Mem oria 06-25 Route: PA, l 19:49: Drug Form: ENRIQUE, Dosing Weight 78.9, kg, Q6H, NOW, Start date: 06/25/19 14:49:00 CDT, Duration: 30 day, Stop date: 07/25/19 12:00:00 CDT, 300 mL lactulose + 700 mL water Versed No Notes: Memoria 06-25 (Same as: l 19:48: Versed) MEDICATION WASTE Product Size: 2 mg Product Wasted: ___ mg Versed No Notes: Memoria 06-25 (Same as: l 19:03: Versed) [place] MEDICATION WASTE Product Size: 2 mg Product Wasted: ___ mg physiologic No Notes: Juan Miguel david al 06-25 NxStage l irrigating 18:28: RFP-401 = He rmann solution 00 K4/Ca3 Total ingredient s in bag Na 140meq/L; K 4meq/L; HCO 35meq/L; Ca 3meq/L; Magnesium 1meq/L; CL 113meq/L; Glucose 100mg/dL; "Break seal Between compartmen ts and mix before hanging" nxstage No 5,000 mL, Memor ia pureflow 06-25 Route: l rfp-401 18:12: DIALYSIS, Rebeca nn 5000ml SOLN 00 Irrigation 5,000 mL Site: Other: See Comments, 2,500 ml/hr, 2 hr, Total Volume: 5,000 mL, "For Irrigation Only", Start date: 06/25/19 13:12:00 CDT, Duration: 30 day, Stop date: 07/25/19 13:11:00 CDT Potassium No Notes: Memori a Chloride 06-25 (Same as: l 18:12: KCL) Infuse no faster than 10 mEq/hr if given peripheral ly. Magnesium No Notes: Memori a Sulfate 06-25 WASTE: F/P l 18:12: - Sink; E - Municipal Trash Bin Magnesium No Notes: Memori a Oxide 06-25 (Same as: l 18:12: Mag-Ox [place] 00 400) Magnesium oxide 250aj=079f g elemental magnesium Dose=____m g magnesium oxide (___mg elemental magnesium) potassium No Notes: Memori a phosphate 06-25 (Same as: l 18:12: K [place] 00 Phosphate. ) Do not infuse phosphorou s concurrent ly in the same line as TPN or IVF that contains calcium. For double lumen central lines, phosphorou s may be infused in a separate lumen from TPN. 1 mMol phoshate has 1.47 mEq potassium Infuse over 4 hours potassium No Notes: Memori a phosphate-s 06-25 (Same as: l odium 18:12: Phos-NaK) [place] phosphate 00 Each 1.5 250 mg-280 gm pkt has mg-160 mg 250mg oral powder phosphorou for s. Mix reconstitut w/2.5oz ion water and stir. sodium No Notes: Memoria phosphate 06-25 Infuse l 18:12: over 4 [place] 00 hour. Do not infuse phosphorou s concurrent ly in the same line as TPN or IVF that contains calcium. For double lumen central lines, phosphorou s may be infused in a separate lumen from TPN. Calcium No Notes: Memoria Chloride 06-25 WASTE: F/P l 18:12: - Sink; E [place] - Municipal Trash Bin Lactulose No Notes: Memori a 667 MG/ML 06-25 (Same l Oral 00:39: as:Chronul [place] Solution ac) cefTRIAXone No Notes: Juan Miguel david 06-24 (Same As: l 18:30: Rocephin). [place] 00 Use with 100 mL NS and infuse over 30 min MEDICATION WASTE Product Size: 2000 mg Product Wasted: ___ mg Ceftriaxone No 1 gm, Memor ia 06-24 Route: l 18:05: IVPB, Drug [place] 00 form: PDR/INJ, [id number], Dosing Weight 78.9, kg, Start date: 06/24/19 13:05:00 CDT, Duration: 5 day, Stop date: 06/28/19 13:05:00 CDT, ABX Indication : Other (specify in Comments) Lactulose No Notes: Memori a 667 MG/ML 06-24 (Same l Oral 18:00: as:Chronul [place] Solution ac) Midodrine No Notes: Memori a -31 Same as l 18:00: Proamatine [place] 00 Lactulose No Notes: Memori a 667 MG/ML 06-24 (Same l Oral 13:07: as:Chronul [place] Solution ac) albumin No Notes: Lot Juan Miguel david human 06-24 #: l 05:00: [place] 00 ___ Mfg: (Same as: Plasbumin- 25) "blood product derivative " WASTE: F/P - Red; E -Red MEDICATION WASTE Product Size: 25 gm Product Wasted: ___ gm Enbrel No 25 mg, Memoria Prefilled 06-23 Route: l Syringe 16:46: SUB-Q, [place] 00 Drug form: PDR/INJ, ONCE, Dosing Weight 85.8, kg, Priority: NOW, Start date: 06/23/19 11:46:00 CDT, Stop date: 06/23/19 11:46:00 CDT, 0 Enbrel No Notes: Memoria Prefilled 06-23 (Same as: l Syringe 16:45: Enbrel) Non-Formul nikko Midodrine No Notes: Memori a 06-23 (Same l 14:00: as:Proamat [place] 00 ine) octreotide No 247.5 mL, Me moria 1,250 06-23 Rate: 10 l microgram + 13:45: ml/hr, Herm kelsi Sodium Infuse Chloride over: 25 0.9% IV hr, Route: 247.5 mL IV, Dosing Weight 85.8 kg, Total Volume: 250, Start date: 06/23/19 8:45:00 CDT, Duration: 30 day, Stop date: 07/23/19 8:44:00 CDT, 2.07, m2, 0 heparin No Notes: Memoria 06-21 porcine l 02:00: heparin [place] 00 Folic Acid No Notes: Memor ia 06-20 (Same as: l 14:00: Folvite) Hydroxychlo No Notes: Juan Miguel david roquine 06-20 (Same as: l Sulfate 200 14:00: Plaquenil) [place] MG Oral 00 Hydroxychl Tablet oroquine sulfate 200 mg = 155 mg hydroxychl oroquine base. If treating malaria, verify dose as salt vs. base per CDC guideline L-Carnitine No Notes: Juan Miguel david 06-20 (Same As: l 14:00: L-carnitin [place] 00 e) potassium No Notes: Memori a chloride 20 06-20 (Same as: l mEq oral 13:22: K-Dur 20) Herm kelsi tablet, 00 "Do Not extended Crush" release Give with food and full glass of water For patients unable to swallow tablet, dissolve in one half glass of water. Allow about 2 minutes for the tablets to disintegra te. Stir before giving to prepare slurry and administer . Please exclude Patient s with feeding tube less than 14 Q[place] (Dobhoff, J-tube etc) and pediatric and patients. Thyroxine No Notes: Memori a -27 Take 1 l 11:30: hour [place] before or 2 hours after meal; Enteral feeds may interefere with the absorption of this medication .(Same as:Levothr oid) atorvastati No Notes: Juan Miguel david n 06-20 (Same as: l 02:00: Lipitor) Mirtazapine No Notes: Juan Migeul david 06-20 (Same l 02:00: as:Remeron [place] ) Enbrel No Notes: Memoria Prefilled 06-19 (Same as: l Syringe 23:24: Enbrel) Non-Formul nikko albumin No Notes: Lot Juan Miguel david human 25% 06-19 #: l intravenous 23:00: [place] solution 00 ___ Mfg: (Same as: Plasbumin- 25) "blood product derivative " WASTE: F/P - Red; E -Red MEDICATION WASTE Product Size: 25 gm Product Wasted: ___ gm Furosemide No 20 mg = 1 Me moria 20 MG Oral -26 tab, PO, l Tablet 22:24: BID [place] spironolact No 50 mg = 1 M emoria one 50 mg 8-26 tab, PO, l oral tablet 22:24: Daily Rebeca nn 00 tramadol No 50 mg = 1 Juan Miguel david hydrochlori 8-26 tab, PO, l de 50 MG 22:24: Q6H, PRN Rebeca nn Oral Tablet 00 Pain bumetanide No Notes: Memor ia 10 mg + 06-19 (Same As: l Sodium 22:20: Bumex) [place] Chloride 00 0.9% (titrate) 60 mL rifaximin No Notes: Memori a 06-19 Same as: l 22:00: Xifaxan Furosemide No 40 mg = 1 Me moria 40 MG Oral 8-26 tab, PO, l Tablet 21:24: Daily, # [place] 00 30 tab, 0 Refill(s) Dextrose No 12.5 gm, Memor ia 50% Syringe 06-19 25 mL, l 21:22: Route: [place] 00 IVP, Drug Form: INJ, Dosing Weight 85.8, kg, PRN, PRN Blood Glucose Results, Start date: 06/19/19 16:22:00 CDT, Duration: 30 day, Stop date: 07/19/19 16:21:00 CDT, 0 Glucagon No 1 mg, Memoria 06-19 Route: IM, l 21:22: Drug form: PDR/INJ, PRN, Dosing Weight 85.8, kg, PRN Blood Glucose Results, Start date: 06/19/19 16:22:00 CDT, Duration: 30 day, Stop date: 07/19/19 16:21:00 CDT, 0 tramadol No Notes: Not Mem oria hydrochlori 06-19 to exceed l de 50 MG 21:22: 400mg/day. Her johnson Oral Tablet 00 (Same As: Ultra) Mirtazapine Yes 15 mg = 1 M emoria 15 MG Oral 8-26 tab, PO, l Tablet 14:58: Bedtime, # Rebeca nn 00 30 tab, 0 Refill(s) L-Carnitine No 250 mg, Mem oria 04-22 Route: PO, l 14:00: Daily, [place] 00 Dosing Weight 83.5, kg, Start date: 04/22/19 9:00:00 CDT, Duration: 30 day, Stop date: 05/21/19 9:00:00 CDT L-Carnitine 2018- Yes 250 mg, Mem oria 250 mg oral -28 PO, Daily, l capsule 18:34: # 90 ea, 3 Herm kelsi Refill(s), Pharmacy: [facility] [id number] Albumin 25% No Notes: Lot Memoria intravenous 04-21 #: l solution 14:00: Her johnson (HC) 00 ___ Mfg: (Same as: Plasbumin- 25) "blood product derivative " WASTE: F/P - Red; E -Red MEDICATION WASTE Product Size: 25 gm Product Wasted: ___ gm MAGNESIUM No Notes: Memori a GLUCONATE 04-21 (Same as: l 13:20: [place]) Magnesium gluconate 500mg=27mg elemental magnesium Dose= mg magnesium gluconate( ___mg elemental magnesium) Enbrel No Notes: Memoria 04-20 (Same as: l 23:33: Enbrel) Non-Formul nikko Potassium No Notes: Memori a Chloride 04-20 (Same as: l 17:30: K-Dur 20) "Do Not Crush" Give with food and full glass of water For patients unable to swallow tablet, dissolve in one half glass of water. Allow about 2 minutes for the tablets to disintegra te. Stir before giving to prepare slurry and administer . Please exclude Patient s with feeding tube less than 14 Q[place] (Dobhoff, J-tube etc) and pediatric and patients. heparin No Notes: Memoria 04-19 porcine l 21:00: heparin [place] 00 Tessalon No Notes: Memoria Perles 04-19 (Same As: l 18:00: Tessalon [place] 00 Perles) "Do Not Crush" Potassium No Notes: Memori a Chloride 04-19 (Same as: l 16:00: K-Dur 20) [place] 00 "Do Not Crush" Give with food and full glass of water For patients unable to swallow tablet, dissolve in one half glass of water. Allow about 2 minutes for the tablets to disintegra te. Stir before giving to prepare slurry and administer . Please exclude Patient s with feeding tube less than 14 [place] (Dobhoff, J-tube etc) and pediatric and patients. Albumin 25% No Notes: Lot Memoria intravenous 04-19 #: l solution 16:00: Her johnson (HC) 00 ___ Mfg: (Same as: Plasbumin- 25) "blood product derivative " WASTE: F/P - Red; E -Red MEDICATION WASTE Product Size: 25 gm Product Wasted: ___ gm Bumex No Notes: Memoria 04-19 (Same As: l 15:31: Bumex) [place] Thyroxine No Notes: Memori a 04-19 Take 1 l 14:00: hour [place] 00 before or 2 hours after meal; Enteral feeds may interefere with the absorption of this medication .(Same as:Levothr oid) Hydroxychlo No Notes: Juan Miguel david roquine 04-19 (Same as: l Sulfate 200 14:00: Plaquenil) [place] MG Oral Hydroxychl Tablet oroquine sulfate 200 mg = 155 mg hydroxychl oroquine base. If treating malaria, verify dose as salt vs. base per CDC guideline Folic Acid No Notes: Memor ia 04-19 (Same as: l 14:00: Folvite) potassium No Notes: Memori a chloride 20 04-19 (Same as: l mEq oral 13:26: K-Dur 20) Herm kelsi tablet, 00 "Do Not extended Crush" release Give with food and full glass of water For patients unable to swallow tablet, dissolve in one half glass of water. Allow about 2 minutes for the tablets to disintegra te. Stir before giving to prepare slurry and administer . Please exclude Patient s with feeding tube less than 14 [place] (Dobhoff, J-tube etc) and pediatric and patients. atorvastati No Notes: Juan Miguel david n 04-19 (Same as: l 02:00: Lipitor) Albumin 25% No Notes: Lot Memoria intravenous 04-18 #: l solution 23:00: Her johnson (HC) 00 ___ Mfg: (Same as: Plasbumin- 25) "blood product derivative " WASTE: F/P - Red; E -Red MEDICATION WASTE Product Size: 25 gm Product Wasted: ___ gm bumetanide No Notes: Memor ia 10 mg + 6-25 (Same As: l Sodium 22:55: Bumex) [place] Chloride 00 0.9% (titrate) 60 mL tramadol No Notes: Not Mem oria hydrochlori 6-25 to exceed l de 50 MG 22:13: 400mg/day. Her johnson Oral Tablet 00 (Same As: Ultram) tramadol Yes 50 mg = 1 Juan Miguel david hydrochlori 6-25 tab, PO, l de 50 MG 22:09: Q6H, PRN Rebeca nn Oral Tablet 00 Pain Score 7-10, 0 Refill(s) rifaximin No Notes: Memori a 6-25 Same as: l 22:00: Xifaxan [place] 00 Dextrose No 12.5 gm, Memor ia 50% Syringe 6-25 25 mL, l 20:48: Route: [place] 00 IVP, Drug Form: INJ, Dosing Weight 91.364, kg, PRN, PRN Blood Glucose Results, Start date: 04/18/19 15:48:00 CDT, Duration: 30 day, Stop date: 05/18/19 15:47:00 CDT, 0 Glucagon No 1 mg, Memoria 6-25 Route: IM, l 20:48: Drug form: [place] 00 PDR/INJ, PRN, Dosing Weight 91.364, kg, PRN Blood Glucose Results, Start date: 04/18/19 15:48:00 CDT, Duration: 30 day, Stop date: 05/18/19 15:47:00 CDT, 0 0.51 ML Yes 50 mg, Memoria Etanercept 6-25 SUB-Q, l 50 MG/ML 18:51: 2x/Wk, # 4 Her johnson Prefilled 00 ea, 0 Syringe Refill(s) [Enbrel] enalapril Yes IV, Q6H, 0 Me moria 1.25 mg/mL 6-25 Refill(s) l intravenous 17:21: Jonathan n solution 00 traMADol 2020- No [place] (ULTRAM) 50 5-23 03-31 Methodi mg tablet 00:00: 00:00 st 00 :00 Furosemide Yes 40 mg = 1 Me moria 40 MG Oral 3-25 tab, PO, l Tablet 16:21: Daily, # Tiburcio 00 30 tab, 0 Refill(s), Pharmacy: [facility] [id number] cephalexin Yes 500 mg = 1 M emoria 500 mg oral 3-25 cap, PO, l capsule 16:21: Q6H, X 4 Jonathan n 00 day, # 16 cap, 0 Refill(s), Pharmacy: [facility] [id number] spironolact Yes 100 mg = 1 Memoria one 100 mg 3-25 tab, PO, l oral tablet 16:21: Daily, # He rmann 00 30 tab, 0 Refill(s), Pharmacy: [facility] [address] Lasix No Notes: Memoria 3-24 (Same as: l 19:00: Lasix) MEDICATION WASTE Product Size: 40 mg Product Wasted: ___ mg Keflex No Notes: Memoria 3-24 Take on l 17:16: empty stomach. (Same As: Keflex) Potassium No 10 mEq, 50 Me moria Chloride 3-24 mL, Route: l 14:00: IVPB, Drug form: INJ, Q1H, Dosing Weight 95.909, kg, Total Dose = 20 meq, Start date: 01/15/19 9:00:00 CDT, Duration: 2 doses or times, Stop date: 01/15/19 10:00:00 CDT, Periphe ral Line Furosemide No Notes: Memor ia 20 MG Oral 3-24 (Same as: l Tablet 14:00: Lasix) [Lasix] May cause GI upset. Give with food or milk. Potassium No 20 mEq, Memor ia Chloride 3-24 Route: PO, l 13:41: ONCE, Dosing Weight 95.909, kg, Start date: 01/15/19 8:41:00 CDT, Stop date: 01/15/19 8:41:00 CDT Lasix No Notes: Memoria 3-24 (Same as: l 13:35: Lasix) [place] MEDICATION WASTE Product Size: 40 mg Product Wasted: ___ mg Magnesium No Notes: Memori a Oxide 3-24 (Same as: l 12:39: Mag-Ox [place] 00 400) Magnesium oxide 631af=[id number] g elemental magnesium Dose=____m g magnesium oxide (___mg elemental magnesium) Potassium No Notes: Memori a Chloride 3-24 (Same as: l 12:38: K-Dur 20) [place] 00 "Do Not Crush" Give with food and full glass of water For patients unable to swallow tablet, dissolve in one half glass of water. Allow about 2 minutes for the tablets to disintegra te. Stir before giving to prepare slurry and administer . Please exclude Patient s with feeding tube less than 14 Q[place] (Dobhoff, J-tube etc) and pediatric and patients. Lasix No Notes: Memoria 3-23 (Same as: l 18:00: Lasix) [place] 00 MEDICATION WASTE Product Size: 40 mg Product Wasted: ___ mg Hydroxychlo No Notes: Juan Miguel david roquine -23 (Same as: l Sulfate 200 14:00: Plaquenil) [place] MG Oral 00 Hydroxychl Tablet oroquine sulfate 200 mg = 155 mg hydroxychl oroquine base. If treating malaria, verify dose as salt vs. base per CDC guideline ferrous No Notes: Memoria sulfate 3-23 Give with l 14:00: food. "Do Not Crush" Furosemide No Notes: Memor ia 20 MG Oral 3-23 (Same as: l Tablet 14:00: Lasix) [place] [Lasix] 00 May cause GI upset. Give with food or milk. Lasix No 40 mg, Memoria 3-23 Route: l 12:52: IVP, Drug form: INJ, ONCE, Dosing Weight 95.909, kg, Start date: 01/14/19 7:52:00 CDT, Stop date: 01/14/19 7:52:00 CDT Thyroxine No Notes: Memori a 3-23 Take 1 l 11:30: hour [place] 00 before or 2 hours after meal; Enteral feeds may interefere with the absorption of this medication .(Same as:Levothr oid) tramadol No Notes: Not Mem oria hydrochlori 01-14 to exceed l de 50 MG 04:15: 400mg/day. Her johnson Oral Tablet 00 (Same As: Ultram) potassium No Notes: Memori a chloride 20 01-14 (Same as: l mEq oral 03:40: K-Dur 20) Herm kelsi tablet, 00 "Do Not extended Crush" release Give with food and full glass of water For patients unable to swallow tablet, dissolve in one half glass of water. Allow about 2 minutes for the tablets to disintegra te. Stir before giving to prepare slurry and administer . Please exclude Patient s with feeding tube less than 14 [place] (Dobhoff, J-tube etc) and pediatric and patients. atorvastati No Notes: Juan Miguel david n 01-14 (Same as: l 02:00: Lipitor) [place] 00 Ceftriaxone No Notes: Juan Miguel david - (Same As: l 02:00: Rocephin). [place] 00 Use with 100 mL NS and infuse over 30 min MEDICATION WASTE Product Size: 1000 mg Product Wasted: ___ mg rifaximin No Notes: Memori a 3- Same as: l 22:00: Xifaxan [place] 00 Spironolact No Notes: Juan Miguel david one 01-13 (Same As: l 21:06: Aldactone) [place] 00 heparin No Notes: Memoria sodium, - porcine l porcine 21:00: heparin [place] 2500 UNT/ML 00 Injectable Solution Potassium No Notes: Memori a Chloride - (Same as: l 21:00: KCL) [place] 00 Infuse over 2 hours. Lasix No Notes: Memoria 3-22 (Same as: l 20:32: Lasix) [place] 00 MEDICATION WASTE Product Size: 40 mg Product Wasted: ___ mg Folic Acid Yes 1 mg = 1 Mem oria 1 MG Oral 01-13 tab, PO, l Tablet 20:09: Daily [place] 0.4 ML Yes 40 mg, Memoria adalimumab 01-13 SUB-Q, l 100 MG/ML 20:09: ONCE, [place] Prefilled 00 (every 2 Syringe weeks) [Humira] tramadol No Notes: Not Mem oria hydrochlori 01-13 to exceed l de 50 MG 19:34: 400mg/day. Her johnson Oral Tablet 00 (Same As: Ultram) Potassium No Notes: Memori a Chloride 01-13 (Same as: l 19:26: K-Dur 20) [place] 00 "Do Not Crush" Give with food and full glass of water For patients unable to swallow tablet, dissolve in one half glass of water. Allow about 2 minutes for the tablets to disintegra te. Stir before giving to prepare slurry and administer . Please exclude Patient s with feeding tube less than 14 [place] (Dobhoff, J-tube etc) and pediatric and patients. Glucagon No 1 mg, Memoria 01-13 Route: IM, l 19:07: Drug form: [place] 00 PDR/INJ, PRN, Dosing Weight 95.909, kg, PRN Blood Glucose Results, Start date: 01/13/19 14:07:00 CDT, Duration: 30 day, Stop date: 02/12/19 14:06:00 CDT Dextrose No 25 gm, 50 Juan Miguel david 50% Syringe 3-22 mL, Route: l 19:07: IVP, Drug Form: INJ, Dosing Weight 95.909, kg, PRN, PRN Blood Glucose Results, Start date: 01/13/19 14:07:00 CDT, Duration: 30 day, Stop date: 02/12/19 14:06:00 CDT Ondansetron No Notes: Juan Miguel david 01-13 (Same as: l 19:07: Zofran) [place] 00 MEDICATION WASTE Product Size: 4 mg Product Wasted: ___ mg Acetaminoph No Notes: Do M emoria en 01-13 not exceed l 19:07: 4 gm/day. [place] 00 (Same as: Tylenol) influenza No Notes: Memori a virus 01-13 (Same as: l vaccine, 18:57: Fluzone Jonathan n inactivated 18 Quadrivale nt, Fluarix Quadrivale nt) For 3 years of age and older (0.5 mL IM) Shake well before use Potassium 2018- No 40 mEq, Memor ia Chloride - Route: PO, l 18:17: ONCE, [place] 00 Dosing Weight 95.909, kg, Start date: 01/13/19 13:17:00 CDT, Stop date: 01/13/19 13:17:00 CDT cholestyram Yes = 1 Pack, M emoria ine 4 g/5 g 3-05 PO, Daily, l oral powder 17:51: # 30 ea, 5 [place]io Refill(s), Pharmacy: [facility] [address] Humira Yes 40 mg, Memoria 3-05 SUB-Q, l 16:22: ONCE, 0 [place] 00 Refill(s) Amylases No 2 cap, PO, Mem oria [id number] UNT 2-25 TID, with l / 22:28: each meal, Endopeptida 00 # 180 cap, ses [id number] 1 UNT / Refill(s), Lipase Pharmacy: [id number] UNT [facility] Enteric [facility] Coated 149 Capsule [Creon] spironolact No 150 mg = 3 Memoria one 50 mg 1-23 tab, PO, l oral tablet 22:25: Daily Rebeca nn 00 tramadol No 50 mg, PO, Mem oria hydrochlori 1-14 Daily, PRN l de 50 MG 14:23: Pain Score Her johnson Oral Tablet 00 1-5, # 20 tab, 0 Refill(s) atorvastati Yes 40 mg = 1 M emoria n 40 mg 1-14 tab, PO, l oral tablet 14:23: Bedtime, # [place] 00 90 tab, 3 Refill(s), Pharmacy: [place] [address] riFAXimin Yes 550 mg = 1 Me moria 550 mg oral 1-14 tab, PO, l tablet 14:23: BID, # 60 Jonathan n 00 tab, 3 Refill(s), Pharmacy: [facility] [address] pantoprazol No 40 mg = 1 M emoria e 40 mg 1-14 tab, PO, l oral 14:23: Q12H, # 28 [place] enteric 00 tab, 0 coated Refill(s), tablet Pharmacy: [place] [place] [address] Furosemide No 60 mg = 3 Me moria 20 MG Oral 1-14 tab, PO, l Tablet 14:23: Daily, # [place] [Lasix] 00 90 tab, 3 Refill(s), Pharmacy: [facility] [address] Sucralfate No 1 gm = 10 Me moria 100 MG/ML 1-14 mL, PO, l Oral 14:23: QID, # 280 [place] Suspension 00 mL, 0 [Carafate] Refill(s), Pharmacy: [facility] [address] spironolact No 150 mg = 3 Memoria one 50 mg 1-14 tab, PO, l oral tablet 14:23: Daily, # He rmann 00 150 tab, 3 Refill(s), Pharmacy: [facility] [address] ferrous No 325 mg = 1 Juan Miguel david sulfate 325 1-14 tab, PO, l mg oral 14:23: Every [place] enteric 00 Other Day, coated # 45 tab, tablet 3 Refill(s), Pharmacy: [place] [address] Miralax No Notes: Memoria 1-13 Dissolve l 14:58: in 8 oz of water or juice. (Same as: Miralax) atorvastati No Notes: Juan Miguel david n 1-13 (Same as: l 03:00: Lipitor) Furosemide 2018- No Notes: Memor ia 20 MG Oral 1-11 (Same as: l Tablet 19:00: Lasix) [Lasix] May cause GI upset. Give with food or milk. Spironolact No Notes: Juan Miguel david one 1-11 (Same As: l 19:00: Aldactone) Adenosine 2018- No 90.8729 Memor ia 1-10 mg, Route: l 15:14: IVP, ONCE, Dosing Weight 108.182, kg, Priority: Routine, Start date: 11/03/18 9:14:00 CLAIM EXAMINER, Stop date: 11/03/18 9:14:00 CLAIM EXAMINER Bacitracin 2018- No Notes: Memor ia 0.5 UNT/MG 1-08 (Same As: l / Polymyxin 23:00: Polysporin [place] B 10 UNT/MG 00 ) Topical Ointment [Polysporin ] Mupirocin No 1 appl, Memor ia 0.02 MG/MG 11-01 Route: l Topical 22:00: TOP, Q8H, Rebeca nn Ointment 00 Drug form: OINT, Start date: 11/01/18 16:00:00 CLAIM EXAMINER, Duration: 30 day, Stop date: 12/01/18 8:00:00 CLAIM EXAMINER Hydroxyzine No Notes: Juan Miguel david 11-01 (Same as: l 20:45: Atarax) [place] Avoid alcohol. Midodrine No Notes: Memori a 11-01 (Same l 14:00: as:Proamat [place] 00 ine) octreotide No 247.5 mL, Me moria 1,250 11-01 Rate: 10 l microgram + 13:44: ml/hr, Herm kelsi Sodium 00 Infuse Chloride over: 25 0.9% IV hr, Route: 247.5 mL IV, Dosing Weight 108.182 kg, Total Volume: 250, Start date: 11/01/18 7:44:00 CLAIM EXAMINER, Duration: 30 day, Stop date: 12/01/18 7:43:00 CLAIM EXAMINER, 2.31, m2 ferrous No Notes: Memoria sulfate 10-31 Give with l 19:30: food. "Do [place] 00 Not Crush" Albumin 25% No Notes: Lot Memoria intravenous 10-31 #: l solution 15:00: Her johnson (HC) 00 ___ Mfg: (Same as: Plasbumin- 25) "blood product derivative " WASTE: F/P - Red; E -Red MEDICATION WASTE Product Size: 25 gm Product Wasted: ___ gm ferrous No Notes: Memoria sulfate 10-31 Give with l 15:00: food. "Do [place] 00 Not Crush" Cipro No Notes: May Memori a - interfere l 15:00: w/enteral [place]io 00 feedings - Take 1 hr before or 2 hrs after antacids, dairy pdt & minerals. On empty stomach. Spironolact No Notes: Juan Miguel david one 10-30 (Same As: l 18:05: Aldactone) [place] 00 Furosemide No Notes: Memor ia 40 MG Oral 10-30 (Same as: l Tablet 16:26: Lasix) [place] [Lasix] 00 May cause GI upset. Give with food or milk. Magnesium No Notes: Memori a Sulfate 10-30 WASTE: F/P l 16:00: - Sink; E [place]io - Creww Trash Bin Magnesium No 2 gm, Memoria Sulfate 10-30 Route: l 13:29: IVPB, Drug form: INJ, PRN, Dosing Weight 108.182, kg, PRN Abnormal Lab Result, Start date: 10/30/18 7:29:00 CLAIM EXAMINER, Duration: 30 day, Stop date: 11/29/18 7:28:00 CLAIM EXAMINER, Total dose = 4 gm, Magnesium level 1.5 - 1.7 mEq/L pantoprazol No Notes: Juan Miguel david e 10-30 Tablet l 03:00: should not [place] 00 be chewed or crushed. (Same as: Protonix) Sucralfate No 1 gm, 1 Juan Miguel david 100 MG/ML 10-29 tab, l Oral 23:00: Route: PO, [place] Suspension 00 Drug form: [Carafate] TAB, QID, Dosing Weight 108.182, kg, Start date: 10/29/18 17:00:00 CLAIM EXAMINER, Duration: 30 day, Stop date: 11/28/18 13:00:00 CLAIM EXAMINER Versed No Notes: Memor ia 1-05 MEDICATION l 20:23: WASTE [place] 00 Product Size: 2 mg Product Wasted: ___ mg Ketamine No 50 mg, 5 Memor ia 1-05 mL, Route: l 20:18: IV, Drug form: INJ, ONCE, Dosing Weight 108.182, kg, Start date: 10/29/18 14:18:00 CLAIM EXAMINER, Stop date: 10/29/18 14:18:00 CLAIM EXAMINER Benadryl 0 No 50 mg, 1 Memor ia 1-05 mL, Route: l 20:18: IVP, Drug [place] 00 form: INJ, ONCE, Dosing Weight 108.182, kg, Start date: 10/29/18 14:18:00 CLAIM EXAMINER, Stop date: 10/29/18 14:18:00 CLAIM EXAMINER Fentanyl 2019-0 No 150 Memoria 1-05 microgram, l 20:18: 3 mL, [place] 00 Route: IV, Drug form: INJ, ONCE, Dosing Weight 108.182, kg, Start date: 10/29/18 14:18:00 CLAIM EXAMINER, Stop date: 10/29/18 14:18:00 CLAIM EXAMINER Versed 2019-0 No Notes: Memoria 1-05 (Same as: l 20:18: Versed) [place] 00 MEDICATION WASTE Product Size: 2 mg Product Wasted: ___ mg Cipro 2019-0 No 200 mg, Memoria 1-05 100 mL, l 17:00: Route: [place] IVPB, Drug form: INJ, [id number], Dosing Weight 108.182, kg, Start date: 10/29/18 11:00:00 CLAIM EXAMINER, Stop date: 11/02/18 23:59:00 CLAIM EXAMINER, ABX Indication : Surgical Prophylaxi s Cipro 2019-0 No 200 mg, Memoria 1-05 100 mL, l 15:00: Route: [place] IVPB, Drug form: INJ, [id number], Dosing Weight 108.182, kg, Start date: 10/29/18 9:00:00 CLAIM EXAMINER, Duration: 5 day, Stop date: 11/02/18 23:00:00 CLAIM EXAMINER, ABX Indication : Surgical Prophylaxi s octreotide 2019-0 No 247.5 mL, Me moria 1,250 1-05 Rate: 10 l microgram + 13:42: ml/hr, Herm kelsi Sodium Infuse Chloride over: 25 0.9% IV hr, Route: 247.5 mL IV, Dosing Weight 108.182 kg, Total Volume: 250, Start date: 10/29/18 7:42:00 CLAIM EXAMINER, Duration: 30 day, Stop date: 11/28/18 7:41:00 CLAIM EXAMINER, 2.31, m2 Octreotide 2019-0 No Notes: Memor ia 1-05 (Same As: l 13:42: SandoSTATI [place]cio 00 N). Refrigerat e. MEDICATION WASTE Product Size: 50 microgram Product Wasted: ___ microgram pantoprazol No 100 mL, Mem oria e 80 mg + 10-29 Rate: 10 l Sodium 12:36: ml/hr, [place] Chloride 00 Infuse 0.9% IV 100 over: 10 mL hr, Route: IVPB, Dosing Weight 108.182 kg, Total Volume: 100, Infuse at 8 mg / hr for 72 hours for GI bleeding, Start date: 10/29/18 6:36:00 CLAIM EXAMINER, Duration: 72 hr, Stop date: 11/01/18 6:35:00 CLAIM EXAMINER, 2.31, m2 Enbrel No Notes: Memoria 10-29 (Same as: l 04:10: Enbrel) [place] 00 Non-Formul nikko Protonix No Notes: Memoria 10-28 Tablet l 22:30: should not [place] be chewed or crushed. (Same as: Protonix) albumin No Notes: Lot Juan Miguel david human 25% 10-28 #: l intravenous 18:58: [place] solution 00 ___ Mfg: (Same as: Plasbumin- 25) "blood product derivative " WASTE: F/P - Red; E -Red MEDICATION WASTE Product Size: 25 gm Product Wasted: ___ gm albumin No 75 gm, Memoria human 25% 10-28 Route: IV, l intravenous 16:52: ONCE, Rebeca nn solution Dosing Weight 109.545, kg, Priority: NOW, Start date: 10/28/18 10:52:00 CLAIM EXAMINER, Stop date: 10/28/18 10:52:00 CLAIM EXAMINER XIFAXAN No Notes: Memoria 10-28 Same as: l 15:00: Xifaxan [place] 00 metoprolol No Notes: Memor ia extended 10-28 (Same as: l release 15:00: Toprol XL) Herm kelsi May split tab, but do not crush. lansoprazol No 30 mg, Juan Miguel david e 10-28 Route: PO, l 15:00: Daily, [place] 00 Dosing Weight 109.545, kg, Start date: 10/28/18 9:00:00 CLAIM EXAMINER, Duration: 30 day, Stop date: 11/26/18 9:00:00 CLAIM EXAMINER Hydroxychlo 2018-0 No Notes: Juan Miguel david roquine 10-28 (Same as: l Sulfate 200 15:00: Plaquenil) [place]io MG Oral 00 Hydroxychl Tablet oroquine sulfate 200 mg = 155 mg hydroxychl oroquine base. If treating malaria, verify dose as salt vs. base per CDC guideline Thyroxine No Notes: Memori a - Take 1 l 12:30: hour [place] 00 before or 2 hours after meal; Enteral feeds may interefere with the absorption of this medication .(Same as:Levothr oid) tramadol No Notes: Not Mem oria hydrochlori 10-28 to exceed l de 50 MG 07:19: 400mg/day. Her johnson Oral Tablet 00 (Same As: Ultram) Tramadol 0 No 50 mg, Memoria 10-28 Route: PO, l 07:17: Drug form: [place] 00 TAB, Daily, Dosing Weight 109.545, kg, PRN Pain Score 1-5, Start date: 10/28/18 1:17:00 CLAIM EXAMINER, Duration: 30 day, Stop date: 11/27/18 1:16:00 CLAIM EXAMINER Dextrose 2018-0 No 12.5 gm, Memor ia 50% Syringe 10-28 25 mL, l 05:59: Route: IVP, Drug Form: INJ, Dosing Weight 109.545, kg, PRN, PRN Blood Glucose Results, Start date: 10/27/18 23:59:00 CLAIM EXAMINER, Duration: 30 day, Stop date: 11/26/18 23:58:00 CLAIM EXAMINER Glucagon 2018-0 No 1 mg, Memoria 10-28 Route: IM, l 05:59: Drug form: [place] 00 PDR/INJ, PRN, Dosing Weight 109.545, kg, PRN Blood Glucose Results, Start date: 10/27/18 23:59:00 CLAIM EXAMINER, Duration: 30 day, Stop date: 11/26/18 23:58:00 CLAIM EXAMINER Sodium 2019-0 No 250 mL, Memoria Chloride 10-28 Rate: To l 0.9% 04:52: prime line Tib[place]cio (titrate) 00 and flush 250 mL remaining blood products., Dosing Weight 109.091, kg, Route: IV, Total Volume: 250, Start Date: 10/27/18 22:52:00 CLAIM EXAMINER, Duration: 30 day, Stop date: 11/26/18 22:51:00 CLAIM EXAMINER, Replace Every: 24 hr Protonix No Notes: For Mem oria 10-28 IV push l 04:23: reconstitu [place] 00 te with 10 ml 0.9% sodium chloride and push over 2 minutes. (Same as: Protonix) Rocephin + No Notes: Memor ia sterile 10-28 (Same As: l water 10 mL 04:17: Rocephin). [place] 00 Use with 100 mL NS and infuse over 30 min MEDICATION WASTE Product Size: 1000 mg Product Wasted: ___ mg B-complex Yes [place] with 10-25 [facility] vitamin C 00:00: st tablet 00 krill-om-3- Yes [facility] n dha-epa-adriano 10-25 Methodi spho-ast 00:00: st (MEGARED 00 OMEGA-3 KRILL OIL) 300-90-24-5 0 mg capsule rifaximin No 550 mg = 1 Me moria 550 MG Oral 9-18 tab, PO, l Tablet 17:43: BID, 0 [place]io [XIFAXAN] 00 Refill(s) Furosemide No 40 mg = 1 Me moria 40 MG Oral 9-18 tab, PO, l Tablet 17:43: Daily, 0 [place]cio 00 Refill(s) Hydroxychlo Yes 200 mg = 1 Memoria roquine 9-18 tab, PO, l Sulfate 200 17:43: Daily, 0 He rmann MG Oral 00 Refill(s) Tablet Ondansetron No Notes: Juan Miguel david -18 (Same as: l 04:48: Zofran) [place] 00 MEDICATION WASTE Product Size: 4 mg Product Wasted: _0__ mg Morphine No Notes: Memoria 6-18 (Same l 04:48: as:MORPhin [place]io 00 e Sulfate) LR IV 1,000 No 1,000 mL, M emoria mL 4-13 Rate: 40 l 15:14: ml/hr, [place]cio 00 Infuse over: 25 hr, Route: IV, Dosing Weight 90.909 kg, Total Volume: 1,000, Start date: 02/04/18 10:14:00 CDT, Duration: 30 day, Stop date: 03/06/18 10:13:00 CDT, 2.13, m2 Furosemide No 40 mg, PO, M emoria 4-03 Daily, 0 l 13:26: Refill(s) [place] 00 Spironolact No 25 mg = 2 M emoria one 4-03 tab, PO, l 13:26: Daily, # [place] 00 60 tab, 0 Refill(s) Enbrel Yes 25, SUB-Q, Memor ia 4-03 0 l 13:26: Refill(s) Hydroxychlo No 200 mg, Mem oria roquine 4-03 PO, Daily, l 13:26: 0 [place] 00 Refill(s) lansoprazol Yes 30 mg, PO, Memoria e 4-03 Daily, # l 13:26: 15 cap, 0 [place] 00 Refill(s) levothyroxi Yes 112 Memori a ne 112 mcg 4-03 microgram l (0.112 mg) 13:26: = 1 cap, Her johnson oral 00 PO, Daily, capsule # 30 cap, 3 Refill(s) Fentanyl No 100 Memoria 2-09 microgram, l 15:07: Route: IV, [place] 00 ONCE, Dosing Weight 104.545, kg, Start date: 12/03/17 9:07:00 CLAIM EXAMINER, Stop date: 12/03/17 9:07:00 CLAIM EXAMINER metoprolol Yes 100 mg = 1 M emoria tartrate 2-09 tab, PO, l 100 mg oral 13:44: Daily, # He rmann tablet 00 60 tab, 0 Refill(s) pantoprazol No Notes: Juan Miguel david e 6-26 Tablet l 12:30: should not [place] 00 be chewed or crushed. (Same as: Protonix) sodium No 250 mL, Memoria chloride 6-25 Rate: On l 0.9% INJ 02:17: call for Rebeca nn 250 mL 00 use with blood product administra tion, Dosing Weight 104.773, kg, Route: IV, Total Volume: 250, Start Date: 04/17/17 21:17:00 CDT, Duration: 30 day, Stop date: 05/17/17 21:16:00 CDT, Replace Every: 24 hr Golytely No Notes: Memoria 6-25 (polyethyl l 00:40: angelina glycol [place]cio 00 electrolyt e solution 4 Liter bottle) (Same as: Golytely, Colyte) Lactulose No Notes: Memori a 667 MG/ML -25 (Same l Oral 00:40: as:Chronul [place] Solution 00 ac) Morphine No Notes: Memoria 6-24 (Same l 23:35: as:MORPhin [place]io 00 e Sulfate) Sodium No Notes: do Memori a Chloride 6-24 not load l 0.154 23:30: in pyxis Tiburcio MEQ/ML 00 Injectable Solution Protonix No Notes: For Mem oria 6-24 IV push l 23:30: reconstitu [place]io 00 te with 10 ml 0.9% sodium chloride and push over 2 minutes. (Same as: Protonix) Sodium No 1,000 mL, Memori a Chloride 6-24 1000 l 0.154 21:32: ml/hr, [place] MEQ/ML 00 Infuse Injectable Over: 1 Solution hr, Route: IV, 1,000, Drug form: INJ, ONCE, Priority: STAT, Dosing Weight 104.773 kg, Start date: 04/17/17 16:32:00 CDT, Duration: 1 doses or times, Stop date: 04/17/17 16:32:00 CDT Saline No Notes: Memoria Flush 0.9% 6-24 (Same as: l 21:32: BD [place] 00 Posiflush) pantoprazol Yes 40 mg = 1 M emoria e 40 MG 2-21 tab, PO, l Enteric 19:03: Daily, # Jonathan n Coated 00 30 tab, 0 Tablet Refill(s) [Protonix] sodium No 250 mL, Memoria chloride 2-20 Rate: On l 0.9% INJ 23:54: call for Rebeca nn 250 mL 00 use with blood product administra tion, Dosing Weight 94.8, kg, Route: IV, Total Volume: 250, Start Date: 12/14/16 17:54:00 CLAIM EXAMINER, Duration: 30 day, Stop date: 01/13/17 17:53:00 CDT, Replace Every: 24 hr Saline No Notes: Memoria Flush 0.9% 2-20 (Same as: l 23:51: BD [place] 00 Posiflush) Acetaminoph No Notes: Do M emoria en 2-20 not exceed l 23:51: 4 gm/day. [place]cio (Same as: Tylenol) Sodium No 1,000 mL, Memori a Chloride 2-20 Rate: 125 l 0.154 23:51: ml/hr, [place] MEQ/ML 00 Infuse Injectable over: 8 Solution hr, Route: IV, Dosing Weight 94.8 kg, Total Volume: 1,000, Start date: 12/14/16 17:51:00 CLAIM EXAMINER, Duration: 30 day, Stop date: 01/13/17 17:50:00 CDT Ondansetron No Notes: Juan Miguel david 2-20 (Same as: l 23:51: Zofran) [place] 00 MEDICATION WASTE Product Size: 4 mg Product Wasted: ___ mg Morphine No Notes: Memoria 2-20 (Same l 23:51: as:MORPhin [place] 00 e Sulfate) Omeprazole Yes 20 mg = 1 Me moria 20 MG 2-20 cap, PO, l Enteric 21:53: BID, # 30 Rebeca nn Coated 00 cap, 0 Capsule Refill(s) [Prilosec] ferrous Yes 325 mg = 1 Juan Miguel david sulfate 325 2-20 tab, PO, l mg oral 21:53: BID, # 60 Rebeca nn enteric 00 tab, 1 coated Refill(s) tablet bumetanide Yes 1 mg = 1 Mem oria 1 mg oral 2-20 tab, PO, l tablet 21:53: Daily, # [place] 00 30 tab, 0 Refill(s) Sodium No Notes: do Memori a Chloride 2-20 not load l 0.154 20:25: in pyxis [place] MEQ/ML 00 Injectable Solution pantoprazol No Notes: For Memoria e 2-20 IV push l 20:25: reconstitu [place]io 00 te with 10 ml 0.9% sodium chloride and push over 2 minutes. (Same as: Protonix) Sodium No 1,000 mL, Memori a Chloride 2-20 1000 l 0.154 20:24: ml/hr, [place] MEQ/ML 00 Infuse Injectable Over: 1 Solution hr, Route: IV, 1,000, Drug form: INJ, ONCE, Priority: STAT, Dosing Weight 94.8 kg, Start date: 12/14/16 14:24:00 CLAIM EXAMINER, Duration: 1 doses or times, Stop date: 12/14/16 14:24:00 CLAIM EXAMINER gabapentin No 600 mg = 1 M emoria enacarbil 2-20 tab, PO, l 600 MG 19:02: BID, 0 [place] Extended 00 Refill(s) Release Tablet [Horizant] irbesartan No PO, Daily, M emoria 2-20 0 l 19:01: Refill(s) [place] 00 irbesartan Yes 300 mg = 1 M emoria 300 MG Oral 2-20 tab, PO, l Tablet 19:01: Daily, 0 [place] [Avapro] 00 Refill(s) levothyroxi Yes 100 Memori a ne 100 mcg 2-20 microgram, l (0.1 mg) 19:01: PO, Daily, Her johnson intravenous 00 0 injection Refill(s) Tramadol Yes 50 mg, PO, Mem oria 2-20 Daily, PRN l 19:01: Pain Score [place]cio 00 1-5, 0 Refill(s) spironolact No 100 mg = 1 Memoria one 100 mg 2-20 tab, PO, l oral tablet 19:00: Daily, 0 He rmann 00 Refill(s) Saline No Notes: Memoria Flush 0.9% 2-20 (Same as: l 18:52: BD [place] 00 Posiflush) Vital Signs Vital Name Observation Time Observation Value Comments Source Systolic blood 2020-02-22 13:25:00 112 mm[Hg] [place] [facility] pressure Diastolic blood 2020-02-22 13:25:00 58 mm[Hg] [place] [facility] pressure Heart rate 2020-02-22 13:25:00 68 /min [place] [facility] Body temperature 2020-02-22 13:25:00 36.5 [place] [facility] Body height 2020-02-22 13:25:00 175.3 cm [place] [facility] Body weight 2020-02-22 13:25:00 88.089 kg [place] [facility] BMI 2020-02-22 13:25:00 28.68 kg/m2 [place] [facility] Oxygen saturation in 2020-02-22 13:25:00 100 /min [place] [facility] Arterial blood by Pulse oximetry Respiratory rate 2020-01-23 11:46:00 17 /min [place] [facility] Temperature Oral (F) 2019-07-10 22:55:00 98.3 F [facility] Heart Rate 2019-07-10 22:55:00 [facility] [place] Respitory Rate 2019-07-10 22:55:00 [facility] [place] Systolic (mm Hg) 2019-07-10 22:55:00 Juan Miguel [facility] [place] Diastolic (mm Hg) 2019-07-10 22:55:00 [facility] [place] Temperature Oral (F) 2019-07-10 22:35:00 97.5 F [facility] [place] Respitory Rate 2019-07-10 22:35:00 [facility] [place] Systolic (mm Hg) 2019-07-10 22:35:00 Juan Miguel [facility] [place] Diastolic (mm Hg) 2019-07-10 22:35:00 [facility] [place] Temperature Oral (F) 2019-07-10 19:25:00 97.8 F [facility] [place] Respitory Rate 2019-07-10 19:25:00 [facility] [place] Systolic (mm Hg) 2019-07-10 19:25:00 Juan Miguel rial [place] Diastolic (mm Hg) 2019-07-10 19:25:00 [facility] [place] Heart Rate 2019-07-10 17:15:00 [facility] [place] Heart Rate 2019-07-10 12:15:00 [facility] [place] Height 2019-07-10 10:07:00 355.6 cm [facility] Height 2019-07-09 17:57:00 355.6 cm [facility] Height 2019-07-08 08:32:00 355.6 cm [facility] Weight 2019-06-23 22:00:00 [facility] BMI Calculated 2019-06-23 22:00:00 [facility] Weight 2019-06-19 20:24:00 [facility] BMI Calculated 2019-06-19 20:24:00 [facility] Systolic (mm Hg) 2019-06-19 14:52:00 Juan [facility] Diastolic (mm Hg) 2019-06-19 14:52:00 [facility] Heart Rate 2019-06-19 14:52:00 [facility] Height 2019-06-19 14:52:00 177.8 cm [facility] Weight 2019-06-19 14:52:00 [facility] BMI Calculated 2019-06-19 14:52:00 [facility] Respitory Rate 2019-04-21 16:13:00 [facility] Heart Rate 2019-04-21 16:13:00 [facility] Temperature Oral (F) 2019-04-21 16:13:00 98.2 F [facility] Systolic (mm Hg) 2019-04-21 16:13:00 Juan Miguel [facility] Diastolic (mm Hg) 2019-04-21 16:13:00 [facility] Temperature Oral (F) 2019-04-21 12:11:00 98.1 F [facility] Heart Rate 2019-04-21 12:11:00 [facility] Respitory Rate 2019-04-21 12:11:00 [facility] Systolic (mm Hg) 2019-04-21 12:11:00 Juan [facility] Diastolic (mm Hg) 2019-04-21 12:11:00 [facility] Systolic (mm Hg) 2019-04-21 08:10:00 Juan [facility] Diastolic (mm Hg) 2019-04-21 08:10:00 [facility] Respitory Rate 2019-04-21 08:10:00 [facility] Heart Rate 2019-04-21 08:10:00 [facility] Temperature Oral (F) 2019-04-21 08:10:00 97.9 F [facility] Weight 2019-04-20 10:25:00 [facility] BMI Calculated 2019-04-18 21:00:00 [facility] Height 2019-04-18 21:00:00 172.72 cm [facility] Weight 2019-04-18 21:00:00 [facility] BMI Calculated 2019-04-18 17:16:00 [facility] Height 2019-04-18 17:16:00 170.18 cm [facility] Weight 2019-04-18 17:16:00 [facility] Heart Rate 2019-04-18 17:16:00 [facility] Systolic (mm Hg) 2019-04-18 17:16:00 Juan [facility] Diastolic (mm Hg) 2019-04-18 17:16:00 [facility] Systolic (mm Hg) 2019-01-16 16:00:00 Juan [facility] Diastolic (mm Hg) 2019-01-16 16:00:00 [facility] Respitory Rate 2019-01-16 16:00:00 [facility] Heart Rate 2019-01-16 16:00:00 [facility] Temperature Oral (F) 2019-01-16 16:00:00 98.0 F [facility] Respitory Rate 2019-01-16 12:16:00 [facility] Systolic (mm Hg) 2019-01-16 12:16:00 Juan [facility] Diastolic (mm Hg) 2019-01-16 12:16:00 [facility] Temperature Oral (F) 2019-01-16 12:16:00 98.1 F [facility] Heart Rate 2019-01-16 12:16:00 [facility] Weight 2019-01-16 09:37:00 [facility] Respitory Rate 2019-01-16 07:56:00 [facility] Systolic (mm Hg) 2019-01-16 07:56:00 Juan Miguel rial [facility] Diastolic (mm Hg) 2019-01-16 07:56:00 [facility] Heart Rate 2019-01-16 07:56:00 [facility] Temperature Oral (F) 2019-01-16 07:56:00 98.3 F [facility] BMI Calculated 2019-01-13 18:10:00 [facility] Weight 2019-01-13 18:10:00 [facility] Height 2019-01-13 18:10:00 175.26 cm [facility] BMI Calculated 2018-12-27 16:18:00 [facility] Weight 2018-12-27 16:18:00 [facility] Height 2018-12-27 16:18:00 175.26 cm [facility] Systolic (mm Hg) 2018-12-27 16:18:00 Juan Miguel [facility] Diastolic (mm Hg) 2018-12-27 16:18:00 [facility] Heart Rate 2018-12-27 16:18:00 [facility] BMI Calculated 2018-11-16 20:52:00 [facility] Weight 2018-11-16 20:52:00 [facility] Heart Rate 2018-11-16 20:52:00 [facility] Temperature Oral (F) 2018-11-16 20:52:00 97.4 F [facility] Height 2018-11-16 20:52:00 172.72 cm [facility] Systolic (mm Hg) 2018-11-16 20:52:00 Juan Miguel [facility] Diastolic (mm Hg) 2018-11-16 20:52:00 [facility] Heart Rate 2018-11-07 21:06:00 [facility] Systolic (mm Hg) 2018-11-07 21:06:00 [facility] Diastolic (mm Hg) 2018-11-07 21:06:00 [facility] Respitory Rate 2018-11-07 21:06:00 [facility] Temperature Oral (F) 2018-11-07 21:06:00 98.3 F [facility] Systolic (mm Hg) 2018-11-07 18:53:00 Juan [facility] Diastolic (mm Hg) 2018-11-07 18:53:00 [facility] Temperature Oral (F) 2018-11-07 18:53:00 97.8 F [facility] Heart Rate 2018-11-07 18:53:00 [facility] Respitory Rate 2018-11-07 18:53:00 [facility] Respitory Rate 2018-11-07 13:15:00 [facility] Systolic (mm Hg) 2018-11-07 13:15:00 Juan [facility] Diastolic (mm Hg) 2018-11-07 13:15:00 [facility] Heart Rate 2018-11-07 13:15:00 [facility] Temperature Oral (F) 2018-11-07 13:15:00 98.3 F [facility] Weight 2018-11-05 00:08:00 [facility] Weight 2018-10-28 20:07:00 [facility] BMI Calculated 2018-10-28 20:07:00 [facility] Height 2018-10-28 20:07:00 172.72 cm [facility] Height 2018-10-28 05:47:00 172.72 cm [facility] Weight 2018-10-28 05:47:00 [facility] BMI Calculated 2018-10-28 05:47:00 [facility] BMI Calculated 2018-07-12 17:38:00 [facility] Weight 2018-07-12 17:38:00 [facility] Height 2018-07-12 17:38:00 177.8 cm [facility] Respitory Rate 2018-07-12 17:38:00 [facility] Systolic (mm Hg) 2018-07-12 17:38:00 [facility] Diastolic (mm Hg) 2018-07-12 17:38:00 [facility] Heart Rate 2018-07-12 17:38:00 [facility] Temperature Oral (F) 2018-04-11 08:30:00 98.6 F [facility] Systolic (mm Hg) 2018-04-11 08:30:00 Juan Miguel [facility] Diastolic (mm Hg) 2018-04-11 08:30:00 [facility] Respitory Rate 2018-04-11 08:30:00 [facility] Systolic (mm Hg) 2018-04-11 07:12:00 [facility] Diastolic (mm Hg) 2018-04-11 07:12:00 [facility] Respitory Rate 2018-04-11 07:12:00 [facility] Temperature Oral (F) 2018-04-11 05:24:00 98.2 F [facility] Respitory Rate 2018-04-11 05:24:00 [facility] Systolic (mm Hg) 2018-04-11 05:24:00 Juna [facility] Diastolic (mm Hg) 2018-04-11 05:24:00 [facility] Weight 2018-04-11 03:30:00 [facility] Height 2018-04-11 03:30:00 177.8 cm [facility] BMI Calculated 2018-04-11 03:30:00 [facility] Temperature Oral (F) 2018-04-11 03:30:00 98.1 F [facility] Heart Rate 2018-04-11 03:30:00 [facility] Systolic (mm Hg) 2018-02-04 17:25:00 Juan Miguel [facility] Diastolic (mm Hg) 2018-02-04 17:25:00 [facility] Respitory Rate 2018-02-04 17:25:00 [facility] Respitory Rate 2018-02-04 17:15:00 [facility] Systolic (mm Hg) 2018-02-04 17:15:00 Juan Miguel [facility] Diastolic (mm Hg) 2018-02-04 17:15:00 [facility] Respitory Rate 2018-02-04 17:05:00 [facility] Systolic (mm Hg) 2018-02-04 16:55:00 [facility] Diastolic (mm Hg) 2018-02-04 16:55:00 [facility] BMI Calculated 2018-02-04 15:13:00 [facility] Weight 2018-02-04 15:13:00 [facility] Height 2018-02-04 15:13:00 177.8 cm [facility] Height 2018-01-25 13:19:00 172.72 cm [facility] BMI Calculated 2018-01-25 13:19:00 [facility] Weight 2018-01-25 13:19:00 [facility] Systolic (mm Hg) 2018-01-25 13:19:00 Juan Miguel [facility] Diastolic (mm Hg) 2018-01-25 13:19:00 [facility] Heart Rate 2018-01-25 13:19:00 [facility] Respitory Rate 2018-01-25 13:19:00 [facility] Systolic (mm Hg) 2017-12-03 17:00:00 Juan Miguel [facility] Diastolic (mm Hg) 2017-12-03 17:00:00 [facility] Respitory Rate 2017-12-03 17:00:00 [facility] Respitory Rate 2017-12-03 16:45:00 [facility] Systolic (mm Hg) 2017-12-03 16:45:00 Juan [facility] Diastolic (mm Hg) 2017-12-03 16:45:00 [facility] Respitory Rate 2017-12-03 16:30:00 [facility] Systolic (mm Hg) 2017-12-03 16:30:00 Juan [facility] Diastolic (mm Hg) 2017-12-03 16:30:00 [facility] Temperature Oral (F) 2017-12-03 14:07:00 98.3 F [facility] Height 2017-12-03 13:43:00 177.8 cm [facility] Weight 2017-12-03 13:43:00 [facility] BMI Calculated 2017-12-03 13:43:00 [facility] Systolic (mm Hg) 2017-04-19 13:16:00 [facility] Diastolic (mm Hg) 2017-04-19 13:16:00 [facility] Respitory Rate 2017-04-19 13:16:00 [facility] Heart Rate 2017-04-19 13:16:00 [facility] Temperature Oral (F) 2017-04-19 13:16:00 99.0 F [facility] Respitory Rate 2017-04-19 08:43:00 [facility] Systolic (mm Hg) 2017-04-19 08:43:00 Juan Miguel [facility] Diastolic (mm Hg) 2017-04-19 08:43:00 [facility] Temperature Oral (F) 2017-04-19 08:43:00 98.9 F [facility] Heart Rate 2017-04-19 08:43:00 [facility] Temperature Oral (F) 2017-04-19 06:00:00 98.6 F [facility] Systolic (mm Hg) 2017-04-19 03:52:00 Juan Miguel [facility] Diastolic (mm Hg) 2017-04-19 03:52:00 [facility] Respitory Rate 2017-04-19 03:52:00 [facility] Heart Rate 2017-04-19 03:52:00 [facility] Height 2017-04-18 08:51:00 170.18 cm [facility] Weight 2017-04-18 08:51:00 [facility] BMI Calculated 2017-04-18 08:51:00 [facility] Weight 2017-04-17 21:24:00 [facility] Respitory Rate 2016-12-15 12:27:00 [facility] Systolic (mm Hg) 2016-12-15 12:27:00 [facility] Diastolic (mm Hg) 2016-12-15 12:27:00 [facility] Heart Rate 2016-12-15 12:27:00 [facility] Temperature Oral (F) 2016-12-15 12:27:00 98 F [facility] Respitory Rate 2016-12-15 08:58:00 [facility] Systolic (mm Hg) 2016-12-15 08:58:00 Juan [facility] Diastolic (mm Hg) 2016-12-15 08:58:00 [facility] Heart Rate 2016-12-15 08:58:00 [facility] Temperature Oral (F) 2016-12-15 08:58:00 98.1 F [facility] Respitory Rate 2016-12-15 06:11:00 [facility] Temperature Oral (F) 2016-12-15 04:30:00 98.5 F [facility] Systolic (mm Hg) 2016-12-15 04:30:00 Juan [facility] Diastolic (mm Hg) 2016-12-15 04:30:00 [facility] Heart Rate 2016-12-15 04:30:00 [facility] Weight 2016-12-14 23:13:00 [facility] BMI Calculated 2016-12-14 23:13:00 [facility] Height 2016-12-14 23:13:00 175.26 cm [facility] Weight 2016-12-14 18:36:00 [facility] Procedures Procedure Date / Time Performing Source Performed Clinician PA REMOVAL TUNNELED CV CATH W/O 2020-02-22 Milvia Coto SUBQ PORT OR PUMP 13:30:00 Sunshine Stevens OR [place] < 1 HOUR 2020-01-23 Jesse James 11:00:00 Judy Stevens POC PANEL 4 2020-01-23 Jesse James 09:20:00 Judy Stevens XR CHEST 1 VW PORTABLE 2020-01-23 Justin Mtz 09:13:45 Claus Stevens HC COMPLETE BLD COUNT W/AUTO DIFF 2020-01-23 [place] 09:12:00 Claus Stevens BASIC METABOLIC PANEL 2020-01-23 Smith, [place] 09:12:00 Claus Stevens PROTHROMBIN TIME WITH INR 2020-01-23 Nimesh Mtz n 09:12:00 Claus Stevens PARTIAL THROMBOPLASTIN TIME (PTT) 2020-01-23 [place] 09:12:00 Claus Styles Y[facility] TYPE AND SCREEN 2020-01-23 [facility] 09:12:00 Claus Kaurist ESTIMATED GFR 2020-01-23 [facility] 09:12:00 Claus Stevens ECG 12-LEAD [facility]01[facility] Claus Stevens Colonoscopy 2016-11-18 [facility] 06:00:00 Esophagogastroduodenoscopy 2016-11-18 [facility] 06:00:00 Appendectomy [facility] Cataract surgery [facility] Hip replacement [facility] Tonsillectomy [facility] Tonsillotomy [facility] Plan of Care Planned Activity Planned Date Details Comments Source Future Scheduled 2020-05-25 INFLUENZA VACCINE [place] [facility] 00:00:00 [code = INFLUENZA VACCINE] Future Scheduled 2008-02-28 COLONOSCOPY SCREENING [place] [facility] 00:00:00 [code = COLONOSCOPY SCREENING] Future Scheduled 2008-02-28 [place]INGLES VACCINES [place] [facility] 00:00:00 (#1) [code = SHINGLES VACCINES (#1)] Future Scheduled 1974 COVID-19 VACCINE (#1) [place] [facility] 00:00:00 [code = COVID-19 VACCINE (#1)] Encounters Start End Encounter Admission Attending Care Care Encounter Source Date/Time Date/Time Type Type Clinicians Facility Department ID 2019-06-19 Inpatient [facility] PUL [id number] [facility] H 14:22:00 2019-04-18 Inpatient [facility] MED [id number] [facility] H 15:26:00 2020-02-22 2020-02-22 Outpatient [facility] [id number] 839 [place] 00:00:00 00:00:00 996 Method i 2020-02-08 2020-02-08 Outpatient RUDI [facility] [id number] [place] 00:00:00 00:00:00 JESSE 114 Method i 2020-01-23 2020-01-23 Outpatient RUDI, [facility] [id number] [place] 00:00:00 00:00:00 JESSE 032 Method i 2019-10-02 2019-10-02 Outpatient RUDI, [facility] [id number] [place] 00:00:00 00:00:00 JESSE 567 Method i 2019-06-19 2019-07-10 Outpatient Machicao, [facility] [id number] 14:22:00 18:30:00 Kavin Gruber [facility] 2019-06-19 2019-06-19 Outpatient [facility]icao, [facility] [id number] 09:44:00 23:59:00 Kavin Mix [facility] 2019-06-19 2019-06-19 Outpatient [facility] [id number] [facility] 09:44:00 09:44:00 2019-04-18 2019-04-21 Outpatient Ochoa, [facility] [id number] 15:26:00 15:18:00 Angie Marcos [place] 2019-04-18 2019-04-18 Outpatient Machicao, [facility] [id number] 12:08:00 23:59:00 Kavin 05 [facility] 2019-04-18 2019-04-18 Outpatient [facility] [id number] 12:08:00 12:08:00 2019-01-13 2019-01-16 Outpatient Machicao, [facility] [id number] 12:46:00 13:25:00 Kavin 82 [facility] 2019-01-13 2019-01-13 Outpatient Machicao, [facility] [id number] 10:47:00 10:47:00 Kavin 81 [facility] 2018-12-27 2018-12-27 Outpatient Machicao, [facility] [id number] 10:12:00 23:59:00 Kavin 13 [facility] 2018-11-16 2018-12-15 Outpatient Machicao, [facility] [id number] 14:11:00 23:59:00 Kavin [facility] 2018-10-27 2018-11-07 Outpatient Fredy [facility] [id number] 17:32:00 16:20:00 Kavin [facility] 2018-10-27 2018-10-27 Outpatient Fredy [facility] OIP [id number] 11:32:00 23:59:00 Kavin [facility] 2018-07-12 2018-07-12 Outpatient Fredy [facility] [id number] 12:35:00 23:59:00 Kavin 12 [facility] 2018-04-22 2018-04-22 Outpatient Yifan Dubose [facility] [id number] 10:06:00 23:59:00 Elvie 2018-04-22 2018-04-22 Outpatient [facility] [address] [id number] MH 10:06:00 10:06:00 2018-04-10 2018-04-11 Outpatient Tonja [facility] [id number] 22:29:00 04:27:00 Kortneyede Villavicencio 2018-02-11 2018-02-11 Outpatient Fredy [facility] [id number] 12:46:00 23:59:00 Kavin [facility] 2018-02-04 2018-02-04 Outpatient Yifan Dubose [facility] [id number] 09:33:00 13:00:00 Humbertomónica 2018-02-01 2018-02-01 Outpatient Omari, [facility] M[facility]IP [id number] 08:39:00 23:59:00 Kenneth 2018-02-01 2018-02-01 Outpatient Omari, [facility] M[facility]IP [id number] 08:39:00 23:59:00 Kenneth 2018-01-25 2018-01-25 Outpatient Fredy [facility] [id number] 08:14:00 23:59:00 Kavin 06 [facility] 2017-12-03 2017-12-03 Outpatient Yifan Dubose [facility] [id number] 06:55:00 11:00:00 Elvie 05 2017-11-26 2017-11-26 Outpatient Yifan Dubose [facility] [id number] 08:20:00 23:59:00 Elvie 2017-04-17 2017-04-19 Outpatient Jody [facility] [id number] 16:11:00 15:29:00 Gomez 2016-12-14 2016-12-15 Outpatient Meghann [facility] [id number] 12:20:00 14:47:00 Noha 00 Results Test Description Test Time Test Comments Results Result Sourc e Comments TDC Removal 2020-02-22 Milvia Coto 13:30:00 MARCY Gonsalez Y[facility]ism 02/22/2020 2:10 PMTDC RemovalDate/Time: 02/22/2020 2:10 PMPerformed by: Milvia Coto FNPAuthorized by: Milvia Coto FNP TDC site anesthetized with local anesthetic. The cuff was dissected free and the catheter removed in its entirety. Pressure was held at the site to ensure hemostasis. Pressure dressing applied. Verbal and written instructions and ER warnings given.Consent: Consent obtained: Verbal Consent given by: Patient Risks discussed: Bleeding, infection and painUniversal protocol: Procedure explained and questions answered to patient or proxy's satisfaction: yes Site/side marked: yes Immediately prior to procedure a time out was called: yes Patient identity confirmed: Verbally with patientPost-proced ure details: Patient tolerance of procedure: Tolerated well, no immediate complications OR [place] < 1 Hour 2020-01-23 [facility] [place] 12:17:21 Radiology Results Methodi 01/23/2020 12:20 PM CDTEXAMINATION: OR [place] < 1 HOURCLINICAL HISTORY: None provided.IMPRESSIO N:1. Fluoroscopy was provided in the operating. I was not present during the procedure.2. Please refer to the operative report for findings.3. Total Dose: 1 fluoroscopic images. 6.8 minutes of fluoroscopy time. ECG 12 lead 2020-01-23 12:06:39 Test Item Value Reference Range Interpretation Comme nts Ventricular rate (test code = 253) 71 Atrial rate (test code = 255) 71 PA interval (test code = 266) 200 QRSD interval (test code = 260) 88 QT interval (test code = 264) 406 QTC interval (test code = 265) 441 P axis 1 (test code = 267) 78 QRS axis 1 (test code = 268) 79 T wave axis (test code = 270) 72 EKG impression (test code = 273) Normal sinus rhythm-Normal ECG-In automated comparison with ECG of 02-OCT-2019 07:37,-No significant change was found- Justin MethodistType and [id number] 11:01:00 Test Item Value Reference Range Interpretation Comments ABO grouping (test code = 883-9) O Rh type (test code = 04198-4) POS Antibody screen (gel) (test code = NEG 890-4) Justin MethodistPartial thromboplastin time, [id number] 10:58:00 Test Item Value Reference Range Interpretation Comments PTT (test code = 38.9 23.0- 36.0 sec H PTT thera peutic range 3173-2) for unfractiona bere heparin is61.0- 112.0 seconds which corresponds to Anti-Xa0.3-0.7 U/ml. Lab Interpretation Abnormal (test code = 34434-7) Justin KauristProthrombin time with [id number] 10:57:44 Test Item Value Reference Range Interpretation Comments Prothrombin time (test 15.0 11.5- 14.5 sec H code = 5902-2) INR (test code = 1.2 The Interna tional 28225-7) Normalized Rati o (INR) is a therapeuti c monitoring tool for patients who ar e stable on oral anticoagulant t herapy. An INR of 2.0-3 .0 is suggested for d eep vein thrombosis/pulm onary embolism. Lab Interpretation Abnormal (test code = 74008-3) Justin MethodistBasic metabolic [id number] 10:25:19 Test Item Value Reference Range Interpretation Comments Sodium (test code = 2951-2) 140 135- 148 mEq/L Potassium (test code = 2823-3) 4.4 3.5- 5.0 mEq/L Chloride (test code = 2075-0) 109 98- 112 mEq/L CO2 (test code = 2027-9) 18 24- 31 mEq/L L Anion gap (test code = 53952-6) 13@ANIO 7- 15 mEq/L BUN (test code = 3094-0) 29 mg/dL 8-23 H Creatinine (test code = 2160-0) 2.46 mg/dL 0.7-1.2 H Glucose (test code = 2345-7) 81 mg/dL 65-99 Calcium (test code = 31947-3) 9.1 mg/dL 8.8-10.2 Lab Interpretation (test code = Abnormal 68697-6) Justin MethodistEstimated [id number] 10:25:19 Test Item Value Reference Range Interpretation Comments Estimated GFR (test 27 mL/min/1.73 m2 Yuli Angie hart Units code = 5488) InterpretationG 1 >=90 Leilani l or highG2 60-89 Mildly decrease dG3a 45-59 Mil dly to moderately decr jpzacR3t 30-44 Moderately to s everely decreasedG4 15-29 Severe ly decreasedG5 <15 Kidney manuel lureThe eGFR was calcul ated using the Chron Kidney Disease Epidemiology Collaboration ( CKD-EPI) equation. Interpretation is based on recommendati ons of the National Ki dney Foundation-Kidn ey Disease Outcome s Quality Initiat fabien (NKF-KDOQI) pub lished in 2013. Lab Interpretation Abnormal (test code = 45294-9) Justin MethodistCBC with platelet and [id number] 10:21:10 Test Item Value Reference Range Interpretation Comments WBC (test code = 37640-3) 6.7 4.5- 11.0 k/uL RBC (test code = 48504-3) 3.07 m/uL 4.4-6 L HGB (test code = 718-7) 10.2 g/dL 14-18 L HCT (test code = 4544-3) 30.3 % 41-51 L MCV (test code = 787-2) 98.7 fL 82-100 MCH (test code = 785-6) 33.2 pg 27-34 MCHC (test code = 786-4) 33.7 g/dL 31-37 RDW - SD (test code = 96555-1) 53.2 fL 37-55 MPV (test code = 53848-5) 10.0 fL 6.9-11 Platelet count (test code = 88 K/uL 150-400 L 18879-5) Nucleated RBC (test code = 37830-0) 0.00 /100 WBC Neutrophils (test code = 06102-6) 48.4 % 39-69 Lymphocytes (test code = 84984-4) 22.5 % 25-45 L Monocytes (test code = 42764-7) 8.1 % 0-10 Eosinophils (test code = 11425-6) 19.0 % 0-5 H Basophils (test code = 35173-3) 1.9 % 0-1 H Immature granulocytes (test code = 0.1 % 0-1 22035-6) Lab Interpretation (test code = Abnormal 31139-1) Justin MethodistXR Chest 1 Vw [id number] 10:15:45Hm Interface, Radiology Results - 01/23/2020 10:18 AM CDTEXAMINATION: XR CHEST 1 VW PORTABLECLINICAL HISTORY: pre-opCOMPARISON: Chest x-ray 10/02/2019IMPRESSION:Lines and tubes: There has been interval removal of the right-sided tunneled dialysis catheter.Heart and mediastinum: Cardiomediastinal silhouette is stable.Lungs and pleura: There is mild pulmonary venous congestion. There is no focal consolidation, pleural effusion, or pneumothorax. Bones: No acute osseous abnormality.[facility]-[id number] and approved by academic affairs vice president/fellow: Demarcus Tam M.D.I, Scar Jones MD, personally reviewed the images and resident's/fellow's findings and agree with the final report.[place] MethodistPOC panel [id number] 09:21:55 Test Item Value Reference Range Interpretation Comments POC sodium (test code = 141 mmol/L 817-906 8471-0) POC potassium (test 4.3 mmol/L 3.5-5 code = 6298-4) POC hematocrit (test 32 % 41-51 L code = 4544-3) POC glucose (test code 77 mg/dL 65-99 Opera tor Name: = 2339-0) Quigley Josafat ID : [id number] POC hemoglobin (test 10.9 g/dL 14-18 L code = 718-7) Lab Interpretation Abnormal (test code = 87203-1) [place] MethodistCHEM [id number] 09:35:001.8[facility] HermannCHEM PANEL 2019-07-10 09:35:003.8[facility] HermannCHEM [id number] 09:35:24030Kpyzmpld HermannCHEM [id number] 09:35:0032[facility] HermannCHEM [id number] 09:35:004.12[facility] HermannCHEM [id number] 09:35:35256Ncxojucp HermannCHEM [id number] 09:35:004.2[facility] HermannCHEM [id number] 09:35:57102 [facility]annCHEM [id number] 09:35:0022Mem[facility] HermannCHEM PANEL 2019-07-10 09:35:008.4[facility] HermannCHEM [id number] 09:35:0015Mem[facility] HermannCHEM [id number] 09:35:0013.2[facility] HermannCHEM [id number] 09:35:002.3[facility] HermannCHEM [id number] 09:35:00 Test Item Value Reference Range Interpretation Comments A/G Ratio (test code = A/G Ratio) 1.4 1 0.7-1.6 [facility] HermannCHEM [id number] 09:35:005.5[facility] HermannCHEM PANEL 2019-07-10 09:35:003.2[facility] [id number] 09:35:0037[facility] [id number] 09:35:0055[facility] [id number] 09:35:71613Szbxtoww HermannCHEM [id number] 09:35:002.1[facility] [id number] 09:35:000.5[facility] [id number] 09:35:001.6 [facility] [place] HermannCHEM [id number] 09:35:002.3[facility]ann[facility] PANEL 2019-07-10 09:35:00 Test Item Value Reference Range Interpretation Comments A/G Ratio (test code = A/G Ratio) 1.6 1 0.7-1.6 [facility]CHEM OMPQL6837-27-72 09:35:006.0[facility]annCHE[facility] PANEL 2019-07-10 09:35:003.7[facility]CHE[facility] PSKRN5596-43-11 09:35:0041[facility]annCHE[facility] RKACK0687-57-61 09:35:0062[facility]CHE[facility] ZYCND6038-88-26 09:35:55692Dqpidoyi HermannCHEM MFERG3178-27-95 09:35:002.4[facility]annCHE[facility] QYPIK0633-52-13 09:35:000.5[facility]annCHE[facility] DEVMB5812-81-98 09:35:001.9 [facility] VlnaxkdDQXOBRMFQAJR4425-93-72 09:35:0013.9[facility]annELECTROLYTES 2019-07-10 09:35:32343Nqaqprfo FlbqikrIBFKUBROIRCR5171-50-44 09:35:0030[facility] HnflerbRFEBMPUFDOWH5727-24-21 09:35:003.84[facility] RdhowuaCGXFKBSWWMFT4767-43-91 09:35:25434Rkamnkeg GnavpddCWNWWMAMLURE1903-45-08 09:35:003.9[facility] JGWMCXFNZALX8329-35-47 09:35:17767Pktwlfce LnzvochGMENWZXESRSU9970-21-90 09:35:0019[facility] GdvspnhTSFJBRXQHZWI5456-26-31 09:35:007.7[facility] HOIETYXROVCF3186-21-36 09:35:0016[facility] EqgjgnlHKXXSOJNSG5401-17-79 09:35:00 7.6[facility] EotwfymUXVHTJGEGK4681-88-83 09:35:002.44[facility]annHEMATOLOGY 2019-07-10 09:35:008.0[facility] WhrnlobNQEGEQGQBB0313-67-57 09:35:0023.2[facility] MfqhlyoROCMTEQGEK1161-41-13 09:35:0094.8[facility] LdqgdylIESVATFXRQ3030-46-51 09:35:00 Test Item Value Reference Range Interpretation Comments MCH (test code = MCH) 33.0 pg 27.0-31.0 [facility] NrlpktcNGLZTRCONP6037-42-08 09:35:0034.8[facility]annHEMATOLOGY 2019-07-10 09:35:0016.2[facility] VkpaajeHGKTQJGHNM9478-17-59 09:35:0076[facility] SyesypcKRQPSAMJOW9160-73-29 09:35:009.6[facility] FflhgrrORUNHQCITB8561-73-92 09:35:00 Test Item Value Reference Range Interpretation Comments PT (test code = PT) 20.3 s 12.0-14.7 [facility] VzsjqwhZDOXMTBSPD3819-62-15 09:35:00 Test Item Value Reference Range Interpretation Comments INR (test code = INR) 1.78 1 0.85-1.17 [facility] CsoynyeHMORAUXOMT6822-38-90 09:35:00 Test Item Value Reference Range Interpretation Comments PTT (test code = PTT) 52.4 s 22.9-35.8 [facility] PmbientCLCGUSLTLR7258-97-70 09:35:0053.9[facility]annHEMATOLOGY 2019-07-10 09:35:009.9[facility] MvjovuuMYRMRFRACE6434-89-08 09:35:0012.7[facility] FjyvgkiPWIMSXNNLC0949-95-06 09:35:0021.4[facility] HpbqodzFQFJZIYLEC6806-97-76 09:35:002.1[facility] NrayhriZQHQGAAVKC6921-19-71 09:35:004.1[facility] XGHIVJAFXL5009-73-98 09:35:000.7[facility] BlmanqdEOHWLMMBSY5987-41-40 09:35:001.0 [facility] BsxqezrJKEYEEPKPS2131-57-82 09:35:001.6[facility]annHEMATOLOGY 2019-07-10 09:35:000.2[facility]annCHEM YXGEQ8679-99-62 09:34:006.2[facility]annCHEM GBCOW9621-98-27 09:34:003.8[facility]annCHE[facility] KBTXB5100-55-96 09:34:0043[facility]annCHEM OJNHH6021-54-07 09:34:0063[facility]annCHE[facility] HCZJJ1373-18-69 09:34:85515Fjgbpebv HermannCHEM QYXOD0955-57-22 09:34:002.6 [facility]CHE[facility] BXYTN3000-51-81 09:34:000.5[facility]annCHEM PANEL 2019-07-09 09:34:002.1[facility]annCHE[facility] ZRYGL5592-97-49 09:34:002.4[facility]annCHEM XAYXS6560-57-10 09:34:00 Test Item Value Reference Range Interpretation Comments A/G Ratio (test code = A/G Ratio) 1.6 1 0.7-1.6 [facility] PkfgkqdORIWYRWQBTPV9438-87-37 09:34:0013.4[facility]annELECTROLYTES 2019-07-09 09:34:39081Dzjzwdof OxydmuuRLZYIJVQEMMC4934-64-74 09:34:0029[facility] UdqwiwvYFGTKNEYGWBD3475-66-83 09:34:003.69[facility] OdxtkovLIXYPLNNGFAT7217-44-44 09:34:33007Yulcddqu BjpxwriLBUHVIFCRAMO8984-20-60 09:34:004.4[facility] UTKGTOFCKXMH3150-91-40 09:34:16908Mcsmlcrr JydcqeeVMTKCBELXWYR7673-28-86 09:34:0021[facility] HciytyyLZVJKIRWAZSC8851-03-64 09:34:009.0[facility] IYONZMQATYPV8154-39-56 09:34:0017[facility] HyjpmkjDBFPGMQNMF6318-74-22 09:34:00 54.7[facility] CesozpqCTIDTBASIB1114-47-57 09:34:0011.0[facility]annHEMATOLOGY 2019-07-09 09:34:0012.2[facility] CfrviujTNBSSFPPZX2202-28-28 09:34:0019.5[facility] MsdhmewHVXBPGNDHJ6529-70-06 09:34:002.6[facility] EvdptqqKFBZOKHUZF3546-41-15 09:34:004.2[facility] LgilqimZHPIEOESMH8449-56-49 09:34:000.8[facility] YNCHMMXSVL8991-81-87 09:34:000.9[facility] PdnzvdaTSUDHVZIUM6233-54-53 09:34:001.5 [facility] VmmdfmzPYGAIEZOUN1194-64-68 09:34:000.2[facility]annHEMATOLOGY 2019-07-09 09:34:00 Test Item Value Reference Range Interpretation Comments PT (test code = PT) 19.5 s 12.0-14.7 [facility] WxtjmfxCVACHMLOYC0034-36-41 09:34:00 Test Item Value Reference Range Interpretation Comments INR (test code = INR) 1.69 1 0.85-1.17 [facility] KswtuvuKYMODGMFYR7553-74-82 09:34:007.6[facility]annHEMATOLOGY 2019-07-09 09:34:002.56[facility] HiugjbxYPDSRMUTGN3403-66-68 09:34:008.4[facility] OgxdswvZEPKOVBQEZ0841-66-31 09:34:0024.4[facility] FnoqsaaEJFIMQHNTR7258-25-15 09:34:0095.0[facility] JeobatcERLLLWWOOF3484-23-29 09:34:00 Test Item Value Reference Range Interpretation Comments MCH (test code = MCH) 32.9 pg 27.0-31.0 [facility] UdortglERHUDQMHQO4646-47-76 09:34:0034.6[facility]annHEMATOLOGY 2019-07-09 09:34:0016.5[facility] BuzucjrORJNTFXUTK5242-24-35 09:34:0083[facility] HyawrjuBCSIFVTIPR9621-62-95 09:34:008.7[facility] HermannCARDIAC LPEXKHB6815-69-97 22:47:48920Qfwjonkr HermannCARDIAC UIJCFWQ7897-33-92 22:47:000.067[facility] HermannCARDIAC KCPFSJE3376-26-06 22:47:000.05[facility]annCARDIAC ENZYMES 2019-07-08 22:47:009.7[facility] HermannCARDIAC JZKKELL4074-94-07 22:47:00 Test Item Value Reference Range Interpretation Comments CK MB Index (test code = CK MB Index) 1.4 1 <=2.5 [facility]CHE[facility] PSYWC6334-19-01 22:47:001.9[facility]annCHEM PANEL 2019-07-08 22:47:003.5[facility] TxeqtiaRPBGVKHHY6309-54-05 22:47:251690Qhnpaiks PtysjdqMTTWQKNELD3784-09-16 09:19:0061.1[facility] LwedjqmEVIMXXXYVJ0045-15-35 09:19:0011.9[facility] MauyszvTAXELJHWZA3442-35-45 09:19:0013.4[facility] EIMGRLNWSB9216-56-01 09:19:0011.3[facility] ItkqlvfXWFHYOOZRD5771-82-85 09:19:00 2.3[facility] ZreibrgZGNUWGUNBC9154-95-35 09:19:003.9[facility]annHEMATOLOGY 2019-07-08 09:19:000.7[facility] TorxhhlOWOGLPXKTB3344-24-53 09:19:000.8[facility] WhqsjthIGNIMOZRFV0234-73-58 09:19:000.7[facility] ZjczdkuCOOTMZEPVA5346-55-00 09:19:000.1[facility] UaqirkdQALVQEMXAI1023-85-45 09:19:006.3[facility] SWAEKIBRCK6230-38-31 09:19:002.38[facility] XgkyxrcUDEQVVSIPF1259-18-91 09:19:00 7.8[facility] NipjotbTEBLVONNVO7753-95-50 09:19:0022.8[facility]annHEMATOLOGY 2019-07-08 09:19:0095.8[facility] KfftzosTMYZPFNJCR8049-25-07 09:19:00 Test Item Value Reference Range Interpretation Comments MCH (test code = MCH) 32.7 pg 27.0-31.0 [facility] HgvaxbtDKLGCUGNSE2582-39-93 09:19:0034.2[facility]annHEMATOLOGY 2019-07-08 09:19:0016.5[facility] PiaefydRAZKNPKROD2136-53-07 09:19:0069[facility] VuubczaRKOIWAXQII1201-12-74 09:19:009.1[facility] KzknpydEWNPSYCAME3755-45-01 09:19:00 Test Item Value Reference Range Interpretation Comments PT (test code = PT) 19.4 s 12.0-14.7 [facility] KsucuovRWDEXODSCE5975-00-36 09:19:00 Test Item Value Reference Range Interpretation Comments INR (test code = INR) 1.68 1 0.85-1.17 [facility] KcmqgkgOKWSMODFPY2875-48-68 09:19:00 Test Item Value Reference Range Interpretation Comments PTT (test code = PTT) 53.1 s 22.9-35.8 [facility] UxkcyzbEJCZJSQINS3650-64-77 19:11:000.0[facility]annHEMATOLOGY 2019-07-07 19:11:000.0[facility] FbcszfzGSZBDUMIGC3342-89-26 19:11:00See Note 6(07/07/19 2:11 PM)[facility] NmftmwlCLKJNCEFIE7012-68-95 19:11:00Normal (07/07/19 2:11 PM)[facility]annCHEM CGHJN0897-88-62 10:02:004.3[facility]annCHEM LQAOY2563-65-79 10:02:002.1[facility]annCHEM VRTRT0215-25-47 10:02:003.9 [facility] EnklpdnFBMTIFWNFA9656-47-95 10:02:00 Test Item Value Reference Range Interpretation Comments PTT (test code = PTT) 54.8 s 22.9-35.8 [facility] OonrowzZFCBMTCWMX9442-94-07 10:02:00Negative (07/07/19 5:02 AM)[facility]annBLOOD BANK YXYWOQV4541-75-27 14:20:00Negative (07/06/19 9:20 AM)[facility] NfjnhplRMXRAPUGTI3776-13-02 14:20:00<10[facility] ErljmykYMUTRNZFLQ8759-34-66 14:20:000.8[facility] HermannPARATHYROID FTQOGNC9128-36-06 09:28:001.10[facility] HermannPARATHYROID PJHBLOI2775-81-63 09:28:001.10[facility]annHEMATOLOGY 2019-07-05 08:53:00Normal (07/05/19 3:53 AM)[facility] PxitymfIRTAQDYNDN2932-70-42 08:53:00Normal (07/05/19 3:53 AM)[facility]annPARATHYROID RRYOVXJ9863-66-06 08:53:001.08[facility] HermannPARATHYROID GOTALRE6399-96-67 08:53:001.08[facility] HermannPARATHYROID MMFHVBY5438-01-26 09:30:001.07[facility] HermannPARATHYROID IXFJTPU8546-66-38 09:30:001.07[facility] MnhwkfwHHEOHXWRPE0759-72-98 09:04:00 Normal (07/03/19 4:04 AM)[facility] PcdplplFNLLTKEDTC6624-31-75 09:04:001+ *ABN*(07/03/19 4:04 AM)[facility] PoxnmugNIKTWXYHQC5788-37-26 09:42:000.0[facility] RstixqcLDTHYSUJRU2555-62-74 09:42:000.0[facility] IqpfuvfPXRHBHNYIR7468-51-58 09:42:00Normal (07/02/19 4:42 AM)[facility] AtgyjkqPRTVSELGGO0874-58-61 09:42:00 Test Item Value Reference Range Interpretation Comments Tot Cell Ct (test code = Tot Cell Ct) 100 1 [facility] MzbmjfnQSTQRRYBRE0328-00-36 11:09:00Negative *NA*(07/01/19 6:09 AM) [facility] WowbehzQGALUJVJDI6631-11-91 11:09:00<3.1[facility] HermannIMMUNOLOGY 2019-07-01 11:09:00Negative *NA*(07/01/19 6:09 AM)[facility]annIMMUNOLOGY 2019-07-01 11:09:00Negative *NA*(07/01/19 6:09 AM)[facility]annIMMUNOLOGY 2019-07-01 11:09:00Negative *NA*(07/01/19 6:09 AM)[facility]annHEMATOLOGY 2019-07-01 09:25:000.0[facility] ZbjxtiwMICWHXKKYY0692-21-55 09:25:000.0[facility]annCHEM QILFI5767-61-11 06:34:001.6[facility]annCHEM ITBTR3077-39-55 13:12:000.23[facility]annCHEM GFNQE8554-22-97 10:52:002.7[facility] URINE AND NKPGW5122-78-81 03:34:00Amber *ABN*(06/26/19 10:34 PM)[facility]INE AND OMCMF9586-45-77 03:34:00Slight *ABN*(06/26/19 10:34 PM)[facility] URINE AND HSNLG0474-94-40 03:34:00 Test Item Value Reference Range Interpretation Comments UA Spec Grav (test code = UA Spec 1.014 1 Grav) [facility] NFDQF3030-81-60 03:34:00 Test Item Value Reference Range Interpretation Comments UA pH (test code = UA pH) 5.0 1 5.0-8.0 [facility] TWOEX2211-67-49 03:34:00Negative *NA*(06/26/19 10:34 PM) [facility] UBGGB3856-15-18 03:34:00Small *ABN*(06/26/19 10:34 PM) [facility] BKQVC4419-57-21 03:34:00<1.0[facility] SOQRM3546-52-92 03:34:00Negative (06/26/19 10:34 PM)[facility] XACBY3159-68-95 03:34:00Small *ABN*(06/26/19 10:34 PM)[facility] HTZWU5547-92-95 03:34:004[facility] TJSKQ5444-94-66 03:34:005 [facility] VXPRB2644-84-66 03:34:0016[facility] KEGVN0542-11-21 03:34:00Performed *NA*(06/26/19 10:34 PM)[facility]annCHEM TWXXM2257-94-49 01:04:001.7[facility]annCHEM UQNWF7057-85-05 13:55:0042.0 [facility]annCHEM BYQHO5162-15-51 08:27:37672.0[facility] AND HJOZK4336-25-72 19:20:00Light Yellow *NA*(06/24/19 2:20 PM)[facility] IZTQQ4964-96-96 19:20:00Clear (06/24/19 2:20 PM)[facility] GEVXX6414-46-99 19:20:00 Test Item Value Reference Range Interpretation Comments UA Spec Grav (test code = UA Spec 1.006 1 Grav) [facility] RNEIT6794-59-41 19:20:00 Test Item Value Reference Range Interpretation Comments UA pH (test code = UA pH) 5.0 1 5.0-8.0 [facility] RHKQH4916-53-36 19:20:00Negative *NA*(06/24/19 2:20 PM) [facility] HBEGV8500-86-77 19:20:00Negative (06/24/19 2:20 PM) [facility] LBFBL8088-59-35 19:20:00<1.0[facility] VLCEZ7711-86-11 19:20:00Negative (06/24/19 2:20 PM)[facility] OUXAO7599-86-74 19:20:00Negative (06/24/19 2:20 PM)[facility] NKUQW5168-33-60 19:20:001[facility] NZUWK5263-02-55 19:20:001 [facility] ZWWFE8472-65-82 19:20:001[facility] MFOKJ0799-60-23 21:26:00Yellow *NA*(06/23/19 4:26 PM)[facility] JEWOU5436-28-98 21:26:00Clear (06/23/19 4:26 PM)[facility] STOOL 2019-06-23 21:26:00 Test Item Value Reference Range Interpretation Comments UA Spec Grav (test code = UA Spec 1.008 1 Grav) [facility] YPOKY6807-41-46 21:26:00 Test Item Value Reference Range Interpretation Comments UA pH (test code = UA pH) 5.0 1 5.0-8.0 [facility] XAMBB2214-97-04 21:26:00Negative *NA*(06/23/19 4:26 PM) [facility] PPFYQ9984-00-59 21:26:00Negative (06/23/19 4:26 PM) [facility] CPHVC5296-72-84 21:26:00<1.0[facility] RYTAZ9607-36-76 21:26:00Negative (06/23/19 4:26 PM)[facility] FILZN0354-96-61 21:26:00Negative (06/23/19 4:26 PM)[facility] LFBPW0207-62-29 21:26:002[facility] ASBJS0824-37-40 21:26:00<1 [facility] RQZF4356-99-48 14:52:65780Njseqquy HermannURINE CHEM 2019-06-23 14:52:0051.30[facility] AQGM8939-64-04 14:52:0014[facility] IPDR2902-09-94 14:52:0014.2[facility] QHVD9527-48-66 14:52:00<10[facility] CuthnpkUPDYUAXLMG8559-56-76 10:33:001+ *ABN*(06/21/19 5:33 AM)[facility] IgaqceeBXKLKARESZ0746-78-14 09:39:00 Test Item Value Reference Range Interpretation Comments Tot Cell Ct (test code = Tot Cell Ct) 100 1 [facility]annTUMOR JCNSZQZ1186-08-96 09:39:006.0[facility] CHEM 2019-06-19 21:43:0024[facility] OAPJ4203-03-88 21:43:0026[facility] LPGV4755-22-77 21:43:0014.7[facility]UR[facility] EBUO0656-69-06 21:43:0031.70[facility]annCHEM JKUBV8019-43-77 10:01:002.4[facility] CHEM WCXGI7616-11-15 10:01:00 Test Item Value Reference Range Interpretation Comments A/G Ratio (test code = A/G Ratio) 1.7 1 0.7-1.6 [facility]CHE[facility] RMFBC7459-31-13 10:01:006.4[facility]annCHEM PANEL 2019-04-21 10:01:004.0[facility]annCHEM LFYJT5193-13-30 10:01:0050[facility]annCHEM EWSKF4992-85-28 10:01:0044[facility]annCHEM SJOUV1976-64-96 10:01:000.6[facility]annCHEM RTRSL6819-23-98 10:01:002.0[facility]annCHEM CUUYR3049-35-39 10:01:01090Mndwglvy HermannCHEM SAICX3153-81-83 10:01:001.4 [facility]annCHE[facility] DZWHH3162-39-00 10:01:0040[facility]annCHEM PANEL 2019-04-21 10:01:0075[facility]annCHEM WGEOU3717-19-94 10:01:001.78[facility]annCHEM WQTTY4366-86-60 10:01:0027[facility]annCHEM JQRTO8483-86-14 10:01:57173Vxoilndp HermannCHEM JPHQV2624-75-41 10:01:55703Oyempyti HermannCHEM LVNOJ6499-32-47 10:01:003.2[facility]annCHEM MQTUZ2078-76-90 10:01:0025 [facility]annCHE[facility] NUDIW1705-32-54 10:01:008.9[facility]annCHEM PANEL 2019-04-21 10:01:0012.2[facility]annCHEM MTQGI0804-44-14 10:01:002.6[facility]annCHEM GYUUH2285-55-68 10:01:001.7[facility] OxvciabNXKOZFIPGP1687-32-31 10:01:003.0[facility] HjxstmwPPDVPLBSMZ9843-81-99 10:01:000.2[facility] TDTBKDSPQH0943-33-16 10:01:000.7[facility] JybieygDOOOCFJDNB9484-02-74 10:01:000.9 [facility] OpnyzknQEKGGADCAF2026-43-04 10:01:002.7[facility] HermannHEMATOLOGY 2019-04-21 10:01:001.1[facility] CyquxfmEZUFNACFVC4504-55-72 10:01:0012.6[facility] CfgqkywXQHJHRCDIO3585-74-42 10:01:0015.9[facility] LpdafqnPZSTURZUNQ1087-09-41 10:01:0019.6[facility] ZcbkuikPISBALJAQV9834-67-63 10:01:0048.9[facility] KPOZYLLBQJ3181-56-75 10:01:00 Test Item Value Reference Range Interpretation Comments PTT (test code = PTT) 89.7 s 22.9-35.8 [facility] FgvqxrxVRWMTUKGRW1052-51-08 10:01:00 Test Item Value Reference Range Interpretation Comments INR (test code = INR) 1.69 1 0.85-1.17 [facility] SelpcnpZDCZPTGJOS5979-34-84 10:01:00 Test Item Value Reference Range Interpretation Comments PT (test code = PT) 19.5 s 12.0-14.7 [facility] IqibnbeREHTPJJODR0328-08-59 10:01:55671Wmqspirh HermannHEMATOLOGY 2019-04-21 10:01:008.1[facility] UwdpndrWBLEYHECNA3694-07-53 10:01:0035.1[facility] ZmfmdfhAUUMLQQRZZ2791-81-25 10:01:0017.7[facility] BroolxpBBQANUZPPF0911-04-36 10:01:005.emorial RoqesquNHYPLJFLOQ8444-02-43 10:01:008.0[facility] ZCQDPFBMXB7756-77-46 10:01:00 Test Item Value Reference Range Interpretation Comments MCH (test code = MCH) 32.1 pg 27.0-31.0 [facility] XkxduvsQPQTZDRVYT0711-12-26 10:01:0022.7[facility]annHEMATOLOGY 2019-04-21 10:01:0091.4[facility] EvumlpsILIPBQPBSV1499-47-00 10:01:002.49[facility] HermannPARATHYROID FPTMJKA1722-63-19 10:01:001.12[facility] HermannPARATHYROID KSTHOYJ1646-38-53 10:01:001.11[facility] HermannCHEM OXNFJ2138-05-80 10:45:0050 [facility]annCHEM SKVOT9982-44-40 10:45:0059[facility]annCHEM PANEL 2019-04-20 10:45:002.3[facility] HermannCHEM IJMVP2296-38-81 10:45:45631Wcsqcenq HermannCHEM MERCN9185-26-02 10:45:000.6[facility] HermannCHEM WYZSJ6112-90-58 10:45:001.7[facility] HermannCHEM JMRVO7877-83-70 10:45:006.7[facility] HermannCHEM EBMDM6389-42-59 10:45:003.7[facility] HermannCHEM BNULI1173-42-19 10:45:00 Test Item Value Reference Range Interpretation Comments A/G Ratio (test code = A/G Ratio) 1.2 1 0.7-1.6 [facility]annCHEM WHTZN5123-61-91 10:45:003.0[facility]annCHEM PANEL 2019-04-20 10:45:002.2[facility] HermannCHEM VDRDH8701-30-35 10:45:001.5[facility] VcvyvsdLOWQYWSDENSJ4544-88-38 10:45:0013.3[facility] YnujyjjAMHSBVSUHBKU2042-08-90 10:45:0039[facility] XwlmdslRWNIZTVAROBK4403-00-67 10:45:008.9[facility] BXKALYQYCYMC9224-17-41 10:45:0073[facility] AkeizixMCJXIAEAVOQW3023-85-87 10:45:00 20[facility] GkuhvhgBLXPSOQRGIXY2577-14-49 10:45:74778Mvewdkpi HermannELECTROLYTES 2019-04-20 10:45:001.84[facility] PzmzaukWYROAVOJBLYF3542-88-74 10:45:60575 [facility] SfvtpvcTDEXJEZXOKKB6600-76-70 10:45:003.3[facility] HermannELECTROLYTES 2019-04-20 10:45:0022[facility] BwpqgchPDIIXTWJCY7602-71-33 10:45:008.1[facility] PkicvewQHRVGMIOBM7575-14-59 10:45:00 Test Item Value Reference Range Interpretation Comments MCH (test code = MCH) 31.9 pg 27.0-31.0 [facility] WeqrbdoTUHHQTWOHM2234-73-60 10:45:0017.5[facility] HermannHEMATOLOGY 2019-04-20 10:45:65538Jqgcljon YeacxvmLHLYLREYHO7817-39-95 10:45:002.80[facility] AsyczyuJRFIOQRPMT5080-39-82 10:45:0092.2[facility] AexxfcyXTNSBZOPFV4116-09-31 10:45:0034.6[facility] HkbjrorGEXHTETRGU6365-43-44 10:45:006.6[facility] JGKWTTYJKJ7138-17-24 10:45:0025.8[facility] OtsvptlZKCNNVGKAB8401-70-22 10:45:00 8.9[facility] EldvuilAYELTVTWTY4553-40-10 10:45:00 Test Item Value Reference Range Interpretation Comments PT (test code = PT) 18.6 s 12.0-14.7 [facility] FpfkrevDVOFDICTFZ9281-77-71 10:45:00 Test Item Value Reference Range Interpretation Comments INR (test code = INR) 1.59 1 0.85-1.17 [facility] QcbhbxxJJSCMJZKCK3863-19-56 10:45:00 Test Item Value Reference Range Interpretation Comments PTT (test code = PTT) 53.2 s 22.9-35.8 [facility] JgmrrpqSQOWPFPGFB8902-09-84 10:45:0014.0[facility] HermannHEMATOLOGY 2019-04-20 10:45:00Normal (04/20/19 5:45 AM)[facility] NcmhvwhFLVBCSTSHQ2752-62-37 10:45:001+ *ABN*(04/20/19 5:45 AM)[facility] YicsfapDGCOZVQALZ4620-34-42 10:45:00 2.0[facility] IvuxddbPTFZDIYIEC2064-61-51 10:45:000.0[facility]annHEMATOLOGY 2019-04-20 10:45:0010.0[facility] PuixtdiOCXRXFUVJP2892-06-64 10:45:0054.0[facility] EbogxnhDVAJEMTYKR3631-78-19 10:45:000.0[facility] AvbqqbrQRUESVQJTI1664-49-04 10:45:0020.0[facility] OgxxvbyUSFWOFKHPY4398-76-20 10:45:000.9[facility] YWSLMVLJTT3829-49-87 10:45:000.1[facility] LrrgeghUCOWWEFRLV6147-61-98 10:45:001.3 [facility] KspeetsDOVKSUVENL9257-53-80 10:45:000.7[facility]annHEMATOLOGY 2019-04-20 10:45:003.6[facility] HermannPARATHYROID GMKRFBM2163-31-08 10:45:001.05 [facility]annPARATHYROID KLVLNAC0497-24-54 10:45:001.08[facility]annCHEM MVEDA7580-43-08 19:33:008.6[facility] HermannCHEM HOGHP4373-16-39 19:33:001.79 [facility]annCHEM MEAAF7464-51-23 19:33:48941Sufxdkgm HermannCHEM PANEL 2019-04-19 19:33:0040[facility]annCHEM YZQSB7673-91-94 19:33:0023[facility]annCHEM JRFBN2833-82-69 19:33:0011.6[facility]annCHEM KIPRB8781-28-84 19:33:58528Qlzhybzd HermannCHEM THHYN0370-18-87 19:33:003.6[facility]annCHEM ZBHLC6584-61-90 19:33:0018[facility]annCHEM YLNEG2968-28-37 19:33:0096 [facility]annCHEM XMFIR7605-70-58 09:51:002.5[facility]annCHEM PANEL 2019-04-19 09:51:001.6[facility]annCHEM PUVEK8071-55-52 09:51:00 Test Item Value Reference Range Interpretation Comments A/G Ratio (test code = A/G Ratio) 1.0 1 0.7-1.6 [facility]annCHE[facility] SFSTC2347-84-79 09:51:003.1[facility]annCHEM PANEL 2019-04-19 09:51:006.2[facility]annCHEM RZMCB5390-82-08 09:51:001.5[facility]annCHEM AYEHN8866-94-09 09:51:000.6[facility]annCHEM HNZHQ1422-60-99 09:51:42508Ipnmkobe HermannCHEM BZIQN2647-32-79 09:51:002.1[facility]annCHEM SUUTB1243-57-75 09:51:0066[facility]annCHEM XWYDP2282-78-74 09:51:0053 [facility] [place] HermannCHEM QJIGU6795-98-33 09:51:003.1[facility]annHEMATOLOGY 2019-04-19 09:51:00 Test Item Value Reference Range Interpretation Comments INR (test code = INR) 1.54 1 0.85-1.17 [facility]epbPNVRFZACTP0267-57-79 09:51:00 Test Item Value Reference Range Interpretation Comments PTT (test code = PTT) 45.9 s 22.9-35.8 [facility]LysioknFLKYJQRTVG4459-47-06 09:51:00 Test Item Value Reference Range Interpretation Comments PT (test code = PT) 18.2 s 12.0-14.7 [facility]OhzylndAIWGNETCAD4927-41-89 09:51:007.9[facility]annHEMATOLOGY 2019-04-19 09:51:01805Mjvdinzq ZkietkhDQYGNGWJFP9786-29-84 09:51:0034.4[facility] YuqohzaAVSHWIUWKM0078-52-66 09:51:0017.3[facility] KajqotaDXIEGQNTEA8509-02-41 09:51:00 Test Item Value Reference Range Interpretation Comments MCH (test code = MCH) 31.5 pg 27.0-31.0 [facility]LtwntsmEPBYSMZTOV0983-67-84 09:51:008.8[facility]annHEMATOLOGY 2019-04-19 09:51:0091.7[facility] XkvufumLTXQCVMHTP1079-94-25 09:51:0025.5[facility] AappiqeQQXZFGKYRA7655-34-50 09:51:006.7[facility] VlapxyhWNGWCSRZRY6992-22-25 09:51:002.78[facility] DljmejbMAQIIQMVUX1949-52-22 09:51:000.2[facility] JFZNUWSIRI6791-14-98 09:51:000.9[facility] GguagwaQHJLAAEVCW8434-98-44 09:51:00 13.7[facility] LejdktgWNSPOVLMPY4504-79-46 09:51:000.9[facility]annHEMATOLOGY 2019-04-19 09:51:0014.7[facility] DflvkedCWZNIHNIRI7242-17-17 09:51:001.0[facility] DwbvhbqSSCGDPVKUL2770-12-04 09:51:003.7[facility] BqgzrofZGLTGKDGBW8777-81-45 09:51:0014.0[facility] RcoavmhLQHWZGKPAF2942-88-88 09:51:003.0[facility] HQLSZFQLQD9065-05-72 09:51:0054.6[facility] HermannPARATHYROID ZOEGBYY6384-02-59 09:51:001.10[facility]annPARATHYROID WMJLYOJ7619-45-92 09:51:001.10[facility]annURINE AND AESNT2586-10-71 22:48:001[facility] STOOL 2019-04-18 22:48:00Negative (04/18/19 5:48 PM)[facility] STOOL 2019-04-18 22:48:001[facility] ZOZUF5872-97-79 22:48:00Negative (04/18/19 5:48 PM)[facility] PMKIR3781-49-49 22:48:001[facility] TUOUJ8464-45-43 22:48:00Negative *NA*(04/18/19 5:48 PM)[facility] OLICF1784-34-03 22:48:00Negative (04/18/19 5:48 PM)[facility] WHMPU8202-42-69 22:48:00Dark Yellow *NA*(04/18/19 5:48 PM) [facility] ZLBUG3370-09-32 22:48:00Slight *ABN*(04/18/19 5:48 PM) [facility] RZIYA0253-02-76 22:48:00 Test Item Value Reference Range Interpretation Comments UA Spec Grav (test code = UA Spec 1.010 1 Grav) [facility] XMWVC1889-19-89 22:48:00 Test Item Value Reference Range Interpretation Comments UA pH (test code = UA pH) 5.0 1 5.0-8.0 [facility] URSKI6124-32-43 22:48:00<1.0[facility] FXMW4716-30-97 22:48:0018.0[facility]UR[facility] FOYU5956-91-04 22:48:00 Test Item Value Reference Range Interpretation Comments U Prot/Creat (test code = U 0.24 1 Prot/Creat) [facility] EMMT1938-82-03 22:48:0075.40[facility] CHEM 2019-04-18 22:48:0075.40[facility] TIEK9268-35-58 22:48:72691Yubxilwk HermannCHEM BTAVY8477-04-26 09:39:001.7[facility] HermannCHEM CWMXZ1443-48-93 09:39:22848Udsjfwml HermannCHEM RHPKA5425-84-03 09:39:001.5[facility] HermannCHEM BOIHJ7348-13-09 09:39:0057[facility]annCHEM WUXEA4641-99-77 09:39:000.9 [facility]annCHEM NLLMY1209-09-69 09:39:000.6[facility]annCHEM PANEL 2019-01-16 09:39:002.5[facility] HermannCHEM WOBPP2418-81-37 09:39:0046[facility] HermannCHEM VOLKS8426-95-48 09:39:005.8[facility]annCHEM YJJCE3359-60-67 09:39:003.3[facility] HermannCHEM ISUOJ2061-27-79 09:39:00 Test Item Value Reference Range Interpretation Comments A/G Ratio (test code = A/G Ratio) 0.8 1 0.7-1.6 [facility]annCHEM KMULS1780-96-35 09:39:003.4[facility] HermannELECTROLYTES 2019-01-16 09:39:0011.6[facility] TawiberVQXBNFUNMAJI4684-21-17 09:39:0046[facility] QjfzxjeSYOLWBSIXQVC0595-13-75 09:39:04368Etrgripl MvbziqsJTBRSPPWVZPP5981-33-59 09:39:003.6[facility] RjoyaxsKXSCVFHVESBJ7999-54-58 09:39:55142Zydsyisn [facility] YGNEDHJNZGMT3634-90-44 09:39:008.8[facility] GkdlosaTHXSKKICJHIF9461-15-43 09:39:0025[facility] BxqpaibSRAKEHLRZSCZ2042-13-79 09:39:001.60[facility] GCOMUCDAQGYY2627-52-26 09:39:0022[facility] OcovxraFXJGALGAWPPX2563-63-68 09:39:00 63[facility] EkswzahOIHETINAIU5973-17-81 09:39:00 Test Item Value Reference Range Interpretation Comments PTT (test code = PTT) 99.1 s 22.9-35.8 [facility] BltzjytXDOVCWHPSR3992-53-16 09:39:00 Test Item Value Reference Range Interpretation Comments INR (test code = INR) 1.54 1 0.85-1.17 [facility] SnmqeybJFZSOSCJPW8716-85-32 09:39:00 Test Item Value Reference Range Interpretation Comments PT (test code = PT) 18.2 s 12.0-14.7 [facility] ZguunvlNUSCFCTWRM7371-77-25 09:39:000.2[facility]annHEMATOLOGY 2019-01-16 09:39:0047.5[facility] CzhshxqXWNETYNLNU6100-44-91 09:39:0014.0[facility] TcrwcqnCDRTEHPLFR7475-44-67 09:39:0015.9[facility] HcuxwaoJXGYZGVHPK3444-65-51 09:39:0019.9[facility] PlscbyvUEVRHBEWEM2363-70-37 09:39:001.1[facility] URIEQRBLUQ2728-87-33 09:39:001.3[facility] DmtqimvCFHCLVNZTC6187-44-13 09:39:003.2 [facility] MvafwysBPGNMQVOVJ3285-31-95 09:39:002.7[facility]annHEMATOLOGY 2019-01-16 09:39:000.9[facility] GpczigiOFBGCFRLQK8082-66-25 09:39:008.4[facility] PwsxpmwYBBUHWHGAI9452-47-11 09:39:002.56[facility] YprunhwUXFBHJSGJJ1125-10-46 09:39:006.7[facility] GklsirpHDQDBDEIEV0659-36-08 09:39:02433Utbeeuuw [facility] QCBRBQBTNE6234-24-31 09:39:0019.4[facility] PyiilfpCCUJXPWDCM0801-86-96 09:39:00 34.8[facility] VcahzukYJJGSFXEHI6184-06-44 09:39:0023.1[facility]annHEMATOLOGY 2019-01-16 09:39:008.0[facility] PlmnjsuBZYBRXFLWW5669-89-97 09:39:00 Test Item Value Reference Range Interpretation Comments MCH (test code = MCH) 31.4 pg 27.0-31.0 [facility] LsibyrfQAMWAIKKCJ2449-46-34 09:39:0090.2[facility] HermannELECTROLYTES 2019-01-15 22:16:003.7[facility]annCHEM YZTRV1585-31-40 10:05:003.4[facility]annCHEM MTHCH9676-75-84 10:05:001.6[facility]annCHEM WJVPR4198-81-19 10:05:0051[facility]annCHEM CHPLA3951-75-09 10:05:002.6[facility]annCHEM THMJZ4452-71-38 10:05:0064[facility]annCHEM HFZRO2902-39-31 10:05:61898 [facility]annCHEM ORIFI6852-47-26 10:05:000.6[facility]annCHEM PANEL 2019-01-15 10:05:001.1[facility]annCHEM NXKXV2127-17-72 10:05:001.7[facility]annCHEM NHYJP4816-45-34 10:05:005.9[facility]annCHEM XOJJG3570-50-64 10:05:00 Test Item Value Reference Range Interpretation Comments A/G Ratio (test code = A/G Ratio) 0.8 1 0.7-1.6 [facility]annCHEM MSGOI6321-55-89 10:05:003.3[facility] HermannELECTROLYTES 2019-01-15 10:05:0011.2[facility] TlhfrzsWZVIAVJGAFMO6454-72-82 10:05:0049[facility] DlrybtfOQZTCYXRMCZT9901-77-01 10:05:0022[facility] SkjjxybMAHGIFEIEJCF3460-80-04 10:05:0064[facility] GpuechwYWIDMKTLCZKN0754-96-27 10:05:008.9[facility] EYUUBEMNEZIN7926-21-81 10:05:0017[facility] EpoxgjdEOQAHVIVYACV5903-91-35 10:05:00 111[facility] UkjtnnrMCFAFDYRBWUO0700-89-98 10:05:001.52[facility] AUFSTDGVCWIS5742-30-15 10:05:003.2[facility] AgpvjblOSYVTDLUMUQZ7463-06-24 10:05:24313Olycnuaj FnzdoasBSAGQSWVVC2611-95-05 10:05:0091.5[facility] GMRIATGYTS3611-72-34 10:05:00 Test Item Value Reference Range Interpretation Comments MCH (test code = MCH) 31.2 pg 27.0-31.0 [facility] CsnftanHBHHBQHYNB6961-04-39 10:05:0025.2[facility]annHEMATOLOGY 2019-01-15 10:05:0034.1[facility] WgsdlzkXKHILJPFQY6759-83-02 10:05:0019.5[facility] UpdmtrdFMKBFNGHES9247-37-55 10:05:30313Cozkxnub EdfjzqmLVNZXWYFWO6396-71-09 10:05:008.1[facility] JnovosoRDMWAODIBK1334-13-42 10:05:008.6[facility] SYAJBQHYKU4211-18-10 10:05:002.75[facility] EiaqktmSGXTHJHSWE5788-05-51 10:05:00 6.9[facility] GwfdakyFFIMMXPBPR7575-95-81 10:05:00 Test Item Value Reference Range Interpretation Comments PT (test code = PT) 18.0 s 12.0-14.7 [facility] RqculsyLCOPXYCULX4718-08-97 10:05:00 Test Item Value Reference Range Interpretation Comments PTT (test code = PTT) 73.1 s 22.9-35.8 [facility] FlltghmDZJPQHPEUH3533-38-52 10:05:00 Test Item Value Reference Range Interpretation Comments INR (test code = INR) 1.52 1 0.85-1.17 [facility] OmcgbmxRGMEQQWXEK6820-00-20 10:05:001.2[facility]annHEMATOLOGY 2019-01-15 10:05:000.2[facility] MxtyqcgSXNKHEIJJT3285-68-15 10:05:001.0[facility] YwawnwhOXIUZPPEWK5480-91-78 10:05:0017.8[facility] PreanzoTZXGKDWFVS0799-13-04 10:05:0015.1[facility] YbqdtkwBBEFNCTUNL1488-78-53 10:05:0018.3[facility] UYCGOEVREW3146-23-51 10:05:001.3[facility] PhsyyvgHLRSXJEQGZ9864-68-62 10:05:003.2 [facility] ZaqrcxeVEOWTKTRYT8804-87-58 10:05:002.3[facility]annHEMATOLOGY 2019-01-15 10:05:00Normal (01/15/19 5:05 AM)[facility] YaljcudYVQHOCVCPS3683-27-39 10:05:0046.5[facility] VhmdmeqUSLXFMABJY5641-63-84 10:05:00Normal (01/15/19 5:05 AM)[facility] HermannPARATHYROID SWELMBZ3719-02-97 10:05:001.16[facility] PARATHYROID UFQLMCE9105-90-15 10:05:001.15[facility] HermannCHEM BFZGQ4550-32-56 09:19:001.0[facility] HermannCHEM MZSID0806-89-09 09:19:17900Qlgwwyqf HermannCHEM IFKKW4599-17-96 09:19:0064[facility]annCHEM NAJTU3235-01-41 09:19:001.7 [facility]annCHEM WTIDN8703-79-92 09:19:000.7[facility] HermannCHEM PANEL 2019-01-14 09:19:002.5[facility] HermannCHEM AQLCN5240-22-76 09:19:0050[facility]annCHEM YUTKD6930-57-35 09:19:005.6[facility] HermannCHEM OHXKB1291-08-22 09:19:00 Test Item Value Reference Range Interpretation Comments A/G Ratio (test code = A/G Ratio) 0.8 1 0.7-1.6 [facility]annCHEM FVCGA2556-66-05 09:19:003.1[facility] HermannCHEM PANEL 2019-01-14 09:19:003.2[facility] HermannCHEM NCPZV1382-06-27 09:19:001.6[facility] LiamdzaQJCCMSZWCCTC4536-89-38 09:19:0011.6[facility] PqgowfaVCYHRTZZTNTX4308-29-56 09:19:0049[facility] KljzauwXIGUMXIUQMBA9918-18-06 09:19:0064[facility] EOGILQMXCQVI0302-59-21 09:19:001.51[facility] JkqoeazHJWKZNUMUSPZ9615-18-99 09:19:0019[facility] FvfsausKEPEVOBBYRYK7856-58-07 09:19:34822Rqfidrog [facility] LJEHSQOAPPSF8994-86-57 09:19:0021[facility] XpcntysXHTPRBMHXXXL5450-16-21 09:19:00 9.2[facility] LzqbeefPWHHHHKGYBCR9586-81-30 09:19:36379Izewwbxd HermannHEMATOLOGY 2019-01-14 09:19:000.9[facility] UcjgvjqRUEFBUNVOY9875-04-64 09:19:000.1[facility] YxdfqswKWSRBITYBO2458-73-88 09:19:000.7[facility] FkecmhrWHOZIFKUII5278-28-10 09:19:001.0[facility] LgffoftTYVYMGKGHY3147-72-16 09:19:002.4[facility] BYWOUHJTIJ3272-02-86 09:19:001.6[facility] BeqjumqRGMRUJVFJE8387-11-89 09:19:00 18.1[facility] AccteivULHGGLKJED6667-34-31 09:19:0020.2[facility] HermannHEMATOLOGY 2019-01-14 09:19:0012.9[facility] VcfbygwLMIUFXVXAY3090-49-52 09:19:0047.2[facility] HodjyieDFLJRYWATM3847-79-23 09:19:00 Test Item Value Reference Range Interpretation Comments PTT (test code = PTT) 63.9 s 22.9-35.8 [facility] VfrtdwoLBVKSKYRGV4199-33-61 09:19:00 Test Item Value Reference Range Interpretation Comments PT (test code = PT) 18.5 s 12.0-14.7 [facility] GnmpdopLLEMVFYVHR2687-98-55 09:19:00 Test Item Value Reference Range Interpretation Comments INR (test code = INR) 1.58 1 0.85-1.17 [facility] ZgwyvogZOEFXRSEGO7333-84-92 09:19:0034.5[facility]annHEMATOLOGY 2019-01-14 09:19:75340Vthdzzvs WebcolzMUXRAIDAQW1063-13-24 09:19:0019.1[facility] AdlujpqEIHGRTOJGJ9208-23-99 09:19:007.9[facility] AuvfyzoEHIKUWMSSW5494-45-26 09:19:005.1[facility] MdszdvpCISPAMSKME7736-93-23 09:19:003.28[facility] LFSPSTQZDQ5144-61-54 09:19:0010.3[facility] VkkkaujJCVIRVIJQJ3730-71-83 09:19:00 Test Item Value Reference Range Interpretation Comments MCH (test code = MCH) 31.5 pg 27.0-31.0 [facility] AgctxwcWCKGNKUDQX6001-11-73 09:19:0030.0[facility] HermannHEMATOLOGY 2019-01-14 09:19:0091.3[facility] HermannCHEM TIJNS2665-00-06 19:14:003.8[facility] HermannCHEM VFDWD2223-72-73 19:14:00 Test Item Value Reference Range Interpretation Comments A/G Ratio (test code = A/G Ratio) 0.8 1 0.7-1.6 [facility]annCHEM SYVTY8929-37-98 19:14:001.2[facility] HermannCHEM PANEL 2018-12-27 19:14:006.9[facility] HermannCHEM CMSOV5875-19-27 19:14:0070[facility] HermannCHEM ONIOD4621-25-16 19:14:003.1[facility] HermannCHEM YASVG5750-89-78 19:14:95722Jrbpofnz HermannCHEM OTDOV4466-30-91 19:14:0091[facility] HermannCHEM COGIF8587-75-36 19:14:000.8[facility] HermannCHEM OBDCA9299-23-58 19:14:002.0 [facility] ImqudtaQBDCUOOXDTRZ4208-22-47 19:14:0015.2[facility] HermannELECTROLYTES 2018-12-27 19:14:0049[facility] VcqkwzfNYUZONMQONXS6548-90-32 19:14:009.2[facility] UrbvyraEHPTPQYOKZST2483-03-14 19:14:47200Nnutxpjb DlbblttWELEBBTCHZJR9644-22-50 19:14:003.2[facility] NidjuaiEMJMUINYIKPG5031-09-87 19:14:0018[facility] BWJDQICZGRTS3315-73-15 19:14:51601Aasdhpql ZxexqkeVDPXKNNDXRDW2401-17-65 19:14:0018[facility] StxgrnbJHKPJZLPXJWQ1303-65-08 19:14:59756Qtzbmchb [facility] MOZBVGRVFGCQ1958 19:14:001.52[facility] VgbdiiyVHTFHRPFPV5702-69-65 19:14:00 Test Item Value Reference Range Interpretation Comments INR (test code = INR) 1.45 1 0.85-1.17 [facility] XqscjedZWTQCTHEOO9908-91-30 19:14:00 Test Item Value Reference Range Interpretation Comments PT (test code = PT) 17.3 s 12.0-14.7 [facility] JhtwyaaNRDAMNKTMU0831-05-05 19:14:0019.9[facility] HermannHEMATOLOGY 2018-12-27 19:14:0034.5[facility] DnncjgsMURWKOPJUX0842-26-62 19:14:008.3[facility] XuswkitUGXIJUEQZK2361-58-21 19:14:00 Test Item Value Reference Range Interpretation Comments MCH (test code = MCH) 31.9 pg 27.0-31.0 [facility] XytbtwrACCAAMTUHS8583-48-20 19:14:003.08[facility] HermannHEMATOLOGY 2018-12-27 19:14:26154Hcpmbsjv XsamhswNEQANMAUCU2307-98-08 19:14:0092.5[facility] IwxydlcUANHXOTUJM0725-26-02 19:14:0028.5[facility] DdnbrweVWMHYDFSVU8101-03-09 19:14:009.8[facility] IvrvojkHVOROIOCIT6047-88-45 19:14:008.2[facility] HCYYYGZDGX3007-35-57 19:14:001.2[facility] MpplrqrCIZIAZFQSF7632-89-18 19:14:000.1 [facility] MuhuoawAYAWOIKSFV9127-95-92 19:14:001.2[facility] HermannHEMATOLOGY 2018-12-27 19:14:001.8[facility] TxwthcvZVTUVDPAEZ2291-08-91 19:14:0014.1[facility] VnmelzaSGACBTIGLV1760-68-94 19:14:004.6[facility] NrvqymaXYNRLPPRPQ9894-28-48 19:14:001.1[facility] ImgzbfaODALQHUYUT0948-86-73 19:14:0013.7[facility] VDZGWZOWIM4659-40-38 19:14:0014.2[facility] KtgubciWBRFZLWPUV3910-30-59 19:14:00 56.2[facility] HermannTUMOR CDLYKTV5683-78-80 19:14:008.6[facility] HermannCHEM TDEIL3553-87-21 10:08:0038[facility] HermannCHEM ETDNP0777-29-03 10:08:001.89 [facility]annCHEM EPMEF6094-16-08 10:08:94410Atdwyisy HermannCHEM PANEL 2018-11-07 10:08:003.9[facility] HermannCHEM UWVED2338-60-59 10:08:19686Rvzkwvtk HermannCHEM TMZPX6558-71-05 10:08:0010.4[facility] HermannCHEM YHNQH0080-05-12 10:08:0024[facility] HermannCHEM ORXJO3268-78-77 10:08:0031[facility] HermannCHEM TKUFC8707-66-82 10:08:0076[facility] HermannCHEM ZXQYV6568-69-67 10:08:0014.9 [facility]annCHEM JYWCU6449-50-58 10:08:000.8[facility] HermannCHEM PANEL 2018-11-07 10:08:003.2[facility] HermannCHEM PFVKR5495-07-92 10:08:002.4[facility] HermannCHEM DYKHF6203-86-40 10:08:001.5[facility] HermannCHEM ZCSLF7653-16-56 10:08:002.7[facility] SlxoqhtAINUEFXYOM2163-47-26 10:08:000.5[facility] LCIGJTHXYS6270-42-61 10:08:000.2[facility] DneftwxAYKVDNWYNA1768-77-68 10:08:000.7 [facility] UizkmqqJZRGYULMLE4637-15-88 10:08:00Normal (11/07/18 4:08 AM)[facility] SxgynltMXWDMACXYA1834-59-66 10:08:0052.4[facility] XmaawswJEBFGXIPZN5869-81-87 10:08:004.1[facility] EzgybpgEGWWGIAYFZ2213-02-24 10:08:0010.1[facility] HVOZHXYAVH1934-51-49 10:08:001.1[facility] BgxyhdiNIDRJMAHEG5029-95-20 10:08:002.9 [facility] EsycvkmJXMRFYAJSS1505-87-52 10:08:0013.4[facility] HermannHEMATOLOGY 2018-11-07 10:08:0020.0[facility] KncbkiwWNJTKOLWBG1758-53-97 10:08:0093.8[facility] SngwqakNWHEVXXEHC7582-87-33 10:08:0033.4[facility] PbztxeeGEKSNRUCZV0518-52-14 10:08:00 Test Item Value Reference Range Interpretation Comments MCH (test code = MCH) 31.3 pg 27.0-31.0 [facility] MedxqooLHJSFILLBW6972-48-54 10:08:41270Bosugfre HermannHEMATOLOGY 2018-11-07 10:08:0017.4[facility] OomjhniECYKEBMKBH0784-21-19 10:08:008.0[facility] BrltdybCKZDTPNKHU6771-00-29 10:08:005.5[facility] SbcfcxuFQVUYVFEYR4936-30-31 10:08:002.74[facility] NdwzzcnGFBTNAPCVY3671-09-80 10:08:0025.7[facility] CVWUNNFDAE0344-18-76 10:08:008.6[facility] HermannCHEM ESNZB9924-80-15 11:34:002.6 [facility]annCHEM TROKX8169-48-04 11:34:001.5[facility] HermannCHEM PANEL 2018-11-06 11:34:001.9[facility] HermannCHEM HZWFL5510-98-89 11:34:00 Test Item Value Reference Range Interpretation Comments A/G Ratio (test code = A/G Ratio) 2.7 1 0.7-1.6 [facility]annCHEM PTKFR4908-68-82 11:34:000.9[facility] HermannCHEM PANEL 2018-11-06 11:34:0030[facility]annCHEM HTQFI4936-67-12 11:34:0018[facility] HermannCHEM OKRVE8772-67-68 11:34:005.1[facility] HermannCHEM TEACH6318-38-68 11:34:007.0[facility] HermannCHEM FKMHP3529-64-86 11:34:0055[facility] HermannCHEM GBRKJ3634-24-85 11:34:003.4[facility]annCHEM QJTCB0129-41-53 11:34:002.5 [facility] YsklahdJPXBWKPPKXEM4437-10-07 11:34:0013.7[facility] HermannELECTROLYTES 2018-11-06 11:34:58345Oecpfacb YyyxqwrYCVRHWSMFIZX4062-95-59 11:34:003.7[facility] AjtpugtMIRZURTWMIQX8716-76-53 11:34:39823Gfngnuqu MvdurbePENAYBXUJQBE3297-85-78 11:34:0039[facility] WoipuykOKMVFBCJJNTW0943-45-67 11:34:001.84[facility] CYYPWZXTXBGM9698-34-99 11:34:0026[facility] DruzfrvBPVRFDPGHAUI1374-56-61 11:34:00 79[facility] MphuygxPDYJLAUKHIBT4271-78-98 11:34:0029[facility] HermannELECTROLYTES 2018-11-06 11:34:009.9[facility] DlzfkwhOJBFOYWAUZ2088-05-39 11:34:00 Test Item Value Reference Range Interpretation Comments PTT (test code = PTT) 47.3 s 22.9-35.8 [facility] GbgasmbSNIVOKASMW6762-18-26 11:34:00 Test Item Value Reference Range Interpretation Comments INR (test code = INR) 1.95 1 0.85-1.17 [facility] IfsvnwbVPRBYKFPXN1682-20-18 11:34:00 Test Item Value Reference Range Interpretation Comments PT (test code = PT) 21.8 s 12.0-14.7 [facility] IopkmyyWKRQNXNOCD1671-04-79 11:34:0033.5[facility] HermannHEMATOLOGY 2018-11-06 11:34:0017.8[facility] TijcemnTIJESQRMEF5811-00-86 11:34:008.0[facility] DgdysjoYQWDOKQZEQ3311-34-15 11:34:38148Bidvpsdv IlescsfUYROJLTIFL5191-08-61 11:34:00 Test Item Value Reference Range Interpretation Comments MCH (test code = MCH) 31.1 pg 27.0-31.0 [facility] UvoeedpGRAAVOWCTS0180-67-20 11:34:0023.2[facility] HermannHEMATOLOGY 2018-11-06 11:34:0092.9[facility] QjhgcrkKEEUTTUEGA2233-30-54 11:34:002.50[facility] TzehzgtNTVVDINXIA8449-61-28 11:34:007.8[facility] XqurrxtPQKQWPZYWI1967-76-61 11:34:004.8[facility] WdtmwceFEWQQIWZMT1484-25-13 11:34:002.7[facility] UCRYZLXHEN7157-17-21 11:34:000.9[facility] OwumbnpXKFGWQHSMH8851-75-46 11:34:00 56.0[facility] NtdrlmtZQTIERWWWA8288-04-69 11:34:000.1[facility] HermannHEMATOLOGY 2018-11-06 11:34:000.5[facility] BsjegvyKBSMROQHWK7643-78-97 11:34:000.6[facility] YaqexabFHFIYFDHSA6722-43-17 11:34:003.0[facility] UckhgjaYYJIELBOZG8528-91-10 11:34:0018.0[facility] IgkmsyfYNRVFBWEGV0675-47-16 11:34:001.0[facility] FPXDJLLUDU1679-37-31 11:34:0010.0[facility] FvsynuyMKIHBPYROU6059-40-53 11:34:00 12.0[facility] GcvbutqZIXWPCBCVX6565-74-63 11:34:000.0[facility] HermannHEMATOLOGY 2018-11-06 11:34:00Normal (11/06/18 5:34 AM)[facility] HermannCARDIAC ENZYMES 2018-11-05 11:06:26517Cfcfimwz HlyecozNMFYZUJJYHLN6900-32-20 10:40:0011.7 [facility] MoqhlxxJPCHIOZQQLNV4236-70-93 10:40:00 Test Item Value Reference Range Interpretation Comments B/C Ratio (test code = B/C Ratio) 14 1 6-25 [facility] BduvcckBOQYTJASOBBV5059-39-09 10:40:00 Test Item Value Reference Range Interpretation Comments A/G Ratio (test code = A/G Ratio) 2.7 1 0.7-1.6 [facility] PvitzzwAZHIBRVQHJQJ0812-65-87 10:40:001.9[facility] HermannELECTROLYTES 2018-11-05 10:40:009.7[facility] IqrodafFPLKYDVWYHJR4151-30-50 10:40:0028[facility] IgktaneJXSSYEKZBQWB0164-40-65 10:40:0057[facility] BsneumiDPHIRERMWJJJ2290-86-91 10:40:003.7[facility] YskolcxOWXMAKBBHPSJ6022-33-56 10:40:85490Njewegxr [facility] JRKQZZXTPHRI1525-80-66 10:40:69291Ojozjhhd DdxupiyRFHYQPSMRXJI1956-54-66 10:40:0030[facility] WhthlitDEODTXSKIDIJ8077-86-19 10:40:005.1[facility] BTFTJNXKAJMZ7436-75-45 10:40:0026[facility] RywytajCTRWNCXAZYPK6769-24-25 10:40:00 65[facility] LqlijbnACXTZTMUBKFK1676-39-47 10:40:004.3[facility] HermannELECTROLYTES 2018-11-05 10:40:0019[facility] XgcaivbNNJPUSSRUSSO4193-46-93 10:40:0038[facility] WoldkhbBJNRSEMJHGKS3653-26-74 10:40:001.86[facility] AcpvmqcNHWZENPARXNK4106-49-49 10:40:007.0[facility] ZnccuqiONXMANIJWG5341-65-73 10:40:0017.9[facility] YYRMJTNGOA2988-96-63 10:40:00 Test Item Value Reference Range Interpretation Comments MCH (test code = MCH) 31.3 pg 27.0-31.0 [facility] GqgmtiuHWZRPJQVUM8015-48-32 10:40:54333Tswqiwua HermannHEMATOLOGY 2018-11-05 10:40:0033.6[facility] UoriyutMBEWIOZLXN7524-04-63 10:40:008.1[facility] TxjgbitUKZTZNKZHR2886-91-19 10:40:007.6[facility] QxgjqvrVAITEOXHBB3596-64-18 10:40:004.6[facility] WaffmgfDUXXMCHXWM3247-60-78 10:40:0022.7[facility] DLZYFXAMBS6295-50-70 10:40:002.44[facility] TuraokpQOVOPLXPJH5817-41-98 10:40:00 93.1[facility] HryigceTRCSRLXXUB9030-29-22 10:40:000.9[facility] HermannHEMATOLOGY 2018-11-05 10:40:000.2[facility] BqiagxxAXOTEAMOEU3231-10-21 10:40:002.6[facility] UntlaciXSAGHTZXJG6569-63-76 10:40:004.6[facility] YfhbmasRVGUPVXMLH1119-22-94 10:40:000.8[facility] XxaituySFFRJJSTZR5814-37-88 10:40:002.9[facility] PBVZWLHTOK7238-72-94 10:40:0019.2[facility] OikupycZBDKHQFMNQ1682-97-53 10:40:00 56.4[facility] GwefezbCWLRNMKBZM3864-57-54 10:40:0016.9[facility] HermannHEMATOLOGY 2018-11-05 10:40:000.1[facility] HermannBLOOD BANK MEXZSOF7969-99-74 19:24:00 Negative (11/04/18 1:24 PM)[facility] DdptqfvOVVQIZ7995-93-49 19:24:0082[facility] HhvfwgwKKQCQL4687-18-32 19:24:77671Jfmowdvf JvzecbbSWMUMA5684-19-02 19:24:0089 [facility] GjhxfttHNRTEQ1675-81-69 19:24:00 Test Item Value Reference Range Interpretation Comments VLDL (test code = VLDL) 16 1 [facility] InyisxrOJIRGG1451-20-99 19:24:0040[facility] ZneqdfiRVYYXY1548-49-25 19:24:00 Test Item Value Reference Range Interpretation Comments CHD Risk (test code = CHD Risk) 3.62 1 4.00-7.30 [facility] KIGBHXN9036-24-96 16:29:00Product available (11/04/18 10:29 AM)[facility]annCHEM WJSBU1595-38-31 10:57:007.0[facility]annCHEM SAOTO2487-80-09 10:57:004.9[facility]annCHEM MKONS9023-59-81 10:57:0018 [facility]annCHEM MBLAD5646-79-13 10:57:0067[facility]annCHEM PANEL 2018-11-04 10:57:0033[facility]annCHEM EOLIX7340-54-73 10:57:002.1[facility]annCHEM NVOWW8269-35-91 10:57:00 Test Item Value Reference Range Interpretation Comments A/G Ratio (test code = A/G Ratio) 2.3 1 0.7-1.6 [facility]annCHEM CVOUR7900-89-51 10:57:00 Test Item Value Reference Range Interpretation Comments B/C Ratio (test code = B/C Ratio) 15 1 6-25 [facility] HermannCHEM MKINB1931-94-32 10:57:001.5[facility]annCHEM PANEL 2018-11-04 10:57:002.9[facility] ClcwkmtHDDCWZCRYU6100-15-24 10:57:000.0[facility] HsvnlgoQHJNGFMFIG2157-44-65 10:57:00Normal (11/04/18 4:57 AM)[facility] LZDQXAHIBA4437-11-75 10:57:000.0[facility]annDRUG OAAXRF0355-13-30 02:00:00 Negative *NA*(11/03/18 8:00 PM)[facility]annDR[facility] MALWMJ9299-18-96 02:00:00 Negative *NA*(11/03/18 8:00 PM)[facility]annDR[facility] UKJJVQ6962-41-16 02:00:00 Negative *NA*(11/03/18 8:00 PM)[facility]annDR[facility] ISITUC6041-29-57 02:00:00 Negative *NA*(11/03/18 8:00 PM)[facility]annDR[facility] FSPNQP1117-75-40 02:00:00 Negative *NA*(11/03/18 8:00 PM)[facility]annDR[facility] YVUULW2397-87-92 02:00:00See Note *NA*(11/03/18 8:00 PM)[facility]annDR[facility] ZVGARE6079-74-30 02:00:00Negative *NA*(11/03/18 8:00 PM)[facility]annDR[facility] WSKNDO6554-52-84 02:00:00Negative *NA*(11/03/18 8:00 PM)[facility]annDR[facility] PHXHRH4801-47-83 02:00:00Negative *NA*(11/03/18 8:00 PM)[facility]annDR[facility] IUCGKD0359-63-84 02:00:00Negative *NA*(11/03/18 8:00 PM)[facility] SuvimiuKALSAZEFYQ2971-34-97 23:29:00Non Reactive *NA*(11/03/18 5:29 PM)[facility] NshlzluIZNCQZUVBV6905-73-46 23:29:00>8.0 [facility] AgevxjxOMBXISFBEB1474-15-75 23:29:000.5[facility] HermannIMMUNOLOGY 2018-11-03 23:29:00<0.2[facility] HermannTUMOR XJDCZQZ7820-92-73 23:29:004.4 [facility]annCHEM QXPWM1559-67-49 10:46:00 Test Item Value Reference Range Interpretation Comments B/C Ratio (test code = B/C Ratio) 14 1 6-25 [facility] QjyvichFEJEOFPYSD8002-14-28 10:46:000.0[facility]annHEMATOLOGY 2018-11-03 10:46:000.0[facility]annURINE VSCV1928-34-37 23:51:13101Bnuqavhu HermannURINE LUZM6340-22-59 03:53:0028.10[facility]annURINE GQKV6217-80-68 03:53:0013.3[facility]annURINE PRHX9343-13-50 03:53:28115Ppxebaje Tiburcio URINE DTEE4969-91-49 03:53:45184Tirzeyys MhmvnubOMGNCVBJTU2136-23-68 10:21:00 Test Item Value Reference Range Interpretation Comments INR (test code = INR) 1.46 1 0.85-1.17 [facility] DxichjfMACMSBOZAM9939-44-41 10:21:00 Test Item Value Reference Range Interpretation Comments PT (test code = PT) 17.4 s 12.0-14.7 [facility] MjcraarLUXJXAMXQF3077-99-09 10:00:00 Test Item Value Reference Range Interpretation Comments PT (test code = PT) 17.9 s 12.0-14.7 [facility] EzbzbbfJENZRXTGUD2547-35-49 10:00:00 Test Item Value Reference Range Interpretation Comments INR (test code = INR) 1.51 1 0.85-1.17 [facility] OlzowtdFKOZTWYRNV4644-93-68 10:00:00 Test Item Value Reference Range Interpretation Comments PTT (test code = PTT) 36.7 s 22.9-35.8 [facility] BQEHZIJ2896-51-49 12:33:00Product available (10/29/18 6:33 AM)[facility] HermannPARATHYROID STTOAWA4317-47-15 10:41:001.11[facility] HermannPARATHYROID UMCYUWQ5350-77-30 10:41:001.13[facility]annDRUG SCREEN 2018-10-28 19:44:00Negative *NA*(10/28/18 1:44 PM)[facility]annDRUG SCREEN 2018-10-28 19:44:00Negative *NA*(10/28/18 1:44 PM)[facility]annDRUG SCREEN 2018-10-28 19:44:00Negative *NA*(10/28/18 1:44 PM)[facility]annDRUG SCREEN 2018-10-28 19:44:00See Note (10/28/18 1:44 PM)[facility]annDRUG SCREEN 2018-10-28 19:44:00Negative *NA*(10/28/18 1:44 PM)[facility]annDRUG SCREEN 2018-10-28 19:44:00Negative *NA*(10/28/18 1:44 PM)[facility]annDRUG SCREEN 2018-10-28 19:44:00Negative *NA*(10/28/18 1:44 PM)[facility]annDRUG SCREEN 2018-10-28 19:44:00Negative *NA*(10/28/18 1:44 PM)[facility]annDRUG SCREEN 2018-10-28 19:44:00Negative *NA*(10/28/18 1:44 PM)[facility]annDRUG SCREEN 2018-10-28 19:44:00Negative *NA*(10/28/18 1:44 PM)[facility]annURINE CHEM 2018-10-28 19:44:85494Szxgygls HermannURINE GESZ6941-82-68 19:44:0055[facility]annURINE ZDQY5294-28-42 19:44:0024.0[facility]annURINE AZJQ6483-54-03 19:44:0045[facility]annURINE EBPS6080-91-65 19:44:00>55080Jyptmxat [facility] URINE XIGX1002-36-98 19:44:00>93341Ivxtqmyd HermannANEMIA LGFWA9852-35-44 16:59:0013[facility] HermannANEMIA BSJFA9310-71-94 16:59:30017Zcmieqlw Tiburcio ANEMIA VIVWO3097-12-74 16:59:29053Qktnklox HermannANEMIA IAIWQ5861-15-13 16:59:0048[facility] HermannCHEM TTMKP1199-62-85 16:59:02232Hzqziema HermannURINE AND APYEK5874-46-85 11:06:006[facility]annURINE AND LRGEC2543-35-18 11:06:002 [facility]UR[facility] AND CCACQ0077-63-25 11:06:00Negative (10/28/18 5:06 AM) [facility] AND CPYMT4984-93-11 11:06:00Negative (10/28/18 5:06 AM) [facility]UR[facility] AND UBRHO9348-84-86 11:06:00Clear (10/28/18 5:06 AM)[facility]UR[facility] AND YYBQU5073-46-19 11:06:00Negative (10/28/18 5:06 AM)[facility]annUR[facility] AND KJSFP7167-91-34 11:06:00Negative *NA*(10/28/18 5:06 AM)[facility]annUR[facility] AND XHMEX9430-98-96 11:06:00 Test Item Value Reference Range Interpretation Comments UA Spec Grav (test code = UA Spec 1.008 1 Grav) [facility]UR[facility] AND RBZXS5853-72-88 11:06:00Yellow *NA*(10/28/18 5:06 AM) [facility] MYNXV7818-49-90 11:06:00 Test Item Value Reference Range Interpretation Comments UA pH (test code = UA pH) 5.5 1 5.0-8.0 [facility]annUR[facility] OHJE9693-12-40 11:05:00 Test Item Value Reference Range Interpretation Comments U Prot/Creat (test code = U 0.17 1 Prot/Creat) [facility]UR[facility] OCXZ7642-33-42 11:05:0096.10[facility]annUR[facility] CHEM 2018-10-28 11:05:0015.9[facility]annURINE YOBC2064-56-18 11:05:95644Gnlldwul HermannURINE DPID7626-04-30 11:05:0096.10[facility] BFJN3552-08-48 11:05:0020.3[facility] SFBF5437-19-96 11:05:0034[facility] TMTC4668-24-21 11:05:0038[facility]annBLOOD BANK LYRJPPM4028-83-10 04:52:00 Product available (10/27/18 10:52 PM)[facility] MUGPATS8236-04-55 04:29:00Negative (10/27/18 10:29 PM)[facility] HermannCHEM DSJIV6288-90-54 04:14:00 0.8[facility] HermannCHEM SZWWU4672-27-73 04:14:000.9[facility] HermannHEMATOLOGY 2018-10-27 23:52:55Present *ABN*(10/27/18 5:52 PM)[facility]annHEMATOLOGY 2018-10-27 23:52:551+ *ABN*(10/27/18 5:52 PM)[facility] CrzicmsELSXVFHXIL2154-15-19 23:52:002.4[facility] HermannCHEM IIYNN7487-55-61 18:54:003.6[facility] HermannCHEM QSCYW1192-08-11 18:54:00 Test Item Value Reference Range Interpretation Comments A/G Ratio (test code = A/G Ratio) 0.9 1 0.7-1.6 [facility]annCHEM GVHNF4838-70-98 18:54:003.3[facility] HermannCHEM PANEL 2018-07-12 18:54:0040[facility] HermannCHEM IHKHX2027-59-34 18:54:006.9[facility] HermannCHEM SLHSX1978-55-18 18:54:39140Zeekvxro HermannCHEM HDBTW7668-88-97 18:54:002.1[facility] HermannCHEM MEQBK8869-54-20 18:54:0061[facility]annCHEM RKMRZ0210-82-89 18:54:001.4[facility] HermannCHEM XFGZY2080-29-17 18:54:000.7 [facility] AbqbcgwDANEEQTFDVIL2232-48-35 18:54:009.9[facility] HermannELECTROLYTES 2018-07-12 18:54:0061[facility] RryysibNIDJPTCAOIGR0938-98-93 18:54:004.9[facility] VuqtpluBABSNQFQQZSF6869-09-80 18:54:66122Twmxuiie EkxncraZHERWOYFXFGO9625-59-80 18:54:001.27[facility] QdmaujtKLWVGUNZLOAZ0832-47-92 18:54:0028[facility] VLIJYZWIJBDT8315-08-21 18:54:38139Gwisodry NyhhtpeHAXEHGAAFLRO5659-37-60 18:54:009.6[facility] WwvxqocTJRUICDHVYIL6960-28-09 18:54:0025[facility] RZZITMQETGWF3730-60-77 18:54:0078[facility] XwcqpgwNAIYYUWFHT7507-99-50 18:54:00 1.5[facility] UhbraytWHTPBINEDX6115-56-95 18:54:000.2[facility] HermannHEMATOLOGY 2018-07-12 18:54:001.8[facility] BoeusodWCKZUBFHTZ6099-53-46 18:54:005.2[facility] FkacnqnWJUMKPLTXD0739-43-46 18:54:002.9[facility] WtkktpwXGRTEPJVGM8932-75-62 18:54:0059.9[facility] HqtzobyQOJVHKYRTT1006-45-99 18:54:0016.9[facility] BIUGYZTKHU9063-19-17 18:54:0020.3[facility] QukzfghLQCTZXGGJA0362-19-16 18:54:00 Test Item Value Reference Range Interpretation Comments INR (test code = INR) 1.22 1 0.85-1.17 [facility] RyzderhQBQNTJGDNB4745-07-06 18:54:00 Test Item Value Reference Range Interpretation Comments PT (test code = PT) 15.5 s 12.0-14.7 [facility] ProwwcoGVXINCOJDK7726-32-07 18:54:007.4[facility] HermannHEMATOLOGY 2018-07-12 18:54:44670Yjbucttv RezdpvjSLSSUJVEXE2033-60-90 18:54:0086.8[facility] JkmozfzQZAGVMBOGC9952-62-07 18:54:002.87[facility] RdusvlkEBXXQWSSRW8826-86-91 18:54:008.1[facility] PmdqzjaSAFJVGLMAW2626-50-84 18:54:0024.9[facility] MKRBAXBDTE0570-93-38 18:54:00 Test Item Value Reference Range Interpretation Comments MCH (test code = MCH) 28.2 pg 27.0-31.0 [facility] TrdoukyGKPHBOYHDD8233-25-27 18:54:0032.5[facility] HermannHEMATOLOGY 2018-07-12 18:54:0019.5[facility] VseuppfMPQPMWOMNM9733-49-88 18:54:008.7[facility] HermannTUMOR MCCKBSN5831-61-79 18:54:004.6[facility] HermannCHEM WRQSL5221-38-33 04:02:001.7[facility] HermannCHEM YQFIF7379-61-26 04:02:33778Rdoveyke HermannCHEM WUFSB0774-44-32 04:02:0050[facility] HermannCHEM MRXNJ0327-13-98 04:02:003.3 [facility] HermannCHEM KVJQT2194-47-05 04:02:0092[facility] HermannCHEM PANEL 2018-04-11 04:02:006.9[facility] HermannCHEM QEKAQ6746-68-57 04:02:0025[facility] HermannCHEM WLKQP9539-46-71 04:02:008.7[facility] HermannCHEM PNLGF1798-49-17 04:02:0049[facility] HermannCHEM MITRT9523-78-79 04:02:83391Gpwfknqf HermannCHEM LHCUN0208-69-98 04:02:0023[facility] HermannCHEM RTUKK4006-74-09 04:02:72246 [facility]annCHEM QIZPM8793-92-26 04:02:79832Vchwtdpz HermannCHEM PANEL 2018-04-11 04:02:001.52[facility] HermannCHEM TBIVJ6574-23-39 04:02:004.1[facility] HermannCHEM YGKFG1487-02-48 04:02:00 Test Item Value Reference Range Interpretation Comments A/G Ratio (test code = A/G Ratio) 0.9 1 0.7-1.6 [facility] HermannCHEM FFWXY6896-81-07 04:02:003.6[facility] HermannCHEM PANEL 2018-04-11 04:02:0012.1[facility] HermannCHEM DOGJW2584-61-32 04:02:00 Test Item Value Reference Range Interpretation Comments B/C Ratio (test code = B/C Ratio) 15 1 6-25 [facility] HermannCHEM NCFTV5248-32-71 04:02:72395Odrawxlo HermannHEMATOLOGY 2018-04-11 04:02:00 Test Item Value Reference Range Interpretation Comments PTT (test code = PTT) 43.2 s 22.9-35.8 [facility] CnlocecRANIPRGYXT3638-72-93 04:02:00 Test Item Value Reference Range Interpretation Comments INR (test code = INR) 1.14 1 0.85-1.17 [facility] IwcfjzkCQTNIGRSCT6069-79-96 04:02:00 Test Item Value Reference Range Interpretation Comments PT (test code = PT) 14.6 s 12.0-14.7 [facility] DcjyfkkLJLKMDLAOE2811-78-64 04:02:0024.8[facility] HermannHEMATOLOGY 2018-04-11 04:02:008.4[facility] PibqrwhTYBMMBPTCJ2297-52-32 04:02:002.69[facility] AfbnzuyDWPRHLOEBC3706-65-07 04:02:009.1[facility] QcadxplQLBCMVGATX2869-42-93 04:02:0092.1[facility] JlmebpqWVDWEQXIUP2072-30-52 04:02:0016.9[facility] QBQLICZRRH8936-98-50 04:02:0034.1[facility] MnievznFXLIRJJFOC5360-55-54 04:02:00 Test Item Value Reference Range Interpretation Comments MCH (test code = MCH) 31.4 pg 27.0-31.0 [facility] JmdfeuxKCUTVVHDYB6922-73-46 04:02:69750Jfhculyv HermannHEMATOLOGY 2018-04-11 04:02:008.0[facility] LbtowpwOCPFZVTPEJ2790-78-01 04:02:002.7[facility] PtfyzwzUTBGFESGKN4013-79-03 04:02:000.2[facility] VnogkycUZDLYUVRPS4414-82-49 04:02:001.2[facility] TzrkszgEWNWREZVXD2388-06-92 04:02:005.0[facility] AGQREIMSXE0404-46-01 04:02:001.9[facility] RsetpytKBYDNZBDHV0736-08-85 04:02:00 13.2[facility] BqllhdgNXNQHOMECZ8614-23-47 04:02:0030.0[facility] HermannHEMATOLOGY 2018-04-11 04:02:0054.9[facility] FikgkugHNNLZVLCWH3000-78-01 13:55:00 Test Item Value Reference Range Interpretation Comments INR (test code = INR) 1.26 1 0.85-1.17 [facility] RcfvrlaAYZJQMCOAZ0762-18-43 13:55:00 Test Item Value Reference Range Interpretation Comments PTT (test code = PTT) 41.6 s 22.9-35.8 [facility]iJHKRJXKNFT9022-19-30 13:55:00 Test Item Value Reference Range Interpretation Comments PT (test code = PT) 15.9 s 12.0-14.7 [facility] HcedgviEJYXEOZRQF1459-29-24 13:55:75543Azgyiklf HermannANEMIA STUDY 2017-04-19 10:59:0037[facility] HermannANEMIA HXPYH1003-73-91 10:59:70097Khiqdrhh HermannANEMIA IVHLD1519-47-51 10:59:0050[facility] HermannANEMIA CYBPO3788-47-85 10:59:0015[facility] HermannANEMIA FLHRH6535-34-22 10:59:91828Vceycjhh [facility] CARDIAC SQPCQNY2839-35-58 10:59:00476Neoroxnb HermannCHEM ZRJXN0170-48-96 10:59:0063[facility] HermannCHEM LCSJI6678-40-23 10:59:003.7[facility] HermannCHEM NXWVS5998-26-84 10:59:000.8[facility] HermannCHEM RTHVC5477-16-69 10:59:002.2 [facility] HermannCHEM VGOGU0590-36-27 10:59:0011.0[facility] HermannCHEM PANEL 2017-04-19 10:59:0011[facility] HermannCHEM ILAYE1498-18-14 10:59:0089[facility] HermannCHEM JAOYG9575-49-88 10:59:0014[facility] HermannCHEM DSCID2458-17-74 10:59:001.25[facility] HermannCHEM QGFPC7031-93-38 10:59:006.5[facility] HermannCHEM USTCD0671-69-77 10:59:002.8[facility] HermannCHEM IOIQZ8369-20-39 10:59:0040 [facility] HermannCHEM AZXAB1320-79-68 10:59:0090[facility] HermannCHEM PANEL 2017-04-19 10:59:37864Moeepkoy HermannCHEM CBTME9175-22-01 10:59:008.2[facility] HermannCHEM GKXDZ2458-05-37 10:59:87046Xpzytipb HermannCHEM NICOY2137-32-71 10:59:004.0[facility] HermannCHEM YMZRN0536-50-75 10:59:14664Lpwjygbc HermannCHEM UKKKW4208-16-30 10:59:0025[facility] IwwnplgZKGSWHIXLC8460-95-89 10:59:001.20 [facility]healthXamuylfYSKSMLIDHJ6882-92-16 10:59:00 Test Item Value Reference Range Interpretation Comments PT (test code = PT) 15.5 s 12.0-14.7 [facility]healthSfdxryuRFODRJFSMC7607-80-23 10:59:00 Test Item Value Reference Range Interpretation Comments PTT (test code = PTT) 40.4 s 22.9-35.8 [facility]healthHrmbbqqXOMRDBSSXZ9354-10-71 10:59:0034.2[facility] HermannHEMATOLOGY 2017-04-19 10:59:0094.2[facility] OxkbtwcVDBVYJTWKL9927-11-43 10:59:00 Test Item Value Reference Range Interpretation Comments MCH (test code = MCH) 32.2 pg 27.0-31.0 [facility]ObprdgoHYJQQSZGHI7548-30-09 10:59:0018.2[facility] HermannHEMATOLOGY 2017-04-19 10:59:003.11[facility] DrzjemeVFCJIALOXQ7906-51-88 10:59:0029.2[facility] NvydvhhDYDTGCJVWH6445-49-80 10:59:0010.0[facility] TjtqvisAULPOJWXSP0632-90-50 10:59:007.5[facility] JykwtsbHRXJGWZGCM3270-77-99 10:59:02865Xthjaufz [facility] NTRKGSYPYY3749-07-38 10:59:009.2[facility] WbvewbhAIFUZZUQKU5500-14-67 10:59:006.9 [facility] RzqcwjdKIBCAEAQKI2286-44-97 10:59:000.7[facility] HermannHEMATOLOGY 2017-04-19 10:59:005.6[facility] OfeaznoSUYNFJCDKA5155-42-80 10:59:000.9[facility] OdlucmgGAMEJCAKHB6704-10-52 10:59:000.8[facility] DmweygdDCFTRLOHOR6864-85-30 10:59:000.1[facility] OecpmduVTBNNIRIED3042-04-32 10:59:000.5[facility] JBFCEWQSSO0545-75-04 10:59:009.8[facility] WlnvamrPUAXGVXMIY8482-10-71 10:59:00 75.4[facility] HibcevdBUZJPRBWUA3150-43-51 10:59:008.5[facility] HermannIMMUNOLOGY 2017-04-19 10:59:001.emorial CeljnvrUGTQBNHXNF2196-21-37 10:59:00Negative *NA*(04/19/17 5:59 AM)[facility] HagqhamNKHXODDSLG9673-77-77 10:59:00Negative *NA*(04/19/17 5:59 AM)[facility] RysffaoRKBRRSRTKB5320-67-68 10:59:00Negative *NA*(04/19/17 5:59 AM)[facility] CcgadysWRPUEIIOWR8533-90-58 10:59:00Negative *NA*(04/19/17 5:59 AM)[facility] ZxqjiqsLPZFEVQBDH3729-59-72 10:59:0027[facility] GtaiwfaMBHCMSRLCV7699-79-93 10:59:00Negative 1(04/19/17 5:59 AM)[facility] TQMHYAXGUI2609-96-35 10:59:30633Vgekuiwr AwdaugmUZOSDPXFXT1393-57-63 10:59:00 Negative (04/19/17 5:59 AM)[facility] TvsegfbGISDBGBWIO9028-86-83 10:59:00Negative (04/19/17 5:59 AM)[facility] PyhfejlJEEVDTAXON9631-88-20 10:59:0055.5[facility] HermannTUMOR LFYRDJB2911-78-84 10:59:007.2[facility] AmjgjzwDIDTBNFSTM8319-30-71 18:58:0028.6[facility] KyesxozFTLVTBGMKT4739-21-64 18:58:009.6[facility] HermannCHEM XZUHX2199-91-05 10:05:0059[facility] HermannCHEM EFGOE7119-53-21 10:05:10728 [facility] HermannCHEM ELYYA6445-17-74 10:05:0024[facility] HermannCHEM PANEL 2017-04-18 10:05:0012.3[facility] HermannCHEM OKXKS5029-90-62 10:05:008.3[facility] HermannCHEM ESGHW0023-74-89 10:05:0098[facility] HermannCHEM KAMBL5356-39-90 10:05:0017[facility] HermannCHEM FZPQQ8629-32-14 10:05:004.3[facility] HermannCHEM FYKNR6900-98-41 10:05:001.32[facility] HermannCHEM LYYRE7271-92-13 10:05:45793 [facility] LxsauldJNAVYCDSII1658-76-80 10:05:0029.5[facility] HermannHEMATOLOGY 2017-04-18 10:05:009.6[facility] OlzvjeiCBJUJSNBHH1685-97-19 10:05:0094.2[facility] VefmipgOZQKGEMNOS6876-13-97 10:05:003.13[facility] UgiaytkXOGLUVKYPY2012-43-81 10:05:008.0[facility] ZikndgiJSIXVOSCZS2789-30-64 10:05:0018.0[facility] GYXYOJLDYE9930-89-11 10:05:21276Ixncaxdz PdatvyiFZUOBOZQXD0956-32-47 10:05:007.8 [facility] IqhjmwtOLHFWCNNZM7801-40-70 10:05:00 Test Item Value Reference Range Interpretation Comments MCH (test code = MCH) 30.7 pg 27.0-31.0 [facility] PqmtwgvUZKGDXVOIU3686-48-02 10:05:0032.6[facility] HermannHEMATOLOGY 2017-04-18 10:05:008.7[facility] EttylgrLNBTOVXXNG6012-78-39 10:05:0074.7[facility] LfkuvlgAXTVCUJTHF1815-20-22 10:05:000.5[facility] KmcdphwMJABYUPQJL9811-01-68 10:05:006.0[facility] JxigvnjEEUFRYTLMB6971-67-14 10:05:000.7[facility] ITTGPJPUTD6205-08-96 10:05:004.7[facility] CtpjuigMWLOWUCMNG0496-88-04 10:05:000.9 [facility] BebdhqbSHXDYWASTR8599-69-04 10:05:000.4[facility] HermannHEMATOLOGY 2017-04-18 10:05:000.0[facility] VcunpbgIOWAWZFUUO4448-40-61 10:05:0011.4[facility] HermannBLOOD BANK PMLSFMG0981-60-82 02:17:00Product available 1(04/17/17 9:17 PM) [facility]annBLOOD BANK IGVVYDF2982-98-07 00:22:00Negative (04/17/17 7:22 PM) [facility]annBL[facility]OD BANK QQTFKAB1184-18-02 23:34:00Product available (04/17/17 6:34 PM)[facility] HermannCARDIAC MHHAIZD2234-95-46 21:44:00<0.02[facility] HermannCARDIAC JKBOIPV5818-28-71 21:44:001.4[facility] HermannCARDIAC ENZYMES 2017-04-17 21:44:99227Sulhwjkl HermannCARDIAC WKVAFJC7932-15-50 21:44:001.1 [facility] HermannCHEM JIXDI8052-57-06 21:44:69403Ansoisvu HermannCHEM PANEL 2017-04-17 21:44:0049[facility] HermannCHEM NEWCU2405-32-47 21:44:000.8[facility] HermannCHEM ASBFA4348-52-16 21:44:0013[facility] HermannCHEM SSGGP1801-47-78 21:44:003.9[facility] HermannCHEM XWPCB6535-42-26 21:44:001.1[facility] HermannCHEM CMABH3922-53-29 21:44:0018.7[facility] HermannCHEM DFYEI7579-89-11 21:44:11568 [facility] HermannCHEM TIPZR7789-63-99 21:44:008.9[facility] HermannCHEM PANEL 2017-04-17 21:44:38867Pgcdrkfd HermannCHEM OLWGJ7845-07-99 21:44:0021[facility] HermannCHEM FKHVQ5377-03-14 21:44:004.7[facility] HermannCHEM XXBET9693-29-60 21:44:85863Lytbyzie HermannCHEM CDMAZ2851-01-47 21:44:57288Kbskluid HermannCHEM JRIKG6487-85-24 21:44:001.52[facility] HermannCHEM FCKKN2462-45-45 21:44:0047 [facility] HermannCHEM XGAXY5090-77-79 21:44:91387Zakexcmr HermannCHEM PANEL 2017-04-17 21:44:007.0[facility] HermannCHEM GBFQD7773-68-54 21:44:003.1[facility] HermannCHEM TEYOX7028-10-20 21:44:0020[facility] LmylsirGFIRPMIMKB8263-48-11 21:44:00 Test Item Value Reference Range Interpretation Comments PTT (test code = PTT) 39.4 s 22.9-35.8 [facility] WjhgfffDBZPUTEORI0952-43-29 21:44:0019.2[facility] HermannHEMATOLOGY 2017-04-17 21:44:07172Phnwirxm TjqmpbaTTXNMJMWQS8331-52-82 21:44:0010.8[facility] HjvcaxrDKHEXCUAOQ3106-43-83 21:44:002.72[facility] MxoroniZHOFGGMXLJ6260-78-88 21:44:0096.3[facility] JblkucrIONDAIQZFG6119-92-26 21:44:00 Test Item Value Reference Range Interpretation Comments MCH (test code = MCH) 31.1 pg 27.0-31.0 [facility] ZcjzflbZPHBDINZFW1741-05-40 21:44:0032.3[facility] HermannHEMATOLOGY 2017-04-17 21:44:007.6[facility] GnbtnfsRIAAJTHLBY2476-97-84 21:44:00 Test Item Value Reference Range Interpretation Comments PT (test code = PT) 14.7 s 12.0-14.7 [facility] NyryzuvFJNKFWHBIB8571-18-54 21:44:001.13[facility] HermannHEMATOLOGY 2017-04-17 21:44:00Normal (04/17/17 4:44 PM)[facility] IuuuhdhSVJHUBCGTL4548-76-27 21:44:0066.0[facility] JlththsJOPOBJYBMU5863-25-51 21:44:00Normal (04/17/17 4:44 PM)[facility] RssxepmJVAQSGCKCW0634-49-18 21:44:002.0[facility] HermannHEMATOLOGY 2017-04-17 21:44:006.0[facility] FawcjriAZUXDMRHQU7852-17-79 21:44:007.3[facility] UfzwxmeZTVATXMGYX3225-13-83 21:44:0024.0[facility] PdtitvdFMDVCGTVZK3788-09-10 21:44:002.0[facility] OpoupuiHJLNENNQPQ8059-66-15 21:44:001+ *ABN*(04/17/17 4:44 PM)[facility] VuuwmffPBNVGNMDJZ6637-03-63 21:44:000.2[facility] HermannHEMATOLOGY 2017-04-17 21:44:002.6[facility] EzpgsxlGXWBDTDGVR2396-18-07 21:44:00 Test Item Value Reference Range Interpretation Comments Tot Cell Ct (test code = Tot Cell Ct) 100 1 [facility] SmcarkrMMSMYWGKUY6036-55-60 21:44:000.6[facility] HermannHEMATOLOGY 2017-04-17 21:44:001+ *ABN*(04/17/17 4:44 PM)[facility] YvgurjpBNMJNUZPBB2240-84-00 21:44:002+ (04/17/17 4:44 PM)[facility] HermannURINE AND AMWAS5225-35-22 21:44:00 Positive *ABN*(04/17/17 4:44 PM)[facility] JeracseUFFDROVXFJ1105-73-78 17:54:0029.0 [facility] LdgvuavZJDLYMPGKK0642-96-17 17:54:009.7[facility] HermannHEMATOLOGY 2016-12-15 13:07:009.6[facility] AdhbsilTROZCRXPBX4201-41-80 13:07:0028.4[facility] HermannCHEM NFSBJ9617-99-32 06:49:0094[facility] HermannCHEM YFWMQ4351-70-97 06:49:0028[facility] HermannCHEM AWGDI7805-65-88 06:49:0060[facility] HermannCHEM KCGZT4185-72-67 06:49:0061[facility] HermannCHEM NMHBN0224-35-22 06:49:001.2 [facility] HermannCHEM FPBXZ6475-27-00 06:49:42295Bvzclxzc HermannCHEM PANEL 2016-12-15 06:49:006.7[facility] HermannCHEM SVYNV2248-72-32 06:49:003.2[facility] HermannCHEM QKOMR9705-52-92 06:49:0036[facility] HermannCHEM ISBVT1605-20-66 06:49:001.31[facility] HermannCHEM NRWNY8418-62-95 06:49:32200Xcrlfqmo HermannCHEM FKMFS0062-92-54 06:49:004.4[facility] HermannCHEM AEGGL0466-10-30 06:49:21537 [facility] HermannCHEM DNZUJ5472-93-25 06:49:0026[facility] HermannCHEM PANEL 2016-12-15 06:49:008.5[facility] HermannCHEM ESVRW8854-16-58 06:49:000.9[facility] HermannCHEM QDMSW5240-32-02 06:49:0013.4[facility] HermannCHEM TOQJB7611-78-26 06:49:0021[facility] HermannCHEM NAGZO6776-50-95 06:49:003.5[facility] RHWJWYZURQ9915-25-86 06:49:007.2[facility] VgptsceUFXGRDNSUT6600-41-95 06:49:00 2.86[facility] ZutcpzkBEKWYGLHGP7737-93-16 06:49:007.7[facility] HermannHEMATOLOGY 2016-12-15 06:49:0028.0[facility] RknfssyUPFEGYLUCO2262-25-40 06:49:009.1[facility] OqqcqojDHAXUZBXII0941-84-85 06:49:00 Test Item Value Reference Range Interpretation Comments MCH (test code = MCH) 32.0 pg 27.0-31.0 [facility] UdgnqueJOEZCDPWAP1666-71-66 06:49:0098.1[facility] HermannHEMATOLOGY 2016-12-15 06:49:0020.2[facility] ZpvdiekAFSSJGTNJN1159-83-79 06:49:0032.6[facility] PqotrmgUQTFFYDEAF1658-66-09 06:49:22617Ezrrafrf WbkvybpAJTDEKSHJD2201-00-69 06:49:006.4[facility] NqcjhxvGVLYMPYGDU8864-04-14 06:49:005.1[facility] SNHGOOLKXN7322-79-13 06:49:001.2[facility] IprgipxSVXDORUBRX2256-09-60 06:49:001.1 [facility] DmolhatPTRALOLRIP3808-66-59 06:49:000.9[facility] HermannHEMATOLOGY 2016-12-15 06:49:000.1[facility] CjjhywjLUBBQPGQGP0662-55-21 06:49:000.5[facility] WwmtbqbXSUSWNXGKZ2694-73-50 06:49:0014.5[facility] HewlqkqMGUKBRUPKO8291-49-60 06:49:0011.3[facility] AhajsefBXLRGWEZLR8083-86-75 06:49:0066.6[facility] URINE AND NVCMV6738-11-06 02:18:00Clear (12/14/16 8:18 PM)[facility] HermannURINE AND LUFKW6471-85-49 02:18:00Light Yellow *NA*(12/14/16 8:18 PM)[facility] URINE AND VDIWS5372-06-68 02:18:001.006[facility] HermannURINE AND NPIME9419-53-60 02:18:00Negative (12/14/16 8:18 PM)[facility]annURINE AND APGOV5911-85-80 02:18:00Negative (12/14/16 8:18 PM)[facility] HermannURINE AND ADWSH0782-88-88 02:18:001[facility]annURINE AND UCEEL0534-23-98 02:18:00Negative *NA*(12/14/16 8:18 PM)[facility] HermannURINE AND NHZTX4057-63-38 02:18:00Negative (12/14/16 8:18 PM)[facility]annURINE AND SRCJD4977-61-69 02:18:007.0[facility] HermannURINE AND GSKHZ9250-53-24 02:18:001[facility]annBLOOD BANK AVJVPLA2621-57-63 00:47:00Negative (12/14/16 6:47 PM)[facility]annBLOOD BANK FUIIIKW1042-01-53 19:13:00Negative (12/14/16 1:13 PM)[facility] HermannCHEM ZXVZR8853-56-62 19:13:00 711[facility] HermannCHEM PXBGH8619-46-46 19:13:0023[facility] HermannCHEM PANEL 2016-12-14 19:13:003.6[facility] HermannCHEM CZYGQ6675-46-71 19:13:0015.6[facility] EYHJL9229-08-99 19:13:001.0[facility]annCHE[facility] BDYDO6818-60-95 19:13:0053[facility] WQWPP4060-32-12 19:13:000.8[facility]annCHE[facility] CNTWR3782-34-22 19:13:0042[facility]annCHE[facility] ECKSP6698-29-63 19:13:0073 [facility] JKOSH9295-65-55 19:13:70294Krexfpxr HermannCHEM PANEL 2016-12-14 19:13:06224Onoasylp HermannCHEM EBWES1174-81-36 19:13:008.9[facility] KUGBO7730-52-00 19:13:004.6[facility]annCHE[facility] LENBC7335-12-31 19:13:90508Voxratym HermannCHEM CPCKG4932-75-81 19:13:0025[facility]annCHE[facility] MOPPR2736-07-03 19:13:007.1[facility]CHE[facility] TZWXI0312-44-83 19:13:003.5 [facility] YDXVT5734-62-89 19:13:67334Omygckji HermannCHEM PANEL 2016-12-14 19:13:0033[facility]annCHEM ENNEY7803-40-34 19:13:001.45[facility] YhneqeuGZGCTDABDB8502-39-81 19:13:0070.7[facility] XgzdekaHUPUDMOHXH2522-86-21 19:13:009.8[facility] UvyrxdlVHBFBPMOHE2252-92-96 19:13:006.0[facility] NHFASIGCYX3407-59-86 19:13:0011.7[facility] UjogmwfRZBNSZRQTI7936-56-40 19:13:00 1.8[facility] JwjucisICSGIKQVJO5591-80-58 19:13:006.5[facility]annHEMATOLOGY 2016-12-14 19:13:000.5[facility] FeaieeyYMTXDTLHRV1246-73-22 19:13:001.1[facility] UmwxjigJGYUFRIDDN1482-21-26 19:13:000.2[facility] ZxzvrchIRTSUNAXEB0060-70-82 19:13:000.9[facility] YjmwrbdBZHTXMVNVB2530-14-07 19:13:00 Test Item Value Reference Range Interpretation Comments PTT (test code = PTT) 38.5 s 22.9-35.8 [facility] GeocdkqWRHZXKARUN2730-31-00 19:13:00 Test Item Value Reference Range Interpretation Comments PT (test code = PT) 14.4 s 12.0-14.7 [facility] WiltvidFMZQWETNPA0442-09-80 19:13:001.10[facility]annHEMATOLOGY 2016-12-14 19:13:0097.7[facility] UwiuqbsYBPZMEXXCF5390-18-09 19:13:00 Test Item Value Reference Range Interpretation Comments MCH (test code = MCH) 32.8 pg 27.0-31.0 [facility] SbpoqkmLNDJXFCESL2774-32-43 19:13:0020.4[facility]annHEMATOLOGY 2016-12-14 19:13:0033.5[facility] UtkwgxwVRQMGFDEPO5233-86-50 19:13:007.5[facility] JtldpoxINOMAVAPSV1223-68-73 19:13:07470Lcbtpbkp HjtbdfqNYMXOBKGQH4428-10-10 19:13:003.06[facility] DkjlhiqCOLTFFWPVQ2916-14-72 19:13:009.1[facility] URINE AND WZKAD8120-29-44 19:13:00Positive *ABN*(12/14/16 1:13 PM)[facility] Tiburcio
[2020-10-21 13:52] LABS: Absolute Lymphocytes (CBC) 0.2 K/uL (0.7-4.9); Basophils % 2.4 % (0-1.3); Lymphocytes % 7.9 % (15.3-44.8); MPV 7.4 fL (7.6-11.3); RBC Red Blood Cell Count 1.87 M/uL (4.33-5.43)
[2020-10-21 13:54] LABS: Protime INR 1.19
[2020-10-21 14:11] LABS: Albumin 2.6 g/dL (3.4-5.0); Bilirubin Direct 1.1 mg/dL (0-0.2); Bilirubin Total 2.1 mg/dL (0.2-1.0); Magnesium 1.7 mg/dL (1.8-2.4); Potassium 3.1 mmol/L (3.5-5.1); Protein, Total 5.2 g/dL (6.4-8.2); Troponin (Emerg Dept Use Only) 0.05 ng/mL (0.0-0.045)
--- NOTE | 2020-10-21 14:13 | RAD REPORT ---
EXAM DESCRIPTION: RAD - Chest Single View - 10/21/2020 1:58 pm CLINICAL HISTORY: Weakness COMPARISON: None TECHNIQUE: AP portable chest image was obtained 10/21/2020 1:58 pm . FINDINGS: No peripheral mass consolidation. Lung markings are mildly prominent suspected to be basel ine. Minimal edema or infiltrate could be masked. Heart and vasculature are normal. No measurable ple ural effusion and no pneumothorax. No acute bony abnormality seen. No acute aortic findings suspected . IMPRESSION: Mild prominence of the interstitial pattern noted on this baseline study. Mild interstitial edema or infiltrate can be masked in this setting.
--- NOTE | 2020-10-21 14:19 | RAD REPORT ---
EXAM DESCRIPTION: CT - Head Brain Wo Cont - 10/21/2020 1:47 pm CLINICAL HISTORY: WEAKNESS, hypotension COMPARISON: No comparisons TECHNIQUE: Axial 5 mm thick images of the head were obtained without IV contrast. All CT scans are performed using dose optimization technique as appropriate and may include automated exposure control or mA/KV adjustment according to patient size. FINDINGS: No intracranial hemorrhage, mass, edema or shift of mid-line structures. No acute cortical based infarction. No cortical edema or sulcal effacement. Mild atrophy changes are present with vent ricles in proportion. No significant chronic ischemic change identified. Arterial tree calcifications also present. No abnormal extra-axial fluid collections. Mastoid air cells and visualized portions of the paranasal sinuses are clear. No acute bony findings. IMPRESSION: Negative non-contrast CT head examination for acute finding.
--- NOTE | 2020-10-21 14:53 | ER ---
Nurse's Notes [facility] Name: Mark Leon Age: 60 yrs Sex: Male : 1960 Arrival Date: 10/21/2020 Time: 12:45 Bed 20 Private MD: Diagnosis: Anemia, unspecified;Gastrointestinal hemorrhage, unspecified Presentation: 10/21 12:52 Chief complaint: Patient states: Low BP, weak today during dialysis BP 80/40's. Feeling ll1 lethargic and weak for 1 week. Noticed dark stool last week. Coronavirus screen: Client denies travel out of the [place] in the last 14 days. At this time, the client does not indicate any symptoms associated with coronavirus-19. The client reports previous COVID testing was negative. Ebola Screen: Patient denies travel to an Ebola-affected area in the 21 days before illness onset. Initial Sepsis Screen: Does the patient meet any 2 criteria? HR > 90 bpm. No. Patient's initial sepsis screen is negative. Does the patient have a suspected source of infection? No. Patient's initial sepsis screen is negative. Risk Assessment: Do you want to hurt yourself or someone else? Patient reports no desire to harm self or others. Onset of symptoms was October 14, 2020. 12:52 Method Of Arrival: Ambulatory ll1 12:52 Acuity: RAF 3 ll1 Historical: - Allergies: 12:52 PENICILLINS; ll1 - PMHx: 12:52 Dialysis; ll1 - PSHx: 12:52 hip replacement; Appendectomy; Tonsillectomy; ulcer repair; ll1 - Immunization history:: Flu vaccine is not up to date. - Social history:: Smoking status: Patient denies any tobacco usage or history of. Screenin:25 Abuse screen: Denies threats or abuse. Nutritional screening: No deficits noted. em Tuberculosis screening: No symptoms or risk factors identified. Fall Risk None identified. Assessment: 13:25 General: Appears in no apparent distress. comfortable, Behavior is calm, cooperative, em appropriate for age. Pain: Denies pain. Neuro: Level of Consciousness is awake, alert, obeys commands, Oriented to person, place, time, situation, Appropriate for age. Cardiovascular: Capillary refill < 3 seconds Patient's skin is warm and dry. Respiratory: Airway is patent Respiratory effort is even, unlabored, Respiratory pattern is regular, symmetrical, Denies cough, shortness of breath. GI: Abdomen is flat. Derm: Skin is intact, is fragile, is thin, Skin is dry, Skin is pale, Skin temperature is warm. Musculoskeletal: Capillary refill < 3 seconds, Range of motion: intact in all extremities. 14:45 Reassessment: Patient appears in no apparent distress at this time. Patient and/or em family updated on plan of care and expected duration. Pain level reassessed. Patient is alert, oriented x 3, equal unlabored respirations, skin warm/dry/pink. reports pain is coming back, provider notified. 15:45 Reassessment: pt request to not be pre-medicated with medication before transfusion, em provider notified. 16:00 Reassessment: double checked PRBC's with ASHLI Vela, instructed pt to verbalize any em chest pain, shortness of breath, or any other symptoms that are feel unusual. 17:00 Reassessment: Patient appears in no apparent distress at this time. Patient and/or em family updated on plan of care and expected duration. Pain level reassessed. Patient is alert, oriented x 3, equal unlabored respirations, skin warm/dry/pink. 18:16 Reassessment: blood transfusion complete, pending transfer from facility who has beds. em 19:23 Reassessment: patient informed about the plan for transfer. mg2 21:04 Reassessment: I will call the nurse of [facility] in 10 mins. mg2 21:40 Reassessment: report given to ASHLI Patricio of [facility]. mg2 Vital Signs: 12:52 BP 134 / 51; Pulse 93; Resp 17; Temp 99.9; Pulse Ox 100% ; Weight 81.65 kg; Height 5 ll1 ft. 8 in. (172.72 cm); Pain 0/10; 13:23 BP 131 / 59; Pulse 88; Resp 20; Pulse Ox 99% on R/A; em 14:00 BP 152 / 81; Pulse 79; Resp 16; Pulse Ox 100% on R/A; em 15:00 BP 122 / 55; Pulse 97; Resp 20; Pulse Ox 100% on R/A; em 15:50 BP 134 / 51; Pulse 99; Resp 16; Temp 98.6; Pulse Ox 100% on R/A; em 16:00 em 19:23 BP 129 / 57; Pulse 82; Resp 18; Temp 98.6; Pulse Ox 100% on R/A; Pain 0/10; mg2 12:52 Body Mass Index 27.37 (81.65 kg, 172.72 cm) ll1 16:00 please see blood transfusion flow sheet for VS em ED Course: 12:45 Patient arrived in ED. rg4 12:51 Arm band placed on Patient placed in an exam room, on a stretcher. ll1 12:54 Triage completed. ll1 12:58 Jayy Royal, RN is Primary Nurse. em 13:02 Tommie Knox NP is PHCP. pm1 13:02 John Queen MD is Attending Physician. pm1 13:25 Patient has correct armband on for positive identification. Bed in low position. Call em light in reach. Side rails up X2. Pulse ox on. NIBP on. 13:30 Initial lab(s) drawn, by va, sent to lab. T\T\S collected, blood band applied to patient. dh3 Inserted saline lock: 20 gauge in right forearm, using aseptic technique. Blood collected. 13:35 EKG done, by ED staff, reviewed by Tommie Knox NP. dh3 13:47 CT Head Brain wo Cont In Process Unspecified. EDMS 13:58 XRAY Chest (1 view) In Process Unspecified. EDMS 15:06 attempted to initiate a transfer with the Scoop Driver at [facility] at [phone]. 15:[address] Eduard Ness () [phone] with Tommie Carreon for patient eb transfer consultation. 15:30 Consent for blood and/or blood product transfusion explained by staff, signed by em patient. 15:47 [facility] called to decline the patient in transfer. the facility is at capacity. 16:29 initiated a transfer with Nette from the [facility]. eb 17:00 Inserted saline lock: 22 gauge in right antecubital area, using aseptic technique. em 17:25 Nette from [facility] called to decline patient in transfer for [facility]/ she will [facility]. 17:52 Nette from the [facility] called to deny patient at [facility] due to being at capacity. She will try [facility]. 19:23 No provider procedures requiring assistance completed. COVID swab sent to lab. Flu mg2 and/or RSV swab sent to lab. Patient transferred, IV remains in place. 22:27 Primary Nurse role handed off by Jayy Royal, RN jp3 Administered Medications: 17:00 Drug: ProTONIX 40 mg Route: IVP; Site: right antecubital; em 17:30 Follow up: Response: No adverse reaction em 17:00 Drug: ProTONIX 8 mg/hr Route: IV; Rate: 25 ml/hr; Site: right antecubital; em Outcome: 14:52 ER care complete, transfer ordered by MD. pm1 22:34 Transferred by ground EMS to [facility], Transfer form completed. mg2 22:34 Condition: stable 22:34 Instructed on the need for transfer, Demonstrated understanding of instructions. 22:34 Patient left the ED. mg2 Signatures: Dispatcher [employer] EDMS Jayy Royal, RN RN em Tommie Knox, VICKY RADIOLOGY PHYSICIAN ASSISTANT pm1 Blossom Flores 4 Debbie Winkler 3 Sunshine Lizarraga Michele, RN RN mg2 Darshan Cabral jp3 Ellen Baldwin RN RN ll1
--- NOTE | 2020-10-21 14:53 | EDPHYS ---
Physician Documentation [facility] Name: Mark Leon Age: 60 yrs Sex: Male : 1960 Arrival Date: 10/21/2020 Time: 12:45 Bed 20 Private MD: ED Physician John Queen HPI: 10/21 13:20 This 60 yrs old Unknown Male presents to ER via Ambulatory with complaints of Blood pm1 Pressure Problem. 13:20 The patient's problem is reported as weakness, that is generalized. Onset: The pm1 symptoms/episode began/occurred 1 week(s) ago. Duration: The episode is continuous. The symptoms are alleviated by blood transfusion helped. Patient presenting to [facility] with the same symptoms on 10/16 and was given 1 unit of blood. reports discharged home with 6.9 hgb on that day. Today he was at dialysis and he was at dialysis and his blood pressure was low, systolics in the 80s. At dialysis only had blood filtered without drawing any fluids off. Patient denies any current dark stools but noted some 1 week ago. History of ulcers requiring intervention in 2017.. Associated signs and symptoms: Pertinent positives: headache, shortness of breath, bilateral hand tremors, Pertinent negatives: abdominal pain, Fever, Cough. Severity of symptoms: in the emergency department the symptoms are worse. The patient has experienced similar episodes in the past, several times. Historical: - Allergies: 12:52 PENICILLINS; ll1 - PMHx: 12:52 Dialysis; ll1 - PSHx: 12:52 hip replacement; Appendectomy; Tonsillectomy; ulcer repair; ll1 - Immunization history:: Flu vaccine is not up to date. - Social history:: Smoking status: Patient denies any tobacco usage or history of. ROS: 13:20 Constitutional: Negative for fever, chills, and weight loss, ENT: Negative for injury, pm1 pain, and discharge, Cardiovascular: Negative for chest pain, palpitations, and edema. 13:20 Back: Negative for injury and pain, MS/Extremity: Negative for injury and deformity, Skin: Negative for injury, rash, and discoloration. 13:20 Respiratory: Positive for shortness of breath, Negative for cough. 13:20 Abdomen/GI: Positive for dark stool 1 week ago, Negative for abdominal pain, nausea, vomiting, and diarrhea, constipation. 13:20 Neuro: Positive for headache, generalized weakness, Negative for numbness, tingling. Exam: 13:20 Constitutional: This is a well developed, well nourished patient who is awake, alert, pm1 and in no acute distress. Head/Face: Normocephalic, atraumatic. 13:20 Eyes: Periorbital structures: appear normal, Pupils: no acute changes, Extraocular movements: no acute changes, Conjunctiva: pale, bilaterally. 13:20 Cardiovascular: Rate: normal, Rhythm: regular, Pulses: no pulse deficits are appreciated, Edema: pedal edema, that is very mild. 13:20 Respiratory: the patient does not display signs of respiratory distress, Respirations: normal. 13:20 Abdomen/GI: Inspection: abdomen appears normal, Palpation: abdomen is soft and non-tender, in all quadrants. 13:20 Skin: Appearance: normal except for affected area, Color: pale. 13:20 Neuro: Exam negative for acute changes, Orientation: is normal, Mentation: is normal, Motor: is normal, moves all fours. 14:16 Abdomen/GI: Rectal exam: rectal tone normal, Stool: guaiac positive, black, soft. pm1 15:00 Radiologist reports: Ct brain negative pm1 Vital Signs: 12:52 BP 134 / 51; Pulse 93; Resp 17; Temp 99.9; Pulse Ox 100% ; Weight 81.65 kg; Height 5 ll1 ft. 8 in. (172.72 cm); Pain 0/10; 13:23 BP 131 / 59; Pulse 88; Resp 20; Pulse Ox 99% on R/A; em 14:00 BP 152 / 81; Pulse 79; Resp 16; Pulse Ox 100% on R/A; em 15:00 BP 122 / 55; Pulse 97; Resp 20; Pulse Ox 100% on R/A; em 15:50 BP 134 / 51; Pulse 99; Resp 16; Temp 98.6; Pulse Ox 100% on R/A; em 16:00 em 19:23 BP 129 / 57; Pulse 82; Resp 18; Temp 98.6; Pulse Ox 100% on R/A; Pain 0/10; mg2 12:52 Body Mass Index 27.37 (81.65 kg, 172.72 cm) ll1 16:00 please see blood transfusion flow sheet for VS em MDM: 13:05 Patient medically screened. pm1 14:51 Data reviewed: vital signs. Data interpreted: Pulse oximetry: on room air is 99 %. pm1 Interpretation: normal. Counseling: I had a detailed discussion with the patient and/or guardian regarding: the historical points, exam findings, and any diagnostic results supporting the discharge/admit diagnosis, lab results, radiology results, the need to transfer to another facility, [facility] does not immediately have the required specialist, No GI collections analyst. 14:51 ED course: Patient requested transfer to [facility]. Dr. Jimi Ness is his pm1 GI. 15:19 Physician consultation: Eduard Ness regarding consult, patient's condition, and will pm1 see patient in [facility] or his associate will see him in [facility]. 15:24 ED course: Patient just informed us that he mistakenly forgot that Dr. Dubose is now his pm1 GI at [facility] after I just finished talking to Dr. Ness. 10/21 13:19 Order name: Basic Metabolic Panel; Complete Time: 14:12 pm1 10/21 13:19 Order name: CBC with Diff; Complete Time: 15:42 pm1 10/21 13:19 Order name: LFT's; Complete Time: 14:12 pm1 10/21 13:19 Order name: Magnesium; Complete Time: 14:12 pm1 10/21 13:19 Order name: NT PRO-BNP; Complete Time: 14:12 pm1 10/21 13:19 Order name: PT-INR; Complete Time: 14:00 pm1 10/21 13:19 Order name: Troponin (emerg Dept Use Only); Complete Time: 14:12 pm1 10/21 13:19 Order name: Type And Screen pm1 10/21 14:40 Order name: Packed RBC Leukored EDMS 10/21 14:48 Order name: ABO/RH no charge; Complete Time: 14:51 EDMS 10/21 15:16 Order name: CBC Smear Scan; Complete Time: 15:42 EDMS 10/21 18:29 Order name: Flu; Complete Time: 21:22 pm1 10/21 20:24 Order name: SARS-COV-2 RT PCR; Complete Time: 20:25 EDMS 10/21 13:19 Order name: XRAY Chest (1 view); Complete Time: 14:14 pm1 10/21 13:19 Order name: EKG; Complete Time: 13:20 pm1 10/21 13:19 Order name: Cardiac monitoring; Complete Time: 13:22 pm1 10/21 13:19 Order name: EKG - Nurse/Tech; Complete Time: 13:42 pm1 10/21 13:19 Order name: IV Saline Lock; Complete Time: 13:22 pm1 10/21 13:19 Order name: Labs collected and sent; Complete Time: 13:42 pm1 10/21 13:19 Order name: O2 Per Protocol; Complete Time: 13:21 pm1 10/21 13:19 Order name: O2 Sat Monitoring; Complete Time: 13:21 pm1 10/21 13:19 Order name: CT Head Brain wo Cont; Complete Time: 14:51 pm1 10/21 14:11 Order name: Transfuse; Complete Time: 16:24 pm1 10/21 16:32 Order name: NPO; Complete Time: 16:42 pm1 Administered Medications: 17:00 Drug: ProTONIX 40 mg Route: IVP; Site: right antecubital; em 17:30 Follow up: Response: No adverse reaction em 17:00 Drug: ProTONIX 8 mg/hr Route: IV; Rate: 25 ml/hr; Site: right antecubital; em Disposition: 10/22 07:07 Co-signature as Attending Physician, John Queen MD. rn 07:26 I agree with the assessment and plan of care. PA/MANAGER COMMISSION's history reviewed, patient rn interviewed, and examined. Attestation: The patient's history, exam findings, diagnostics, and a summary of any interventions or procedures was reviewed in detail with Tommie Knox NP. Disposition: 10/21/20 14:52 Transfer ordered to [facility]. Diagnosis are Gastrointestinal hemorrhage, unspecified, Anemia, unspecified. - Reason for transfer: Specialty. - Accepting physician is [facility]. - Condition is Stable. - Problem is new. - Symptoms have improved. Signatures: Dispatcher [employer] [facility] Jayy Royal, RN RN John Nix MD MD rn Marinas, Patrick, NP MANAGER COMMISSION pm1 Parvez Benton RN RN mg2 Denny, Lynsay, RN RN ll1 Corrections: (The following items were deleted from the chart) 10/21 19:35 18:54 CORONAVIRUS+MR.LAB.BRZ ordered. EDMS EDMS 22:34 14:52 10/21/2020 14:52 Transfer ordered to [facility]. Diagnosis is mg2 Gastrointestinal hemorrhage, unspecifiedAnemia, unspecified. Reason for transfer: Specialty. Accepting physician is [facility]. Condition is Stable. Problem is new. Symptoms have improved. pm1
[2020-10-21 15:17] LABS: Anisocytosis 1+; Blood Morphology Comment NOTED (NOT SEEN); Platelet Estimate DECR; Poikilocytosis 1+; White Blood Cell Scan OK (OK)
[2020-10-21] MEDS ORDERED: NA CHLORIDE 0.9% 250 ML ONE (15:35)
[2020-10-21] MEDS ORDERED: PANTOPRAZOLE INJ 80 MG in NA CHLORIDE 0.9% 250 ML IV ONE (17:00)
[2020-10-21 22:55] VITALS: O2SAT 100
[2020-10-21 22:58] VITALS: TEMP 98.6
[2020-10-21 22:59] VITALS: BP 129/57
--- NOTE | 2020-10-22 16:08 | EKG ---
Test Date: 2020-10-21 Test Time: 13:34:06 Manager Law: ELVIS MEASUREMENT RESULTS: Intervals: Rate: 87 [place]: QRSD: 96 QT: 424 QTc: 510 [place]: P: W[place]: QRS: 48 T: 44 INTERPRETIVE STATEMENTS: Accelerated Junctional rhythm Prolonged QT Abnormal ECG No previous ECG available for comparison Electronically Signed On 10-22-20 16:05:40 CERAMICS INSTRUCTOR by Kenn Mchugh
== END 2020-10-21 22:34 | disposition short-term general hospital (02) ==
LOC: ER 12:42
PROC: 30233N1 Transfusion of Nonautologous Red Blood Cells into Peripheral Vein, Percutaneous Approach (ICD-10-PCS; principal; 2020-10-21)
DX: D64.9 Anemia, unspecified (principal); K92.2 Gastrointestinal hemorrhage, unspecified; Z20.828 Contact with and (suspected) exposure to other viral communicable diseases; Z99.2 Dependence on renal dialysis; Z88.0 Allergy status to penicillin
CPT/HCPCS: 93005; 85025; 80048; 36415; 86900; 83735; 86850; 85610; 86901; 80076; 84484; 83880; 87804 ×2; 70450; 71045; 96374; 99285; 36430; U0003; C9113; P9016; J7050 ×2